=== PATIENT | female | born 1960 | race African-American/Black ===

== ENCOUNTER → 2020-08-26 11:26 | Outpatient (CLI) | payer MEDICARE, BC, SELFPAY ==
--- NOTE | ~2020-08-26 | XR_ITS ---
XR chest 2V DATE: 08/26/2020 12:49 INDICATION: Hypoxemia TECHNIQUE: PA and lateral views COMPARISON: 09/25/2018 PA and lateral chest FINDINGS: There is cardiomegaly. There is pulmonary vascular congestion and redistribution, mild prom inence of the fissures, consistent with subpleural edema Aortic arch calcification, mild aortic unfolding.. No pulmonary infiltrate or consolidation or pleural effusion or pneumothorax. There is a vascular stent overlying the left subclavian artery. Diffuse osteopenia. IMPRESSION: Cardiomegaly, pulmonary vascular congestion and redistribution and pulmonary subpleural e elaina, consistent with mild congestive heart failure Reviewed, dictated and finalized at location A. IMPRESSION: Cardiomegaly, pulmonary vascular congestion and redistribution and pulmonary subpleural edema, consistent with mild congestive heart failure
== END ==
PROVIDERS: PCP Family Medicine; Visit Provider Internal Medicine Nephrology
DX: N18.6 End stage renal disease (principal); R06.02 Shortness of breath; R09.02 Hypoxemia; I51.7 Cardiomegaly; R09.89 Other specified symptoms and signs involving the circulatory and respiratory systems
CPT/HCPCS: 71046

== ENCOUNTER → 2020-08-30 15:57 | Outpatient (CLI) | payer MEDICARE, BC, SELFPAY ==
--- NOTE | ~2020-08-30 | US_ITS ---
EXAMINATION: US thyroid EXAM DATE: 08/30/2020 16:23 INDICATION: E11.9 - Type 2 diabetes mellitus without complications. TECHNIQUE: Multiple grayscale and Doppler images of the thyroid were obtained (by a technologist who performed the scan) and subsequently reviewed. Individual nodules and recommendations may be reporte d in accordance with TI-RADS system as designated by the 2017 ACR White Paper TI-RADS committee. Comp jessica is made to prior examination from 04/12/2011. FINDINGS: The right thyroid lobe measures 6.9 x 3.8 x 2.9 cm, the left measuring 6.0 x 2.5 x 2.4 cm. There are multiple thyroid nodules again identified with varying imaging characteristics. There was a previously biopsied nodule in the lower pole of the right thyroid lobe, likely the nodule with some peripheral calcification on this exam. Multiple nodules appear to have increased in size c ompared to that study. The largest dominant nodule is in the right thyroid lobe superficially measuring 2.7 x 1.7 x 2.8 cm, isoechoic category TR 3, may be the nodule which on previous exam measured about 1 cm in maximal dime nsion. This is not the nodule which was biopsied. IMPRESSION: 1. Multinodular goiter with increase in size of thyroid and multiple nodules compared to 2012. 2. Dominant nodule in right thyroid lobe superficially could be considered for biopsy (this is diffe rent from previously biopsied right thyroid lobe nodule. Reviewed, dictated and finalized at location A. IMPRESSION: 1. Multinodular goiter with increase in size of thyroid and multiple nodules c ompared to 2012. 2. Dominant nodule in right thyroid lobe superficially could be considered for biopsy (this is different from previously biopsied right thyroid lobe nodule.
== END ==
PROVIDERS: PCP Family Medicine; Visit Provider Internal Medicine Endocrinology, Diabetes & Metabolism
DX: E11.9 Type 2 diabetes mellitus without complications (principal); E04.2 Nontoxic multinodular goiter
CPT/HCPCS: 76536

== ENCOUNTER 2020-10-01 13:11 | Outpatient (CLI) | payer MEDICARE, BC, SELFPAY ==
--- NOTE | ~2020-10-01 | US_ITS ---
EXAMINATION: US FNA w image guidance DATE: 10/01/2020 14:31 INDICATION: Nontoxic multinodular goiter with enlarging 2.7 cm TI RADS 3 right thyroid nodule. TECHNIQUE: A time-out was performed to verify the patient's name, date of , and procedure to be performed . The procedure and its benefits and risks were discussed with the patient. Risks specifically discus sed included bleeding and infection. The patient understood the risks and agreed to proceed. The neck was prepped and draped in the usual sterile manner. 6 mL 1% lidocaine was used for local anesthesia . 6 passes were made with a 25G needle into the lesion. Appropriate needle location was documented with continuous sonographic guidance. The specimens were passed to the distribution engineering technologist in the room. A sterile bandage was applied. There were no immediate complications. FINDINGS: Grayscale ultrasound images demonstrate biopsy needles advanced into a 2.9 x 2.5 x 1.8 cm predominant solid isoechoic wider than tall TI RADS 3 right thyroid nodule with smooth margins and without echog enic foci. IMPRESSION: 1. Successful ultrasound-guided fine needle aspiration of a 2.9 cm TI RADS3 right thyroid nodule. Reviewed, dictated and finalized at location A. IMPRESSION: 1. Successful ultrasound-guided fine needle aspiration of a 2.9 cm TI RADS3 ri ght thyroid nodule.
== END 2020-10-01 13:12 | disposition home or self-care (01) ==
LOC: ANHIMG 13:16
PROVIDERS: PCP Family Medicine; Visit Provider Internal Medicine Endocrinology, Diabetes & Metabolism
DX: E04.2 Nontoxic multinodular goiter (principal)
CPT/HCPCS: 10005; 88173; 88305

== ENCOUNTER 2020-10-25 02:11 | Day surgery (SDC) | payer MEDICARE, BC, SELFPAY ==
[2020-10-15 14:56] VITALS: BMI 28.2
[2020-10-25 11:36] VITALS: BP 186/67; PULSE 68; RESP 20; TEMP 36.4; O2SAT 96; BMI 31.8
[2020-10-25] MEDS: SODIUM CHLORIDE 0.9% IV 500 ML 10 ML IV CONT (11:48)
--- NOTE | 2020-10-25 11:48 | WPDANESEPPF ---
Anes - Initial Pre Proc Eval Procedure: Operation Date: 10/25/20 12:45 Proposed Procedures p Screening Colonoscopy - Gerard Shrestha MD Date/Time: 10/25/20 11:48 Surgeon: Gerard Shrestha MD Pre Op Diagnosis: hx of colon polyps Z86.010 Patient Data Age: 60 Gender: F Height: 1.47 m Weight: 69.2 kg Last Vital Signs Temp 36.4 C L 10/25/20 11:36 Pulse 68 10/25/20 11:36 Resp 20 10/25/20 11:36 BP 186/67 H 10/25/20 11:36 Pulse Ox 96 10/25/20 11:36 Allergies Allergy/AdvReac Type Severity Reaction Status Date / Time adhesive tape Allergy Unknown PAPER TAPE Verified 10/25/20 11:34 Home Medications Medication Instructions Recorded Confirmed Type travoprost 0.004 % eye drops 1 drop EACH EYE QPM #2.5 ml 12/18/18 10/15/20 Rx blood sugar diagnostic #200 each 04/29/19 10/15/20 Rx brimonidine 0.2 %-timolol 0.5 % 1 drop EACH EYE Q12H #15 ml 04/29/19 10/15/20 Rx eye drops nifedipine 90 mg tablet,extended 90 mg PO DAILY #90 tablet 04/19/20 10/15/20 Rx release 24 hr pantoprazole 40 mg tablet,delayed 40 mg PO QAM #90 tablet 04/19/20 10/15/20 Rx release pen needle, diabetic 32 gauge x #50 each 08/13/20 10/15/20 Rx 3/16 insulin degludec [Tresiba 14 unit SUB-Q DAILY 10/15/20 10/15/20 History FlexTouch U-100] carvedilol 25 mg tablet 25 mg PO BID #180 tablet 10/21/20 Rx furosemide 80 mg tablet 80 mg PO BID #180 tablet 10/21/20 Rx Patient hx anesthesia problems: none Family hx anesthesia problems: none PMFSH Past Medical History Medical History (Updated 08/19/20 @ 15:15 by Coral Holland) Accelerated hypertension AV fistula CKD (chronic kidney disease) ESRD (end stage renal disease) on dialysis Essential (primary) hypertension GERD (gastroesophageal reflux disease) History of colon polyps IDDM (insulin dependent diabetes mellitus) Multinodular goiter Nephropathy Retinopathy Type 2 diabetes mellitus Upper back pain Uterine sarcoma 2000 Vitamin D deficiency Surgical History Surgical History History of (~1981) History of hysterectomy 2000 Family History Family History (Updated 08/19/20 @ 15:16 by Coral Holland) Sibling Diabetes mellitus Father Diabetes mellitus Other Breast cancer Mother Diabetes mellitus Sibling Diabetes mellitus Father Diabetes mellitus Mother Diabetes mellitus Sibling Diabetes mellitus Other Alcoholism Asthma Family history of malignant neoplasm of breast in first degree relative Hypertension Thyroid disease Social History Social History Smoking status: Never smoker Second hand tobacco smoke exposure: No Alcohol intake: never Substance use: never Substance use type: does not use Living arrangements: alone Gender identity (if verbalized by the patient): Female Spiritual care concerns: No Anes - Eval Final PreProcedure Day of Procedure 10/25/20 11:48 Patient weight: obese Heart: regular rate and rhythm Lungs: clear to auscultation and normal air movement Airway: Mallampati scale class II Neurological: alert and oriented Last oral intake: >/= 8 hours ASA classification: IV Emergent: no Anesthetic plan: proceed Anesthesia type and monitoring: general GIVS Informed Consent: The patient's anesthetic plan and its attendant risks and benefits were discussed with the patient/family/POA. Questions were solicited and answers provided to the satisfaction of the patient/family/POA.
--- NOTE | 2020-10-25 12:34 | PM.HPGS ---
History of Present Illness History of Present Illness Consent: Risks, benefits, and alternatives have been discussed and questions answered. Patient agrees to proceed with procedure. Chief complaint: hx of colon polyps Z86.010 Narrative: Shoshana Long is a 60 year old female here for screening colonoscopy, last one over 5 years ago. Review of Systems Constitutional: Constitutional: Denies headache(s) and Denies weakness Eyes: Eyes: Denies blurry vision ENT: Reports Normal hearing present, Denies headache(s) and Denies neck pain Cardiovascular: Cardiovascular: Denies chest pain and Denies dyspnea Respiratory: Respiratory: Denies dyspnea Gastrointestinal: Gastrointestinal: Reports no additional gastrointestinal complaints Genitourinary: Genitourinary: Denies dysuria Musculoskeletal: Musculoskeletal: Denies neck pain Integumentary/Breasts: Skin/Breast: Denies dry skin Neurologic: Reports Normal hearing present, Denies headache(s) and Denies weakness Psychiatric: Psychiatric: Denies anxiety Endocrine: Endocrine: Denies change in body appearance Hematologic/Lymphatic: Hematologic/Lymphatic: Denies easy bleeding Allergic/Immunologic: Allergic/Immunologic: Denies urticaria PMFSH Past Medical History Medical History (Updated 10/25/20 @ 12:35 by Gerard Shrestha MD) Accelerated hypertension AV fistula CKD (chronic kidney disease) Colon cancer screening ESRD (end stage renal disease) on dialysis Essential (primary) hypertension GERD (gastroesophageal reflux disease) History of colon polyps IDDM (insulin dependent diabetes mellitus) Multinodular goiter Nephropathy Retinopathy Type 2 diabetes mellitus Upper back pain Uterine sarcoma 2000 Vitamin D deficiency Surgical History Surgical History History of (~1981) History of hysterectomy 2000 Family History Family History (Updated 08/19/20 @ 15:16 by Coral Holland) Sibling Diabetes mellitus Father Diabetes mellitus Other Breast cancer Mother Diabetes mellitus Sibling Diabetes mellitus Father Diabetes mellitus Mother Diabetes mellitus Sibling Diabetes mellitus Other Alcoholism Asthma Family history of malignant neoplasm of breast in first degree relative Hypertension Thyroid disease Social History Social History Smoking status: Never smoker Second hand tobacco smoke exposure: No Alcohol intake: never Substance use: never Substance use type: does not use Living arrangements: alone Gender identity (if verbalized by the patient): Female Spiritual care concerns: No Meds Home Medications and Allergies Home Medications Medication Instructions Recorded Confirmed Type travoprost 0.004 % eye drops 1 drop EACH EYE QPM #2.5 ml 12/18/18 10/15/20 Rx blood sugar diagnostic #200 each 04/29/19 10/15/20 Rx brimonidine 0.2 %-timolol 0.5 % 1 drop EACH EYE Q12H #15 ml 04/29/19 10/15/20 Rx eye drops nifedipine 90 mg tablet,extended 90 mg PO DAILY #90 tablet 04/19/20 10/15/20 Rx release 24 hr pantoprazole 40 mg tablet,delayed 40 mg PO QAM #90 tablet 04/19/20 10/15/20 Rx release pen needle, diabetic 32 gauge x #50 each 08/13/20 10/15/20 Rx 04/27 insulin degludec [Tresiba 14 unit SUB-Q DAILY 10/15/20 10/15/20 History FlexTouch U-100] carvedilol 25 mg tablet 25 mg PO BID #180 tablet 10/21/20 Rx furosemide 80 mg tablet 80 mg PO BID #180 tablet 10/21/20 Rx Allergies Allergy/AdvReac Type Severity Reaction Status Date / Time adhesive tape Allergy Unknown PAPER TAPE Verified 10/25/20 11:34 Vital Signs Vital Signs - 24 hr 10/25/20 11:36 Temperature 97.5 F L Pulse Rate 68 Respiratory Rate 20 Blood Pressure 186/67 H Pulse Oximetry 96 Exam Const: General: comfortable and no acute distress HENMT: General nose exam: Normal nares present Eyes:
[2020-10-25 13:21] VITALS: BP 143/61; PULSE 59; RESP 20; O2SAT 98
[2020-10-25 13:31] VITALS: BP 143/60; PULSE 65; RESP 21; O2SAT 97
[2020-10-25 13:33] LABS: Glucose Point of Care 89 mg/dl (65-105)
[2020-10-25 13:41] VITALS: BP 172/79; PULSE 63; RESP 17; O2SAT 99
== END 2020-10-25 13:58 | disposition home or self-care (01) ==
PROVIDERS: PCP Family Medicine; Visit Provider Internal Medicine Gastroenterology
PROC: 0DJD8ZZ Inspection of Lower Intestinal Tract, Via Natural or Artificial Opening Endoscopic (ICD-10-PCS; CPT 45378; principal; 2020-10-25 12:45)
DX: Z12.11 Encounter for screening for malignant neoplasm of colon (principal); K63.5 Polyp of colon; K57.30 Diverticulosis of large intestine without perforation or abscess without bleeding; K64.8 Other hemorrhoids; E11.22 Type 2 diabetes mellitus with diabetic chronic kidney disease; I12.0 Hypertensive chronic kidney disease with stage 5 chronic kidney disease or end stage renal disease; N18.6 End stage renal disease; E11.319 Type 2 diabetes mellitus with unspecified diabetic retinopathy without macular edema; Z85.42 Personal history of malignant neoplasm of other parts of uterus; Z79.4 Long term (current) use of insulin; E66.9 Obesity, unspecified; Z68.31 Body mass index [BMI] 31.0-31.9, adult
CPT/HCPCS: 45385; 45381; 82948; 88305; J2001; J2704; J7040

== ENCOUNTER 2021-04-11 23:17 | Inpatient (IN) | payer MEDICARE, SELFPAY ==
--- NOTE | ~2021-04-11 | XR_ITS ---
XR chest 1V portable 04/12/2021 00:14 Indication: Dyspnea. Procedure: AP portable chest Comparison: 08/26/2020 Findings: Interval development of diffuse bilateral airspace disease. Cardiomegaly. Small left pleura l effusion. No pneumothorax. No acute osseous abnormality. Impression: 1: Diffuse bilateral airspace disease which may represent edema or pneumonia. 2: Cardiomegaly. Reviewed, dictated and finalized at location A. EDICAL REPAIR TECHNICIAN Impression: 1: Diffuse bilateral airspace disease which may represent edema or pneumonia. 2: Cardiomegaly.
[2021-04-11 23:14] VITALS: BP 178/77; PULSE 84; RESP 22; O2SAT 94
[2021-04-11 23:24] VITALS: O2SAT 94
--- NOTE | 2021-04-11 23:27 | ECG_ITS ---
Measurements Intervals [place] Rate: 81 P: 67 DE: 148 QRS: 8 QRSD: 102 T: -78 QT: 406 QTc: 474 Interpretive Statements SINUS RHYTHM ST DEVIATION AND T-WAVE ABNORMALITY, CONSIDER ISCHEMIA COMPARED TO ECG 09/23/2018 21:13:44 NO SIGNIFICANT CHANGES Electronically Signed On 04-12-2021 12:22:34 DIRECTOR FOOD SAFETY by Negro Presley M.D.
[2021-04-11 23:37] LABS: Basophils Absolute Auto 0.1 K/mm3 (0.0-0.1); Basophils Percent Auto 0.5 % (0.2-1.2); Eosinophils Absolute Auto 0.3 K/mm3 (0-0.3); Eosinophils Percent Auto 2.7 % (0-4.4); Hematocrit 32.6 % (37.0-47.0); Hemoglobin 10.7 g/dL (12.0-15.0); Immature Granulocyte Absolute 0.09 K/mm3 (0.00-0.031); Immature Granulocyte Percent A 0.7 % (0-0.5); Lymphocytes Absolute Auto 0.95 K/mm3 (0.9-3.2); Lymphocytes Percent Auto 7.9 % (18.3-44.2); Mean Corpuscular HGB Conc 32.8 g/dl (32-36); Mean Corpuscular Hemoglobin 30.2 pg (26-34); Mean Corpuscular Volume 92.1 fl (80-100); Mean Platelet Volume 9.8 fl (7.4-10.4); Monocytes Absolute Auto 0.7 K/mm3 (0.1-0.6); Monocytes Percent Auto 6.1 % (2.6-8.5); Neutrophils Absolute Auto 9.9 K/mm3 (1.3-6.7); Neutrophils Percent Auto 82.1 % (45.5-73.1); Platelet Count Result 287 k/mm3 (150-375); Red Blood Count 3.54 M/mm3 (4.2-5.4); Red Cell Distribution Width 13.7 % (11.5-14.5); White Blood Count 12.1 K/mm3 (4.5-10.0)
--- NOTE | 2021-04-11 23:44 | ED.SOB ---
HPI - SOB/Dyspnea General Chief Complaint: Shortness of Breath/Dyspnea Stated Complaint: SOB Source: patient, EMS, RN notes reviewed and old records reviewed Mode of arrival: EMS Limitations: no limitations History of Present Illness HPI Narrative: This is a 61 year old female with history of hypertension and ESRD on dialysis who presents for evaluation of shortness of breath. She developed shortness of breathing yesterday. She was walking to her car at an event and she became short of breath. She had to stop and catch her breath. She states this is abnormal for her. Her shortness of breath has continued and it worsened tonight. EMS found patient to have an oxygen saturation of 80% on room air, so she was placed on 4 L NC. She denies associated chest pain, fever, wheezing, nausea, or vomiting. She may have runny nose but no cough. She had similar episode on her initial diagnosed of kidney disease. She denies increased swelling. Dialysis is performed Sunday, and Sunday. She has not missed her treatments and she is due tomorrow for dialysis. Her distribution manager is Dr. Cox. Related Data Home Medications Medication Instructions Recorded Confirmed insulin degludec [Tresiba 10 unit SUB-Q HS 10/15/20 04/12/21 FlexTouch U-100] Allergies Allergy/AdvReac Type Severity Reaction Status Date / Time adhesive tape Allergy Unknown PAPER TAPE Verified 04/11/21 23:25 Review of Systems Review of Systems: All systems reviewed & are unremarkable except as noted in HPI and below PMFSH Past Medical History Medical History (Updated 04/12/21 @ 07:25 by Niya Alston MD) Accelerated hypertension Colon cancer screening ESRD (end stage renal disease) on dialysis Sunday managed by Dr. Cox Essential (primary) hypertension GERD (gastroesophageal reflux disease) Glaucoma IDDM (insulin dependent diabetes mellitus) Multinodular goiter Nephropathy Retinopathy Type 2 diabetes mellitus Upper back pain Uterine sarcoma 2000 Vitamin D deficiency Surgical History Surgical History (Updated 04/12/21 @ 07:23 by Serena Rodríguez DO) AV fistula History of (~1981) History of colonoscopy with polypectomy History of hysterectomy 2000 Status post cataract extraction of both eyes with insertion of intraocular lens Family History Family History Sibling Diabetes mellitus Father Diabetes mellitus Other Breast cancer Mother Diabetes mellitus Sibling Diabetes mellitus Father Diabetes mellitus Mother Diabetes mellitus Sibling Diabetes mellitus Other Alcoholism Asthma Family history of malignant neoplasm of breast in first degree relative Hypertension Thyroid disease Social History Social History Smoking status: Never smoker Second hand tobacco smoke exposure: No Alcohol intake: never Substance use: never Substance use type: does not use Gender identity (if verbalized by the patient): Female Spiritual care concerns: No Exam Const: General: alert and ill appearing Orientation/consciousness: patient oriented x3 Other: mild respiratory Eyes: EOM: EOMs intact bilaterally Resp: Effort & Inspection: tachypneic Auscultation: rales bilateral Cardio: Rate: regular rate Rhythm: regular rhythm Heart sounds: no murmurs GI: GI Palp: Yes Soft to palpation, No Tenderness to palpation present (GI) and No Guarding due to palpation present (GI) Auscultation: normal bowel sounds Skin: General skin exam: normal color Rashes: no rashes Neuro: General: patient oriented x3, moves all extremities and CN's II-XI intact bilaterally Extrem: General: normal to inspection Psych: Mental Status: mental status grossly normal Affect: normal affect Course Reevaluation(s) Reevaluation #1: Patient presented with worsening shortness. Likely d
[2021-04-11 23:47] LABS: Alanine Aminotransferase 19 U/L (4-35); Albumin Level 4.5 g/dL (3.5-5.1); Alkaline Phosphatase 123 U/L (38-126); Anion Gap 11 mmol/L (8-16); Aspartate Amino Transferase 25 U/L (14-36); Bilirubin,Total 0.6 mg/dL (0.2-1.3); Blood Urea Nitrogen 69 mg/dL (7-17); Calcium 9.6 mg/dL (8.4-10.2); Carbon Dioxide 24 mmol/L (22-30); Chloride 103 mmol/L (98-107); Estimated Glomerular Filt Rate 5; Glucose 267 mg/dL (65-110); Potassium 5.2 mmol/L (3.4-5.0); Sodium 138 mmol/L (137-145)
[2021-04-11 23:50] LABS: Alveolar/Arterial O2 Gradient 145.8 mmHg; Base Excess ABG -4.6 mEq/l (+/-2.0); Carboxyhemoglobin 0.2 % THb (0-2.0); Device NASAL CANNULA; Fractional Inspired Oxygen 36 %; HCO3 ABG 18.5 mEq/l (22.0-26.0); Methemoglobin ABG 0.1 %THb (0-1.5); Modified Allen's Test Pass; Oxygen Content ABG 13.9 %vol (16.0-22.0); Oxygen Saturation ABG 96.3 % (95.0-100.0); Oxyhemoglobin 93.3 % THb (90.0-100.0); PCO2 ABG 27.6 mmHg (35.0-45.0); PO2 ABG 78.9 mmHg (80.0-100.0); PO2 FiO2 Ratio Arterial Blood 2.19 %; Reduced Hemoglobin 6.4 %THb (0-5.0); Site Drawn RIGHT RADIAL; Total Hemoglobin 10.5 g/dL (12.0-18.0); pH ABG 7.443 (7.350-7.450)
[2021-04-11 23:52] LABS: Prothrombin Time 12.9 Seconds (11.1-14.7)
[2021-04-11 23:53] LABS: Partial Thromboplastin Time 33.5 SECONDS (22.3-36.8)
[2021-04-11 23:58] LABS: NT Pro B Type Natriuretic Pept 23200 pg/mL (5-100); Troponin I 0.015 ng/mL (0.000-0.034)
[2021-04-12] VITALS (32 sets, daily range): BP systolic 122–181; BP diastolic 48–87; PULSE 75–96; RESP 17–28; TEMP 36.1–37.1; O2SAT 92–98; BMI 31.2
--- NOTE | 2021-04-12 | ECHO_ITS ---
Patient Info Name: Shoshana Long Age: 61 years : 1960 Gender: Female Ht: 58 in Wt: 149 lbs BSA: 1.69 m2 HR: 93 bpm BP: 152 / 51 mmHg Technical Quality: Good Exam Date: 04/12/2021 9:18 AM Exam Location: [facility] Patient Status: Outpatient Admit Date: 04/12/2021 Staff Ordering Physician: Serena Rodríguez DO Living Manager: Kana Castillo RDCS, RT Attending Provider: Serena Rodríguez DO Referring Physician: Anne CASTELLANO; Exam Type: CA echo doppler color flow Study Info Indications I50.9 - Heart failure, unspecified Complete two-dimensional, color flow and Doppler transthoracic echocardiogram is performed. Strain analysis performed. Summary 1. Complete two-dimensional, color flow and Doppler transthoracic echocardiogram is performed. 2. Left ventricular chamber dimension is normal. 3. Left ventricular systolic function is normal, estimated at 65-70%. 4. The left ventricular diastolic function is abnormal. 5. E/e' 25 is significantly elevated. 6. Global longitudinal strain is abnormal at -15.8%. 7. Left atrial chamber dimension is mildly enlarged. 8. The mitral valve has moderately calcified annulus. 9. There is mild mitral valve regurgitation. Left Ventricle E/e' 25 is significantly elevated. Global longitudinal strain is abnormal at -15.8%. Left ventricular chamber dimension is normal. Left ventricular systolic function is normal, estimated at 65-70%. The left ventricular diastolic function is abnormal. Right Ventricle Right ventricular systolic function is normal and with normal TAPSE 2.2 cm. Right ventricular chamber dimension is normal. Left Atria Left atrial chamber dimension is mildly enlarged. Right Atria Right atrial chamber dimension is normal. Aortic Valve The aortic valve is trileaflet. There is no aortic valve stenosis. There is no aortic valve regurgitation. Pulmonic Valve There is no pulmonic regurgitation. Mitral Valve The mitral valve has moderately calcified annulus. There is no mitral valve stenosis. There is mild mitral valve regurgitation. Tricuspid Valve There is no tricuspid valve regurgitation. Pericardium/Pleural There is no pericardial effusion. Inferior Vena Cava Normal inferior vena cava with >50% collapse upon inspiration consistent with normal right atrial pressure, 5 mmHg. Aorta The aortic root size at the sinus of Valsalva is normal. Left Ventricular Outflow Tract Name Value Normal LVOT 2D LVOT Diameter 1.9 cm LVOT Doppler LVOT Peak Gradient 7 mmHg LVOT Mean Gradient 4 mmHg LVOT VTI 26 cm LVOT VTI/AV VTI Ratio 0.7 LVOT Stroke Volume 77 ml LVOT CO 7.3 l/min LVOT CI 4.3 l/min/m2 Mitral Valve Name Value Normal MV Do
[2021-04-12] MEDS: NITROGLYCERIN OINTMENT 1 INCH DOSE TRANSDERM ×5 (00:26→23:50)
[2021-04-12] MEDS: FUROSEMIDE INJ 40 MG/4 ML VIAL IV PUSH ×3 (00:29→20:23)
[2021-04-12] MEDS: hydrALAZINE HCL 20 MG/ML VIAL IV PUSH (01:25)
[2021-04-12 02:32] LABS: SARS-CoV-2 RNA PCR Negative
[2021-04-12 02:50] LABS: Glucose Point of Care 175 mg/dl (65-105)
--- NOTE | 2021-04-12 05:06 | ADMGEN ---
This patient, Shoshana Long, was admitted to Medical Room 240-. Patient/family oriented to hospital policies and general routines including ID bracelet, bed and alarms, visiting hours, pain management, procedures, bathroom and other care routines, personal items, smoking policy, room service/diet, and visiting hours. Information on how to activate the Rapid Response Team has been discussed. Patient/Family are encouraged to report perceived risks to care and to ask questions if they do not understand what they are told or what they should do.
--- NOTE | 2021-04-12 06:21 | PM.IMHP ---
H&P: HPI History of Present Illness Date/Time: 04/12/21 06:21 Chief Complaint: shortness of breath Narrative: 61-year-old female with past medical history of hypertension, insulin-dependent diabetes mellitus, and end-stage renal disease on hemodialysis who presented to the ER with 24 hours of shortness of breath. The patient is on hemodialysis Sunday and is managed by Dr. Cox. she has not missed any of her hemodialysis appointments. She started developing shortness of breath on the . Her shortness of breath is worse with activity. Denied the shortness of breath worsened to where she was having shortness of breath with rest. EMS found the patient to be satting 80% on room air. The patient reports that on Sunday she had to go to an event and had to walk a bit. She reported that she was short of breath at that time and never quite got back down to her normal. She states that dialysis has had to adjust her dry weight downward the last several dialysis sessions. When she arrived at dialysis she is already below her dry weight. She has noticed over the last several weeks that she is having increased shortness of breath despite dialysis. She denies any chest pain or palpitations. She is having some orthopnea. She reports that she has been having use oxygen during dialysis recently. She stated that she had cardiac evaluation prior to be placed on the transplant list a couple of months ago. She is on the transplant list through [facility]. She has been compliant with her diet. She denies any extremity edema or abdominal swelling. Review of Systems Review of Systems: 12 systems were reviewed with pertinent positives and negatives per HPI. Except as documented in the HPI, all other systems were reviewed and are negative. [facility] Past Medical History Medical History (Updated 04/12/21 @ 07:25 by Niya Alston MD) Accelerated hypertension Colon cancer screening ESRD (end stage renal disease) on dialysis Sunday managed by Dr. Cox Essential (primary) hypertension GERD (gastroesophageal reflux disease) Glaucoma IDDM (insulin dependent diabetes mellitus) Multinodular goiter Nephropathy Retinopathy Type 2 diabetes mellitus Upper back pain Uterine sarcoma 2000 Vitamin D deficiency Surgical History Surgical History (Updated 04/12/21 @ 07:23 by Serena Rodríugez DO) AV fistula History of (~1981) History of colonoscopy with polypectomy History of hysterectomy 2000 Status post cataract extraction of both eyes with insertion of intraocular lens Family History Family History Sibling Diabetes mellitus Father Diabetes mellitus Other Breast cancer Mother Diabetes mellitus Sibling Diabetes mellitus Father Diabetes mellitus Mother Diabetes mellitus Sibling Diabetes mellitus Other Alcoholism Asthma Family history of malignant neoplasm of breast in first degree relative Hypertension Thyroid disease Social History Social History (Updated 04/12/21 @ 07:27 by Serena Rodríguez DO) Social History: Code status: Full code Smoking status: Never smoker Second hand tobacco smoke exposure: No Alcohol intake: never Substance use: never Substance use type: does not use Gender identity (if verbalized by the patient): Female Spiritual care concerns: No Meds Home Medications and Allergies Home Medications Medication Instructions Recorded Confirmed Type travoprost 0.004 % eye drops 1 drop EACH EYE QPM #2.5 ml 12/18/18 04/12/21 Rx blood sugar diagnostic #200 each 04/29/19 04/12/21 Rx brimonidine 0.2 %-timolol 0.5 % 1 drop EACH EYE Q12H #15 ml 04/29/19 04/12/21 Rx eye drops nifedipine 90 mg tablet,extended 90 mg PO DAILY #90 tablet 04/19/20 04/12/21 Rx release 24 hr pantoprazole 40 mg tablet,delayed 40 mg PO QAM #90 tablet 04/19/20 04/12/21 Rx release pen michelle, d
[2021-04-12 07:29] LABS: Glucose Point of Care 156 mg/dl (65-105)
[2021-04-12] MEDS: carvediloL 25 MG TABLET PO ×2 (08:06→20:23)
[2021-04-12] MEDS: PANTOPRAZOLE 40 MG TABLET PO (08:06)
[2021-04-12] MEDS: NIFEdipine 30 MG TAB.ER.24 90 MG PO (08:06)
[2021-04-12] MEDS: HEPARIN SODIUM 5,000 UNITS/ML VIAL 5000 UNITS SUB-Q ×2 (08:31→20:23)
--- NOTE | 2021-04-12 10:16 | PM.PNNEP ---
Subjective Date/time seen: 04/12/21 10:16 Interval history: Shoshana is a very pleasant 61-year-old lady who has multiple medical problems including end-stage renal disease on hemodialysis for almost 3 years, hypertension, diabetes, GERD, hypothyroidism, uterine sarcoma, anemia of chronic kidney disease, renal osteodystrophy, and vitamin-D deficiency. the patient has come into the hospital with shortness of breath. See says that she has been doing pretty well lately. She has not had any chest pain or shortness of breath at all. She says that on Sunday she had her dialysis and it went well. Sunday evening and Sunday she started getting short of breath and then last night she became even more short of breath so came to the emergency room. She was evaluated in the emergency room and exam showed fluid overload. Chest x-ray also showed fluid overload. She was placed on oxygen and her O2 sats improved and she felt better. She was admitted to the hospital in is going to get dialysis today. She is applying for kidney transplant. She has been trying to lose weight in order for her to get the transplant. Her inter dialytic weight gain is generally are fairly low. They range from 0.5-1.5 at the most. the patient mentions that they would never have to take more than 2L off. In the past if they tried to take 2L off she would cramp. Her post weights have been below her dry weight of 68. In fact she left at 66.8 on Sunday. On Sunday her blood pressure was high. Review of Systems Cardiovascular: Cardiovascular: Reports no additional cardiovascular complaints Respiratory: Respiratory: Reports no additional respiratory complaints Gastrointestinal: Gastrointestinal: Reports no additional gastrointestinal complaints Genitourinary: Genitourinary: Reports no additional female genitourinary complaints Exam Narrative: WDWN in NAD skin no rash head ncat lungs clear cor reg no rub abd BS+ nontender and soft ext no edema. Objective Data Vital Signs Vital Signs: Vital Signs - 24 hr 04/11/21 23:14 04/11/21 23:24 04/12/21 01:17 Temperature Pulse Rate 84 82 Respiratory Rate 22 H 24 H Blood Pressure 178/77 H 181/87 H Pulse Oximetry 94 94 98 04/12/21 01:43 04/12/21 02:23 04/12/21 02:51 Temperature Pulse Rate 84 Respiratory Rate 26 H Blood Pressure 177/73 H 131/56 L 148/62 H Pulse Oximetry 97 04/12/21 03:45 04/12/21 04:48 04/12/21 05:13 Temperature Pulse Rate 86 89 Respiratory Rate 28 H 25 H Blood Pressure 133/51 L 141/63 H Pulse Oximetry 97 98 97 04/12/21 05:19 04/12/21 05:26 04/12/21 08:00 Temperature 36.1 C L Pulse Rate 91 91 96 Respiratory Rate 20 Blood Pressure 152/51 H Pulse Oximetry 96 04/12/21 09:55 Temperature Pulse Rate Respiratory Rate Blood Pressure Pulse Oximetry 92 Intake/Output Intake/Output: Intake & Output 04/09/21 04/10/21 04/11/21 04/12/21 23:59 23:59 23:59 23:59 Intake Total 120 Output Total 100 Balance 20 Meds/Results Medications: Active Medications Generic Name Dose Route Start Last Admin Trade Name Freq PRN Reason Stop Dose Admin Carvedilol 25 mg 04/12/21 09:00 04/12/21 08:06 Carvedilol 25 Mg Tablet PO 25 mg Q12HR EILEEN Administration Dextrose 12.5 gm 04/12/21 06:31 Dextrose 50% 25 Gm/50 Ml Syringe IV PUSH PRN PRN Hypoglycemia Protocol Furosemide 40 mg 04/12/21 09:00 04/12/21 08:07 Furosemide Inj 40 Mg/4 Ml Vial IV PUSH 40 mg Q12HR EILEEN Administration Glucagon 1 mg 04/12/21 06:31 Glucagon For Inj 1 Mg Vial IM PRN PRN Hypoglycemia Protocol Glucose 15 gm 04/12/21 06:31 Glucose Oral Gel 15 Gm Of Glucse In 37.5 Gm Tube PO PRN PRN Hypoglycemia Protocol Heparin Sodium (Porcine) 5,000 units 04/12/21 09:00 04/12/21 08:31 Heparin Sodium 5,000 Units/Ml Vial SUB-Q 5,000 units Q12HR EILEEN Administration Hydralazine HC
--- NOTE | 2021-04-12 10:18 | PM.IMPN ---
Progress Note: A&P Assessment and Plan (1) Hypertension with fluid overload: Code(s): I10 - Essential (primary) hypertension; E87.79 - Other fluid overload Status: Acute Assessment and Plan: Resume antihypertensives (2) IDDM (insulin dependent diabetes mellitus): Status: Acute Assessment and Plan: Insulin Lispro sliding scale, Accu-checks qAc and HS (3) ESRD (end stage renal disease) on dialysis: Code(s): N18.6 - End stage renal disease; Z99.2 - Dependence on renal dialysis Status: Acute Assessment and Plan: Patient receives dialysis on Tuesdays, and Saturdays. She has not missed an appointment. Nephrology has been consulted, appreciate assistance and recommendations Patient is currently on a renal transplant list (4) Acute respiratory failure with hypoxia: Code(s): J96.01 - Acute respiratory failure with hypoxia Status: Acute Assessment and Plan: Obtain echocardiogram Monitor SpO2 keeping greater than 91% Additional Plan Patient has been admitted as observation status. Subjective Date/time seen: 04/12/21 10:18 Patient is alert oriented this morning. She reports she is still significantly short of breath. She received 40 mg of Lasix in the emergency department and nitropaste applied to her left chest. Patient was noted to have bilateral lower extremity edema. Patient will have dialysis today noon and Nephrology has been consult by the geothermal installer. Patient denies any additional complaints. She denied chest pain, nausea, vomiting, upset stomach or diarrhea. No acute events reported by RN during the night Review of Systems Review of Systems: All systems reviewed & are unremarkable except as noted in HPI and below Exam Narrative: PHYSICAL EXAM: WEIGHT 67.9 kg BMI 31.3 General: Obese, appears stated age HEENT: Mucous membranes are moist, good dentition, pupils are equal and reactive, nodularity of the right lobe of the thyroid Respiratory: Tachypnea, increased work of breathing, diminished bases to auscultation Cardiovascular: Regular rate, regular rhythm Gastrointestinal: Soft, nontender, positive bowel sounds Skin: No jaundice, no pallor Musculoskeletal: Palpable thrill over left upper arm AV fistula, no clubbing, cyanosis or edema Neurological: Alert and oriented, speech is clear, no facial asymmetry, no gross motor deficits noted on limited exam Psychiatric: Appropriate mood and affect, pleasant and cooperative : Deferred Hematologic/lymphatic: No anterior cervical or submandibular lymphadenopathy, no petechiae, no bruising Extremities: Strength 5/5 bilateral upper extremities and lower extremities, dependent 1+ pitting edema bilateral lower extremities Objective Data Vital Signs Vital Signs: Vital Signs - 24 hr 04/11/21 23:14 04/11/21 23:24 04/12/21 01:17 Temperature Pulse Rate 84 82 Respiratory Rate 22 H 24 H Blood Pressure 178/77 H 181/87 H Pulse Oximetry 94 94 98 04/12/21 01:43 04/12/21 02:23 04/12/21 02:51 Temperature Pulse Rate 84 Respiratory Rate 26 H Blood Pressure 177/73 H 131/56 L 148/62 H Pulse Oximetry 97 04/12/21 03:45 04/12/21 04:48 04/12/21 05:13 Temperature Pulse Rate 86 89 Respiratory Rate 28 H 25 H Blood Pressure 133/51 L 141/63 H Pulse Oximetry 97 98 97 04/12/21 05:19 04/12/21 05:26 04/12/21 08:00 Temperature 97.0 F L Pulse Rate 91 91 96 Respiratory Rate 20 Blood Pressure 152/51 H Pulse Oximetry 96 04/12/21 09:55 Temperature Pulse Rate Respiratory Rate Blood Pressure Pulse Oximetry 92 Intake/Output Intake/Output: Intake & Output 04/09/21 04/10/21 04/11/21 04/12/21 23:59 23:59 23:59 23:59 Intake Total 120 Output Total 100 Balance 20 Meds/Results Medications: Active Medications Generic Name Dose Route Start Last Admin Trade Name Freq PRN Reason Stop Dose Admin Carvedilol 25 mg 04/12/21 09:00
--- NOTE | 2021-04-12 10:29 | PM.CNNEP ---
Assessment and Plan Additional Plan 1. the patient has end-stage renal disease. She gets dialysis 3 times a week and is due today. She is volume overloaded. Will remove 3L or so today. She asked me not to try for 4 because she always cramps. I told her that if we limited to 2L however I do not think she will feel better tomorrow. Consider another dry ultrafiltration tomorrow just to get the rest of the fluid off. I talked with torey Méndez and they will reduce her dry weight to 65. Her potassium is 5.2 so we will use a 2 K bath. 2. The patient has volume overload. She says she has not had that much to drink over the weekend. She has been trying to lose weight. I talked with the dialysis nurses and they say they have been reducing her weight over the last few months as she loses weight. Perhaps she has lost more weight than people think. Her high blood pressure on Sunday would be evidence for that because she did not have much fluid on and her blood pressure tolerated fluid removal quite readily. Another possibility would be a new cardiac issue. Her troponins are negative. He has not had any chest pain. She had an echocardiogram so we will see how her heart function is. 3. The patient has hypertension. Her blood pressure is a bit high. We will continue her outpatient medications and see how fluid removal affects the blood pressure. 4. The patient has anemia of chronic kidney disease. Her hemoglobin is 10.7. Will give EPO. 5. The patient has diabetes. She is on Accu-Cheks and sliding-scale insulin per hospitalists. 6. Renal osteodystrophy. We will check a phosphorus level tomorrow. 7. GERD. She takes pantoprazole. History of Present Illness Reason for Consult Consult date: 04/12/21 Chief Complaint Chief complaint: ESRD on dialysis, fluid overload, acute respirator History of Present Illness Narrative: Shoshana is a very pleasant 61-year-old lady who has multiple medical problems including end-stage renal disease on hemodialysis for almost 3 years, hypertension, diabetes, GERD, uterine sarcoma, anemia of chronic kidney disease, renal osteodystrophy, and vitamin-D deficiency. the patient has come into the hospital with shortness of breath. See says that she has been doing pretty well lately. She has not had any chest pain or shortness of breath at all. She says that on Sunday she had her dialysis and it went well. Sunday evening and Sunday she started getting short of breath and then last night she became even more short of breath so came to the emergency room. She was evaluated in the emergency room and exam showed fluid overload. Chest x-ray also showed fluid overload. She was placed on oxygen and her O2 sats improved and she felt better. She was admitted to the hospital in is going to get dialysis today. She is applying for kidney transplant. She has been trying to lose weight in order for her to get the transplant. Her inter dialytic weight gain is generally are fairly low. They range from 0.5-1.5 at the most. the patient mentions that they would never have to take more than 2L off. In the past if they tried to take 2L off she would cramp. Her post weights have been below her dry weight of 68. In fact she left at 66.8 on Sunday. On Sunday her blood pressure was high. Review of Systems Constitutional: Constitutional: Reports no additional constitutional complaints Eyes: Eyes: Reports no additional eye complaints ENT: Reports system reviewed and no additional complaints, except as documented Cardiovascular: Cardiovascular: Reports no additional cardiovascular complaints Respiratory: Respiratory: Reports no additional respiratory complaints Gastrointestinal: Gastrointestinal: Reports no additional gastrointestinal complaints Genitourinary: Genitourinary: Reports no additional female genitourinary complaints Musculoskeletal: Musculoskeletal: Reports no add
[2021-04-12 11:21] LABS: Glucose Point of Care 186 mg/dl (65-105)
[2021-04-12] MEDS: SODIUM CHLORIDE 0.9% IV 1,000 ML 100 ML IV CONT (14:30)
--- NOTE | 2021-04-12 14:47 | PC.NURSE ---
On 04/12/21 [employer] student[facility] charted in [facility]. I have reviewed their documentation and agree with the findings.
[2021-04-12] MEDS: HEPARIN SODIUM 1,000 UNITS/ML VIAL 500 UNITS IV PUSH ×2 (15:09)
[2021-04-12] MEDS: HEPARIN SODIUM 1,000 UNITS/ML VIAL 1000 UNITS IV PUSH (15:09)
[2021-04-12] MEDS: EPOETIN ALFA-EPBX 10,000 UNITS/ML VIAL 10000 UNITS IV PUSH (16:37)
[2021-04-12 16:43] LABS: Hepatitis B Surface Antigen Negative (Negative)
[2021-04-12 17:13] LABS: Hepatitis B Surface Anti Res Positive
[2021-04-12] MEDS: LATANOPROST 0.005% OP SOLN 2.5 ML BTL 1 DROP EACH EYE (18:44)
[2021-04-12 19:00] LABS: Glucose Point of Care 128 mg/dl (65-105)
[2021-04-12 20:15] LABS: Glucose Point of Care 252 mg/dl (65-105)
[2021-04-12] MEDS: INSULIN GLARGINE (*BKC) 100 UNITS/ML 10 UNITS SUB-Q (20:28)
[2021-04-13] VITALS (16 sets, daily range): BP systolic 123–147; BP diastolic 40–64; PULSE 73–94; RESP 16; TEMP 36.2–36.9; O2SAT 84–97
[2021-04-13] MEDS: NITROGLYCERIN OINTMENT 1 INCH DOSE TRANSDERM (05:27)
[2021-04-13 05:54] LABS: Basophils Absolute Auto 0.1 K/mm3 (0.0-0.1); Basophils Percent Auto 0.6 % (0.2-1.2); Eosinophils Absolute Auto 0.3 K/mm3 (0-0.3); Eosinophils Percent Auto 2.9 % (0-4.4); Hematocrit 30.1 % (37.0-47.0); Hemoglobin 9.7 g/dL (12.0-15.0); Immature Granulocyte Absolute 0.07 K/mm3 (0.00-0.031); Immature Granulocyte Percent A 0.8 % (0-0.5); Lymphocytes Absolute Auto 1.67 K/mm3 (0.9-3.2); Lymphocytes Percent Auto 19.4 % (18.3-44.2); Mean Corpuscular HGB Conc 32.2 g/dl (32-36); Mean Corpuscular Hemoglobin 30.1 pg (26-34); Mean Corpuscular Volume 93.5 fl (80-100); Mean Platelet Volume 10.2 fl (7.4-10.4); Monocytes Percent Auto 11.1 % (2.6-8.5); Neutrophils Absolute Auto 5.6 K/mm3 (1.3-6.7); Neutrophils Percent Auto 65.2 % (45.5-73.1); Platelet Count Result 297 k/mm3 (150-375); Red Blood Count 3.22 M/mm3 (4.2-5.4); Red Cell Distribution Width 13.4 % (11.5-14.5); White Blood Count 8.6 K/mm3 (4.5-10.0)
[2021-04-13 06:07] LABS: Alanine Aminotransferase 15 U/L (4-35); Albumin Level 4.1 g/dL (3.5-5.1); Alkaline Phosphatase 118 U/L (38-126); Anion Gap 11 mmol/L (8-16); Aspartate Amino Transferase 19 U/L (14-36); Bilirubin,Total 0.6 mg/dL (0.2-1.3); Blood Urea Nitrogen 31 mg/dL (7-17); Calcium 9.3 mg/dL (8.4-10.2); Carbon Dioxide 30 mmol/L (22-30); Chloride 99 mmol/L (98-107); Estimated Glomerular Filt Rate 7; Glucose 98 mg/dL (65-110); Phosphorus 6.6 mg/dL (2.5-4.5); Potassium 4.3 mmol/L (3.4-5.0); Sodium 140 mmol/L (137-145)
[2021-04-13 07:56] LABS: Glucose Point of Care 107 mg/dl (65-105)
[2021-04-13] MEDS: NIFEdipine 30 MG TAB.ER.24 90 MG PO (08:15)
[2021-04-13] MEDS: HEPARIN SODIUM 5,000 UNITS/ML VIAL 5000 UNITS SUB-Q (08:15)
[2021-04-13] MEDS: PANTOPRAZOLE 40 MG TABLET PO (08:15)
[2021-04-13] MEDS: carvediloL 25 MG TABLET PO (08:15)
[2021-04-13] MEDS: FUROSEMIDE INJ 40 MG/4 ML VIAL IV PUSH (08:15)
[2021-04-13] MEDS: TIMOLOL MALEATE 0.5% OP SOLN 5 ML BOTTLE 1 DROP EACH EYE (10:03)
[2021-04-13] MEDS: BRIMONIDINE TARTRATE 0.2% OP SOLN 5 ML BTL 1 DROP EACH EYE (10:03)
--- NOTE | 2021-04-13 10:33 | PM.IMPN ---
Progress Note: A&P Assessment and Plan (1) Hypertension with fluid overload: Code(s): I10 - Essential (primary) hypertension; E87.79 - Other fluid overload Status: Acute Assessment and Plan: Resume antihypertensives (2) IDDM (insulin dependent diabetes mellitus): Status: Acute Assessment and Plan: Insulin Lispro sliding scale, Accu-checks qAc and HS (3) ESRD (end stage renal disease) on dialysis: Code(s): N18.6 - End stage renal disease; Z99.2 - Dependence on renal dialysis Status: Acute Assessment and Plan: Patient receives dialysis on Tuesdays, and Saturdays. She has not missed an appointment. Nephrology has been consulted, appreciate assistance and recommendations Patient received dialysis yesterday and had a significant amount of fluid removed as well as A K bath. Patient is currently on a renal transplant list (4) Acute respiratory failure with hypoxia: Code(s): J96.01 - Acute respiratory failure with hypoxia Status: Acute Assessment and Plan: echocardiogram reported LVEF is 65-70% with diastolic dysfunction Monitor SpO2 keeping greater than 91%, patient currently on 2 L of oxygen Respiratory rate WNL Additional Plan Patient has been admitted as observation status. Subjective Date/time seen: 04/13/21 10:33 Patient is alert and oriented this morning. Discussed plan of care. Patient awaiting Nephrology to see her this morning. Patient reports she was able to have 3 L removed in dialysis yesterday. And her breathing is significantly improved. She remains on 2 L of oxygen per nasal cannula but is no longer in acute respiratory distress. Patient was able to eat a breakfast this morning. Blood pressure within normal limits. Will DC nitropaste. Echocardiogram reviewed. No acute events overnight. Review of Systems Review of Systems: All systems reviewed & are unremarkable except as noted in HPI and below Exam Narrative: PHYSICAL EXAM: WEIGHT 67.9 kg BMI 31.3 General: Obese, appears stated age HEENT: Mucous membranes are moist, good dentition, pupils are equal and reactive, nodularity of the right lobe of the thyroid Respiratory: Tachypnea, increased work of breathing, diminished bases to auscultation Cardiovascular: Regular rate, regular rhythm Gastrointestinal: Soft, nontender, positive bowel sounds Skin: No jaundice, no pallor Musculoskeletal: Palpable thrill over left upper arm AV fistula, no clubbing, cyanosis or edema Neurological: Alert and oriented, speech is clear, no facial asymmetry, no gross motor deficits noted on limited exam Psychiatric: Appropriate mood and affect, pleasant and cooperative : Deferred Hematologic/lymphatic: No anterior cervical or submandibular lymphadenopathy, no petechiae, no bruising Extremities: Strength 5/5 bilateral upper extremities and lower extremities, dependent 1+ pitting edema bilateral lower extremities Objective Data Vital Signs Vital Signs: Vital Signs - 24 hr 04/12/21 12:00 04/12/21 12:14 04/12/21 13:41 Temperature 98.7 F Pulse Rate 90 90 92 Respiratory Rate 24 H Blood Pressure 153/66 H 148/60 H Pulse Oximetry 96 95 04/12/21 14:58 04/12/21 15:09 04/12/21 15:30 Temperature 98 F Pulse Rate 92 90 89 Respiratory Rate 18 Blood Pressure 144/72 H 149/72 H 146/72 H Pulse Oximetry 04/12/21 15:45 04/12/21 16:00 04/12/21 16:15 Temperature Pulse Rate 88 89 89 Respiratory Rate Blood Pressure 153/69 H 138/71 129/66 Pulse Oximetry 04/12/21 16:30 04/12/21 16:45 04/12/21 17:00 Temperature Pulse Rate 87 90 93 Respiratory Rate Blood Pressure 128/67 138/60 145/72 H Pulse Oximetry 04/12/21 17:15 04/12/21 17:30 04/12/21 17:45 Temperature Pulse Rate 92 92 94 Respiratory Rate Blood Pressure 122/63 142/70 H 131/74 Pulse Oximetry 04/12/21 18:00 04/12/21 18:11 04/12/21 19:07 Temperature 98.7 F 97.9 F Pulse Rate
[2021-04-13 11:49] LABS: Glucose Point of Care 144 mg/dl (65-105)
--- NOTE | 2021-04-13 14:35 | PM.DS ---
DS: Admitting Diagnosis Discharge Date 04/13/2021 Admitting Diagnosis ESRD on hemodialysis Acute hypoxic respiratory failure Hypertension Diabetes mellitus DS: Discharge Diagnosis Discharge Diagnosis (1) Hypertension with fluid overload: Code(s): I10 - Essential (primary) hypertension; E87.79 - Other fluid overload Status: Acute Assessment and Plan: Resume antihypertensives (2) IDDM (insulin dependent diabetes mellitus): Status: Acute Assessment and Plan: Insulin Lispro sliding scale, Accu-checks qAc and HS (3) ESRD (end stage renal disease) on dialysis: Code(s): N18.6 - End stage renal disease; Z99.2 - Dependence on renal dialysis Status: Acute Assessment and Plan: Patient receives dialysis on Tuesdays, and Saturdays. She has not missed an appointment. Nephrology has been consulted, appreciate assistance and recommendations Patient received dialysis yesterday and had a significant amount of fluid removed as well as A K bath. Patient is currently on a renal transplant list (4) Acute respiratory failure with hypoxia: Code(s): J96.01 - Acute respiratory failure with hypoxia Status: Acute Assessment and Plan: echocardiogram reported LVEF is 65-70% with diastolic dysfunction Monitor SpO2 keeping greater than 91%, patient currently on 2 L of oxygen Respiratory rate WNL DS: Summary Hospital Course Reason for hospitalization: Acute hypoxic respiratory failure Hospital Course: Patient is a 61-year-old female with a past medical history of hypertension, insulin-dependent diabetes mellitus and end-stage renal disease on hemodialysis. Patient presented to [facility] Emergency Department after experiencing shortness of breath for the last 24 hours. Patient has been receiving hemodialysis on Sunday, , and Sunday. Patient reports that she has not missed a dialysis treatment. She states that she is currently at her base weight. Patient follows Dr. Cox with nephrology. Patient reports she developed shortness of breath on the and has progressively gotten worse with activity and at rest. The patient was able to call EMS and she was found to have an SpO2 in the 80s on room air. Oxygen was applied and she was brought to the emergency department via ambulance. Upon arrival to the emergency department she was provided nitropaste to the chest, Lasix, and hydralazine IV. Patient had bilateral lower extremity edema as well as tachypnea. The oil house attendant was able to consult Nephrology for further evaluation and possible dialysis on 04/12/2021. Dialysis was performed and 3 L was removed as well as a K-pad was provided. Patient has remained on 2 L of oxygen during her hospital stay. Patient is currently below her dry weight. A home oxygen evaluation was performed. Patient requires oxygen at baseline and should be evaluated by her primary care provider within 1-2 weeks. Patient will be going to dialysis on 04/14/2021. Echocardiogram was performed while she was hospitalized which revealed an LVEF of 65-70 % with diastolic dysfunction. No acute concerns at discharge. Patient will follow up with Nephrology and PCP within 1-2 weeks. Status at Discharge Cognitive/behavioral status at discharge: Alert and oriented x4 Functional status at discharge: independent ambulation Overall status at discharge: patient is back to baseline Time Spent with Patient Time attestation: Total time spent providing and/or coordinating discharge services: Time spent: Greater than 30 minutes Exam Narrative: PHYSICAL EXAM: WEIGHT 67.9 kg BMI 31.3 General: Obese, appears stated age HEENT: Mucous membranes are moist, good dentition, pupils are equal and reactive, nodularity of the right lobe of the thyroid Respiratory: Regular RR, diminished bases to auscultation Cardiovascular: Regular rate, regular rhythm Gastrointestinal: Soft, nontender, positive bowel sounds Skin:
--- NOTE | 2021-04-13 15:26 | HOMEO2EVAL ---
Evaluation was performed at [facility] Home Oxygen Evaluation RC: Home Oxygen (O2) Evaluation Start: 04/13/21 13:38 Freq: ONCE Status: Active Protocol: RPE Activity Type Activity Date Activity User E-Sign Co-Sign Detail Recorded Client Recorded Date Recorded By Document 04/13/21 14:45 [email or web address] [email or web address] 04/13/21 15:25 DJO Document 04/13/21 14:50 [email or web address] [email or web address] 04/13/21 15:25 DJO Document 04/13/21 14:55 [email or web address] [email or web address] 04/13/21 15:25 DJO Document 04/13/21 15:00 [email or web address] [email or web address] 04/13/21 15:25 DJO Document 04/13/21 15:05 [email or web address] [email or web address] 04/13/21 15:25 DJO Document 04/13/21 15:15 [email or web address] [email or web address] 04/13/21 15:25 DJO 04/13/21 04/13/21 04/13/21 14:45 14:50 14:55 Home O2 Evaluation Test Phase Resting Resting Resting Oxygen Delivery Room Air Nasal Cannula Nasal Cannula Oxygen Flow Rate (L/min) 1 2 Pulse Oximetry (90-100 %) 84 L 88 L 90 Pulse Rate (60-100 beats/min) 80 79 79 Activity Tolerance Ambulation Distance (feet) Ambulation Distance (meters) Treatment Charges O2 Evaluation - Inpatient 04/13/21 04/13/21 04/13/21 15:00 15:05 15:15 Home O2 Evaluation Test Phase Exercise Exercise Resting Oxygen Delivery Nasal Cannula Nasal Cannula Nasal Cannula Oxygen Flow Rate (L/min) 2 3 Pulse Oximetry (90-100 %) 88 L 91 90 Pulse Rate (60-100 beats/min) 84 87 85 Activity Tolerance Good Good Ambulation Distance (feet) 500 Ambulation Distance (meters) 152.39 Treatment Charges
--- NOTE | 2021-04-13 15:27 | PCRCNOTE ---
HOME O2 EVAL COMPLETED. PATIENT REQUIRES 2LPM REST AND 3LPM WITH ACTIVITY. RN INFORMED. SET UP WITH IV RESPIRATORY CARE
[2021-04-13 16:35] LABS: Glucose Point of Care 160 mg/dl (65-105)
[2021-04-13] MEDS: LATANOPROST 0.005% OP SOLN 2.5 ML BTL 1 DROP EACH EYE (17:08)
[2021-04-14 18:45] LABS: Hepatitis B Core Ab Total Nonreactive (Nonreactive)
== END 2021-04-13 19:40 | disposition home or self-care (01) | DRG 640 ==
LOC: ANHED 23:59 → ANH2MED 04-12 04:10
PROVIDERS: Internal Medicine Nephrology; Admitting Provider Internal Medicine; Emergency Provider General Practice; PCP Family Medicine; Visit Provider Nurse Practitioner Family
DX: E87.79 Other fluid overload (principal); N18.6 End stage renal disease; J96.01 Acute respiratory failure with hypoxia; I12.0 Hypertensive chronic kidney disease with stage 5 chronic kidney disease or end stage renal disease; Z20.822 Contact with and (suspected) exposure to COVID-19; K21.9 Gastro-esophageal reflux disease without esophagitis; H40.9 Unspecified glaucoma; E11.22 Type 2 diabetes mellitus with diabetic chronic kidney disease; E11.319 Type 2 diabetes mellitus with unspecified diabetic retinopathy without macular edema; E11.21 Type 2 diabetes mellitus with diabetic nephropathy; E55.9 Vitamin D deficiency, unspecified; D63.1 Anemia in chronic kidney disease; N25.0 Renal osteodystrophy; E66.9 Obesity, unspecified; Z68.30 Body mass index [BMI] 30.0-30.9, adult; Z96.1 Presence of intraocular lens; Z98.42 Cataract extraction status, left eye; Z98.41 Cataract extraction status, right eye; Z90.710 Acquired absence of both cervix and uterus; Z99.2 Dependence on renal dialysis
CPT/HCPCS: 36415; 36600; 71045; 80053; 82375; 82805; 82948; 83050; 83880; 84100; 84484; 85025; 85610; 85730; 86704; 86706; 87040; 87340; 93005; 93306; 94618; 96372; 96374; 96375; 96376; 99285; A9270; C9803; G0257; G0378; J0360; J1644; J1815; J1940; J7030; Q5105; U0003; U0005

== ENCOUNTER 2021-06-27 00:20 | Day surgery (SDC) | payer MEDICARE, SELFPAY ==
[2021-06-16 12:44] VITALS: BMI 29.9
[2021-06-27 10:18] VITALS: BP 166/70; PULSE 64; RESP 20; TEMP 36.3; O2SAT 94
--- NOTE | 2021-06-27 10:32 | PM.HPGS ---
History of Present Illness History of Present Illness Consent: Risks, benefits, and alternatives have been discussed and questions answered. Patient agrees to proceed with procedure. Chief complaint: hx of colon polyps Narrative: Shoshana Long is a 61 year old female with large TA ascending polyp removed in piece-meal, here to have another colonoscopy Review of Systems Constitutional: Constitutional: Denies headache(s) and Denies weakness Eyes: Eyes: Denies blurry vision ENT: Reports Normal hearing present, Denies headache(s) and Denies neck pain Cardiovascular: Cardiovascular: Denies chest pain and Denies dyspnea Respiratory: Respiratory: Denies dyspnea Gastrointestinal: Gastrointestinal: Reports no additional gastrointestinal complaints Genitourinary: Genitourinary: Denies dysuria Musculoskeletal: Musculoskeletal: Denies neck pain Integumentary/Breasts: Skin/Breast: Denies dry skin Neurologic: Reports Normal hearing present, Denies headache(s) and Denies weakness Psychiatric: Psychiatric: Denies anxiety Endocrine: Endocrine: Denies change in body appearance Hematologic/Lymphatic: Hematologic/Lymphatic: Denies easy bleeding Allergic/Immunologic: Allergic/Immunologic: Denies urticaria PMFSH Past Medical History Medical History (Updated 06/27/21 @ 10:33 by Gerard Shrestha MD) Accelerated hypertension Adenomatous colon polyp Colon cancer screening ESRD (end stage renal disease) on dialysis Sunday managed by Dr. Cox Essential (primary) hypertension GERD (gastroesophageal reflux disease) Glaucoma IDDM (insulin dependent diabetes mellitus) Multinodular goiter Nephropathy Retinopathy Type 2 diabetes mellitus Upper back pain Uterine sarcoma 2000 Vitamin D deficiency Surgical History Surgical History AV fistula History of (~1981) History of colonoscopy with polypectomy History of hysterectomy 2001 Status post cataract extraction of both eyes with insertion of intraocular lens Family History Family History Sibling Diabetes mellitus Father Diabetes mellitus Other Breast cancer Mother Diabetes mellitus Sibling Diabetes mellitus Father Diabetes mellitus Mother Diabetes mellitus Sibling Diabetes mellitus Other Alcoholism Asthma Family history of malignant neoplasm of breast in first degree relative Hypertension Thyroid disease Social History Social History Social History: Code status: Full code Smoking status: Never smoker Second hand tobacco smoke exposure: No Alcohol intake: never Substance use: never Substance use type: does not use Living arrangements: alone Gender identity (if verbalized by the patient): Female Spiritual care concerns: No Meds Home Medications and Allergies Home Medications Medication Instructions Recorded Confirmed Type travoprost 0.004 % eye drops 1 drop EACH EYE QPM #2.5 ml 12/18/18 06/16/21 Rx blood sugar diagnostic #200 each 04/29/19 04/12/21 Rx brimonidine 0.2 %-timolol 0.5 % 1 drop EACH EYE Q12H #15 ml 04/29/19 06/16/21 Rx eye drops nifedipine 90 mg tablet,extended 90 mg PO DAILY #90 tablet 04/19/20 06/16/21 Rx release 24 hr carvedilol 25 mg tablet 25 mg PO BID #180 tablet 04/18/21 06/16/21 Rx furosemide 80 mg tablet 80 mg PO BID #180 tablet 04/18/21 06/16/21 Rx calcitriol 0.5 mcg PO DAILY 06/16/21 06/16/21 History cholecalciferol (vitamin D3) 25 mcg PO DAILY 06/16/21 06/16/21 History [Vitamin D3] insulin degludec [Tresiba 10 unit SUBCUT DAILY 06/16/21 06/16/21 History FlexTouch U-100] pantoprazole 40 mg tablet,delayed 40 mg PO QAM #90 tablet 06/21/21 06/27/21 Rx release Allergies Allergy/AdvReac Type Severity Reaction Status Date / Time adhesive tape Allergy Unknown P
--- NOTE | 2021-06-27 10:35 | WPDANESEPPF ---
Anes - Initial Pre Proc Eval Procedure: Operation Date: 06/27/21 11:30 Proposed Procedures p Screening Colonoscopy - Gerard Shrestha MD Date/Time: 06/27/21 10:35 Surgeon: Gerard Shrestha MD Pre Op Diagnosis: hx of colon polyps Patient Data Age: 61 Gender: F Height: 1.47 m Weight: 65.2 kg Last Vital Signs Temp 97.4 F L 06/27/21 10:18 Pulse 64 06/27/21 10:18 Resp 20 06/27/21 10:18 BP 166/70 H 06/27/21 10:18 Pulse Ox 94 06/27/21 10:18 Allergies Allergy/AdvReac Type Severity Reaction Status Date / Time adhesive tape Allergy Unknown PAPER TAPE Verified 06/27/21 10:17 ChloraPrep AdvReac Rash Uncoded 06/27/21 10:17 Home Medications Medication Instructions Recorded Confirmed Type travoprost 0.004 % eye drops 1 drop EACH EYE QPM #2.5 ml 12/18/18 06/16/21 Rx blood sugar diagnostic #200 each 04/29/19 04/12/21 Rx brimonidine 0.2 %-timolol 0.5 % 1 drop EACH EYE Q12H #15 ml 04/29/19 06/16/21 Rx eye drops nifedipine 90 mg tablet,extended 90 mg PO DAILY #90 tablet 04/19/20 06/16/21 Rx release 24 hr carvedilol 25 mg tablet 25 mg PO BID #180 tablet 04/18/21 06/16/21 Rx furosemide 80 mg tablet 80 mg PO BID #180 tablet 04/18/21 06/16/21 Rx calcitriol 0.5 mcg PO DAILY 06/16/21 06/16/21 History cholecalciferol (vitamin D3) 25 mcg PO DAILY 06/16/21 06/16/21 History [Vitamin D3] insulin degludec [Tresiba 10 unit SUBCUT DAILY 06/16/21 06/16/21 History FlexTouch U-100] pantoprazole 40 mg tablet,delayed 40 mg PO QAM #90 tablet 06/21/21 06/27/21 Rx release Patient hx anesthesia problems: none Family hx anesthesia problems: none Results Review: All pre-operative results and documents have been reviewed as part of the pre-operative evaluation. [facility] Past Medical History Medical History (Updated 06/27/21 @ 10:33 by Gerard Shrestha MD) Accelerated hypertension Adenomatous colon polyp Colon cancer screening ESRD (end stage renal disease) on dialysis Sunday managed by Dr. Cox Essential (primary) hypertension GERD (gastroesophageal reflux disease) Glaucoma IDDM (insulin dependent diabetes mellitus) Multinodular goiter Nephropathy Retinopathy Type 2 diabetes mellitus Upper back pain Uterine sarcoma 2000 Vitamin D deficiency Surgical History Surgical History AV fistula History of (~1981) History of colonoscopy with polypectomy History of hysterectomy 2000 Status post cataract extraction of both eyes with insertion of intraocular lens Family History Family History Sibling Diabetes mellitus Father Diabetes mellitus Other Breast cancer Mother Diabetes mellitus Sibling Diabetes mellitus Father Diabetes mellitus Mother Diabetes mellitus Sibling Diabetes mellitus Other Alcoholism Asthma Family history of malignant neoplasm of breast in first degree relative Hypertension Thyroid disease Social History Social History Social History: Code status: Full code Smoking status: Never smoker Second hand tobacco smoke exposure: No Alcohol intake: never Substance use: never Substance use type: does not use Living arrangements: alone Gender identity (if verbalized by the patient): Female Spiritual care concerns: No Anes - Eval Final PreProcedure Day of Procedure 06/27/21 10:35 Patient weight: obese Heart: regular rate and rhythm Lungs: clear to auscultation Airway: Mallampati scale class II Neurological: alert and oriented Last oral intake: >/= 8 hours ASA classification: IV Emergent: no Anesthetic plan: proceed Anesthesia type and monitoring: general GIVS and standard monitoring Results Review: All pre-operative results and documents have been reviewed as part of the pre-operative evaluation.
[2021-06-27 10:37] LABS: Glucose Point of Care 149 mg/dl (65-105)
[2021-06-27] MEDS: SODIUM CHLORIDE 0.9% IV 500 ML 10 ML IV CONT (10:37)
[2021-06-27 10:55] VITALS: BP 163/70; PULSE 60; RESP 20; O2SAT 96
[2021-06-27 11:05] VITALS: BP 158/68; PULSE 55; RESP 18; O2SAT 96
[2021-06-27 11:06] LABS: Glucose Point of Care 147 mg/dl (65-105)
[2021-06-27 11:15] VITALS: BP 139/64; PULSE 61; RESP 23; O2SAT 95
== END 2021-06-27 11:52 | disposition home or self-care (01) ==
PROVIDERS: PCP Family Medicine; Visit Provider Internal Medicine Gastroenterology
PROC: 0DJD8ZZ Inspection of Lower Intestinal Tract, Via Natural or Artificial Opening Endoscopic (ICD-10-PCS; CPT 45378; principal; 2021-06-27 11:30)
DX: Z09 Encounter for follow-up examination after completed treatment for conditions other than malignant neoplasm (principal); K57.30 Diverticulosis of large intestine without perforation or abscess without bleeding; K64.8 Other hemorrhoids; Z86.010 Personal history of colon polyps; I12.0 Hypertensive chronic kidney disease with stage 5 chronic kidney disease or end stage renal disease; E11.22 Type 2 diabetes mellitus with diabetic chronic kidney disease; N18.6 End stage renal disease; Z99.2 Dependence on renal dialysis; E11.21 Type 2 diabetes mellitus with diabetic nephropathy; E11.319 Type 2 diabetes mellitus with unspecified diabetic retinopathy without macular edema; H40.9 Unspecified glaucoma; E55.9 Vitamin D deficiency, unspecified; E04.2 Nontoxic multinodular goiter; E66.9 Obesity, unspecified; Z68.30 Body mass index [BMI] 30.0-30.9, adult; Z79.4 Long term (current) use of insulin
CPT/HCPCS: 45378; 82948; J2704; J7040

== ENCOUNTER 2021-09-27 04:13 | Inpatient (IN) | payer MEDICARE, SELFPAY ==
[2021-09-27] VITALS (27 sets, daily range): BP systolic 152–200; BP diastolic 63–109; PULSE 82–100; RESP 18–31; TEMP 36–36.8; O2SAT 94–97; BMI 32.2
--- NOTE | ~2021-09-27 | XR_ITS ---
EXAMINATION: XR chest 1V portable DATE: 09/27/2021 06:20 INDICATION: Shortness of breath. TECHNIQUE: frontal view of the chest was obtained. COMPARISON: Chest radiograph dated 04/12/2021 FINDINGS: Again seen is mild cardiomegaly with diffuse increased interstitial pattern consistent with pulmonary edema. Increased more patchy airspace opacities in the bilateral lower lung zones which could repres ent more focal alveolar edema, atelectasis or pneumonia. No pneumothorax or definitive pleural effusi on. Vascular stenting at the left axilla. IMPRESSION: 1. Cardiomegaly with moderate pulmonary edema. 2. Patchy airspace opacities in the bilateral lower lung zones most likely related to the pulmonary e elaina although differential includes superimposed atelectasis or pneumonia. Reviewed, dictated and finalized at location A. IMPRESSION: 1. Cardiomegaly with moderate pulmonary edema. 2. Patchy airspace opacities in the bilateral lower lung zones most likely rela [place] to the pulmonary edema although differential includes superimposed atelecta sis or pneumonia.
--- NOTE | 2021-09-27 04:18 | ECG_ITS ---
Measurements Intervals [place] Rate: 86 P: 51 TX: 143 QRS: -1 QRSD: 102 T: -55 QT: 387 QTc: 465 Interpretive Statements SINUS RHYTHM POSSIBLE LEFT ATRIAL ENLARGEMENT [-0.1mV P-WAVE IN V1/V2] ST DEVIATION AND MODERATE T-WAVE ABNORMALITY, CONSIDER INFERIOR ISCHEMIA [-0.1+ mV T- WAVE IN II/aVF] ABNORMAL ECG COMPARED TO ECG 04/11/2021 23:32:44 NO SIGNIFICANT CHANGES Electronically Signed On 09-27-2021 8:49:11 CDT by Hola Thrasher M.D.
[2021-09-27] MEDS: ALBUTEROL SULFATE NEB 2.5 MG/3 ML INH INHALATION (04:29)
[2021-09-27] MEDS: IPRATROPIUM BR 0.02% INH SOLN 0.5 MG/2.5 ML VIAL 1 MG INHALATION (04:29)
--- NOTE | 2021-09-27 04:31 | ED.SOB ---
HPI - SOB/Dyspnea General Chief Complaint: Shortness of Breath/Dyspnea Stated Complaint: SOB History of Present Illness HPI Narrative: 61-year-old female brought in by EMS secondary to shortness of breath. Patient has a history of end-stage renal disease on dialysis on Sunday, , Sunday schedule. She was due for dialysis today ( Sunday) at 5 AM. However she did not feel like she could make it and subsequently called 911. She has had a mild cough congestion over the last several days. No chills or fevers. She does make urine. She has been vaccinated for COVID including booster. Denies any chest pain or chest pressure. She wears oxygen at home just as needed. She states that when she checks her O2 saturation without the oxygen is generally in the low 90s. Sometimes if it drops below 90 she will put herself on oxygen and it goes up into the upper 90s with just 2 L. Related Data Home Medications Medication Instructions Recorded Confirmed calcitriol 0.5 mcg capsule 0.5 mcg PO DAILY 06/16/21 09/14/21 cholecalciferol (vitamin D3) 25 25 mcg PO DAILY 06/16/21 09/14/21 mcg (1,000 unit) tablet (Vitamin D3) Allergies Allergy/AdvReac Type Severity Reaction Status Date / Time adhesive tape Allergy Unknown PAPER TAPE Verified 09/27/21 04:34 ChloraPrep AdvReac Rash Uncoded 09/14/21 11:26 Review of Systems Review of Systems: CONSTITUTIONAL: Denies fever, chills, or sweats. EYES: Denies visual changes, redness, or discharge. ENT: Denies rhinorrhea, congestion, sore throat, or otalgia. CARDIOVASCULAR: Denies chest pain, palpitations, or edema. RESPIRATORY: Patient is extremely short of breath. Been having cough and congestion lately. GASTROINTESTINAL: Denies abdominal pain, nausea, vomiting, or diarrhea. GENITOURINARY: Denies dysuria or hematuria. SKIN: Denies rash or itching. MUSCULOSKELETAL: Denies back pain, joint pain, or myalgia. NEUROLOGIC: Denies headache, numbness, or weakness. PSYCHIATRIC: Denies anxiety or depression. [facility] Past Medical History Medical History Accelerated hypertension Adenomatous colon polyp Colon cancer screening ESRD (end stage renal disease) on dialysis Sunday managed by Dr. Cox Essential (primary) hypertension GERD (gastroesophageal reflux disease) Glaucoma IDDM (insulin dependent diabetes mellitus) Multinodular goiter Nephropathy Retinopathy Type 2 diabetes mellitus Upper back pain Uterine sarcoma 2000 Vitamin D deficiency Surgical History Surgical History AV fistula History of (~1981) History of colonoscopy with polypectomy History of hysterectomy 2000 Status post cataract extraction of both eyes with insertion of intraocular lens Family History Family History Sibling Diabetes mellitus Father Diabetes mellitus Other Breast cancer Mother Diabetes mellitus Sibling Diabetes mellitus Father Diabetes mellitus Mother Diabetes mellitus Sibling Diabetes mellitus Other Alcoholism Asthma Family history of malignant neoplasm of breast in first degree relative Hypertension Thyroid disease Social History Social History Social History: Code status: Full code Smoking status: Never smoker Second hand tobacco smoke exposure: No Alcohol intake: never Substance use: never Substance use type: does not use Gender identity (if verbalized by the patient): Female Spiritual care concerns: No Exam Narrative: APPEARANCE: Well appearing, no pain or distress, well-nourished. Noted to be dyspneic Head Normocephalic and atraumatic. EYES: PERRLA/EOMI, conjunctivae clear. NOSE: Normal with no drainage EARS:TMS clear with [place], with good light reflex. THROAT: Pharynx clear, no exudate.
[2021-09-27 04:38] LABS: Basophils Absolute Auto 0.1 K/mm3 (0.0-0.1); Basophils Percent Auto 0.5 % (0.2-1.2); Eosinophils Absolute Auto 0.4 K/mm3 (0-0.3); Eosinophils Percent Auto 3.4 % (0-4.4); Hematocrit 32.2 % (37.0-47.0); Hemoglobin 10.3 g/dL (12.0-15.0); Immature Granulocyte Absolute 0.11 K/mm3 (0.00-0.031); Immature Granulocyte Percent A 0.9 % (0-0.5); Lymphocytes Absolute Auto 1.04 K/mm3 (0.9-3.2); Lymphocytes Percent Auto 8.2 % (18.3-44.2); Mean Platelet Volume 9.3 fl (7.4-10.4); Monocytes Absolute Auto 0.8 K/mm3 (0.1-0.6); Monocytes Percent Auto 6.5 % (2.6-8.5); Neutrophils Absolute Auto 10.3 K/mm3 (1.3-6.7); Neutrophils Percent Auto 80.5 % (45.5-73.1); Platelet Count Result 314 k/mm3 (150-375); Red Blood Count 3.32 M/mm3 (4.2-5.4); White Blood Count 12.7 K/mm3 (4.5-10.0)
[2021-09-27] MEDS: FUROSEMIDE INJ 100 MG/10 ML VIAL 80 MG IV PUSH ×3 (04:44→17:09)
[2021-09-27 04:54] LABS: Alanine Aminotransferase 16 U/L (6-35); Albumin Level 4.8 g/dL (3.5-5.1); Alkaline Phosphatase 113 U/L (38-126); Anion Gap 15 mmol/L (8-16); Aspartate Amino Transferase 20 U/L (14-36); Bilirubin,Total 0.4 mg/dL (0.2-1.3); Blood Urea Nitrogen 56 mg/dL (7-17); Calcium 9.5 mg/dL (8.4-10.2); Carbon Dioxide 26 mmol/L (22-30); Chloride 99 mmol/L (98-107); Estimated Glomerular Filt Rate 5; Glucose 207 mg/dL (65-110); Sodium 140 mmol/L (137-145)
[2021-09-27 05:02] LABS: NT Pro B Type Natriuretic Pept 21600 pg/mL (5-100); Troponin I 0.019 ng/mL (0.000-0.034)
[2021-09-27 05:15] LABS: SARS-CoV-2 RNA PCR Negative
--- NOTE | 2021-09-27 06:49 | ADMGEN ---
This patient, Shoshana Long, was admitted to 3 [facility] Surg Room 311-01 @0640. Patient/family oriented to hospital policies and general routines including ID bracelet, bed and alarms, visiting hours, pain management, procedures, bathroom and other care routines, personal items, smoking policy, room service/diet, and visiting hours. Information on how to activate the Rapid Response Team has been discussed. Patient/Family are encouraged to report perceived risks to care and to ask questions if they do not understand what they are told or what they should do.
--- NOTE | 2021-09-27 07:47 | PM.IMHP ---
H&P: HPI History of Present Illness Date/Time: 09/27/21 07:47 Chief Complaint: Shortness of breath Narrative: 61-year-old female who presents to the ER with worsening shortness of breath. She reports that over the past few weeks she has not been feeling well. Getting more short of has some swelling in her legs. No chest pain. She has end-stage renal disease and on dialysis Sunday and has not been missing any dialysis sessions. She is supposed to go for dialysis today however she would not make it and subsequently called 911. She has been having mild cough and congestion of the past few weeks. Denies any fever or chills. She does make urine and takes Lasix at home. She has been vaccinated for COVID including booster. She wears oxygen at home which she has been placed on since her last discharge in April 2021. She only uses at night however uses during the daytime and has been using throughout the day lately she reports her oxygen level has been in 80s of lately at home. Review of Systems Review of Systems: - CONSTITUTIONAL: Denies weight loss, fever and chills. - HEENT: Denies changes in vision and hearing - RESPIRATORY: Reports SOB and cough. - CV: Denies palpitations and CP. - GI: Denies abdominal pain, nausea, vomiting and diarrhea. - : Denies dysuria and urinary frequency. - MSK: Denies myalgia and joint pain. - SKIN: Denies rash and pruritus. - NEUROLOGICAL: Denies headache and syncope. - PSYCHIATRIC: Denies recent changes in mood. Denies anxiety and depression. [facility] Past Medical History Medical History Accelerated hypertension Adenomatous colon polyp Colon cancer screening ESRD (end stage renal disease) on dialysis Sunday managed by Dr. Cox Essential (primary) hypertension GERD (gastroesophageal reflux disease) Glaucoma IDDM (insulin dependent diabetes mellitus) Multinodular goiter Nephropathy Retinopathy Type 2 diabetes mellitus Upper back pain Uterine sarcoma 2000 Vitamin D deficiency Surgical History Surgical History AV fistula History of (~1981) History of colonoscopy with polypectomy History of hysterectomy 2000 Status post cataract extraction of both eyes with insertion of intraocular lens Family History Family History Sibling Diabetes mellitus Father Diabetes mellitus Other Breast cancer Mother Diabetes mellitus Sibling Diabetes mellitus Father Diabetes mellitus Mother Diabetes mellitus Sibling Diabetes mellitus Other Alcoholism Asthma Family history of malignant neoplasm of breast in first degree relative Hypertension Thyroid disease Social History Social History Social History: Code status: Full code Smoking status: Never smoker Second hand tobacco smoke exposure: No Alcohol intake: never Substance use: never Substance use type: does not use Gender identity (if verbalized by the patient): Female Spiritual care concerns: No Meds Home Medications and Allergies Home Medications Medication Instructions Recorded Confirmed Type blood sugar diagnostic (OneTouch #200 ea 04/29/19 09/27/21 Rx Ultra Blue Test Strip) brimonidine 0.2 %-timolol 0.5 % 1 drop ophthalmic (eye) Q12H #15 mL 04/29/19 09/27/21 Rx eye drops (Combigan) cholecalciferol (vitamin D3) 25 25 mcg PO DAILY 06/16/21 09/27/21 History mcg (1,000 unit) tablet (Vitamin D3) carvedilol 25 mg tablet 25 mg PO BID #180 tabs 07/14/21 09/27/21 Rx furosemide 80 mg tablet 80 mg PO BID #180 tabs 07/19/21 09/27/21 Rx pantoprazole 40 mg tablet,delayed 40 mg PO QAM #90 tabs 09/16/21 09/27/21 Rx release albuterol sulfate 90 mcg/actuation 2 puff inhalation Q6H PRN SOB 09/27/21
[2021-09-27] MEDS: ALBUTEROL SULFATE (*SP) AEROSOL 1 PUFF 2 PUFF INHALATION ×2 (08:19→14:57)
[2021-09-27 08:27] LABS: Anion Gap 15 mmol/L (8-16); Blood Urea Nitrogen 55 mg/dL (7-17); Calcium 9.7 mg/dL (8.4-10.2); Carbon Dioxide 25 mmol/L (22-30); Chloride 97 mmol/L (98-107); Estimated Glomerular Filt Rate 5; Glucose 145 mg/dL (65-110); Potassium 5.4 mmol/L (3.4-5.0); Sodium 137 mmol/L (137-145)
[2021-09-27] MEDS: HEPARIN SODIUM 5,000 UNITS/ML VIAL 5000 UNITS SUB-Q ×2 (09:51→19:57)
[2021-09-27] MEDS: BRIMONIDINE TARTRATE 0.2% OP SOLN 5 ML BTL 1 DROP EACH EYE ×2 (09:51→19:57)
[2021-09-27] MEDS: TIMOLOL MALEATE 0.5% OP SOLN 5 ML BOTTLE 1 DROP EACH EYE ×2 (09:51→19:56)
[2021-09-27] MEDS: carvediloL 25 MG TABLET PO ×2 (09:52→17:08)
[2021-09-27] MEDS: NIFEdipine 30 MG TAB.ER.24 60 MG PO ×2 (09:52→17:08)
[2021-09-27] MEDS: CHOLECALCIFEROL 1,000 UNITS TABLET 1000 UNITS PO (09:53)
[2021-09-27] MEDS: PANTOPRAZOLE 40 MG TABLET PO (09:53)
--- NOTE | 2021-09-27 16:41 | PC.NURSE ---
Pt having spells of shortness of breath today. Pt ordered inhaler and administered with respiratory. Pt up ad naun in room. Pt getting dialysis treatment. Pt tolerating treatment well. Pt compliant with care. Pt has no complaints at this time. Will continue to monitor pt.
[2021-09-27] MEDS: EPOETIN ALFA-EPBX 10,000 UNITS/ML VIAL 10000 UNITS IV PUSH (17:07)
[2021-09-27] MEDS: LATANOPROST 0.005% OP SOLN 2.5 ML BTL 1 DROP EACH EYE (19:57)
[2021-09-27] MEDS: INSULIN GLARGINE (*BKC) 100 UNITS/ML 10 UNITS SUB-Q (19:57)
[2021-09-27 22:53] LABS: Glucose Point of Care 205 mg/dl (65-105)
[2021-09-28] VITALS (16 sets, daily range): BP systolic 135–164; BP diastolic 59–86; PULSE 63–91; RESP 16–20; TEMP 36.1–37; O2SAT 91–99
--- NOTE | 2021-09-28 | ECHO_ITS ---
Patient Info Name: Shoshana Long Age: 61 years : 1960 Gender: Female Ht: 59 in Wt: 154 lbs BSA: 1.73 m2 HR: 79 bpm BP: 164 / 64 mmHg Heart Rhythm: Sinus Rhythm Technical Quality: Fair Exam Date: 09/28/2021 4:47 PM Exam Location: [facility] Pulmonary Patient Status: Inpatient Admit Date: 09/27/2021 Staff Ordering Physician: Dandre Nunez MD It Director: Marimar Orellana RDCS Attending Provider: Fariha Salas DO Referring Physician: Enrique GOLDSTEIN; Exam Type: CA echo limited w contrast Study Info Indications J81.0 - Acute pulmonary edema Limited two-dimensional transthoracic echocardiogram is performed with contrast. Contrast/Agitated Saline Contrast/Ag. Saline: Definity Amount: 3.00 ml Administered By: Marimar Orellana RDCS Existing IV Access: Yes IV Access Condition: patent with no signs of infiltration Summary 1. Limited echocardiogram to assess for wall motion abnormalities. 2. Left ventricular chamber dimension is normal. 3. Definity contrast administered improved wall motion interpretation. 4. Left ventricular systolic function is normal, estimated at 60-65%. 5. There is mildly increased left ventricular wall thickness. 6. The left ventricular diastolic function is indeterminate as it was not assessed. Left Ventricle Limited echocardiogram to assess for wall motion abnormalities. Definity contrast administered improved wall motion interpretation. Left ventricular chamber dimension is normal. Left ventricular systolic function is normal, estimated at 60-65%. There is mildly increased left ventricular wall thickness. The left ventricular diastolic function is indeterminate as it was not assessed. Ventricles Name Value Normal LV Dimensions 2D/MM IVS Diastolic Thickness (2D) 1.2 cm 0.6-1.0 LVID Diastole (2D) 4.4 cm 3.8-5.2 LVIW Diastolic Thickness (2D) 1.0 cm 0.6-0.9 LVID Systole (2D) 3.0 cm 2.2-3.5 LV Mass (2D Cubed) 174.04 g 67.00-162.00 LV Mass Index (2D Cubed) 100 g/m2 43-95 Relative Wall Thickness (2D) 0.47 LV Fractional Shortening/Ejection Fraction 2D/MM LV Fractional Shortening (2D) 33 % 27-45 LV EF (2D Teicholz) 61 % 54-74 LV Diastolic Volume (4C MOD) 86 ml LV EF (4C MOD) 86 % LV Diastolic Volume (2C MOD) 32 ml LV EF (2C MOD) 60 % LV Diastolic Volume (BP MOD) 56 ml 46-106 LV Diastolic Volume Index (BP MOD) 32 ml/m2 29-61 LV Systolic Volume (BP MOD) 13 ml 14-42 LV Systolic Volume Index (BP MOD) 7 ml/m2 8-24 LV EF (BP MOD) 77 % 54-74 LV Diastolic Length (4C) 7.6 cm LV Systolic Length (4C) 5.2 cm LV Stroke Volume (4C MOD) 74 ml Report Signatures Electronically signed by
[2021-09-28 07:17] LABS: Basophils Percent Auto 0.4 % (0.2-1.2); Eosinophils Absolute Auto 0.3 K/mm3 (0-0.3); Eosinophils Percent Auto 2.9 % (0-4.4); Hematocrit 31.3 % (37.0-47.0); Hemoglobin 10.1 g/dL (12.0-15.0); Immature Granulocyte Absolute 0.07 K/mm3 (0.00-0.031); Immature Granulocyte Percent A 0.7 % (0-0.5); Lymphocytes Absolute Auto 1.28 K/mm3 (0.9-3.2); Lymphocytes Percent Auto 13.2 % (18.3-44.2); Mean Corpuscular HGB Conc 32.3 g/dl (32-36); Mean Platelet Volume 9.9 fl (7.4-10.4); Monocytes Absolute Auto 0.9 K/mm3 (0.1-0.6); Monocytes Percent Auto 9.4 % (2.6-8.5); Neutrophils Absolute Auto 7.1 K/mm3 (1.3-6.7); Neutrophils Percent Auto 73.4 % (45.5-73.1); Platelet Count Result 295 k/mm3 (150-375); Red Blood Count 3.26 M/mm3 (4.2-5.4); Red Cell Distribution Width 12.7 % (11.5-14.5); White Blood Count 9.7 K/mm3 (4.5-10.0)
--- NOTE | 2021-09-28 07:33 | PM.CNNEP ---
Assessment and Plan Assessment and plan (1) Hypoxia: Code(s): R09.02 - Hypoxemia Status: Acute Assessment and Plan: The patient had shortness of breath for a month and cough for a week. The several possibilities here. Neck veins are elevated and she has bilateral in for it to its on chest x-ray sure see certainly has a component of volume overload. The patient has not been eating very well so may need an adjustment in her dry weight. She might have lost real body weight and the dry weight needs to be adjusted to account for that. She had 2.5L removed yesterday. I talked to her about removing more fluid today. I will order a dry ultrafiltration to remove extra fluid. Sometimes this can remove more fluid without cramping then full dialysis. The patient might have developed some cardiac issues such as systolic or diastolic heart failure. Will check an echocardiogram. The patient might have pneumonia under the infiltrates as well. She is receiving antibiotics. So this point will continue antibiotics, take more fluid off today and tomorrow and get a follow-up chest x-ray in a couple of days. We will check an echocardiogram as well. (2) End-stage renal disease on hemodialysis: Code(s): N18.6 - End stage renal disease; Z99.2 - Dependence on renal dialysis Status: Acute Assessment and Plan: The patient had dialysis yesterday. She is due for regular dialysis tomorrow. Will do dry ultrafiltration today. (3) Hyperkalemia: Code(s): E87.5 - Hyperkalemia Status: Acute Assessment and Plan: She had high potassium yesterday was done on a 2 K bath. Potassium is normal today. (4) Type 2 diabetes mellitus: Code(s): E11.9 - Type 2 diabetes mellitus without complications Status: Acute Assessment and Plan: On Accu-Cheks and sliding scale insulin per hospitalist. (5) Essential (primary) hypertension: Code(s): I10 - Essential (primary) hypertension Status: Acute Assessment and Plan: This is good at the moment but has been going up and down between 150 and 190. Removing fluid should help this. Will continue her outpatient blood pressure medications. Will also add an ARB (6) Erythropoietin deficiency anemia: Code(s): D63.1 - Anemia in chronic kidney disease Status: Acute Assessment and Plan: Hemoglobin is 10.1. Will continue Epogen. (7) Renal osteodystrophy: Code(s): N25.0 - Renal osteodystrophy Status: Acute Assessment and Plan: Will check a phosphorus in the morning. History of Present Illness Reason for Consult Consult date: 09/28/21 Chief Complaint Chief complaint: pneumonia History of Present Illness Narrative: Shoshana is a very pleasant 61-year-old lady who has multiple medical problems including end-stage renal disease on dialysis 3 times a week, anemia of chronic kidney disease, renal osteodystrophy, hypertension, diabetes, GERD, glaucoma, goiter, diabetic retinopathy, vitamin-D deficiency. The patient says she was well until about a month ago. She has been having some shortness of breath. She gains a little more than 1L between treatments on week days and over the weekend show gain about 2-2.5. The patient says that they lowered her dry weight a couple times over the last month but this was shortness of breath did not get better. She went to a pulmonary doctor and is in the middle of evaluation for that. I also went to a heart doctor who said that she might be in heart failure. He ordered tests but they have not been done yet. In the meantime about a week ago the patient developed a cough. Over the weekend the cough and the shortness of breath got gradually worse. She was supposed to go to dialysis yesterday morning but she was too weak to go so she called 911. She was seen in the ER. The patient denies fever. She is coughing up a little bit of sputum and some ?chunks ?. She has not had an
[2021-09-28 07:43] LABS: Alanine Aminotransferase 14 U/L (6-35); Albumin Level 4.2 g/dL (3.5-5.1); Alkaline Phosphatase 104 U/L (38-126); Anion Gap 12 mmol/L (8-16); Aspartate Amino Transferase 18 U/L (14-36); Bilirubin,Total 0.5 mg/dL (0.2-1.3); Blood Urea Nitrogen 30 mg/dL (7-17); Calcium 9.8 mg/dL (8.4-10.2); Carbon Dioxide 34 mmol/L (22-30); Chloride 88 mmol/L (98-107); Estimated Glomerular Filt Rate 8; Glucose 156 mg/dL (65-110); Magnesium 2.3 mg/dL (1.6-2.3); Potassium 4.4 mmol/L (3.4-5.0); Sodium 134 mmol/L (137-145)
[2021-09-28] MEDS: BRIMONIDINE TARTRATE 0.2% OP SOLN 5 ML BTL 1 DROP EACH EYE ×2 (08:58→20:21)
[2021-09-28] MEDS: TIMOLOL MALEATE 0.5% OP SOLN 5 ML BOTTLE 1 DROP EACH EYE ×2 (08:58→20:21)
[2021-09-28] MEDS: carvediloL 25 MG TABLET PO ×2 (08:59→17:12)
[2021-09-28] MEDS: PANTOPRAZOLE 40 MG TABLET PO (08:59)
[2021-09-28] MEDS: CHOLECALCIFEROL 1,000 UNITS TABLET 1000 UNITS PO (08:59)
[2021-09-28] MEDS: NIFEdipine 30 MG TAB.ER.24 60 MG PO ×2 (08:59→17:13)
[2021-09-28] MEDS: HEPARIN SODIUM 5,000 UNITS/ML VIAL 5000 UNITS SUB-Q ×2 (09:01→20:21)
[2021-09-28] MEDS: FUROSEMIDE INJ 100 MG/10 ML VIAL 80 MG IV PUSH ×2 (09:01→17:12)
--- NOTE | 2021-09-28 15:32 | PC.NURSE ---
Pt went to dialysis today. Pt states that she is feeling much better today than yesterday. Dialysis removed 2 liters from pt today. Pt's blood sugar at end of dialysis was 156/78. Pt had 2.5 liters removed yesterday 09/27/2021. Pt tolerating activity better today than yesterday. Pt continues to wear 4L O2 at rest and with activity. Will continue to monitor pt.
--- NOTE | 2021-09-28 16:54 | IVDEFINITY ---
Prior to administration of IV Definity the patient was educated on the risks and benefits of the imaging enhancing agent including potential adverse side effects. The patient verbalized understanding. Allergies were verified. No exclusion criteria were identified and at least one of the following inclusion criteria were met: 1) physician request, 2) patient technically difficult to image (per the [place] [employer] guidelines of two or more segments not discernable within the apical view), or 3) questionable left ventricular function. ?
[2021-09-28] MEDS: PERFLUTREN LIPID MICROSPHERES 1.5 ML VIAL DILUTED TO 10 ML TOTAL VOLUME IV PUSH (16:56)
--- NOTE | 2021-09-28 17:15 | PM.IMPN ---
Progress Note: A&P Assessment and Plan (1) Pneumonia: Code(s): J18.9 - Pneumonia, unspecified organism Status: Acute Assessment and Plan: Rocephin and azithromycin, day 2 (2) End-stage renal disease on hemodialysis: Code(s): N18.6 - End stage renal disease; Z99.2 - Dependence on renal dialysis Status: Acute Assessment and Plan: Stable, appreciate nephrology consultation (3) Hyperkalemia: Code(s): E87.5 - Hyperkalemia Status: Acute Assessment and Plan: Management per Nephrology with dialysis (4) Fluid overload: Code(s): E87.70 - Fluid overload, unspecified Status: Acute (5) Hypertension with fluid overload: Code(s): I10 - Essential (primary) hypertension; E87.79 - Other fluid overload Status: Acute (6) Acute respiratory failure with hypoxia: Code(s): J96.01 - Acute respiratory failure with hypoxia Status: Acute Assessment and Plan: Stable on 4L nc (7) Type 2 diabetes mellitus: Code(s): E11.9 - Type 2 diabetes mellitus without complications Status: Acute Assessment and Plan: Accu-Cheks with sliding scale insulin, check A1c, last A1c was 7.8 in 2020 (8) Multinodular goiter: Code(s): E04.2 - Nontoxic multinodular goiter Status: Acute (9) ESRD (end stage renal disease) on dialysis: Code(s): N18.6 - End stage renal disease; Z99.2 - Dependence on renal dialysis Status: Acute (10) Essential (primary) hypertension: Code(s): I10 - Essential (primary) hypertension Status: Acute Plan DVT prophylaxis Heparin subQ Code status full code Subjective Date/time seen: 09/28/21 17:15 Interval history: Seen in dialysis. No overnight events noted. No chest pain or shortness of breath. No nausea, vomiting or diarrhea. No fevers or chills. Review of Systems Review of Systems: 12 point review of systems was assessed and was negative except as noted in the HPI Exam Narrative: General: No acute distress, alert and oriented per baseline HEENT: Atraumatic, normocephalic, mucous membranes moist CV: Regular rate and rhythm, S1, S2 Lungs: Clear to auscultation bilaterally, no rales or crackles noted, no wheezes, good air entry Abdomen: Soft, nontender, nondistended Extremities: Normal to inspection Skin: No rashes noted, no lesions or wounds seen Psych: Euthymic, normal affect Objective Data Vital Signs Vital Signs: Vital Signs - 24 hr 09/27/21 19:15 09/27/21 17:20 09/27/21 17:40 Temperature 97.9 F Pulse Rate 88 90 94 Respiratory Rate 18 Blood Pressure 193/92 H 182/80 H 195/87 H Pulse Oximetry Oxygen Delivery Oxygen Flow Rate 09/27/21 18:00 09/27/21 18:20 09/27/21 18:40 Temperature Pulse Rate 84 86 87 Respiratory Rate Blood Pressure 163/73 H 160/81 H 171/83 H Pulse Oximetry Oxygen Delivery Oxygen Flow Rate 09/27/21 19:00 09/27/21 22:25 09/27/21 20:00 Temperature Pulse Rate 90 Respiratory Rate Blood Pressure 168/79 H Pulse Oximetry 94 94 Oxygen Delivery Nasal Cannula Nasal Cannula Oxygen Flow Rate 4 4 09/27/21 22:00 09/28/21 06:00 09/28/21 08:59 Temperature 97.8 F 97 F L Pulse Rate 83 91 87 Respiratory Rate 19 20 Blood Pressure 152/63 H 164/64 H Pulse Oximetry 97 91 Oxygen Delivery Oxygen Flow Rate 09/28/21 11:20 09/28/21 11:10 09/28/21 11:10 Temperature 98.2 F Pulse Rate 75 79 Respiratory Rate Blood Pressure 139/72 140/70 Pulse Oximetry Oxygen Delivery Oxygen Flow Rate 4 09/28/21 12:20 09/28/21 11:40 09/28/21 12:00 Temperature Pulse Rate 67 71 69 Respiratory Rate Blood Pressure 147/78 H 143/73 H 156/74 H Pulse Oximetry Oxygen Delivery Oxygen Flow Rate 09/28/21 12:40 09/28/21 13:00 09/28/21 13:40 Temperature 97.9 F Pulse Rate 63 68 72 Respiratory Rate 16 Blood Pressure 135/70 143/86 H 156/78 H Pulse Oximetry
[2021-09-28] MEDS: INSULIN GLARGINE (*BKC) 100 UNITS/ML 10 UNITS SUB-Q (20:21)
[2021-09-28] MEDS: LATANOPROST 0.005% OP SOLN 2.5 ML BTL 1 DROP EACH EYE (20:21)
[2021-09-28 20:24] LABS: Hemoglobin A1C 6.5 % (<5.7)
[2021-09-28 21:17] LABS: Glucose Point of Care 239 mg/dl (65-105)
[2021-09-29] VITALS (24 sets, daily range): BP systolic 105–184; BP diastolic 51–95; PULSE 64–96; RESP 16–19; TEMP 36.1–37; O2SAT 87–100
[2021-09-29 07:09] LABS: Albumin Level 4.2 g/dL (3.5-5.1); Anion Gap 15 mmol/L (8-16); Blood Urea Nitrogen 49 mg/dL (7-17); Calcium 9.6 mg/dL (8.4-10.2); Carbon Dioxide 30 mmol/L (22-30); Chloride 87 mmol/L (98-107); Estimated Glomerular Filt Rate 5; Glucose 219 mg/dL (65-110); Phosphorus 8.6 mg/dL (2.5-4.5); Potassium 4.9 mmol/L (3.4-5.0); Sodium 132 mmol/L (137-145)
--- NOTE | 2021-09-29 07:32 | PM.IMPN ---
Progress Note: A&P Assessment and Plan (1) Pneumonia: Code(s): J18.9 - Pneumonia, unspecified organism Status: Acute Assessment and Plan: Rocephin and azithromycin, day 3, improving, still on 4L, attempt to wean today, on 2L at home Update: Nurse able to wean patient to 2 L, anticipate discharge home tomorrow, will switch to Levaquin p.o. for 2 more days (2) Acute respiratory failure with hypoxia: Code(s): J96.01 - Acute respiratory failure with hypoxia Status: Acute Assessment and Plan: see above, likely 2/2 pneumonia, not improving as expected, still on 4L, will check ABG today Update: Patient weaned to 2 L, ABG essentially normal (3) Hyperkalemia: Code(s): E87.5 - Hyperkalemia Status: Acute Assessment and Plan: Management per Nephrology with dialysis (4) Type 2 diabetes mellitus: Code(s): E11.9 - Type 2 diabetes mellitus without complications Status: Acute Assessment and Plan: Accu-Cheks with sliding scale insulin, check A1c, last A1c was 7.8 in 2020 (5) ESRD (end stage renal disease) on dialysis: Code(s): N18.6 - End stage renal disease; Z99.2 - Dependence on renal dialysis Status: Acute (6) Essential (primary) hypertension: Code(s): I10 - Essential (primary) hypertension Status: Acute (7) Multinodular goiter: Code(s): E04.2 - Nontoxic multinodular goiter Status: Acute (8) Diastolic heart failure: Code(s): I50.30 - Unspecified diastolic (congestive) heart failure Status: Acute Assessment and Plan: Echo EF 65-70% w/diastolic dysfunction Plan Patient follows with cardiology and pulmonology at [facility], outpatient PSG scheduled, currently wears 2L nocturnally and with exertion DVT prophylaxis with Heparin subQ Code status full code Subjective Date/time seen: 09/29/21 07:32 Interval history: No overnight events noted. No chest pain or shortness of breath. No nausea, vomiting or diarrhea. No fevers or chills. Review of Systems Review of Systems: 12 point review of systems was assessed and was negative except as noted in the HPI Exam Narrative: General: No acute distress, alert and oriented per baseline HEENT: Atraumatic, normocephalic, mucous membranes moist CV: Regular rate and rhythm, S1, S2 Lungs: Improved air entry today, no wheeze Abdomen: Soft, nontender, nondistended Extremities: Normal to inspection Skin: No rashes noted, no lesions or wounds seen Psych: Euthymic, normal affect Objective Data Vital Signs Vital Signs: Vital Signs - 24 hr 09/28/21 08:59 09/28/21 11:20 09/28/21 11:10 Temperature 98.2 F Pulse Rate 87 75 79 Respiratory Rate Blood Pressure 139/72 140/70 Pulse Oximetry Oxygen Delivery Oxygen Flow Rate 09/28/21 11:10 09/28/21 12:20 09/28/21 11:40 Temperature Pulse Rate 67 71 Respiratory Rate Blood Pressure 147/78 H 143/73 H Pulse Oximetry Oxygen Delivery Oxygen Flow Rate 4 09/28/21 12:00 09/28/21 12:40 09/28/21 13:00 Temperature Pulse Rate 69 63 68 Respiratory Rate Blood Pressure 156/74 H 135/70 143/86 H Pulse Oximetry Oxygen Delivery Oxygen Flow Rate 09/28/21 13:40 09/28/21 13:20 09/28/21 08:59 Temperature 97.9 F Pulse Rate 72 71 Respiratory Rate 16 Blood Pressure 156/78 H 144/80 H Pulse Oximetry 94 Oxygen Delivery Nasal Cannula Oxygen Flow Rate 4 09/28/21 15:17 09/28/21 17:12 09/28/21 20:00 Temperature 97.7 F Pulse Rate 76 82 Respiratory Rate 20 Blood Pressure 138/59 L Pulse Oximetry 99 99 Oxygen Delivery Nasal Cannula Oxygen Flow Rate 4 09/28/21 22:00 09/28/21 22:33 09/29/21 06:00 Temperature 97.6 F 96.9 F L Pulse Rate 85 80 Respiratory Rate 16 16 Blood Pressure 148/62 H 137/68 Pulse Oximetry 96 96 95 Oxygen Delivery Nasal Cannula Oxygen Flow Rate 4 Intake/Output Intake/Output: Intake & Output
[2021-09-29] MEDS: NIFEdipine 30 MG TAB.ER.24 60 MG PO ×2 (08:21→16:56)
[2021-09-29] MEDS: carvediloL 25 MG TABLET PO ×2 (08:21→16:55)
[2021-09-29] MEDS: HEPARIN SODIUM 5,000 UNITS/ML VIAL 5000 UNITS SUB-Q ×2 (08:22→20:38)
[2021-09-29] MEDS: PANTOPRAZOLE 40 MG TABLET PO (08:22)
[2021-09-29] MEDS: FUROSEMIDE INJ 100 MG/10 ML VIAL 80 MG IV PUSH ×2 (08:23→16:56)
[2021-09-29] MEDS: TIMOLOL MALEATE 0.5% OP SOLN 5 ML BOTTLE 1 DROP EACH EYE ×2 (08:23→21:06)
[2021-09-29] MEDS: BRIMONIDINE TARTRATE 0.2% OP SOLN 5 ML BTL 1 DROP EACH EYE ×2 (08:23→20:38)
[2021-09-29 09:03] LABS: Alveolar/Arterial O2 Gradient 120.3 mmHg; Base Excess ABG 1.8 mEq/l (+/-2.0); Fractional Inspired Oxygen 36 %; HCO3 ABG 26.1 mEq/l (22.0-26.0); Oxygen Content ABG 15.9 %vol (16.0-22.0); Oxygen Saturation ABG 97.2 % (95.0-100.0); Oxyhemoglobin 95.2 % THb (90.0-100.0); PCO2 ABG 39.6 mmHg (35.0-45.0); PO2 ABG 90.4 mmHg (80.0-100.0); PO2 FiO2 Ratio Arterial Blood 2.51 %; Total Hemoglobin 11.8 g/dL (12.0-18.0); pH ABG 7.436 (7.350-7.450)
[2021-09-29 09:05] LABS: Device NASAL CANNULA; Modified Allen's Test Pass; Site Drawn RIGHT RADIAL
[2021-09-29] MEDS: EPOETIN ALFA-EPBX 10,000 UNITS/ML VIAL 10000 UNITS IV PUSH (11:50)
--- NOTE | 2021-09-29 14:33 | HOMEO2EVAL ---
Evaluation was performed at [facility] Home Oxygen Evaluation RC: Home Oxygen (O2) Evaluation Start: 09/29/21 10:10 Freq: ONCE Status: Active Protocol: RPE Activity Type Activity Date Activity User E-sign Co-sign Detail Recorded Client Recorded Date Recorded By Document 09/29/21 14:00 [email or web address] [email or web address] 09/29/21 14:33 DJO Document 09/29/21 14:05 [email or web address] [email or web address] 09/29/21 14:33 DJO Document 09/29/21 14:10 [email or web address] [email or web address] 09/29/21 14:33 DJO Document 09/29/21 14:15 [email or web address] [email or web address] 09/29/21 14:33 DJO Document 09/29/21 14:25 [email or web address] [email or web address] 09/29/21 14:33 DJO 09/29/21 09/29/21 09/29/21 14:00 14:05 14:10 Home O2 Evaluation Test Phase Resting Resting Resting Oxygen Delivery Room Air Nasal Cannula Nasal Cannula Oxygen Flow Rate (L/min) 1 2 Pulse Oximetry (90-100 %) 87 L 88 L 91 Pulse Rate (60-100 beats/min) 82 81 82 Treatment Charges O2 Evaluation - Inpatient 09/29/21 09/29/21 14:15 14:25 Home O2 Evaluation Test Phase Exercise Resting Oxygen Delivery Nasal Cannula Nasal Cannula Oxygen Flow Rate (L/min) 2 2 Pulse Oximetry (90-100 %) 90 91 Pulse Rate (60-100 beats/min) 96 85 Treatment Charges
--- NOTE | 2021-09-29 14:34 | PCRCNOTE ---
HOME O2 AT 2L AT REST AND WITH ACTIVITY. PT HAS HOME O2 AND STATES A FAMILY MEMBER WILL BRING IN TANK FOR DISCHARGE.
--- NOTE | 2021-09-29 15:18 | PM.PNNEP ---
Progress Note: A&P Assessment and Plan (1) Hypoxia: Code(s): R09.02 - Hypoxemia Status: Acute Assessment and Plan: The patient had shortness of breath for a month and cough for a week. cxr shows fluid neck veins up removed fluid day before yesterday and yesterday. will remove more today she may have pneumonia. she is on atbs and supportive care. remove more fluid today atbs oxygen when needed (2) End-stage renal disease on hemodialysis: Code(s): N18.6 - End stage renal disease; Z99.2 - Dependence on renal dialysis Status: Acute Assessment and Plan: The patient is due for dialysis today. (3) Hyperkalemia: Code(s): E87.5 - Hyperkalemia Status: Acute Assessment and Plan: resolved. K normal today (4) Type 2 diabetes mellitus: Code(s): E11.9 - Type 2 diabetes mellitus without complications Status: Acute Assessment and Plan: On Accu-Cheks and sliding scale insulin per hospitalist. (5) Essential (primary) hypertension: Code(s): I10 - Essential (primary) hypertension Status: Acute Assessment and Plan: This is good at the moment but has been going up and down between 150 and 190. Removing fluid should help this. Will continue her outpatient blood pressure medications. Will also add an ARB (6) Erythropoietin deficiency anemia: Code(s): D63.1 - Anemia in chronic kidney disease Status: Acute Assessment and Plan: Hemoglobin is 10.1. Will continue Epogen with each dialysis.. (7) Renal osteodystrophy: Code(s): N25.0 - Renal osteodystrophy Status: Acute Assessment and Plan: phos is h igh. restart velphoro. she gets it free at home. Subjective Date/time seen: 09/29/21 08:00 Interval history: feels less sob. looks better. still on oxygen. Review of Systems Cardiovascular: Cardiovascular: Reports no additional cardiovascular complaints Respiratory: Respiratory: Reports no additional respiratory complaints Gastrointestinal: Gastrointestinal: Reports no additional gastrointestinal complaints Genitourinary: Genitourinary: Reports no additional female genitourinary complaints Exam Narrative: WDWN in NAD skin no rash head ncat lungs dec bs at bases cor reg no rub abd BS+ nontender and soft ext no edema. neck veins lower. Objective Data Vital Signs Vital Signs: Vital Signs - 24 hr 09/28/21 17:12 09/28/21 20:00 09/28/21 22:00 Temperature 36.4 C Pulse Rate 82 85 Respiratory Rate 16 Blood Pressure 148/62 H Pulse Oximetry 99 96 Oxygen Delivery Nasal Cannula Oxygen Flow Rate 4 09/28/21 22:33 09/29/21 06:00 09/29/21 08:21 Temperature 36.1 C L Pulse Rate 80 80 Respiratory Rate 16 Blood Pressure 137/68 Pulse Oximetry 96 95 Oxygen Delivery Nasal Cannula Oxygen Flow Rate 4 09/29/21 09:06 09/29/21 09:37 09/29/21 09:30 Temperature 36.6 C Pulse Rate 70 74 Respiratory Rate 18 Blood Pressure 128/66 132/66 Pulse Oximetry 96 Oxygen Delivery Nasal Cannula Oxygen Flow Rate 4 09/29/21 09:30 09/29/21 10:00 09/29/21 09:40 Temperature Pulse Rate 71 70 Respiratory Rate Blood Pressure 128/67 132/65 Pulse Oximetry Oxygen Delivery Oxygen Flow Rate 4 09/29/21 08:00 09/29/21 10:20 09/29/21 10:15 Temperature 36.6 C Pulse Rate 72 74 Respiratory Rate 16 Blood Pressure 130/68 184/95 H Pulse Oximetry 96 Oxygen Delivery Nasal Cannula Oxygen Flow Rate 4 09/29/21 10:40 09/29/21 11:00 09/29/21 11:20 Temperature Pulse Rate 68 68 71 Respiratory Rate Blood Pressure 131/74 120/65 134/72 Pulse Oximetry Oxygen Delivery Oxygen Flow Rate 09/29/21 11:40 09/29/21 12:20 09/29/21 12:00 Temperature 36.4 C Pulse Rate 75 75 74 Respiratory Rate 16 Blood Pressure 131/77 127/66 105/51 L Pulse Oximetry Oxygen Delivery Oxygen Flow Rate 09/29/21 12:
[2021-09-29] MEDS: CALCIUM ACETATE 667 MG TABLET 2001 MG PO (16:54)
[2021-09-29] MEDS: LATANOPROST 0.005% OP SOLN 2.5 ML BTL 1 DROP EACH EYE (20:38)
[2021-09-29] MEDS: INSULIN GLARGINE (*BKC) 100 UNITS/ML 10 UNITS SUB-Q (20:39)
[2021-09-29 23:45] LABS: Glucose Point of Care 214 mg/dl (65-105)
[2021-09-30 05:57] VITALS: BP 135/62; PULSE 83; RESP 20; TEMP 36.3; O2SAT 97
[2021-09-30 08:00] VITALS: O2SAT 97
[2021-09-30 08:02] LABS: Albumin Level 4.5 g/dL (3.5-5.1); Anion Gap 15 mmol/L (8-16); Blood Urea Nitrogen 36 mg/dL (7-17); Calcium 10.5 mg/dL (8.4-10.2); Carbon Dioxide 31 mmol/L (22-30); Chloride 87 mmol/L (98-107); Estimated Glomerular Filt Rate 7; Glucose 170 mg/dL (65-110); Phosphorus 7.4 mg/dL (2.5-4.5); Potassium 4.5 mmol/L (3.4-5.0); Sodium 133 mmol/L (137-145)
[2021-09-30] MEDS: BRIMONIDINE TARTRATE 0.2% OP SOLN 5 ML BTL 1 DROP EACH EYE (08:16)
[2021-09-30 08:17] VITALS: PULSE 80
[2021-09-30] MEDS: CALCIUM ACETATE 667 MG TABLET 2001 MG PO ×3 (08:17→16:34)
[2021-09-30] MEDS: carvediloL 25 MG TABLET PO ×2 (08:17→16:33)
[2021-09-30] MEDS: CHOLECALCIFEROL 1,000 UNITS TABLET 1000 UNITS PO (08:17)
[2021-09-30] MEDS: NIFEdipine 30 MG TAB.ER.24 60 MG PO ×2 (08:19→16:33)
[2021-09-30] MEDS: FUROSEMIDE INJ 100 MG/10 ML VIAL 80 MG IV PUSH ×2 (08:19→16:35)
[2021-09-30] MEDS: levoFLOXacin 750 MG TABLET PO (08:19)
[2021-09-30] MEDS: HEPARIN SODIUM 5,000 UNITS/ML VIAL 5000 UNITS SUB-Q (08:19)
[2021-09-30] MEDS: TIMOLOL MALEATE 0.5% OP SOLN 5 ML BOTTLE 1 DROP EACH EYE (08:19)
[2021-09-30] MEDS: PANTOPRAZOLE 40 MG TABLET PO (08:19)
[2021-09-30 09:40] VITALS: O2SAT 97
--- NOTE | 2021-09-30 10:14 | PM.DS ---
DS: Admitting Diagnosis Discharge Date September 30, 2021 Admitting Diagnosis Pneumonia DS: Discharge Diagnosis Discharge Diagnosis (1) Pneumonia: Code(s): J18.9 - Pneumonia, unspecified organism Status: Acute Assessment and Plan: Rocephin and azithromycin, day 3, improving, still on 4L, attempt to wean today, on 2L at home Update: Nurse able to wean patient to 2 L, anticipate discharge home tomorrow, will switch to Levaquin p.o. for 2 more days, 500 mg every other day due to hemodialysis (2) Acute respiratory failure with hypoxia: Code(s): J96.01 - Acute respiratory failure with hypoxia Status: Acute Assessment and Plan: see above, likely 2/2 pneumonia, not improving as expected, still on 4L, will check ABG today Update: Patient weaned to 2 L, ABG essentially normal (3) Hyperkalemia: Code(s): E87.5 - Hyperkalemia Status: Acute Assessment and Plan: Management per Nephrology with dialysis (4) Type 2 diabetes mellitus: Code(s): E11.9 - Type 2 diabetes mellitus without complications Status: Acute Assessment and Plan: Accu-Cheks with sliding scale insulin, check A1c, last A1c was 7.8 in 2020 (5) ESRD (end stage renal disease) on dialysis: Code(s): N18.6 - End stage renal disease; Z99.2 - Dependence on renal dialysis Status: Acute (6) Essential (primary) hypertension: Code(s): I10 - Essential (primary) hypertension Status: Acute (7) Multinodular goiter: Code(s): E04.2 - Nontoxic multinodular goiter Status: Acute (8) Diastolic heart failure: Code(s): I50.30 - Unspecified diastolic (congestive) heart failure Status: Acute Assessment and Plan: Echo EF 65-70% w/diastolic dysfunction Plan Patient follows with cardiology and pulmonology at [facility], outpatient PSG scheduled, currently wears 2L nocturnally and with exertion DVT prophylaxis with Heparin subQ Code status full code DS: Summary Hospital Course Hospital Course: 61-year-old female presenting to the ER with shortness of breath and found to have pneumonia. Past medical history significant for end-stage renal disease on hemodialysis. 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 Nephrology was consulted and managed her dialysis here. She was started on Rocephin azithromycin improved. She had acute hypoxic respiratory failure and required 4 L of oxygen that was able to be weaned down to 2 L prior to discharge. Diuresis was continued while here. She was discharged in good condition after deescalated to [facility]. Dose was 500 mg every other day. Time Spent with Patient Time attestation: Total time spent providing and/or coordinating discharge services: Exam Narrative: General: No acute distress, alert and oriented per baseline HEENT: Atraumatic, normocephalic, mucous membranes moist CV: Regular rate and rhythm, S1, S2 Lungs: Improved air entry today, no wheeze Abdomen: Soft, nontender, nondistended Extremities: Normal to inspection Skin: No rashes noted, no lesions or wounds seen Psych: Euthymic, normal affect DS: Data Data Completed and Pending Labs on day of discharge: Labs from last 24 hours 09/30/21 09/29/21 07:21 20:37 Sodium 133 L Potassium 4.5 Chloride 87 L Carbon Dioxide 31 H Anion Gap 15 BUN 36 H D Creatinine 7.30 H Estim Creat Clear Calc Not Reportable Estimated GFR 7 L Glucose 170 H POC Capillary Glucose 214 H Calcium 10.5 H Phosphorus 7.4 H Albumin 4.5 Preliminary micro results at discharge 09/27/21 05:21 Blood Culture - Preliminary Blood 09/27/21 05:21 Blood Culture - Preliminary Blood Discharge Plan Discharge Attending physician on discharge: Fariha Salas Consulting providers: Dandre Nunez Discharging Clinician: Fariha Salas Patient Disposition: Home, Self-Care Activity: as tolerate
--- NOTE | 2021-09-30 10:49 | PM.PNNEP ---
Progress Note: A&P Assessment and Plan (1) Hypoxia: Code(s): R09.02 - Hypoxemia Status: Acute Assessment and Plan: The patient had shortness of breath for a month and cough for a week. She had dialysis 3 days in a row removed some extra fluid and she feels better. She also has a component of pneumonia. She is getting antibiotics and feels better in this regard as well. (2) End-stage renal disease on hemodialysis: Code(s): N18.6 - End stage renal disease; Z99.2 - Dependence on renal dialysis Status: Acute Assessment and Plan: The patient is due for dialysis tomorrow (3) Hyperkalemia: Code(s): E87.5 - Hyperkalemia Status: Acute Assessment and Plan: resolved. K normal today (4) Type 2 diabetes mellitus: Code(s): E11.9 - Type 2 diabetes mellitus without complications Status: Acute Assessment and Plan: On Accu-Cheks and sliding scale insulin per hospitalist. (5) Essential (primary) hypertension: Code(s): I10 - Essential (primary) hypertension Status: Acute Assessment and Plan: Blood pressure doing well with her systolic between 105 and 143. Mostly below 130. I ended up not adding an Arb as the blood pressure improved with fluid removal. She is currently on carvedilol nifedipine with pretty good control. (6) Erythropoietin deficiency anemia: Code(s): D63.1 - Anemia in chronic kidney disease Status: Acute Assessment and Plan: Hemoglobin is 10.1. Will continue Epogen with each dialysis.. (7) Renal osteodystrophy: Code(s): N25.0 - Renal osteodystrophy Status: Acute Assessment and Plan: phos is h igh. restart velphoro. she gets it free at home. Subjective Date/time seen: 09/30/21 10:49 Interval history: Shoshana is feeling better. She is less short of breath. She still has a little bit of a cough Exam Narrative: WDWN in NAD skin no rash head ncat lungs clear cor reg no rub abd BS+ nontender and soft ext no edema. Neck veins look good. Objective Data Vital Signs Vital Signs: Vital Signs - 24 hr 09/29/21 11:00 09/29/21 11:20 09/29/21 11:40 Temperature Pulse Rate 68 71 75 Respiratory Rate Blood Pressure 120/65 134/72 131/77 Pulse Oximetry Oxygen Delivery Oxygen Flow Rate 09/29/21 12:20 09/29/21 12:00 09/29/21 12:05 Temperature 36.4 C Pulse Rate 75 74 64 Respiratory Rate 16 Blood Pressure 127/66 105/51 L 110/58 L Pulse Oximetry Oxygen Delivery Oxygen Flow Rate 09/29/21 14:00 09/29/21 14:00 09/29/21 14:05 Temperature 36.2 C L Pulse Rate 82 82 81 Respiratory Rate 16 Blood Pressure 122/60 Pulse Oximetry 100 87 L 88 L Oxygen Delivery Room Air Nasal Cannula Oxygen Flow Rate 1 09/29/21 14:10 09/29/21 14:15 09/29/21 14:25 Temperature Pulse Rate 82 96 85 Respiratory Rate Blood Pressure Pulse Oximetry 91 90 91 Oxygen Delivery Nasal Cannula Nasal Cannula Nasal Cannula Oxygen Flow Rate 2 2 2 09/29/21 16:55 09/29/21 22:00 09/30/21 05:57 Temperature 36.9 C 36.3 C L Pulse Rate 80 85 83 Respiratory Rate 19 20 Blood Pressure 143/60 H 135/62 Pulse Oximetry 96 97 Oxygen Delivery Oxygen Flow Rate 09/30/21 08:17 09/30/21 09:40 09/30/21 08:00 Temperature Pulse Rate 80 Respiratory Rate Blood Pressure Pulse Oximetry 97 97 Oxygen Delivery Nasal Cannula Nasal Cannula Oxygen Flow Rate 2 2.5 Intake/Output Intake/Output: Intake & Output 09/27/21 09/28/21 09/29/21 09/30/21 23:59 23:59 23:59 23:59 Intake Total 840 1340 1382 420 Output Total 2800 2253 2150 100 Balance -1960 -913 -768 320 Meds/Results Medications: Active Medications Generic Name Dose Route Start Last Admin Trade Name Freq PRN Reason Stop Dose Admin Albuterol 2 puff 09/27/21 07:56 09/27/21 14:57 Albuterol Sulfate (*Sp) Aerosol 1 Puff INHALATION 2 puff Q6H PRN Administrati
[2021-09-30 14:00] VITALS: BP 143/62; PULSE 82; RESP 18; TEMP 36.6; O2SAT 91
[2021-09-30 16:33] VITALS: PULSE 80
== END 2021-09-30 18:03 | disposition home or self-care (01) | DRG 193 ==
LOC: ANHED 05:22 → ANH3MEDSUR 06:12
PROVIDERS: Internal Medicine; Internal Medicine Nephrology; Admitting Provider Internal Medicine; Emergency Provider Emergency Medicine; PCP Family Medicine; Visit Provider Student in an Organized Health Care Education/Training Program
DX: J18.9 Pneumonia, unspecified organism (principal); N18.6 End stage renal disease; J96.01 Acute respiratory failure with hypoxia; I13.2 Hypertensive heart and chronic kidney disease with heart failure and with stage 5 chronic kidney disease, or end stage renal disease; I50.30 Unspecified diastolic (congestive) heart failure; Z20.822 Contact with and (suspected) exposure to COVID-19; E11.22 Type 2 diabetes mellitus with diabetic chronic kidney disease; Z99.2 Dependence on renal dialysis; D63.1 Anemia in chronic kidney disease; N25.0 Renal osteodystrophy; E04.2 Nontoxic multinodular goiter; E87.79 Other fluid overload; E87.5 Hyperkalemia; K21.9 Gastro-esophageal reflux disease without esophagitis; E11.319 Type 2 diabetes mellitus with unspecified diabetic retinopathy without macular edema; H40.9 Unspecified glaucoma; E55.9 Vitamin D deficiency, unspecified; Z79.4 Long term (current) use of insulin; Z79.899 Other long term (current) drug therapy; Z85.42 Personal history of malignant neoplasm of other parts of uterus; Z98.42 Cataract extraction status, left eye; Z86.010 Personal history of colon polyps; Z98.41 Cataract extraction status, right eye; Z96.1 Presence of intraocular lens; Z99.81 Dependence on supplemental oxygen
CPT/HCPCS: 36415; 36600; 71045; 80048; 80053; 80069; 82805; 82948; 83036; 83605; 83735; 83880; 84484; 85025; 87040; 93005; 93308; 94618; 94640; 96374; 99285; A9270; C8924; C9803; G0257; J0456; J0696; J1644; J1815; J1940; J7030; Q5105; Q9957; U0003; U0005

== ENCOUNTER 2021-11-09 12:30 | Outpatient (RCR) | payer MEDICARE, SELFPAY ==
--- NOTE | 2021-10-10 16:57 | PTOPEVAL1 ---
Evaluation Information Assessment Status Evaluation Diagnosis back pain Subjective Information Pt reports upper back pain for 10 years. She states it feels like an ache that comes and goes. She cannot determine anything that makes the pain better or worse. She reports sitting is more painful than standing. She reports she is not limited in how far she can walk d/t the back pain. Reported Pain Level Pain Score 1: Self Report Assessment PT Clinical Summary Shoshana is a 61 y/o female who presents to therapy for her initial evaluation with a diagnosis of back pain. Her back pain is unaffected my cervical or lumbar motion. She demonstrates moderate intervertebral hypomobility through palpation as well as reports tenderness during assessment. She has postural abnormalities and presents with a forwards head with significantly increased thoracic kyphosis. Skilled physical therapy services are indicated to address the deficits noted above, to improve thoracic mobility, to manage pain, and to return to baseline function. Plan of Care Interventions Electrical Stimulation,Hot Pack/Cold Pack,Manual Therapy,Neuro Re-education,Patient/Caregiver Educati,Therapeutic Activities,Therapeutic Exercise PT Services Indicated Yes Treatment Frequency and 1x/wk for 4 wks or until goals are met Duration These treatments will address the objective and functional deficits as defined above. The patient will be advanced safely and appropriately in order for the patient to progress towards his/her prior level of function. Additional exercises will be introduced and as well as a comprehensive home exercise program upon discharge, if needed, ?to ensure carryover of functional gains achieved in the clinic. This treatment plan has been reviewed and agreement upon by the patient.
--- NOTE | 2021-11-09 14:44 | PTOPDC ---
Assessment and note entered by Erwin Barajas, PT, DPT Evaluation Information Assessment Status Progress Diagnosis back pain Subjective Information Pt reports she had no back pain today, but has had pain earlier this week. She states it comes and goes and is overall improving. Pt reports 50% improvement in overall symptoms but this reports her pain at 10/10 in the last week. Pt reports good compliance with her HEP. Reported Pain Level Pain Score 0: Self Report Assessment PT Clinical Summary Shoshana presents to therapy today for her progress report following 4 visits of therapy to treat her thoracic pain. Today she has improved thoracic mobility through palpation, decreased muscle spasms, and no tenderness to palpation with spinal and rib mobilizations. She has improved lumbar and thoracic mobility this date compared to her initial visit. While she continues to report a high pain level throughout the week she states this has become manageable and more minimal. Pt states she would like to continue her HEP from home, she states she has the tools to implement what she has learned with therapy. Shoshana will be therefore be discharged from skilled therapy services at this time. Plan of Care PT Services Indicated No Treatment Frequency and to be d/c'ed Duration
== END 2021-11-11 14:11 | disposition home or self-care (01) ==
LOC: ANHGOSHPT 12:30
PROVIDERS: PCP Family Medicine; Visit Provider Family Medicine
DX: M54.9 Dorsalgia, unspecified (principal)
CPT/HCPCS: 97110; 97112; 97140; 97161; 97530

== ENCOUNTER 2021-11-25 11:08 | Outpatient (CLI) | payer MEDICARE, SELFPAY | END 2021-11-25 11:09 | disposition home or self-care (01) | PROVIDERS: PCP Family Medicine; Visit Provider Family Medicine | DX: E78.5 Hyperlipidemia, unspecified (principal); I10 Essential (primary) hypertension; E04.2 Nontoxic multinodular goiter; E55.9 Vitamin D deficiency, unspecified; E53.8 Deficiency of other specified B group vitamins | CPT/HCPCS: 99199; 36415 ==

== ENCOUNTER 2022-03-22 10:54 | Outpatient (CLI) | payer MEDICARE, SELFPAY ==
[2022-03-22 20:43] LABS: Alanine Aminotransferase 16 U/L (6-35); Albumin Level 4.2 g/dL (3.5-5.1); Alkaline Phosphatase 131 U/L (38-126); Anion Gap 13 mmol/L (8-16); Aspartate Amino Transferase 29 U/L (14-36); Bilirubin,Total 0.5 mg/dL (0.2-1.3); Blood Urea Nitrogen 54 mg/dL (7-17); Calcium 8.2 mg/dL (8.4-10.2); Carbon Dioxide 27 mmol/L (22-30); Chloride 97 mmol/L (98-107); Estimated Glomerular Filt Rate 5; Glucose 195 mg/dL (65-110); Potassium 5.3 mmol/L (3.4-5.0); Sodium 137 mmol/L (137-145)
[2022-03-22 22:10] LABS: Hemoglobin A1C 6.6 % (<5.7)
== END 2022-03-22 10:55 | disposition home or self-care (01) ==
LOC: ANHGOSHLAB 10:56
PROVIDERS: PCP Family Medicine; Visit Provider Family Medicine
DX: E11.9 Type 2 diabetes mellitus without complications (principal); I10 Essential (primary) hypertension
CPT/HCPCS: 36415; 80053; 83036

== ENCOUNTER 2022-05-24 13:20 | Outpatient (CLI) | payer MEDICARE, SELFPAY ==
--- NOTE | ~2022-05-24 | CT_ITS ---
EXAMINATION: CT brain & sinus wo con DATE: 05/24/2022 13:43 INDICATION: Facial numbness. TECHNIQUE: Computed tomography (CT) of the head and sinuses was performed without intravenous contras t. The dose-length product was 681.00 mGy-cm. Automated exposure control and iterative reconstruction technique were employed. COMPARISON: None FINDINGS: Mild generalized atrophy. There are scattered mild periventricular and subcortical white ma tter changes, most likely related to small vessel ischemic disease (microangiopathy). Small focal chr onic right occipital lobe infarction. No ventriculomegaly or midline shift. Basilar cisterns are pino nt. Paranasal sinuses and mastoids are pneumatized. No depressed skull fractures. No acute intracrani al hemorrhage, infarction, mass or mass effect. There is intracranial atherosclerosis. Ostiomeatal un its are patent. Mild rightward nasal septal deviation. IMPRESSION: 1. No acute intracranial abnormality. 2: Chronic focal right occipital lobe infarction. 3: Chronic age-related findings. Reviewed, dictated and finalized at location B.
== END 2022-05-24 13:21 | disposition home or self-care (01) ==
PROVIDERS: PCP Family Medicine; Visit Provider Nurse Practitioner
DX: R20.0 Anesthesia of skin (principal); Z86.73 Personal history of transient ischemic attack (TIA), and cerebral infarction without residual deficits
CPT/HCPCS: 70450; 70486

== ENCOUNTER 2023-06-25 09:49 | Outpatient (CLI) | payer MEDICARE, SELFPAY ==
[2023-06-25 14:30] LABS: Alanine Aminotransferase 11 U/L (6-35); Albumin Level 4.6 g/dL (3.5-5.1); Alkaline Phosphatase 102 U/L (38-126); Anion Gap 15 mmol/L (4-12); Aspartate Amino Transferase 26 U/L (14-36); Bilirubin,Total 0.6 mg/dL (0.2-1.3); Blood Urea Nitrogen 46 mg/dL (7-17); Carbon Dioxide 25 mmol/L (22-30); Chloride 100 mmol/L (98-107); Cholesterol 183 mg/dL (0-200); Estimated Glomerular Filt Rate 6; Glucose 80 mg/dL (65-110); HDL Direct 52 mg/dL; Potassium 4.9 mmol/L (3.4-5.0); Sodium 140 mmol/L (137-145); Triglycerides 90 mg/dL (<150)
[2023-06-25 14:41] LABS: LDL Cholesterol Direct 83 mg/dL
[2023-06-25 14:51] LABS: Hemoglobin A1C 5.3 % (<5.7)
[2023-06-28 12:09] LABS: Vitamin D 1,25 (OH)2 Total 33 pg/mL (18-72); Vitamin D2 1,25 (OH)2 <8 pg/mL; Vitamin D3 1,25 (OH)2 33 pg/mL
== END 2023-06-25 09:50 | disposition home or self-care (01) ==
LOC: ANHGOSHLAB 09:51
PROVIDERS: PCP Family Medicine; Visit Provider Nurse Practitioner Family
DX: E55.9 Vitamin D deficiency, unspecified (principal); I10 Essential (primary) hypertension; E11.9 Type 2 diabetes mellitus without complications
CPT/HCPCS: 36415; 80053; 80061; 82652; 83036

== ENCOUNTER 2023-06-25 10:04 | Outpatient (CLI) | payer MEDICARE, BC, SELFPAY ==
--- NOTE | ~2023-06-25 | XR_ITS ---
Clinical Indication: Dyspnea PA and lateral views of the chest: Comparison: 09/27/2021 Findings: There is probable central congestive change versus possibly pulmonary artery hypertension. Possible minimal bibasilar pulmonary edema.. Cardiomediastinal silhouette is within normal limits. B ones and soft tissues are unremarkable. Impression: Probable central congestive change and minimal bibasilar pulmonary edema. Correlate for any possibili ty of pulmonary artery hypertension. Reviewed, dictated and finalized at location M. Impression: Probable central congestive change and minimal bibasilar pulmonary edema. Corre late for any possibility of pulmonary artery hypertension.
== END 2023-06-25 10:05 ==
LOC: GOSHIMG 10:07
PROVIDERS: PCP Family Medicine; Visit Provider Nurse Practitioner Family
DX: R06.09 Other forms of dyspnea (principal)
CPT/HCPCS: 71046

== ENCOUNTER 2023-09-10 10:06 | Outpatient (CLI) | payer MEDICARE, SELFPAY ==
--- NOTE | ~2023-09-10 | NM_ITS ---
EXAMINATION: NM vicky stress w perfusion DATE: 09/10/2023 12:11 INDICATION: Other forms of dyspnea. TECHNIQUE: Rest images were obtained following intravenous administration of 9.5 mCi Tc99m tetrofosmi n (Myoview). The patient was infused intravenously with Lexiscan (regadenoson). Then, 30.6 mCi Tc99m tetrofosmin (Myoview) was administered intravenously, and stress images were obtained. Data was recon structed into short axis and horizontal and vertical long axis SPECT images. Gated SPECT images were also obtained. COMPARISON: None. FINDINGS: There is no definite reversible or fixed perfusion abnormality to suggest ischemia or infar ction. There is no segmental wall motion abnormality. Left ventricular ejection fraction measures 6 9%. IMPRESSION: 1. No definite ischemia or infarct. 2. Normal left ventricular ejection fraction measuring 69%. Reviewed, dictated and finalized at location A.
--- NOTE | 2023-09-10 10:52 | EST_ITS ---
Patient Info Name: Shoshana Long Age: 63 years : 1960 Gender: Female Ht: 58 in Wt: 118 lbs BSA: 1.49 m2 HR: 67 bpm BP: 131 / 76 mmHg Heart Rhythm: Sinus Rhythm Exam Date: 09/10/2023 11:08 AM Exam Location: Echo Lab Patient Status: Outpatient Admit Date: 09/10/2023 Staff Ordering Physician: Dejon Barnett DO Attending Provider: Dejon Barnett DO Exercise Technologist: Arelis Melgoza CT Exercise Physician: Dejon Barnett DO Exam Type: CA stress vicky w NM Study Info Indications R06.09 - Other forms of dyspnea A regadenoson stress test was performed. Summary 1. 1. Negative lexiscan stress test for ischemic ST changes by ECG criteria. 2. 2. Stable hemodynamics throughout the test. 3. 3. Nuclear scan to follow and will be reported separately. Please correlate with it. 4. 4. Patient informed of the above results. Protocol: Lexiscan Stress ECG Details Stage: REST Duration (min): 5 min : 49 sec HR (bpm): 66 SBP (mmHg): 138 DBP (mmHg): 71 Stage: REST Duration (min): 7 min : 28 sec HR (bpm): 66 SBP (mmHg): 138 DBP (mmHg): 71 Stage: STAGE 1 Duration (min): 1 min : 0 sec HR (bpm): 76 SBP (mmHg): 138 DBP (mmHg): 71 Stage: RECOVERY Duration (min): 1 min : 0 sec HR (bpm): 78 SBP (mmHg): 138 DBP (mmHg): 71 Stage: RECOVERY Duration (min): 2 min : 0 sec HR (bpm): 77 SBP (mmHg): 138 DBP (mmHg): 71 Stage: RECOVERY Duration (min): 2 min : 41 sec HR (bpm): 74 SBP (mmHg): 137 DBP (mmHg): 65 Rest HR: 66 bpm Peak HR: 79 bpm Rest Sys BP: 138 mmHg Peak Sys BP: 137 mmHg Max Pred HR: 155 bpm % Max Pred HR: 51 % Target HR: 132 bpm Max RPP: 10,823 bpm*mmHg Termination Reason: Completed protocol Cardiac Symptoms: Shortness of breath Total Time: 1 min : 0 sec Rest Baeza BP: 71 mmHg Peak Baeza BP: 65 mmHg Total Dose: 0.4 mg Resting ECG Sinus rhythm, ST-T wave abnormality in anterolat/inf leads- consider ischemia. Stress ECG No ST changes. Arrhythmias None. Report Signatures
== END 2023-09-10 10:07 | disposition home or self-care (01) ==
PROVIDERS: PCP Family Medicine; Visit Provider Internal Medicine Cardiovascular Disease
DX: R06.09 Other forms of dyspnea (principal)
CPT/HCPCS: 78452; 93017; A9502; J2785

== ENCOUNTER 2024-02-29 08:40 | Outpatient (CLI) | payer MEDICARE, SELFPAY ==
[2024-02-29 09:30] VITALS: PULSE 70; O2SAT 86
[2024-02-29 09:35] VITALS: PULSE 70; O2SAT 88
[2024-02-29 09:37] LABS: Alveolar/Arterial O2 Gradient 98.2 mmHg; Base Excess ABG -0.1 mEq/l (+/-2.0); Carboxyhemoglobin 1.2 % THb (0-2.0); Fractional Inspired Oxygen 28 %; HCO3 ABG 23.5 mEq/l (22.0-26.0); Methemoglobin ABG 0.3 %THb (0-1.5); Oxygen Content ABG 14.5 %vol (16.0-22.0); Oxygen Saturation ABG 92.4 % (95.0-100.0); Oxyhemoglobin 89.3 % THb (90.0-100.0); PCO2 ABG 34.7 mmHg (35.0-45.0); PO2 ABG 60.5 mmHg (80.0-100.0); PO2 FiO2 Ratio Arterial Blood 2.16 %; Reduced Hemoglobin 9.2 %THb (0-5.0); Total Hemoglobin 11.5 g/dL (12.0-18.0); pH ABG 7.449 (7.350-7.450)
[2024-02-29 09:39] LABS: Modified Allen's Test Pass; Site Drawn RIGHT BRACHIAL
[2024-02-29 09:40] VITALS: PULSE 73; O2SAT 91
[2024-02-29 09:40] LABS: Device NASAL CANNULA
[2024-02-29 09:45] VITALS: PULSE 87; O2SAT 90
[2024-02-29 10:00] VITALS: PULSE 76; O2SAT 91
--- NOTE | 2024-02-29 11:42 | HOMEO2EVAL ---
Evaluation was performed at [facility] Home Oxygen Evaluation RC: Home Oxygen (O2) Evaluation Start: 02/29/24 11:32 Freq: Status: Active Protocol: RPE Activity Type Activity Date Activity User E-sign Co-sign Detail Recorded Client Recorded Date Recorded By Document 02/29/24 09:30 [email or web address] [email or web address] 02/29/24 11:42 DJO Document 02/29/24 09:35 [email or web address] [email or web address] 02/29/24 11:42 DJO Document 02/29/24 09:40 [email or web address] [email or web address] 02/29/24 11:42 DJO Document 02/29/24 09:45 [email or web address] [email or web address] 02/29/24 11:42 DJO Document 02/29/24 10:00 [email or web address] [email or web address] 02/29/24 11:42 DJO 02/29/24 02/29/24 02/29/24 09:30 09:35 09:40 Home O2 Evaluation [Oxygen] -Test Phase Resting Resting Exercise -Oxygen Delivery Room Air Nasal Cannula Nasal Cannula -Oxygen Flow Rate (L/min) 1 2 [Pulse Oximetry] -Pulse Oximetry (90-100 %) 86 L 88 L 91 [Pulse Rate] -Pulse Rate (60-100 beats/min) 70 70 73 [Evaluation] -Activity Tolerance [Exercise] -Ambulation Distance (feet) -Ambulation Distance (meters) 02/29/24 02/29/24 09:45 10:00 Home O2 Evaluation [Oxygen] -Test Phase Exercise Resting -Oxygen Delivery Nasal Cannula Nasal Cannula -Oxygen Flow Rate (L/min) 2 2 [Pulse Oximetry] -Pulse Oximetry (90-100 %) 90 91 [Pulse Rate] -Pulse Rate (60-100 beats/min) 87 76 [Evaluation] -Activity Tolerance Good [Exercise] -Ambulation Distance (feet) 800 -Ambulation Distance (meters) 243.82
--- NOTE | 2024-02-29 14:31 | P.PCNPFT_ITS ---
PFT Procedure Performed PFT Procedure Performed Spirometry with Pre/Post Bronchodilator Plethysmography (Lung Vol) Diffusing Cap (DLCO) Flow Vol Loop PFT Interpretation DOS: 02/29/2024 REQUESTING: Dakota Hubbard MD REASON FOR TESTING: Chronic respiratory failure with oxygen PULMONARY FUNCTION TESTS Results are reliable and reproducible. Repeatability of spirometry FEV1 maneuver pre bronchodilator is Grade A, and the repeat ability of spirometry FEV1 maneuver post bronchodilator is Grade B. The patient was only able to perform 1 acceptable diffusion a tracing despite for attempts and good coating. The patient did not have enough inspiratory reserve to accomplish the task. Moncho: GLI 2012 reference equations were used. Spirometry: The pre-bronchodilator FEV1 is 0.56 L, 35%, extremely low. The pre- bronchodilator FVC is 0.73 L, 36%, extremely low. The FEV1/FVC ratio is 77%. After bronchodilator, the FEV1 is 0.59 L, 36%, +6%. After bronchodilator, the FVC is 0.65 L, 32% predicted, -11%. The FEV1/FVC ratio is 91%. Lung volumes: The total lung capacity is 3.33 L, 91%, normal. The residual volume is 1.67 L, 100%, normal. The RV/TLC is 50%. Airway resistance is increased. Diffusion: DLCO is 35.1, 190%, increased. The DLCO/VA is 4.31 L, 93%, normal. Flow volume loop: The flow volume loop shows an abnormal tracing favoring a restrictive impairment more than obstructive impairment. IMPRESSION: This study shows an extremely reduced FEV1 and FVC without airflow obstruction. The total lung capacity is normal, ruling out a restrictive impairment. Supranormal DLCO can be seen in polycythemia, asthma, obesity, pulmonary hemorrhage, [id number] cardiac shunting, left heart failure, increased cardiac output. Clinical correlation recommended. No prior studies for comparison. The patient was not able to perform more than one diffusion maneuver, and had limited ability to repeat spirometry. Bettina Brunner MD
--- NOTE | 2024-02-29 14:57 | WPDSIXMINUTE ---
Six Minute Walk Procedure Procedure Performed Pulmonary Stress Test (6 min walk) Six Minute Walk Six Minute Walk: DATE OF SERVICE: 02/29/2024 REQUESTING: Dakota Hubbard MD REASON FOR TESTING: Chronic respiratory failure SIX MINUTE WALK This test was conducted per ATS guidelines. The patient wore oxygen 2 liters/minute and used a wheeled walker during testing. The initial saturation was 91%, and initial heart rate was 72 beats per minute. The patient walked without stopping, completing 243.8 m/800 ft. The saturation at the end of testing was 90%, and the heart rate was 87 beats per minute. IMPRESSION: The patient performed this test using oxygen by nasal cannula at 2 liters/minute which was sufficient with exertion. Bettina Brunner MD
== END 2024-02-29 08:41 | disposition home or self-care (01) ==
PROVIDERS: Visit Provider Internal Medicine Pulmonary Disease
DX: J96.11 Chronic respiratory failure with hypoxia (principal); Z99.81 Dependence on supplemental oxygen
CPT/HCPCS: 36600; 82375; 82805; 83050; 85018; 93306; 94060; 94618; 94726; 94729; 96375

== ENCOUNTER 2024-02-29 08:55 | Outpatient (CLI) | payer MEDICARE, SELFPAY ==
--- NOTE | 2024-02-29 | ECHO_ITS ---
Patient Info Name: Shoshana Long Age: 64 years : 1960 Gender: Female Ht: 50 in Wt: 117 lbs BSA: 1.40 m2 HR: 68 bpm BP: 158 / 80 mmHg Technical Quality: Fair Exam Date: 02/29/2024 10:12 AM Exam Location: Echo Lab Patient Status: Outpatient Admit Date: 02/29/2024 Staff Ordering Physician: Dakota Hubbard MD Resource Coordinator: Abby Skaggs RDCS Attending Provider: Dakota Hubbard MD Referring Physician: Stevie LOPEZ; Exam Type: CA echo doppler w bubble study Study Info Indications - CHRONIC RESP FAILURE W/ HYPOXIA Complete two-dimensional, color flow and Doppler transthoracic echocardiogram is performed with agitated saline. Contrast/Agitated Saline Contrast/Ag. Saline: Agitated Saline Amount: 20.00 ml Existing IV Access: Yes Summary 1. Left ventricular chamber dimension is normal. 2. Left ventricular systolic function is normal, estimated at 65-70%. 3. There is moderate concentric increased left ventricular wall thickness. 4. The left ventricular diastolic function is abnormal. 5. E/e' 25 is elevated. 6. Right ventricular chamber dimension is mildly enlarged. 7. Right ventricular systolic function is mildly reduced and with abnormal TAPSE 1.5 cm. 8. Left atrial chamber dimension is moderately enlarged. 9. Right atrial chamber dimension is moderately enlarged. 10. There is mild aortic valve sclerosis. 11. The mitral valve has moderately calcified annulus. 12. There is mild tricuspid valve regurgitation. 13. Moderate pulmonary hypertension, estimated pulmonary arterial systolic pressure is 48 mmHg. Left Ventricle E/e' 25 is elevated. Left ventricular chamber dimension is normal. Left ventricular systolic function is normal, estimated at 65-70%. There is moderate concentric increased left ventricular wall thickness. The left ventricular diastolic function is abnormal. Right Ventricle Right ventricular systolic function is mildly reduced and with abnormal TAPSE 1.5 cm. Right ventricular chamber dimension is mildly enlarged. Left Atria Left atrial chamber dimension is moderately enlarged. Right Atria Right atrial chamber dimension is moderately enlarged. Atrial Septum Agitated saline injection with and without valsalva maneuver opacified right side cardiac chambers without shunt to left side cardiac chambers. Intact interatrial septum visualized by 2D and agitated saline imaging. Aortic Valve The aortic valve is trileaflet. There is mild aortic valve sclerosis. There is no aortic valve stenosis. There is no aortic valve regurgitation. Pulmonic Valve There is no pulmonic regurgitation. Mitral Valve The mitral valve has moderately calcified annulus. There is no mitral valve stenosis. There is no mitral valve regurgitation. Tricuspid Valve There is mild tricuspid valve regurgitation. Moderate pulmonary hypertension, estimated pulmonary arterial systolic pressure is 48 mmHg. Pericardium/Pleural There is no pericardial effusion. Inferior Vena Cava Normal inferior vena cava with >50% collapse upon inspiration consistent with normal right atrial pressure, 5 mmHg. Aorta The aortic root size at the sinus of Valsalva is normal. Left Ventricular Outflow Tract Name Value Normal LVOT 2D LVOT Diameter 1.6 cm LVOT Doppler LVOT Peak Gradient 4 mmHg LVOT Mean Gradient 2 mmHg LVOT VTI 25 cm LVOT VTI/AV VTI Ratio 0.6 LVOT Stroke Volume 52 ml LVOT CO 3.5 l/min LVOT CI 2.5 l/min/m2 Pulmonic Valve Name Value Normal RVOT Doppler RVOT Peak Gradient 2 mmHg PV Doppler PV Peak Gradient 4 mmHg Mitral Valve Name Value Normal MV Doppler MV Peak Gradient 7 mmHg MV Mean Gradient 2 mmHg MV Decel Coles 907 cm/s2 MV PHT 42 ms MV Area (PHT) 5.2 cm2 4.0-5.0 MV Area (Cont Eq VTI) 1.4 cm2 MV Diastolic Function MV E Peak Velocity 132 cm/s MV A Peak Velocity 81 cm/s MV E/A 1.6 MV Decel Time 146 ms MV Annular TDI MV E/e' (Septal) 29.6 <=8.0 MV E/e' (Lateral) 22.6 <=8.0 MV E/e' (Average) 26.1 Tricuspid Valve Name Value Normal TV Regurgitation Doppler TR Peak Velocity 329 cm/s TR Peak Gradient 40 mmHg Estimated PAP/RSVP RA Pressure 5 mmHg <=5 PA Systolic Pressure 48 mmHg <36 RV Systolic Pressure 48 mmHg <36 Aorta Name Value Normal Ascending Aorta Ao Root Diameter (MM) 2.9 cm Ao Root Diam Index (MM) 2.0 cm/m2 Aortic Valve Name Value Normal AV Doppler AV Peak Velocity 183 cm/s AV Peak Gradient 12 mmHg AV Mean Gradient 6 mmHg AV VTI 39 cm AV Area (Cont Eq VTI) 1.3 cm2 >=3.0 AV Area (Cont Eq Keny) 1.2 cm2 AV Regurgitation 2D LVOT Area 2.1 cm2 Ventricles Name Value Normal LV Dimensions 2D/MM IVS Diastolic Thickness (2D) 1.5 cm 0.6-1.0 LVID Diastole (2D) 4.3 cm 3.8-5.2 LVIW Diastolic Thickness (2D) 1.3 cm 0.6-0.9 LVID Systole (2D) 2.3 cm 2.2-3.5 LVOT Diameter 1.6 cm LV Mass (2D Cubed) 236.28 g 67.00-162.00 LV Mass Index (2D Cubed) 169 g/m2 43-95 Relative Wall Thickness (2D) 0.61 LV Fractional Shortening/Ejection Fraction 2D/MM LV Fractional Shortening (2D) 48 % 27-45 LV EF (2D Teicholz) 79 % 54-74 LV Diastolic Volume (4C MOD) 91 ml LV EF (4C MOD) 72 % LV Diastolic Volume (2C MOD) 70 ml LV EF (2C MOD) 74 % LV Diastolic Volume (BP MOD) 83 ml 46-106 LV Diastolic Volume Index (BP MOD) 59 ml/m2 29-61 LV Systolic Volume (BP MOD) 23 ml 14-42 LV Systolic Volume Index (BP MOD) 16 ml/m2 8-24 LV EF (BP MOD) 72 % 54-74 LV Diastolic Length (4C) 7.1 cm LV Systolic Length (4C) 6.2 cm LV Stroke Volume (4C MOD) 65 ml Atria Name Value Normal LA Dimensions LA Dimension (MM) 4.2 cm 2.7-3.8 LA Volume (4C A-L) 53 ml LA Volume (BP A-L) 57 ml RA Dimensions RA Area (4C) 21.1 cm2 <=18.0 Report Signatures
== END 2024-02-29 08:56 | disposition home or self-care (01) ==
PROVIDERS: Visit Provider Internal Medicine Pulmonary Disease
DX: R06.09 Other forms of dyspnea (principal); Z99.81 Dependence on supplemental oxygen; I08.3 Combined rheumatic disorders of mitral, aortic and tricuspid valves
CPT/HCPCS: 93306; 96375

== ENCOUNTER 2024-04-30 12:32 | Outpatient (CLI) | payer MEDICARE, SELFPAY ==
--- NOTE | ~2024-04-30 | XR_ITS ---
XR chest 2V Ordering provider: Dakota Hubbard MD History: 64 years Female with . R06.09 - Other forms of dyspnea . Comparison: June 25, 2023 FINDINGS: MEDIASTINUM: The cardiac silhouette is slightly enlarged. Prominent right hilum LUNGS: No effusions or pneumothorax. Opacification the lung bases suggestive of atelectasis versus pn eumonia. OTHER: No free air under the diaphragm. IMPRESSION: Bibasilar atelectasis versus pneumonia. Underlying fibrotic changes is not excluded. Prominent right hilum likely due to lymphadenopathy is seen unchanged from previous Reviewed, dictated and finalized at location A. IMPRESSION: Bibasilar atelectasis versus pneumonia. Underlying fibrotic changes is not excl uded. Prominent right hilum likely due to lymphadenopathy is seen unchanged from prev ious
--- OUTSIDE RECORDS SUMMARY | 2024-04-30 13:59 | XMS_ITS | Encounter Summary ---
Author Organization [facility] Address [address] [facility] [place] [address] Care Team Providers Care Personnel Scheduler Name Role Phone Brooklynn Kumar MD Primary Care Provider Encounter Details Date Type Department Care Team (Late st Contact Info) Description 01/07/2024 Lab Requisition [facility] [address] [place] [id number] Dandre Cheney MD [address] [place] [address] OF [employer]BD [employer] SURGERY [place], [place] [id number] Social History Tobacco Use Types Packs/Day Years Used Date Smoking Tobacco: Never Smokeless Tobacco: Never Alcohol Use Standard Drinks/Week Comments No 0 (1 standard drink = 0.6 oz pur e alcohol) Sex and Gender Information Value Date Recorded Sex Assigned at Not on file Gender Identity Not on file Sexual Orientation Not on file documented as of this encounter Functional Status Functional Status Response Date of Assess ment Is person deaf or have serious hearing difficult y? No 07/07/2020 Is person blind or have serious difficulty seein g? No 07/07/2020 Does person have serious dif ficulty walking/climbing stairs? No 07/07/2020 Does person have difficulty dressing/bathing? No 07/07/2020 Does person have difficulty doing errands alone? No 07/07/2020 Cognitive Status Response Date of Assessm ent Does person have difficulty concentrating/remembering/making decisions? No 07/07/2020 documented as of this encounter Plan of Treatment Not on file documented as of this encounter Goals Goal Patient Goal Type Associated Problems Recent Progress Patient-Stated? Author Medication Management General On track( 022 10:08 AM MOTOR COACH DRIVER) Nolvia Ramírez, RN Note: Expected end date: ongoing Interventions: Take all medications as prescribed Let your doctor know right away about any changes in your medications Make sure to request a refill of your medication at least one week prior to your last dose documented as of this encounter Procedures Procedure Name Priority Date/Time Associated Diagnosis Comments HOLD HLA SPECIMEN Routine 01/01/2024 2:1 4 PM MOTOR COACH DRIVER documented in this encounter Results * HOLD HLA SPECIMEN (01/01/2024 2:14 PM MOTOR COACH DRIVER) Hold HLA Specimen 01/07/2024 3:31 PM MOTOR COACH DRIVER [facility] ([facility]) Comment:The Hold HLA specime n has been received into the lab and will be held for 5 years at 4 degrees. Blood BLOOD SPECIMEN / Unknown 01/01/2024 2:14 PM MOTOR COACH DRIVER 01/07/2024 2:15 PM MOTOR COACH DRIVER Dandre Cheney MD LAB - BLOOD BANK ORD ERABLES [facility] ([facility]) [address] [place] [address], [facility] documented in this encounter Visit Diagnoses Not on filedocumented in this encounter Care Teams Personnel Scheduler Relationship Specialty Start Date End Date Brooklynn Kumar MD [address] [place] [address] PCP - General Family Medicine 06/28/20 documented as of this encounter
--- OUTSIDE RECORDS SUMMARY | 2024-04-30 13:59 | XMS_ITS | Encounter Summary ---
Author Organization [facility] Address [address] [facility] [place] [address] Care Team Providers Care Aluminum Container Tester Name Role Phone Brooklynn Kumar MD Primary Care Provider Encounter Details Date Type Department Care Team (Late st Contact Info) Description 11/15/2023 Lab Requisition [facility] [address] [place] [phone] Dandre Cheney MD [address] [place] [address] OF ABD TRANSPLANT SURGERY [place], [place] [phone] Social History Tobacco Use Types Packs/Day Years [...] Management General On track( 022 10:08 AM LEGAL INVESTIGATOR) Nolvia Ramírez, RN Note: Expected end date: ongoing Interventions: Take all medications as prescribed Let your doctor know right away about any changes in your medications Make sure to request a refill of your medication at least one week prior to your last dose documented as of this encounter Procedures Procedure Name Priority Date/Time Associated Diagnosis Comments HOLD HLA SPECIMEN Routine 11/06/2023 12: 32 PM CDT documented in this encounter Results * HOLD HLA SPECIMEN (11/06/2023 12:32 PM CDT) Hold HLA Specimen 11/15/2023 2:01 PM CDT [facility] ([facility]) Comment:The Hold HLA specime n has been received into the lab and will be held for 5 years at 4 degrees. Blood BLOOD SPECIMEN / Unknown 11/06/2023 12:32 PM CDT 11/15/2023 12:32 PM CDT Dandre Cheney MD LAB - BLOOD BANK ORD ERABLES [facility] ([facility]) [address] [place] [address], [facility] documented in this encounter Visit Diagnoses Not on filedocumented in this encounter Care Teams Aluminum Container Tester Relationship Specialty Start Date End Date Brooklynn Kumar MD [address] [place] [phone] PCP - General Family Medicine 06/28/20 documented as of this encounter
--- OUTSIDE RECORDS SUMMARY | 2024-04-30 13:59 | XMS_ITS | Encounter Summary ---
Author Organization [facility] Address [address] [facility] [place] [address] Care Team Providers Care Transfer Engineer Name Role Phone Brooklynn Kumar MD Primary Care Provider Encounter Details Date Type Department Care Team (Late st Contact Info) Description 08/08/2023 Lab Requisition [facility] [address] [place] [phone] Dandre Cheney MD [address] [place] [address] OF ABD TRANSPLANT SURGERY [place], [place] [phone] Social History Tobacco Use Types Packs/Day Years [...] Management General On track( 022 10:08 AM SMALL ENGINE SPECIALIST) Nolvia Ramírez, RN Note: Expected end date: ongoing Interventions: Take all medications as prescribed Let your doctor know right away about any changes in your medications Make sure to request a refill of your medication at least one week prior to your last dose documented as of this encounter Procedures Procedure Name Priority Date/Time Associated Diagnosis Comments HOLD HLA SPECIMEN Routine 07/31/2023 10: 51 AM CDT documented in this encounter Results * HOLD HLA SPECIMEN (07/31/2023 10:51 AM CDT) Hold HLA Specimen 08/08/2023 12:01 PM CDT [facility] ([facility]) Comment:The Hold HLA specime n has been received into the lab and will be held for 5 years at 4 degrees. Blood BLOOD SPECIMEN / Unknown 07/31/2023 10:51 AM CDT 08/08/2023 10:51 AM CDT Dandre Cheney MD LAB - BLOOD BANK ORD ERABLES [facility] ([facility]) [address] [place] [address], [place] documented in this encounter Visit Diagnoses Not on filedocumented in this encounter Care Teams Transfer Engineer Relationship Specialty Start Date End Date Brooklynn Kumar MD [address] [place] [phone] PCP - General Family Medicine 06/28/20 documented as of this encounter
--- OUTSIDE RECORDS SUMMARY | 2024-04-30 13:59 | XMS_ITS | Encounter Summary ---
Author Organization [facility] Address [address] [place] [address] Care Team Providers Care Home Therapy Clinician Name Role Phone Brooklynn Kumar MD Primary Care Provider Encounter Details Date Type Department Care Team (Late st Contact Info) Description 03/09/2023 Lab Requisition [facility] [address] [place] [phone] Dandre Cheney MD [address] [place] [address] OF ABD TRANSPLANT SURGERY [place], [place] [phone] Social History Tobacco Use Types Packs/Day Years [...] Management General On track( 022 10:08 AM ACCOUNT UNDERWRITER) Nolvia Ramírez, RN Note: Expected end date: ongoing Interventions: Take all medications as prescribed Let your doctor know right away about any changes in your medications Make sure to request a refill of your medication at least one week prior to your last dose documented as of this encounter Procedures Procedure Name Priority Date/Time Associated Diagnosis Comments HOLD HLA SPECIMEN Routine 03/01/2023 12: 00 PM ACCOUNT UNDERWRITER documented in this encounter Results * HOLD HLA SPECIMEN (03/01/2023 12:00 PM ACCOUNT UNDERWRITER) Hold HLA Specimen 03/09/2023 4:01 PM ACCOUNT UNDERWRITER [facility] ([facility]) Comment:The Hold HLA specime n has been received into the lab and will be held for 5 years at 4 degrees. Blood BLOOD SPECIMEN / Unknown 03/01/2023 12:00 PM ACCOUNT UNDERWRITER 03/09/2023 2:39 PM ACCOUNT UNDERWRITER Dandre Cheney MD LAB - BLOOD BANK ORD ERABLES [facility] ([facility]) [address] [place] [address], [facility] documented in this encounter Visit Diagnoses Not on filedocumented in this encounter Care Teams Home Therapy Clinician Relationship Specialty Start Date End Date Brooklynn Kumar MD [address] [place] [address] PCP - General Family Medicine 06/28/20 documented as of this encounter
--- OUTSIDE RECORDS SUMMARY | 2024-04-30 13:59 | XMS_ITS | Encounter Summary ---
Author Organization [facility] Health Address [address] [facility] [place] [address] Care Team Providers Care Lead Designer Name Role Phone Brooklynn Kumar MD Primary Care Provider Encounter Details Date Type Department Care Team (Late st Contact Info) Description 06/18/2023 Lab Requisition [facility] MAIN LAB [address] [place] [id number] Dandre Cheney MD [address] [place] [address] OF ABD TRANSPLANT SURGERY [place], [place] [id number] Social History Tobacco Use Types Packs/Day Years [...] Management General On track( 022 10:08 AM ENERGY PROJECTS LEAD) Nolvia Ramírez, RN Note: Expected end date: ongoing Interventions: Take all medications as prescribed Let your doctor know right away about any changes in your medications Make sure to request a refill of your medication at least one week prior to your last dose documented as of this encounter Procedures Procedure Name Priority Date/Time Associated Diagnosis Comments HOLD HLA SPECIMEN Routine 06/07/2023 3:4 1 PM CDT documented in this encounter Results * HOLD HLA SPECIMEN (06/07/2023 3:41 PM CDT) Hold HLA Specimen 06/18/2023 5:[address] [facility] ([facility] [place] Comment:The Hold HLA specime n has been received into the lab and will be held for 5 years at 4 degrees. Blood BLOOD SPECIMEN / Unknown 06/07/2023 3:41 PM CDT 06/18/2023 3:41 PM CDT Dandre Cheney MD LAB - BLOOD BANK ORD ERABLES [facility] ([facility] [place]) [address] [place] [address], [facility] documented in this encounter Visit Diagnoses Not on filedocumented in this encounter Care Teams Lead Designer Relationship Specialty Start Date End Date Brooklynn Kumar MD [address] [place] [address] PCP - General Family Medicine 06/28/20 documented as of this encounter
--- OUTSIDE RECORDS SUMMARY | 2024-04-30 13:59 | XMS_ITS | Continuity of Care Document ---
Author Organization [facility] Address [address] [place] [address] Phone Care Team Providers Care School Guidance Counselor Name Role Phone Fifi BRICEÑO, Diana Unavailable Unavailable Allergies, Adverse Reactions, Alerts Substance Reaction Status Criticality CHLORFENETHAZINE HCL Hives / Skin Rash Active No Information adhesive tape Hives / Skin Rash Active No Inform ation Medications Medication Instructions Dosage Effective Dates (start - stop) Status Comments nifedipine ER 90 mg tablet,extended release 24 hr - Active furosemide 80 mg tablet TAKE 1 TABLET BY MOUTH TWICE DAILY - Active pantoprazole 40 mg tablet,delayed release TAKE 1 TABLET BY MOUTH EVERY MORNING - Active carvedilol 25 mg tablet - Ac tive BD Ning 2nd Gen Pen Needle 32 gauge x 5/32 USE TO CHECK BLOOD SUGARS EVERY DAY AND NEEDED - Active bumetanide 1 mg tablet TAKE 1 TABLET BY MOUTH TWICE DAILY - Active acetaminophen 300 mg-codeine 30 mg tablet - Active amoxicillin 250 mg-potassium clavulanate 125 mg tablet - Active Tresiba FlexTouch U-100 insulin 100 unit/mL (3 mL) subcutaneous pen - Active OneTouch Ultra Test strips USE TO CHECK BLOOD SUGAR EVERY DAY AND NEEDED - Active brimonidine 0.2 % eye drops INSTILL 1 DROP IN BOTH EYES TWICE DAILY - Active latanoprost 0.005 % eye drops INSTILL 1 DROP IN BOTH EYES AT BEDTIME - Active timolol maleate 0.5 % eye drops - Active Procedures Procedure Date CONTRAST, 300/ML, PER ML MOD SED BY OR SUP BY PHYSICIAN INTRO CATH DIALYSIS CIRCUIT Radiation Exposure Documented To Be Coded Intro cath dialysis circuit Mod sed same phys/qhp 5/>yrs Intro cath dialysis circuit Mod sed same phys/qhp 5/>yrs Advance Directives Directive Yes / No Effective Date File Name No Information Encounters Encounter Description Practice Location Reason(s) For Visit Diagnoses Date Provider Providers Copied on Encounter [facility], [address] [place] [address], [id number], tel:[phone] [facility] No Information 4 Calix Diana. [address] [place] [address], [id number] , [place]. tel: [phone] [facility], [address] [place] [address], [id number], tel:[phone] [facility] HTNCompression of VeinEnd stage renal disease 4 Calix Diana. [address] [place] [address], [id number] , [place]. tel:[phone] Referring Provider: Mateo Cox, [address] [place] [address] [address] [facility], [place], [address]. tel:[phone] [facility], [address] [place] [address], [id number], tel:[phone] [facility] HTNEnd stage renal diseaseCompression of Vein 4 Calix Diana. [address] [place] [address], [id number] , [place]. tel:[phone] Referring Provider: Mateo Cox, [address] [place] [address] [address] [facility], [place], [address]. tel:[phone] [facility], [address] [place] [address], [id number], tel:[phone] [facility] No Information 4 Calix Diana. [address] [place] [address], [id number] , [place]. tel:[phone] As per patient privacy policy some of the clinical information may not be visible. Family History Family Member Type Diagnosis Age At Onset No Information Payers Payer name Insurance type Covered constitution party ID Authoriza tiindio(s) Medicare [place] [id number] Social History Type Description Quantity Date Captured Comments Sex Female Smoking Status No Information Sexual Orientation Straight or heterosexual Gender Identity Female Chief Complaint And Reason For Visit No Information Reason For Referral Reason For Referral No Information Plan Of Treatment Date Type Action Status Future Order: Radiology Order Up per Body Flouroscopy ([id number]), Ordered on: Ordered History Of Present Illness Encounter Date Complaint History Of Prese nt Illness No Information Functional Status Date Functional Assessmen t No Information Instructions Date Instruction Additional Infor mation No Information Assessments Type Assessment Date No Information Patient Care Teams Name Effective Dates (start - stop) Status Members No Information
--- OUTSIDE RECORDS SUMMARY | 2024-04-30 13:59 | XMS_ITS | Encounter Summary ---
Author Organization [facility] Health Address [address] [facility] [place] [address] Care Team Providers Care Line Rider Name Role Phone Brooklynn Kumar MD Primary Care Provider Encounter Details Date Type Department Care Team (Late st Contact Info) Description 04/04/2023 Lab Requisition [facility] MAIN LAB [address] [place] [id number] Dandre Cheney MD [address] [place] [address] OF ABD TRANSPLANT SURGERY [place], [place] [id number] Social History Tobacco Use Types Packs/Day Years [...] Management General On track( 022 10:08 AM MEDICINE TEACHER) Nolvia Ramírez, RN Note: Expected end date: ongoing Interventions: Take all medications as prescribed Let your doctor know right away about any changes in your medications Make sure to request a refill of your medication at least one week prior to your last dose documented as of this encounter Procedures Procedure Name Priority Date/Time Associated Diagnosis Comments HOLD HLA SPECIMEN Routine 03/29/2023 12: 00 PM MEDICINE TEACHER documented in this encounter Results * HOLD HLA SPECIMEN (03/29/2023 12:00 PM MEDICINE TEACHER) Hold HLA Specimen 04/04/2023 1:01 PM MEDICINE TEACHER [facility] ([place]) Comment:The Hold HLA specime n has been received into the lab and will be held for 5 years at 4 degrees. Blood BLOOD SPECIMEN / Unknown 03/29/2023 12:00 PM MEDICINE TEACHER 04/04/2023 12:00 PM MEDICINE TEACHER Dandre Cheney MD LAB - BLOOD BANK ORD ERABLES [facility] ([facility]) [address] [place] [address], [facility] documented in this encounter Visit Diagnoses Not on filedocumented in this encounter Care Teams Line Rider Relationship Specialty Start Date End Date Brooklynn Kumar MD [address] [place] [address] PCP - General Family Medicine 06/28/20 documented as of this encounter
--- OUTSIDE RECORDS SUMMARY | 2024-04-30 13:59 | XMS_ITS | Encounter Summary ---
Author Organization [facility] Health Address [address] [place] [address] Care Team Providers Care Sleeve Wheel Maker Name Role Phone Brooklynn Kumar MD Primary Care Provider Encounter Details Date Type Department Care Team (Late st Contact Info) Description 11/06/2022 Telephone [facility] - Centralized Scheduling [address] [place] [address] Peng Loera MD [address] OF PULMONARY/[place] [address] Social History Tobacco Use Types Packs/Day Years [...] No 07/07/2020 documented as of this encounter Miscellaneous Notes * Telephone Encounter - Babatunde Greenfield - 11/06/2022 9:54 AM CDT Current Provider name:Peng Loera Reason for call: Apt is noted as needing to be rescheduled but Yessi's next available is not until Feb, but this is a one month follow up apt, Pt would like it to be on a Mon,Wed,or Fri. Please reach out to patient to get rescheduled. Patient Call Back number: [phone] documented in this encounter Plan of Treatment Not on file documented as of this encounter Goals Goal Patient Goal Type Associated Problems Recent Progress Patient-Stated? Author Medication Management General On track( 022 10:08 AM PLUM PACKER) No Nolvia Leonard, ABIODUN Note: Expected end date: ongoing Interventions: Take all medications as prescribed Let your doctor know right away about any changes in your medications Make sure to request a refill of your medication at least one week prior to your last dose documented as of this encounter Visit Diagnoses Not on filedocumented in this encounter Care Teams Sleeve Wheel Maker Relationship Specialty Start Date End Date Brooklynn Kumar MD [address] [place] [address] PCP - General Family Medicine 06/28/20 documented as of this encounter
--- OUTSIDE RECORDS SUMMARY | 2024-04-30 13:59 | XMS_ITS | Continuity of Care Document ---
Author Organization [facility] Address [address] [place] [address] [address] [place] [address] Phone Care Team Providers Care Regional Sales Manager Name Role Phone Danish Ray Unavailable Unavailable Procedures Procedure Date Office/outpatient Visit, Est Eye Exam, New Patient Ophthalmoscopy Ophthalmoscopy Advance Directives Directive Yes / No Effective Date File Name No Information Encounters Encounter Description Practice Location Reason(s) For Visit Diagnoses Date Provider Providers Copied on Encounter Office/outpat ient Visit, Est [facility], [address], [place], [place], [id number], [place] tel:[phone] [facility] No Information 0 Flor Dainsh. [address] [address], [place], [place], [facility], [place]. tel:[phone] Referring Provider: Jonatan Hayden, [address] [place], [place], [facility]. tel:[phone] [facility], [address], [place], [place], [id number], [place] tel:[phone] [facility] No Information 0 Blue Cheung. [address] [place], [place], [facility], [place]. tel:[phone] Referring Provider: Vasquez Farrell, [address] [facility] [address], [place], [place], [facility]. tel:[phone] Family History Family Member Type Diagnosis Age At Onset No Information Payers Payer name Insurance type Covered democrat ID Authoriza tiindio(s) No Information Social History Type Description Quantity Date Captured Comments Sex Female Smoking Status No Information Chief Complaint And Reason For Visit No Information Reason For Referral Reason For Referral No Information History Of Present Illness Encounter Date Complaint History Of Prese nt Illness No Information Functional Status Date Functional Assessmen t No Information Instructions Date Instruction Additional Infor mation No Information Assessments Type Assessment Date No Information Patient Care Teams Name Effective Dates (start - stop) Status Members No Information
--- OUTSIDE RECORDS SUMMARY | 2024-04-30 13:59 | XMS_ITS | Clinical Summary ---
Author Organization [facility] Address [address] [place] [address] Care Team Providers Care Director Of Corporate Sponsorships Name Role Phone Brooklynn Kumar MD Primary Care Provider Source Comments [facility],non-owned Affiliates and Associated Physician Practices is amultiple site organization consisting of ambulatory clinics and hospital sitesin [place], [place], [place] and [place]. This disclosure is being madepursuant to the Care Everywhere program and may not contain all information available regarding this patient. Last updated 17.[facility] Allergies Active Allergy Reactions Criticality Noted Date Comments Adhesive Sensitivity Rash Medium 08/30/2018 Paper tape- Treated with Hydroxyzine Chlorhexidine Rash Medium 11/08/2018 Medications * Be aware that medications may not be up to date on this document. Alwaysverify current medications with the patient. Medication Sig Dispensed Refills Start Date End Date Status COMBIGAN 0.2-0.5 % ophthalmic solution Instill 1 drop into both eyes 2 times daily 04/02/2018 Active carvedilol (COREG) 25 MG tablet Take 1 (one) tablet by mouth 2 times daily 07/01/2018 Active furosemide (LASIX) 80 MG tablet Take 1 (one) tablet by mouth 2 times daily 07/01/2018 Active TRESIBA FLEXTOUCH 100 UNIT/ML pen Inject 18 (eighteen) Units subcutaneously at bedtime Sliding Scale Insulin 07/08/2018 Active NIFEdipine CR osmotic 24hr (PROCARDIA-XL) 90 MG tablet Take 1 (one) tablet by mouth once daily 07/05/2018 Active acetaminophen (TYLENOL) 325 MG tablet Take 2 (two) tablets by mouth as needed for Fever or Pain Maximum allowable Acetaminophen amount = 4 Grams (4000 mg) / 24 hours. Active Cholecalciferol (VITAMIN D3) 1.25 MG (17653 UT) capsule TK 1 C PO Q WEEK 08/29/2019 Active AURYXIA 1 GM 210 MG(Fe) Take 1 tablet by mouth 3 times daily with meals 06/03/2020 Active latanoprost (XALATAN) 0.005 % ophthalmic solution Instill 1 (one) drop into both eyes at bedtime 05/13/2020 Active pantoprazole EC (PROTONIX) 40 MG tablet Take 1 (one) tablet by mouth every morning 05/31/2020 Active Sucroferric Oxyhydroxide (VELPHORO PO) Take 500 mg by mouth 3 times daily with meals Active BD PEN NEEDLE GUDELIA 2ND GEN 32G X 4 MM MISC as directed 05/22/2021 Active NIFEdipine CR 24hr (Adalat CC) 60 MG tablet Take 1 (one) tablet by mouth 2 times daily 12/12/2021 Active Syringe/Needle, Disp, 25G X 1 1 ML MISCIndications:Vi tamin B12 deficiency Use 1 Each every 7 days 4 Each 3 12/29/2021 Active albuterol HFA (Proventil; Ventolin; Proair) 108 (90 Base) MCG/ACT inhalerIndications :Abnormal CT of the chest,Chronic diastolic heart failure (HCC),End-stage renal disease (HCC) Inhale 2 (two) puffs by mouth every 4 hours as needed for Shortness of Breath or Wheezing 18 g 3 01/27/2022 Active Cyanocobalamin 500 MCGIndications:Vit rowell B12 deficiency Dissolve 500 mcg under the tongue once daily 90 tablet 3 02/20/2022 Active gabapentin (Neurontin) 300 MG capsuleIndications :Restless legs syndrome (RLS) Take 1 tablet at bedtime. Titrate up by 1 tablet every week to a max of tablets at bedtime if RLS persists. 90 capsule 11 02/20/2022 Active carBAMazepine ER 12hr (Carbatrol) 200 MG capsule Take 1 (one) capsule by mouth every 12 hours Active Active Problems Problem Noted Date Diagnosed Date ESRD (end stage renal disease) 12/28/2022 Non-compliance with renal dialysis 12/28/2022 Right-sided heart failure 09/19/2022 Coronary artery disease involving chilkoot heart 0 09/19/2022 Pulmonary hypertension 09/19/2022 Chronic respiratory failure with hypoxia 023 Chronic diastolic heart failure 09/19/2022 Dyspnea on exertion 08/01/2021 Nocturnal hypoxia 08/01/2021 Chronic heart failure with preserved ejection fr action 08/01/2021 Pre-transplant evaluation for kidney transplant 06/25/2020 Overview (03/14/2024): Images from the original note were not included. Shoshana Long 1960 Referring Community Service Director: Iris Cox Listing Date: 03/30/2021 Delisted 03/13/2024 Dialysis Info: Type: HD, T,Th,Sat Time: 781 days (05/06/2018) Blood Type: B POS Body mass index is 33.36 kg/m . ALERTS: Listed for Hep C kidneys 02/02/22 [employer] Portal Developer: Dr. 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 Kumar Diabetic retinopathy ([facility]) 2012 [facility] Disorder of thyroid Dyspnea on exertion 08/01/2021 End-stage renal disease ([facility]HCC) 07/29/2018 ESRD on hemodialysis ([facility]) GIB (gastrointestinal bleeding) 05/04/2018 Glaucoma History of blood transfusion 2000 during surgery HTN (hypertension) 08/18/2012 Hyperparathyroidism (CMS/HCC) 2019 Hypertension 2002 neph follows Kidney disease Malignancy (CMS/HCC) 2000 uterine cancer [facility] Nocturnal hypoxia 08/01/2021 Obesity Pneumonia Pneumonia 11/2021 PONV (postoperative nausea and vomiting) Pre-transplant evaluation for kidney transplant 06/25/2020 Shoshana Long 1960 Referring Community Service Director: Iris Cox Listing Date: 03/30/2021 Dialysis Info: Type: HD, T,Th,Sat Time: 781 days (05/06/2018) Blood Type: B POS Body mass index is 33.36 kg/m . ALERTS: Listed for Hep C kidneys 02/02/22 [employer] Portal Developer: Dr. Bustos in [place], [place] Past Medical History: Diagnosis Date Blindness 2012 Left eye Cance Proteinuria 08/18/2012 Converted unresolved ICD9, potential mismatch. Snoring Type 2 diabetes mellitus with other diabetic kidney complication (CMS/HCC) 08/18/2012 Past Surgical History: Procedure Laterality Date A-V SHUNT CREATION Left 09/13/2018 Left; LEFT UPPER ARM ARTERIORVENOUS FISTULA PLACEMENT BRONCHOSCOPY Section COLONOSCOPY WITH POLYPECTOMY ENDOSCOPY, UPPER Hysterectomy Total [facility] INSERTION DIALYSIS CATHETER Right 05/11/2018 IR ANGIO AV SHUNT NON DIRECT 2019 [facility] Transplant Surgery Clinic Appt: w/ Dr. Corado Date: 07/18/21 Assessment/Plan: Ms. Shoshana Long is a 60 year old female with ESRD 2/2 HTN/T2DM on hemodialysis since 04/2018. Her diabetes is c/b retinopathy (partially blind in the R eye). Denies sxs of neuropathy. She was listed for kidney txp 03/2021 and is consented for high KDPI but not hepC+. She had a recent hospitalization for SOB and has had increased O2 requirements ever since discharge. Today, we discussed the possibility of receiving an HCV+ organ. We discussed the antiviral treatment and need for compliance to achieve SVR, and the cure rate of 95% with direct-acting antiviral medications. Patient verbalized understanding and will think about consenting. We also discussed and encouraged continued weight loss. Given history of endometrial sarcoma and recent oxygen requirement will need PFTs CT chest F/U pulmonary Will Need weight loss NM stress test Edd Corado MD post secondary professional Transplant Surgery Clinic Appt w/: Dr. Fierro Date: 06/28/2020 Nephrology Clinic Appt w/: Dr. Alberto Date: 06/28/2020 A/P: Assessments and Recommendations: Ms. Shoshana Long is a 60-year-old woman with ESKD due to diabetes Type 2, referred for kidney transplant evaluation. She was accompanied to the evaluation appointment today by her daughter Hector and grandson. Labs will be drawn after the evaluation appointment. ESKD etiology: Diabetes Type 2 Recurrent disease risk: Discussed the importance of diabetes control to prevent recurrence of diabetic nephropathy in the allograft. Understands requirement to establish with Endocrinology: Pursuing with [facility] Hemoglobin A1c pending: understands requirement to maintain <9% (last 7.8% by verbal report) Transplant options discussion: Has not yet received formal Education, scheduled for July 01. We discussed the types of transplant options: Patient is not aware of immediate potential living donors, but we discussed the benefits of LDKT at length: provided with outreach cards, encouraged daughter to serve as Living Donor [place] - daughter receptive to sharing the need. She will likely consent for KDPI 85+ kidneys after completing education; she is not decided about kidneys from hepatitis C+ donors and will discuss more with family after Education. Cardiovascular risk screening Functional status: KPS 70 Echocardiography (06/11/2020): EF / wall motion: EF 62%, normal wall motion; mild concentric LVH, grade II diastolic dysfunction PASP: 31 mm Hg, without pulmonary HTN Valves: no significant stenosis or regurgitation Coronary angiography: needs due to duration of diabetes Cardiology Evaluation De. Kiran Farias 06/28/2020: A bnormal ECG (SR T wave inversion inferolateral leads) but noted previously and Likely related to LVH from hypertension. Per transplant team she will need LHC due to duration of DM CT abdomen/pelvis (06/11/2020): Subtle hyperdensity in the left inferior renal pole may represent a proteinaceous/hemorrhagic cyst -> reviewed with Dr. Fierro, consistent with cyst, no further workup at this time Mild/moderate scattered vascular calcifications of the aorta and its major branching vessels is noted. Of note, the bilateral common iliac arteries demonstrate mild to moderate atherosclerosis. Minimal atherosclerotic calcification of bilateral external iliac arteries are present, left more than right -> reviewed with Dr. Fierro, vasculature appropriate for kidney transplantation BMI / metabolic BMI 34.3. Albumin 4.1 Has met with [facility] [employer] - eats processed foods and knows she need to improve diet choices Discussed requirement for BMI <35: while meets eligibility criteria, emphasized importance of not gaining weight; further, given midline distribution, encouraged 10-15 lb. weight loss to support wound healing Renal bone disease: Discussed programmatic criteria for PTH < 700 Labs today: PTH 1,189; Phos 6.3-> Community Service Director aware, Sensipar was started at Dialysis unit this week, and working Diet for Phos control Remote uterine sarcoma 2000, s/p total hysterectomy Discharged from Oncology at 5yrs post resection. Recurrence risk low given 20 yrs disease-free. Coordinator will attempt to obtain Pathology and/or last Oncology note (Dr. Onelia Fournier) Recommend Establish with [facility] provider for routine care (last 2014) COVID-19 prevention We discussed the importance of avoiding infection, and our protocol for screening for COVID-19 prior to transplant surgery. We also discussed the emergence of COVID- 19 vaccine under EUA and that as vaccine becomes available, we agree with the recommendations of the [place] [employer] (AST) for vaccination of transplant candidates on the waiting list. With regard to planned LDKT, if vaccine is available, we recommend vaccination of planned donor and recipient, ideally completed 1 month before surgery and no later than 2 weeks before surgery Received J&J vaccine at dialysis 04/28/2020 Support / Psychosocial SW evaluation. Needs to be completed Care partners: Daughter, niece and sister The importance of posttransplant medication compliance was discussed at length, including the vital role of immunosuppression and medications to prevent infection, and average pill burden Overall, patient appears to meet medical criteria for kidney transplantation, pending completion of the evaluation, including: Transplant Education (July 01) Social Work Evaluation LHC (saw Cardiology today to schedule) Colonoscopy Panorex Establish with [employer] Portal Developer Needs control of Hyperparathyroidism: PTH currently 1200, Sensipar started this week at dialysis Obtain Pathology and/or last Oncology note (Dr. Onelia Fournier) related to remote Uterine Sarcoma Obtain Dermatology report of mole removed 2014 Other recommendations: Maintain BMI <35 kg/m2 (ideally target 10-15 lb weight loss) Establish with [facility] for routine care (last 2014) Continue Annual mammograms: next due 08/11/2020 Carli Alberto MD, PhD high density talc coater operator Other Consults: Hepatology: 12/23/2021 12/23/2021 Fibroscan 79 minutes was spent with the patient >50% of which was spent in counseling and coordination of care. Impression/ Plan: 1. ESRD- due to DM2 and HTN currently on hemodialysis 3 times a week. 2. Contraindications to receiving a HCV positive kidney- none. Pt records were reviewed only back to 2020 as that is what is available. She has no hx of elevated transaminases, acute hepatitis, chronic or acute liver dz. She has no hx of medical non-adherence. The imaging done in May of 2020 reported a normal appearing liver. The fibroscan done here today suggested evidence of hepatic steatosis but low risk of advanced fivrosis. 3. During the clinic visit today with Shoshana Long, the following information and risks regarding the use of a Kidney organ from HCV+ donors was discussed: A positive test for hepatitis C in a donor means the donor has been exposed to hepatitis C virus. There is close to 100% risk of transmission of HCV from using organs from HCV positive donors with the likely development of the hepatitis C infection requiring treatment.This HCV infection can potentially cause chronic liver disease without treatment. Not everyone who is infected with the virus develops serious liver disease. There may be the rare possibility of severe HCV infection that may cause fibrosing cholestatic hepatitis (liver disease), which can be life threatening. There is a risk of sexual and blood transmission to a partner/household before successful treatment. There will be a need for antiviral therapy post- transplant to treat the HCV infection. There is a risk that hepatitis C virus will not respond to treatment and HCV can be a lifelong infection. Drug screens may be required by insurance prior to approval of treatment. There is a risk that insurance may deny payment of anti- viral treatment and/or that a copayment may be required. During treatment, careful follow up is required to monitor response of the hepatitis C therapy. The benefit of receiving a HCV positive donor organ as decreased waiting time on the transplant list was also discussed. Shoshana Long was present with Katalina Castaneda PA-C and verbalized full understanding of all of the above information. The patient is agreeable to accepting organs from HCV positive donors and the need for treatment afterwards. The consent was signed in the office today. 4. Hepatic steatosis- Pt is advised to lose wt with diet and exercise. Goal for exercise is at least 120 min per week inclusive of strength/ resistance exercise. Goal for wt loss is approximately 15 lbs which would be approximately 10% of current body wt. 5. Health maintenance- pt is advised to do the hepatitis A vaccination series. Return to clinic: An appointment was scheduled for her to see us in followup in PRN. Katalina Castaneda PA-C Physician Industrial Therapist in Internal Medicine Tyler Benson MD Professor of Internal Medicine Pulmonary: I/P 04/13/21 Discharge Summary: (pt did not f/u on 02 use with provider; txp team made aware of O2 use at 07/18/21 clinic visit. Pulm w/u has been scheduled) Pulmonology: 08/01/2021 Assessment: Dyspnea on exertion. Dyspnea in this patient could be due to heart failure with persevered ejection , volume overload or Preoperative evaluation for kidney transplantation. Nocturnal hypoxia-probably due to sleep-related hypoventilation, obstructive sleep apnea , volume overload or sequela of pneumonia Chronic heart failure with preserved ejection fraction. Obstructive sleep apnea Plan: Tests: Complete pulmonary function tests. Arterial blood gases. Oxygen desaturation test. 6-minute walk test. Overnight polysomnography Refer to cardiology. The patient is to use 2 L of oxygen during sleep. Return to pulmonary office in September 2021. Pepito Naidu M.D., [facility]. Jon Peña and Georgina Gardner Endowed Chair in Internal Medicine PFT: 09/12/21 PFT Oxygen Desaturation Study: 10/03/21 IMPRESSION 1. At the above level of activity the patient's oxygen saturation remained 91 % and above on room air. Pt had desaturation with exertion. Correlate clinically Francheska Vernon MD 6 Minute Walk Test: 10/03/2021 Interpretation: The patient walked for 6 minutes on room air and covered total distance of 312 meters. On the Yrn scale at baseline, reported dyspnea was 0 and fatigue was 0. At the end of the study, the Yrn reported dyspnea was 3 and fatigue was 5. There were no additional symptoms reported and oxygen saturation remained above 90% throughout the test. IMPRESSION: 1. Total 6 minute walk distance is 312 meters, which is below the lower limit of normal of 319 meters for this patient. 2. There is no available study for comparison. Francheska Vernon MD Pulmonology: 10/28/2021 Impression: Patient is a 61 year old female with a PMH of ESRD on iHD, HTN, & DM2 who presents to Pulmonary clinic for pre-renal txp eval and possible ILD. Her GGOs are most likely related to volume status as she did get more HD sessions during her most recent hospitalizations. However, since she is being evaluated for transplant, working her up for other causes are prudent. Abnormal CT of chest ESRD on iHD HTN HFpEF Immunization counseling Recommendations: HRCT chest Autoimmune w/u BP is elevated today, advised patient on symptoms to be monitoring for as well as will notify PCP. COVID-19 vaccination booster recommended Yearly influenza vaccination\ Unclear which pneumococcal vaccination received (may be PCV-13). Will need to f/u on this as it would determine whether she should get PPSV-23 or PCV-20 RTC in 3 months Christiano Garcia MD Master Control Supervisor of Pulmonary & Critical Care Medicine Sleep Study: 12/11/21 IMPRESSION: 1. Severe obstructive sleep apnea based on the respiratory disturbance index, worse during REM sleep 2. Sleep-related hypoxemia; cannot rule out sleep-related hypoventilation as cause of hypoxemia since capnography was not performed. RECOMMENDATIONS: 1. Suggest in-laboratory therapeutic polysomnography with continuous positive airway pressure (CPAP) or bilevel positive airway pressure (BPAP) +/- oxygen side flow titration. 2. Evaluate for causes of sleep-related hypoxemia disorder (e.g., hypoventilation, ventilation-perfusion mismatch, deadspace, shunt, diffusion abnormality, etc.). Adalid Hein MD, [facility], [facility], [facility] Hand Iii Cutter, [facility] HRCT chest: 01/27/22 Impression: 1.Interval resolution of patchy groundglass opacities in both lungs. No suspicious pulmonary nodule. 2.Mild upper lobe predominant centrilobular emphysema. 3.Persistent mosaic attenuation likely related to small airway disease. 4.Cholelithiasis. 5.Nephrolithiasis. 6.Multiple calcified thyroid nodule similar to prior exam. If indicated, consider nonemergent thyroid for further evaluation as previously suggested. Pulmonary Clinic: 01/27/2022 Impression: Patient is a 61 year old female with a PMH of ESRD on iHD, HTN, & DM2 who presents to Pulmonary clinic for pre-renal txp eval and possible ILD. Her GGOs are most likely related to volume status as she did get more HD sessions during her most recent hospitalizations. No autoimmune causes have been found to show any other cause other than pulmonary edema. Abnormal CT of chest ESRD on iHD HTN HFpEF Immunization counseling Recommendations: Continue current HD regimen. No pulmonary contraindication to renal txp Recommend using 2L NC O2 with exertion as prescribed COVID-19 vaccination series completed with booster, recommend new bivalent booster Yearly influenza vaccination, completed for 7284-1560 season Unclear which pneumococcal vaccination received (may be PCV-13). Will need to f/u on this as it would determine whether she should get PPSV-23 or PCV-20 RTC in 6 months Christiano Garcia MD Master Control Supervisor of Pulmonary & Critical Care Medicine Sleep Study/C-Pap appt: 02/20/22 ASSESSMENT: 1 Severe obstructive sleep apnea based on the respiratory disturbance index 2 Sleep-related hypoxemia; cannot rule out sleep-related hypoventilation as cause of hypoxemia since capnography was not performed. Restless legs syndrome (RLS) Restrictive ventilatory abnormality, severe consider: A. Interstitial lung disease (organizing pneumonia?) B. Obesity C. CHF? D. Other causes? Positive bronchodilator response with air trapping and increased airway resistance, consider: A. Asthma? B. Mild upper lobe centrilobular emphysema on high res CT Hypertensive heart disease with grade 2 diastolic dysfunction History of systemic hypertension Cholelithiasis ESRD on hemodialysis Nephrolithiasis Vitamin B12 deficiency Obesity, class 1 History of hypothyroidism History of tertiary hyperparathyroidism Diabetes mellitus type 2 with A. Diabetic retinopathy B. Diabetic nephropathy History of uterine cancer PLAN: Diagnostic: Start BPAP + O2 at 2 L/min side flow Repeat serum vitamin B12, methylmalonic acid level in 3 months Therapeutic: Weight loss through healthy eating and exercise. Exercise (e.g., walking) up to 30-60 minutes 3-5 days a week. Eat more fruits, vegetables, beans, nuts, seeds, whole grains, etc. Avoid or minimize meat, dairy, eggs, fast food, processed foods, or refined carbohydrates. Avoid or minimize salt intake. I explained the results of the sleep study to the patient. Start gabapentin 300 mg tablet titration as follows: Take 1 tablet at bedtime for week 1. If RLS symptoms persist, Take 2 tablets at bedtime for week 2. If RLS symptoms persist, Take 3 tablets at bedtime for week 3 and onwards Do not exceed 3 tablets at bedtime. Watch out for drowsiness. Continue cardiovascular medications Continue ESRD Patient requested to be switched from vitamin B12 (cyanocobalamin) 1000 mcg intramuscular injections to 500 mcg SL daily. She does not like injections. Follow-up with Dr. Garcia and Dr. Naidu at the Pulmonary Clinic Follow-up: 4-6 weeks Adalid Hein MD, [facility], [facility], [facility] Pulmonology Dr Zavala: 08/11/2022 Impression: Patient is a 62 year old female with a PMH of ESRD on iHD, HTN, & DM2 who presents to Pulmonary clinic for pre-renal txp eval and possible ILD. Her GGOs are most likely related to volume status as she did get more HD sessions during her most recent hospitalizations. No signs of autoimmune disease. At this point, I have no concerns of any ILD in her with her hypoxia most likely related to pulmonary edema related to her volume status. [address] of chest 2 ESRD on iHD 3 HTN 4 HFpEF 5 Immunization counseling Recommendations: 1 COVID-19 vaccination series completed 2 Yearly influenza vaccination 3 PCV-20 given in clinic today RTC in 1 year Christiano Garcia MD Master Control Supervisor of Pulmonary & Critical Care Medicine [facility] Thyroid US: completed through PCP FNA: completed at [facility] 11/18/2020 Endocrinology input on FNA results: Received vm back from [place] with Dr. Redd with endocrinology, she was calling back with follow up plan, and per Azruben, Dr. Redd said the fna thyroid results are benign and they are monitoring with USs. If we have any other concerns, please call back at [phone]. Cardiology: 06/28/[address] Farias Assessment and Plan: Problem List Items Addressed This Visit Other Pre-transplant evaluation for kidney transplant - Primary Abnormal ECG but noted previously and Likely related to LVH from hypertension. Per transplant team she will need LHC due to duration of DM Discussed risks of procedure. Will schedule after she discusses with transplant team Uterine cancer: op note Uterine cancer Pathology report: 2000 Oncology clinic note: 02/28/2008 Pap: (recommend well women), hx of uterine cancer - total hysterectomy OBGYN: Pt seen by Dr. Douglas Purcell Pertinent Previous Committee Presentations: PSC 03/13/2024 Committee Review Decision: Remove Prior Transplants: N/A EPTS: 94 at 03/13/2024 2:08 PM Calculated from: Age: 64 years Has Diabetes: Yes Prior solid organ transplant: No Dialysis: 5 years 10 months Committee Discussion Details: Pt presented to discuss delisting from transplant Reviewed with team pt inactive d/t pulmonology status since June 2022 (pulmonary HTN and oxygen use). Pt has cancelled all pulmonology appts since being made inactive: 10/2022, , 07/20/23, 02/29/24. Per team, remove from kidney transplant wait list. Pt may be re-referred for transplant once she shows appointment compliance and has been cleared by Pulmonology (no pulmonary hypertension, no oxygen use). [facility] 06/29/2022 Committee Review Decision: Make Inactive Committee Discussion Details: Patient was presented at [facility] to discuss listing status. Reviewed with team pt completed eval testing 06/21/22. PTH 1,203.4 and RVSP 60 on Echo. Pt also reports still using Oxygen. Unable to tolerate CPAP and follow up appointment pending. Per team, make inactive on [facility] kidney txp wait list. Dr. Alberto spoke with pt's [employer]ator [employer] products Dr. Cox. He confirmed pt is using O2 at dialysis. Pulmonary HTN may be multifactorial reflecting both per pulmonary condition and volume. Lowering dry weight will be a challenge d/t pt cramping but they work in it including offering additional session. [facility] 02/02/2022 Committee Review Decision: Remain Active ommittee Discussion Details: Patient was presented at [facility] for Hep C kidney listing and to review recent Pulmonary workup. Reviewed with team HCV+ w/u including fibroscan results, LFTs and CT results. Reviewed Hepatology clinic note stating no contraindication to receiving HCV positive kidney. Also reviewed with team pt's pulmonary w/u. Pt noted at last clinic appt that she was continuing to use oxygen at night after d/c from hospital in April on O2. Pulmonary w/u results for PFTs, ABGs, oxygen desaturation test, 6 minute walk test, sleep study, HRCT, autoimmune w/u reviewed. Severe obstructive sleep apnea identified. Pulm clinic note 01/27/22 states no pulmonary contraindication for txp. Pt has sleep study appt for CPAP 02/19-02/20. Per team, OK to list for HCV+ kidneys. OK for pt remain active on the wait list while awaiting cpap. [facility]: 12/09/2020 Induction Method: Immunosuppression Induction Method/Plan: Antithymocyte globulin (rabbit) (Thymoglobulin) 5 mg/kg Committee Discussion Details: Pt's case presented at [facility] today for potential listing. HH and evaluation testing reviewed but not limited to: - PTH elevated on evaluation testing, most recent PTH level 1441. Pt was just increased to 10 mcg on hecterol on 11/27. Team aware I spoke with RD at [facility] today, pt to get labs next week, she is going to talk with [employer] about her treatment plan today. - pt with history of uterine cancer in 2000, pt received a TRA with [facility], last papsmear in 2008 - negative, reviewed last oncology clinic note 2008- pt was 7 years out from surgery, no evidence of disease on exam, yara was dc'd. Team aware pt with recent well women visit - it was WNL - CT imaging reviewed by Dr. Fierro in clinic, team ok with that, did not review - pt with thyroid goiter, thyroid US completed by PCP, reviewed with sales management intern input on follow up with team - which is to follow with USs - [employer] forms received, Jesi is working on confirmation Per team, ok to list pending PTH <700. Lets see what labs look like next draw, if still elevated and hasn't come down any, Dr. Alberto to talk with Dr. Cox about plan of care Labs: 06/21/2022 PTH: 1,203.4 A1c: 6.3 Glucose: 133 GFR: 7 Serologies: +HepBAb, all others negative (recommend Hep A vaccine) CMV Igg: Negative EBV Igg: Positive hx Varicella: Immune MMR: +-+ (recommend booster) Toxo: <3.0 Strongyloides: Albumin: 3.7 Tox Screen: Quant Gold: PRA: Hgb: 9.9 Reviewed Hepatitis vaccination: Hepatitis A negative and requires vaccination, Pt decided not to obtain vaccination Hepatitis B positive due to vaccine, Recent Labs Component Name 06/21/22 1210 HAVAB Negative HBVSAB 462.5* HEPBCAB Non-reactive HEPBSAG Non-reactive Ref. Range 06/28/2020 15:32 Alkaline Phosphatase Latest Ref Range: 40 - 150 U/L 290 (H) Ref. Range 08/06/2020 15:30 Alkaline Phosphatase Isoenzymes Latest Ref Range: 40 - 120 U/L 271 (H) Alkaline Phosphatase Isoenzymes Bone Latest Ref Range: 0 - 55 U/L 171 (H) Alkaline Phosphatase Isoenzymes Liver Latest Ref Range: 0 - 94 U/L 100 (H) Alkaline Phosphatase Isoenzymes Other Latest Units: U/L 0 Kidney Biopsy: None EK06/11/2020 Component Value Ref Range & Units Status Ventricular Rate 66 BPM Final Atrial Rate 66 BPM Final P-R Interval 152 ms Final QRS Duration ms 76 ms Final Q-T Interval ms 460 ms Final QTC Calculation (Bezet) 482 ms Final Calculated P [place] 70 degrees Final Calculated R [place] 47 degrees Final Calculated T [place] -95 degrees Final Interpretation EKG Final NORMAL SINUS RHYTHM POOR R WAVE PROGRESSION POSSIBLE RIGHT ATRIAL ENLARGEMENT POSSIBLE LEFT ATRIAL ENLARGEMENT PROLONGED QT ST & MARKED T WAVE ABNORMALITY, CONSIDER INFERIOR ISCHEMIA ABNORMAL ECG WHEN COMPARED WITH ECG OF 30-AUG-2018 13:59, NO SIGNIFICANT CHANGE WAS FOUND Echo: 06/21/2022 Summary Left ventricular systolic function is normal with an ejection fraction by Biplane Method of Discs of 63 %. The left ventricular diastolic function is abnormal (Grade II), consistent with elevated left ventricle filling pressures. The right ventricular cavity size is enlarged. Reduced right ventricular systolic function. The left atrium is severely enlarged. There is moderate to severe tricuspid regurgitation. Moderate to severe pulmonary hypertension, estimated pulmonary arterial systolic pressure is 60 mmHg. NM Stress: 06/21/2022 Impression: 1.Normal myocardial perfusion with no evidence of infarction or stress-induced ischemia. 2.Normal left ventricular function with a calculated left ventricular ejection fraction 58%. LHC: 07/07/20 (completed d/t length of time DM2) HEMODYNAMIC FINDINGS: LV 140/20 mmHg, AO 140/70 mmHg ANGIOGRAPHY: i. Left main: Angiographically normal vessel that divides into LAD and LCx. ii. LAD: It is a medium caliber vessel with diffuse calcification that gives rise to D1 and septal branch. The distal LAD terminates by wrapping around the apex. The proximal segment has mild 30% stenosis. Terminal vessels have minimal luminal irregularities. iii. LCx: Medium caliber non-dominant vessel which gives rise to OM1 that divides into a superior and inferior branch. The main LCx continues as smaller vessel in AV groove. iv. RCA: Medium caliber dominant vessel which gives rise to RPL and RPDA with no significant stenosis. Mild plaquing and minimal luminal irregularities. DOMINANCE: Right DIAGNOSTIC INTERPRETATIONS: Minimal non-obstructive CAD RECOMMENDATIONS AFTER DIAGNOSTIC CATHETERIZATION: Aggressive modification of atherosclerotic risk factors. No further cardiac workup needed prior to renal transplant evaluation CXR: 06/21/2022 FINDINGS/IMPRESSION: There is mild atelectasis or scarring in the left midlung. The lungs are otherwise clear. No pleural effusion or pneumothorax. Heart size and mediastinal contours are normal. There is a left axillary vascular stent noted. CT Chest: 09/12/2021 Findings Evaluation of visceral and vascular structures is degraded due to lack of intravenous contrast administration. Lines/Tubes: None. Lower neck and axillae: Multiple large calcified thyroid nodules are seen. There is partially visualized stent of a subclavian vessel. Mediastinum and Sandy: A few subcentimeter prominent lymph nodes are seen in the mediastinum. Heart and Pericardium: The cardiac chambers are normal in size. No pericardial fluid or thickening is present. Atherosclerotic calcifications are seen in the coronary arteries and visualized aorta. There is mitral annular calcifications. Lung Parenchyma, Airways, and Pleural Spaces: There are right middle and upper lobe predominant patchy groundglass opacities with scattered nodularity throughout the lungs. There is mosaic attenuation of the bilateral lungs, consistent with small airway disease. There are bilateral small pleural effusions with associated very mild atelectasis. Subsegmental atelectatic changes are seen in the left lung base on the diaphragmatic surface. There is no pneumothorax. Bones and Soft Tissue: There are deep Schmorl's nodes at the superior and inferior endplates of the T10 vertebral body. Mild degenerative changes are seen throughout the visualized spine. Upper Abdomen: Thickening of the bilateral adrenal glands. Multiple gallstones are partially seen. Impression: 1.Right middle and upper lobe predominant patchy groundglass opacities throughout the lungs and scattered nodularity. Differential diagnosis are organizing pneumonia versus viral pneumonia with underlying small airway disease. 2.Multiple large calcified thyroid nodules. Nonemergent thyroid ultrasound is recommended. CT a/p: 06/21/2022 Findings: Evaluation of visceral and vascular structures is degraded due to lack of intravenous contrast administration. Lower Chest: There are coronary artery calcifications with calcification of the mitral annulus. There is mild scarring along the right middle lobe, stable from prior examination. Mosaic attenuation in the bilateral lung arzola, similar to prior exam. Liver: Within the limitations of a noncontrast examination, the liver is unremarkable. Gallbladder and Bile Ducts: Cholelithiasis without evidence of cholecystitis. There is no gallbladder wall thickening or pericholecystic fluid. Spleen: Normal. Pancreas: Normal. Adrenals: Normal. Kidneys: Several punctate densities within the lateral kidneys favored to present vascular calcifications or less likely nonobstructing stones. No hydronephrosis or focal renal lesions. Gastrointestinal: The stomach and visualized loops of small bowel are unremarkable. Colonic diverticulosis without evidence of diverticulitis is seen. Normal appendix. Mesentery/Peritoneum/Retroperitoneum: Normal. Bladder: Normal. Reproductive Organs: The uterus is absent. Vasculature: There is moderate atherosclerosis of the thoracic and abdominal aorta. There is mild atherosclerosis of the bilateral common iliac arteries. Early bifurcation of the common iliac arteries. Moderate atherosclerosis of the bilateral internal iliac arteries. Minimal atherosclerosis of the external iliac arteries. Bones: Bone windows demonstrate no suspicious lytic or blastic lesions. The visible osseous structures are intact. Soft tissues: Normal. Impression: 1.No acute process identified in the abdomen or pelvis. 2.There is moderate atherosclerosis of the thoracic and abdominal aorta. There is mild atherosclerosis of the bilateral common iliac arteries. Moderate atherosclerosis of the bilateral internal iliac arteries. Minimal atherosclerosis of the external iliac arteries. 3.Cholelithiasis without cholecystitis. Renal US: 06/15/2021 FINDINGS: Right kidney: 7.8 x 3.1 x 3.6 cm, volume 45 mL Left kidney: 7.4 x 3.9 x 3.8 cm, volume 57 mL Renal parenchymal echogenicity is increased. There is no evidence of a solid renal mass, renal calculi, or hydronephrosis. Blood flow is seen within the renal arteries and veins. The bladder is decompressed. IMPRESSION: Small and echogenic bilateral kidneys, consistent with the known end stage renal disease. No evidence of nephrolithiasis, hydronephrosis, or solid renal mass. PPD: see labs -quant gold Colonoscopy: 06/27/2021 ([facility]) Mammogram: 11/18/2021 Panorex/Dental: 06/21/2022 FINDINGS: Multiple dental restorations are identified, and numerous teeth are absent. No acute mandibular fracture is identified. Both temporomandibular joints are intact. No periapical abscess is present. IMPRESSION: No evidence of periapical abscess. SW: 06/15/21 Clinical Social Work Impression: It is the impression of this social work associate that Shoshana Long has several positive factors for Kidney transplant candidacy from a psychosocial perspective. Patient appears to have appropriate knowledge of illness. Patient has sufficient insurance coverage and stable financial situation for post transplant needs. No concerns regarding substance abuse, legal issues, or mental health needs. Patient has adequate support system and appropriate discharge plan. Plan: quarry worker to provide supportive services as needed. Patient remains a reasonable candidate for transplant from a psychosocial perspective. Psychiatric Consult Recommended: No Transplant Horser Up: Natalie Antonio LMSW Abdominal Transplant Horser Up [phone] [employer] forms: RD: 06/21/2022 Nutrition Note/Annual: Ht: 58 Wt: 140 lbs Pt was actively working on wt loss - eating less. On 2L O2. Waist = 35.75 Waist down 4.25 in 2 years Pt remains a good candidate for a Kidney Transplant from a Nutrition standpoint. Full nutrition note to follow. Items Still Pending: annual Mammogram Assessment & Plan (06/28/2020 11:05 AM CDT): Abnormal ECG but noted previously and Likely related to LVH from hypertension. Per transplant team she will need LHC due to duration of DM Discussed risks of procedure. Will schedule after she discusses with transplant team End-stage renal disease 07/29/2018 GIB (gastrointestinal bleeding) 05/04/2018 Type 2 diabetes mellitus wit h other diabetic kidney complication 08/18/2012 HTN (hypertension) 08/18/2012 Proteinuria 08/18/2012 Overview (12/23/2021): Converted unresolved ICD9, potential mismatch. Encounters Date Type Department Care Team Description 04/05/2024 12:15 AM [employer]IAL WORK[facility]IVE [employer] - 04/05/2024 11:59 PM SOCIAL WORKER PALLIATIVE [employer] Hospital Encounter [facility] [address] [place] [address] Discharge Disposition: Home or Self Care 03/17/2024 Telephone [facility] TRANSPLANT [address] [place] [phone] Ju Israel RN Kidney Transplant Evaluation 03/07/2024 Telephone [facility] TRANSPLANT [address] [place] [address] Ju Israel RN Kidney Transplant Evaluation 03/07/2024 Lab Requisition [facility] [place] [address] Dandre Cheney MD from Last 3 Months Immunizations Name Administration Dates Next Due COVID YUN PRIMARY 18+YR 04/29/2020 COVID PFIZER BIVALENT 12Y+ 30mcg/0.3ML 2022 FLU VACCINE QUAD IIV4 PF ID 11/27/2020, 0 HEP B VACCINE, ADULT 3 DOSE 01/02/2019,0 08/29/2018,08/01/2018,2018 INFLUENZA VACCINE, QUADR. (F LUZONE; FLULAVAL; FLUARIX; AFLURIA QUADRIVALENT; 6MO+), 0.5 ML (IIV4) 05/04/2018 PNEUMOCOCCAL PCV VACCINE 07/18/2018 PNEUMOCOCCAL PCV20 CONJ VAC IM 08/16/2022 TD (ADULT), 5 LF TETANUS TOX OID, ADSORBED, PF 04/01/2002 iNFLUENZA VACCINE, RECOM-ARRIETA, QUADR. (FLUBLOCK QUADRIVALENT; 18Y+) (RIV4) 10/31/2021 Family History Medical History Relation Name Comments Cirrhosis Father Diabetes - Type 2 Father Cancer - Breast Maternal Aunt Diabetes - Type 2 Mother Relation Name Status Comments Father Maternal Aunt Mother Alive Sister Alive Social History Tobacco Use Types Packs/Day Years Used Date Smoking Tobacco: Never Smokeless Tobacco: Never Tobacco Cessation:Counseling Given: Not Answered Alcohol Use Standard Drinks/Week Comments No 0 (1 standard drink = 0.6 oz pur e alcohol) Sex and Gender Information Value Date Recorded Sex Assigned at Not on file Gender Identity Not on file Sexual Orientation Not on file Last Filed Vital Signs Vital Sign Reading Time Taken Comments Blood Pressure 186/76 12/28/2022 12:45 PM [employer] [facility] Pulse 76 12/28/2022 12:45 PM [employer] WORK[employer] Temperature 36.6 C (97.9 F) 12/28/2022 9:20 AM [employer] Respiratory Rate 18 12/28/2022 12:45 PM [employer] WORK[employer] Oxygen Saturation 94% 12/28/2022 9:20 AM SOC[employer] WORK[employer]IVE [employer]ARE Inhaled Oxygen Concentration - - Weight 56.7 kg (125 lb) 12/27/2022 6:01 PM [employer] Height 147.3 cm (4' 10 ) 12/27/2022 6:01 PM SOC[employer] WORK[facility]ALLIATIVE C[employer] Body Mass Index 26.13 12/27/2022 6:01 PM SOCIAL WORK[facility] PALLIATIVE CARE Plan of Treatment Health Maintenance Due Date Last Done Comments BONE DENSITY TESTING 1960 COLOGUARD (AGES 45-75) - COLON CA SCREENING 1958 COLON MONITORING 1958 COLONOSCOPY - COLON CA SCREENING 1958 CT COLONOGRAPHY - COLON CA SCREENING 1960 Colorectal Cancer Screening 1958 FIT - COLON CA SCREENING 1958 FLEX SIG - COLON CA SCREENING 1960 MAMMOGRAM 1960 MEDICARE AWV 12 MONTHS 1958 DIABETES-STATIN 1998 ZOSTER VACCINE (1 of 2) 02/10/2008 DTAP/TDAP/TD VACCINES (2 - Td or Tdap) 04/01/2012 04/01/2002 Respiratory Syncytial Virus (RSV) Vaccine Pt: or over 60 yrs (1 - Risk 60-74 years 1-dose series) 2018 DIABETES RETINOPATHY SCREENING 12/23/2021 DIABETES-FOOT EXAM WITH MONOFILAMENT 12/23/2021 DIABETES-HGB A1C 12/22/2022 06/21/2022, 05/2021, 06/28/2020 COVID-19 VACCINE ( - 2023- season) 2023 2022, 03/10/2021, 04/29/2020 INFLUENZA VACCINE (#1) 2023 , 11/27/2020, 11/27/2019, Additional history exists DEPRESSION SCREENING 02/13/2024 HEPATITIS B VACCINE Completed 01/02/2019, 08/29/2018, 08/01/2018, Additional history exists HEPATITIS C SCREENING Completed 06/21/2022 , 06/15/2021, 06/28/2020, Additional history exists PNEUMOCOCCAL VACCINE 50+ Completed 08/16/2022, 07/2018 HIB VACCINE Aged Out No longer eligi ble based on patient's age to complete this topic HPV VACCINE Aged Out No longer eligi ble based on patient's age to complete this topic MENINGOCOCCAL (Group B) VACCINE SHARED DECISION-MAKING Aged Out No longer eligible based on patient's age to complete this topic MENINGOCOCCAL GROUPS A/C/Y/W VACCINE Aged Out No longer eligible based on patient's age to complete this topic Goals Goal Patient Goal Type Associated Problems Recent Progress Patient-Stated? Author Medication Management General On track( 022 10:08 AM SOCIAL WORK[facility]IATIVE [facility]) Nolvia Ramírez, RN Note: Expected end date: ongoing Interventions: Take all medications as prescribed Let your doctor know right away about any changes in your medications Make sure to request a refill of your medication at least one week prior to your last dose Medical Devices Implanted Type Area Aerodynamic Consultant Device Identifier Shelf Expiration Date Model / Serial / Lot Stent Eprsth 5cm 8mm Hep Ntnl Eptfe hn - [id number] Implanted:Qty: 1 on 02/28/2019 by Paul Rojas MD at [facility] Left: Vein [employer] 09/29/2021 [id number] / [id number] / Procedures Procedure Name Priority Date/Time Associated Diagnosis Comments HLA ANTIBODY SCREEN LUM CLASS 1 SAB Routine 04/05/2024 1:18 PM [employer] [facility] Pre-transplant evaluation for kidney transplant HLA ANTIBODY SCREEN LUM CLASS 2 SAB Routine 04/05/2024 1:18 PM SOCIAL WORK[facility] P[employer]IATIVE C[employer] Pre-transplant evaluation for kidney transplant HOLD HLA SPECIMEN Routine 02/28/2024 1:3 9 PM SOC[facility] WORK[facility]IATIVE CARE HEPATITIS C ANTIBODY Routine 06/21/2022 12:10 PM CDT Pre-kidney transplant, listed HEMOGLOBIN A1C Routine 06/21/2022 12:10 PM CDT Pre-kidney transplant, listed from Last 3 Months or Most Recently Relevant to Health Maintenance Results * HLA ANTIBODY SCREEN LUM CLASS 2 SAB (04/05/2024 1:18 PM SOCIAL WORK[facility] PALLIATIVE CARE) % PRA 9 04/14/2024 1:04 PM SOCIAL WORKER PALLIATIVE CARE [facility]) Class 2 LUM SAB Specificity [id number] PRESENT DPB PRESENT (84DEAV) 04/14/2024 1:04 PM SOCIAL WORKER PALLIATIVE CARE [facility] ([facility]) Class 2 SAB Test Date [id number] 04/14/2024 1:04 PM SOCIAL WORKER PALLIATIVE CARE [facility] Comment: Methodology - Luminex Bead-Based Immunoassay. This test was developed and its performance characteristics determined by the [facility]. It has not been cleared or approved by the U.S. Food and Drug Administration. The FDA has determined that such clearance or approval is not necessary. This test is used for clinical purposes. It should not be regarded as investigational or for research. This laboratory is certified under the Clinical Laboratory Improvement Amendments of 1988 (CLIA-88) as qualified to perform high complexity clinical laboratory testing. CLIA ID# [id number] Performed at: [facility], [address] [place] [address] Vb Developer: Bradley Vincent, Ph.D., D([facility]), Blood BLOOD SPECIMEN / Unknown No Charge Blood Draw / Unknown 04/05/2024 1:18 PM SOCIAL WORKER [facility]IATIVE CARE 04/07/2024 1:18 PM SOCIAL WORKER PALLIATIVE CARE Dandre Cheney MD LAB - BLOOD BANK ORD ERABLES [facility] ([facility]) [address] [place] [address], [facility] * HLA ANTIBODY SCREEN LUM CLASS 1 SAB (04/05/2024 1:18 PM SOCIAL WORKER PALLIATIVE CARE) % PRA 14 04/14/2024 1:04 PM SOCIAL WORKER PALLIATIVE CARE [facility] ([facility]) Class 1 LUM SAB Specificity B18, 35, 37, 49 ,51, 52, 53B63, 71, 75, 77, 78 04/14/2024 1:04 PM SOCIAL WORKER PALLIATIVE CARE [facility] ([facility]) Class 1 LUM SAB Moderate Risk B62 04/14/2024 1:04 PM SOCIAL WORKER PALLIATIVE CARE [facility] ([facility]) Class 1 SAB Test Date [id number] 04/14/2024 1:04 PM SOCIAL WORKER PALLIATIVE CARE [facility] ([facility]) Comment: Methodology - Luminex Bead-Based Immunoassay. This test was developed and its performance characteristics determined by the [facility]. It has not been cleared or approved by the U.S. Food and Drug Administration. The FDA has determined that such clearance or approval is not necessary. This test is used for clinical purposes. It should not be regarded as investigational or for research. This laboratory is certified under the Clinical Laboratory Improvement Amendments of 1988 (CLIA-88) as qualified to perform high complexity clinical laboratory testing. CLIA ID# [id number] Performed at: [facility], [address] [place] [id number] Vb Developer: Bradley Vincent, Ph.D., D([facility]), Blood BLOOD SPECIMEN / Unknown No Charge Blood Draw / Unknown 04/05/2024 1:18 PM SOCIAL WORKER PALLIATIVE CARE 04/07/2024 1:18 PM SOCIAL WORKER PALLIATIVE CARE Dandre Cheney MD LAB - BLOOD BANK ORD JOHNATHAN Performing Organization Address City/[facility] Co de Phone Number [facility] ([facility]) [address] [place] [address] * HOLD HLA SPECIMEN (02/28/2024 1:39 PM SOCIAL WORKER PALLIATIVE CARE) Hold HLA Specimen 03/07/2024 3:00 PM SOCIAL WORKER PALLIATIVE CARE [facility] ([facility]) Comment:The Hold HLA specime n has been received into the lab and will be held for 5 years at 4 degrees. Blood BLOOD SPECIMEN / Unknown 02/28/2024 1:39 PM SOCIAL WORKER PALLIATIVE CARE 03/07/2024 1:39 PM SOCIAL WORKER PALLIATIVE CARE Dandre Cheney MD LAB - BLOOD BANK ORD JOHNATHAN Performing Organization Address [facility] Co de Phone Number [facility] ([facility]) [address] [place] [address] * (ABNORMAL) HEMOGLOBIN A1C (06/21/2022 12:10 PM CDT) Hemoglobin A1c 6.3(H) <=5.6 % 06/21/2022 2:17 PM CDT [facility] Estimated Average Glucose 134 mg/dL 06/21/2022 2:17 PM CDT [facility] Comment: HbA1c Interpretation: Normal : < 5.7% Pre-diabetes: 5.7-6.4% Diabetes: Equal to or greater than 6.5% Test results diagnostic of diabetes should be repeated for confirmation. Treatment target values recommended by ADA and other clinical organizations should be used to evaluate metabolic control in patients. Reference: [place] [employer], Standards of Care in Diabetes -2020 In patients 70 years and older consider HbA1c target range of 7.0-7.5% (Reference: Michael Farrell et al. TISHADA. 2012) The Sebia assay for the measurement of HbA1c is a National Glycohemoglobin Standardization Program (NGSP) certified method. Blood BLOOD SPECIMEN / Unknown Lab Venipuncture / Unknown 06/21/2022 12:10 PM CDT 06/21/2022 12:28 PM CDT Prosper Almonte MD LAB - CHEMISTR Y ORDERABLES [facility] [address] [place] [address], [facility] [phone] * HEPATITIS C ANTIBODY (06/21/2022 12:10 PM CDT) Hepatitis C Antibody Non-react naheed Non-reac tive 06/21/2022 1:41 PM CDT [facility] Comment:Hepatitis C Antibody screen indicates no serologic evidence of past or current infection with Hepatitis C Virus. Patients with unexplained liver disease who are immunocompromised or suspected of having acute Hepatitis C infection may benefit from Nucleic Acid Test (REJI) for Hepatitis C Viral RNA to confirm Hepatitis C status. Blood BLOOD SPECIMEN / Unknown Lab Venipuncture / Unknown 06/21/2022 12:10 PM CDT 06/21/2022 12:27 PM CDT Prosper Almonte MD LAB - CHEMISTR Y ORDERABLES Performing Organization Address [facility]/ZIP Co de Phone Number [facility] [address] [place] [address], [place] [phone] from Last 3 Months or Most Recently Relevant to Health Maintenance Advance Directives Documents on File Type Date Recorded Patient Interpreter Expl anation Adv Directive/Living Will/POA 09/18/2018 2:00 PM * Full Code (Latest Code Status on File) Date Activated Date Inactivated Comments 12/28/2022 10:12 AM 12/28/2022 3:09 PM * Full Code Date Activated Date Inactivated Comments 07/07/2020 9:15 AM 07/07/2020 2:22 PM * Full Code Date Activated Date Inactivated Comments 09/12/2018 3:28 PM 09/13/2018 4:57 PM Care Teams Director Of Corporate Sponsorships Relationship Specialty Start Date End Date Brooklynn Kumar MD [address] [place] [address] PCP - General Family Medicine 06/28/20
--- OUTSIDE RECORDS SUMMARY | 2024-04-30 13:59 | XMS_ITS | Clinical Summary ---
Author Organization [facility] Address [address] [place] [address] Care Team Providers Care Elementary Reading Tutor Name Role Phone Georgie Goyal MD Primary Care Provider [phone]- [phone] Iris Cox MD Unavailable [phone] Allergies Active Allergy Reactions Criticality Noted Date Comments Chlorhexidine Rash Medium 11/08/2018 Gabapentin Dizziness Low 06/30/2022 Medications melatonin tablet Take by mouth Active cyanocobalamin (Vitamin B-12) 500 mcg tabletIndicatio ns:Prevention of Vitamin B12 Deficiency Take 1 tablet (500 mcg total) by mouth daily Active amoxicillin (AMOXIL) 875 mg tablet Take 1 tablet (875 mg total) by mouth 2 (two) times a day Active ondansetron (ZOFRAN) 4 mg tablet Take 1 tablet (4 mg total) by mouth every 8 (eight) hours as needed for nausea or vomiting Active fluticasone propionate (FLOVENT DISKUS) 50 mcg/actuation diskus inhaler Inhale 1 puff 2 (two) times a day Rinse mouth with water after use. Do not swallow. Active carBAMazepine XR (TEGretol XR) 200 mg 12 hr tablet Take 1 tablet (200 mg total) by mouth 2 (two) times a day Active latanoprost (XALATAN) 0.005 % ophthalmic solution 1 drop nightly Active NIFEdipine (NIFEdipine CC) 60 mg 24 hr tablet Take 1 tablet (60 mg total) by mouth daily Active albuterol (PROVENTIL,VENT YOHANNES) 0.4 mg/mL syrup Take by mouth 3 (three) times a day Active travoprost (TRAVATAN Z) 0.004 % drops 1 drop nightly Active coenzyme Q10 200 mg capsule Take 1 capsule (200 mg total) by mouth daily Active pantoprazole DR (PROTONIX) 40 mg EC tablet Take 1 tablet (40 mg total) by mouth daily Active carvediloL (COREG) 25 mg tablet Take 1 tablet (25 mg total) by mouth 2 (two) times a day with meals Active furosemide (LASIX) 80 mg tablet Take 1 tablet (80 mg total) by mouth 2 (two) times a day Active Active Problems No known active problems Encounters Date Type Department Care Team Description 04/25/2024 11:55 AM CDT Ancillary Procedure [facility] Imaging at [address] [address] Left hip pain 04/25/2024 11:30 AM CDT Office Visit [facility]ient Care at [address] [phone] Una Guaman NP Left hip pain (Primary Dx); Fall, initial encounter 04/25/2024 Results Follow-Up [facility] at [address] [address] Una Guaman NP from Last 3 Months Medical History Medical History Date Comments Type 2 diabetes mellitus (HCC) D iabetes type 2; Comments: [facility] 04/16/2014 - Other Medical hypercholestero lemia; Comments: [facility] 04/16/2014 - Hx Other Medical Hx uterine canc er; Comments: [facility] 04/16/2014 - Hx Other Medical obesity; Commen ts: [facility] 04/16/2014 - Hx Other Medical osteoporosis; C omments: [facility] 04/16/2014 - Hx Other Medical glaucoma; Comme nts: [facility] 04/16/2014 - Hx Other Medical cataracts; Comm ents: [facility] 04/16/2014 - Hx Other Medical ; Comm ents: [facility] 04/16/2014 - Hx Other Medical hysterectomy; C omments: [facility] 04/16/2014 - Social History Tobacco Use Types Packs/Day Years Used Date Smoking Tobacco: Never Tobacco Cessation:Counseling Given: No Alcohol Use Standard Drinks/Week Comments No 0 (1 standard drink = 0.6 oz pur e alcohol) Comments Unknown Sex and Gender Information Value Date Recorded Sex Assigned at Not on file Legal Sex Female 3:15 AM BRIM FLEXER Gender Identity Not on file Sexual Orientation Not on file Obstetrics History Last Filed Vital Signs Vital Sign Reading Time Taken Comments Blood Pressure 132/70 04/25/2024 11:52 AM CDT Pulse 77 04/25/2024 11:52 AM CDT Temperature 37 C (98.6 F) 04/25/2024 11:52 AM CDT Respiratory Rate 20 04/25/2024 11:5 2 AM CDT Oxygen Saturation 95% 04/25/2024 11: 52 AM CDT 2L@all times Inhaled Oxygen Concentration - - Weight 53.4 kg (117 lb 11.2 oz) 04/25/2024 11:52 AM CDT Height 147.3 cm (4' 10 ) 06/30/2022 2:0 9 PM CDT Body Mass Index 24.6 06/30/2022 2:09 PM CDT Plan of Treatment Health Maintenance Due Date Last Done Comments Breast Cancer Screening-Mammogram 1960 Colon Cancer Screening-Colonoscopy 1960 Depression Screening 1958 Fall Risk Assessment 1960 Hepatitis C Screening 1960 Osteoporosis Screening-Bone Density Scan 1960 DTaP/Tdap/Td Vaccine (1 - Tdap) 04/02/2002 3 Zoster Vaccine (1 of 2) 02/10/2008 Pneumococcal vaccine 65+ (2 of 2 - PPSV23) 07/19/2019 07/18/2018 Well Visit 65+ 2023 Covid-19 Vaccine (4 - 2023-2 5 season) 2023 2022, 03/10/2021, 04/29/2020 Influenza Vaccine (#1) 2023 2, 11/27/2020, 11/27/2019, Additional history exists Hepatitis B Screening Completed 01/02/2019 , 08/29/2018, 08/01/2018, Additional history exists Procedures Procedure Name Priority Date/Time Associated Diagnosis Comments XR HIP LEFT 2 OR 3 VIEWS Schedule MARINE, Read MARINE (Appt Today, Awaiting Results) 04/25/2024 12:10 PM CDT Left hip pain from Last 3 Months Results * XR Hip Left 2+ Vw (04/25/2024 12:10 PM CDT) Anatomical Region Laterality Modality Lower Extremities, Hip, Pelvis Left D igital Radiography 04/25/2024 12:3 1 PM CDT Narrative 04/25/2024 12:32 PM CDT EXAM DESCRIPTION: XR HIP LEFT 2 OR 3 VIEWS REASON FOR STUDY: pain Pt complains of hip pain since beginning of March. Fell back then. No prior fx or surgery TECHNIQUE: 2 radiographic view(s) of the left hip . COMPARISON: No prior studies are available for comparison at time of this dictation. FINDINGS: No recent fracture of the left hip is identified. Mild degenerative changes of the left hip joint. Multiple surgical clips project over the left hemipelvis. There are prominent femoral artery calcifications. IMPRESSION: No recent fracture of the left hip is identified. Mild degenerative changes of the left hip joint. THIS IS AN ELECTRONICALLY VERIFIED FINAL REPORT 04/25/2024 12:32 PM - Electronically signed by Jun Shelby M.D. MM T: Report ID: [id number] Reading Location: [id number] Procedure Note Jun Shelby MD - 04/25/2024 EXAM DESCRIPTION: XR HIP LEFT 2 OR 3 VIEWS REASON FOR STUDY: pain Pt complains of hip pain since beginning of March. Fell back then. Noprior fx or surgery TECHNIQUE: 2 radiographic view(s) of the left hip . COMPARISON: No prior studies are available for comparison at time of this dictation. FINDINGS: No recent fracture of the left hip is identified. Mild degenerative changes of the left hip joint. Multiple surgical clipsproject over the left hemipelvis. There are prominent femoral arterycalcifications. IMPRESSION: No recent fracture of the left hip is identified. Mild degenerative changes of the left hip joint. THIS IS AN ELECTRONICALLY VERIFIED FINAL REPORT 04/25/2024 12:32 PM - Electronically signed by Jun Shelby M.D. MM T: Report ID: [id number] Reading Location: [place] [address] Una Guaman SCRUB WOMAN IMG XR PROCEDURES Final Result from Last 3 Months Insurance MEDICARE MEDICARE [facility] MEDICARE SUPPLEMENT Advance Directives For more information, please contact: [phone] Documents on File Type Date Recorded Patient Setter Off Expl anation ADVANCE DIRECTIVE 12/18/2012 12:00 AM BLAINE Mckeon OF SUPERVISOR ROD PLACING FINANCIAL/MEDICAL Care Teams Elementary Reading Tutor Relationship Specialty Start Date End Date Georgie Goyal MD PCP - General Family Practice 06/27/18 Irsi Cox MD [address] [facility] [address] [place] [address] Referring Physician Nephrology 06/27/18
--- OUTSIDE RECORDS SUMMARY | 2024-04-30 13:59 | XMS_ITS | Referral Summary ---
Author Organization [facility] Address [address] [place] [address] Care Team Providers Care Washing Machine Mechanic Name Role Phone Georgie Goyal MD Primary Care Provider [phone]- [phone] Iris Cox MD Unavailable [phone] Encounters Date Type Department Care Team Description 04/25/2024 Results Follow-Up [facility] Convenient Care at [address] [address] Una Guaman NP 04/25/2024 11:55 AM CDT Ancillary Procedure [facility] Imaging at [address] [address] Left hip pain 04/25/2024 11:30 AM CDT Office Visit [facility] Con[facility]ient Care at [address] [address] Una Guaman NP Left hip pain (Primary Dx); Fall, initial encounter from Last 3 Months Allergies Active Allergy Reactions Criticality Noted Date [...] Active Active Problems No known active problems Social History Tobacco Use Types Packs/Day Years Used Date Smoking Tobacco: Never Tobacco Cessation:Counseling Given: No Alcohol Use Standard Drinks/Week Comments No 0 (1 standard drink = 0.6 oz pur e alcohol) Comments Unknown Sex and Gender Information Value Date Recorded Sex Assigned at Not on file Legal Sex Female 3:15 AM CALL CENTER SUPPORT CONSULTANT Gender Identity Not on file Sexual Orientation [...] 06/30/2022 2:09 PM CDT Plan of Treatment Not on file Procedures Procedure Name Priority Date/Time Associated Diagnosis [...] Pt complains of hip pain since beginning march. Fell back then. No prior fx or [...] Jun Shelby M.D. MM T: Report ID: [id number] Reading Location: [id number] Procedure Note Jun Shelby MD - 04/25/2024 EXAM DESCRIPTION: XR HIP LEFT 2 OR 3 VIEWS REASON FOR STUDY: pain Pt complains of hip pain since beginning march. Fell back then. Noprior fx or surgery [...] Jun Shelby M.D. MM T: Report ID: [id number] Reading Location: [id number] Una Guaman OYSTER FARMER IMG XR PROCEDURES Final Result from Last 3 Months Insurance [address] [place] [address] [address] [place] [address] MEDICARE [place] [facility] MEDICARE SUPPLEMENT Advance Directives For more information, please contact: [phone] Documents on File Type Date Recorded Patient Test Analyst Expl anation ADVANCE DIRECTIVE 12/18/2012 12:00 AM BLAINE Mckeon OF AIR QUALITY TECHNICIAN FINANCIAL/MEDICAL Care Teams Washing Machine Mechanic Relationship Specialty Start Date End Date Georgie Goyal MD PCP - General Family Practice 06/27/18 Iris Cox MD [address] [facility] [address] [place] [address] Referring Physician Nephrology 06/27/18
--- OUTSIDE RECORDS SUMMARY | 2024-04-30 13:59 | XMS_ITS | Encounter Summary ---
Author Organization [facility] Address [address] [facility] [place] [address] Care Team Providers Care Mission Commander Name Role Phone Brooklynn Kumar MD Primary Care Provider Encounter Details Date Type Department Care Team (Late st Contact Info) Description 04/30/2023 Lab Requisition [facility] MA[facility] LAB [address] [place] [phone] Dandre Cheney MD [address] [place] [address] OF ABD TRANSPLANT SURGERY [place], [place] [id number] Social History Tobacco Use Types Packs/Day Years [...] Management General On track( 022 10:08 AM ACCESS CONTROL SPECIALIST) Nolvia Ramírez, RN Note: Expected end date: ongoing Interventions: Take all medications as prescribed Let your doctor know right away about any changes in your medications Make sure to request a refill of your medication at least one week prior to your last dose documented as of this encounter Procedures Procedure Name Priority Date/Time Associated Diagnosis Comments HOLD HLA SPECIMEN Routine 04/24/2023 10: 17 AM CDT documented in this encounter Results * HOLD HLA SPECIMEN (04/24/2023 10:17 AM CDT) Hold HLA Specimen 04/30/2023 11:31 AM CDT [facility] ([facility]) Comment:The Hold HLA specime n has been received into the lab and will be held for 5 years at 4 degrees. Blood BLOOD SPECIMEN / Unknown 04/24/2023 10:17 AM CDT 04/30/2023 10:17 AM CDT Dandre Cheney MD LAB - BLOOD BANK ORD ERABLES [facility] ([place]) [address] [place] [address], [facility] documented in this encounter Visit Diagnoses Not on filedocumented in this encounter Care Teams Mission Commander Relationship Specialty Start Date End Date Brooklynn Kumar MD [address] [place] [address] PCP - General Family Medicine 06/28/20 documented as of this encounter
--- OUTSIDE RECORDS SUMMARY | 2024-04-30 13:59 | XMS_ITS | Encounter Summary ---
Author Organization [facility] Address [address] [facility] [place] [address] Care Team Providers Care Aircraft Armament Mechanic Name Role Phone Brooklynn Kumar MD Primary Care Provider Encounter Details Date Type Department Care Team (Late st Contact Info) Description 12/24/2023 Lab Requisition [facility] MA[facility] LAB [address] [place] [phone] Dandre Cheney MD [address] [place] [address] OF ABD TRANSPLANT SURGERY [place], [place] [id number] Social History Tobacco Use Types Packs/Day Years [...] Management General On track( 022 10:08 AM STREAM CONTROL OFFICER) Nolvia Ramírez, RN Note: Expected end date: ongoing Interventions: Take all medications as prescribed Let your doctor know right away about any changes in your medications Make sure to request a refill of your medication at least one week prior to your last dose documented as of this encounter Procedures Procedure Name Priority Date/Time Associated Diagnosis Comments HOLD HLA SPECIMEN Routine 12/18/2023 1:1 9 PM STREAM CONTROL OFFICER documented in this encounter Results * HOLD HLA SPECIMEN (12/18/2023 1:19 PM STREAM CONTROL OFFICER) Hold HLA Specimen 12/24/2023 2:31 PM STREAM CONTROL OFFICER [facility] ([facility]) Comment:The Hold HLA specime n has been received into the lab and will be held for 5 years at 4 degrees. Blood BLOOD SPECIMEN / Unknown 12/18/2023 1:19 PM STREAM CONTROL OFFICER 12/24/2023 1:19 PM STREAM CONTROL OFFICER Dandre Cheney MD LAB - BLOOD BANK ORD ERABLES [facility] ([facility]) [address] [place] [address], [facility] documented in this encounter Visit Diagnoses Not on filedocumented in this encounter Care Teams Aircraft Armament Mechanic Relationship Specialty Start Date End Date Brooklynn Kumar MD [address] [place] [address] PCP - General Family Medicine 06/28/20 documented as of this encounter
--- OUTSIDE RECORDS SUMMARY | 2024-04-30 13:59 | XMS_ITS | Encounter Summary ---
Author Organization [facility] Address [address] [place] [address] Care Team Providers Care Team Facilitator Name Role Phone Brooklynn Kumar MD Primary Care Provider Encounter Details Date Type Department Care Team (Late st Contact Info) Description 03/07/2024 Lab Requisition [facility] MAIN LAB [address] [place] [phone] Dandre Cheney MD [address] [place] [address] OF ABD TRANSPLANT SURGERY [place], [place] [id number] Social History Tobacco Use Types Packs/Day Years [...] Management General On track( 022 10:08 AM FINANCE TEACHER) Nolvia Ramírez, RN Note: Expected end date: ongoing Interventions: Take all medications as prescribed Let your doctor know right away about any changes in your medications Make sure to request a refill of your medication at least one week prior to your last dose documented as of this encounter Procedures Procedure Name Priority Date/Time Associated Diagnosis Comments HOLD HLA SPECIMEN Routine 02/28/2024 1:3 9 PM FINANCE TEACHER documented in this encounter Results * HOLD HLA SPECIMEN (02/28/2024 1:39 PM FINANCE TEACHER) Hold HLA Specimen 03/07/2024 3:00 PM FINANCE TEACHER [facility] ([facility]) Comment:The Hold HLA specime n has been received into the lab and will be held for 5 years at 4 degrees. Blood BLOOD SPECIMEN / Unknown 02/28/2024 1:39 PM FINANCE TEACHER 03/07/2024 1:39 PM FINANCE TEACHER Dandre Cheney MD LAB - BLOOD BANK ORD ERABLES [facility] ([facility]) [address] [place] [address], [facility] documented in this encounter Visit Diagnoses Not on filedocumented in this encounter Care Teams Team Facilitator Relationship Specialty Start Date End Date Brooklynn Kumar MD [address] [place] [address] PCP - General Family Medicine 06/28/20 documented as of this encounter
--- OUTSIDE RECORDS SUMMARY | 2024-04-30 13:59 | XMS_ITS | Encounter Summary ---
Author Organization [facility] Address [address] [facility] [place] [address] Care Team Providers Care Process Controller Name Role Phone Brooklynn Kumar MD Primary Care Provider Encounter Details Date Type Department Care Team (Late st Contact Info) Description 07/19/2021 Telephone [facility] Pulmonary, Critical Care and Sleep Medicine [address] [facility] [place] [address] Pepito Naidu MD [address] [facility] 2L DIV OF PULMONARY/[place] [address] Social History Tobacco Use Types [...] encounter Miscellaneous Notes * Telephone Encounter - Halie Young - 07/19/2021 10:33 AM CDT Current Provider name: Dr. Naidu Reason for call: Ms. Shoshana Long needs scheuduling for kidney transplan EAVLt. First availableis 11/30/2021. Is there anything sooner? She can come [facility] because she has dialysis on [address]. The transplant dept is looking for something after September 12, 2021. Please advise. Transplant contact Ms. Naqvi [phone]. Thanks. Patient Call Back number: [phone] documented in this encounter Plan of Treatment Not on file documented as of this encounter Visit Diagnoses Not on filedocumented in this encounter Care Teams Process Controller Relationship Specialty Start Date End Date Brooklynn Kumar MD [address] [place] [address] PCP - General Family Medicine 06/28/20 documented as of this encounter
--- OUTSIDE RECORDS SUMMARY | 2024-04-30 13:59 | XMS_ITS | Encounter Summary ---
Author Organization [facility] Address [address] [facility] [place] [address] Care Team Providers Care Early Head Start Director Name Role Phone Brooklynn Kumar MD Primary Care Provider Encounter Details Date Type Department Care Team (Late st Contact Info) Description 07/02/2023 Lab Requisition [facility] MAIN LAB [address] [place] [phone] Dandre Cheney MD [address] [place] [address] OF ABD TRANSPLANT SURGERY [place], [place] [phone] Social History Tobacco Use Types Packs/Day Years [...] Management General On track( 022 10:08 AM ROTARY SURFACE GRINDER) Nolvia Ramírez, RN Note: Expected end date: ongoing Interventions: Take all medications as prescribed Let your doctor know right away about any changes in your medications Make sure to request a refill of your medication at least one week prior to your last dose documented as of this encounter Procedures Procedure Name Priority Date/Time Associated Diagnosis Comments HOLD HLA SPECIMEN Routine 06/21/2023 1:0 7 PM CDT documented in this encounter Results * HOLD HLA SPECIMEN (06/21/2023 1:07 PM CDT) Hold HLA Specimen 07/02/2023 2:31 PM CDT [facility] ([facility]) Comment:The Hold HLA specime n has been received into the lab and will be held for 5 years at 4 degrees. Blood BLOOD SPECIMEN / Unknown 06/21/2023 1:07 PM CDT 07/02/2023 1:07 PM CDT Dandre Cheney MD LAB - BLOOD BANK ORD ERABLES [facility] ([facility]) [address] [place] [address], [facility] documented in this encounter Visit Diagnoses Not on filedocumented in this encounter Care Teams Early Head Start Director Relationship Specialty Start Date End Date Brooklynn Kumar MD [address] [place] [address] PCP - General Family Medicine 06/28/20 documented as of this encounter
--- OUTSIDE RECORDS SUMMARY | 2024-04-30 13:59 | XMS_ITS | Encounter Summary ---
Author Organization [facility] Address [address] [facility] [place] [address] Care Team Providers Care Dental Laboratory Manager Name Role Phone Brooklynn Kumar MD Primary Care Provider Encounter Details Date Type Department Care Team (Late st Contact Info) Description 09/04/2023 Lab Requisition [facility] MAIN LAB [address] [place] [phone] Dandre Cheney MD [address] [place] [address] OF ABD TRANSPLANT SURGERY [place], [place] [phone] Social History Tobacco Use Types Packs/Day Years [...] Management General On track( 022 10:08 AM TANK REFINISHER) Nolvia Ramírez, RN Note: Expected end date: ongoing Interventions: Take all medications as prescribed Let your doctor know right away about any changes in your medications Make sure to request a refill of your medication at least one week prior to your last dose documented as of this encounter Procedures Procedure Name Priority Date/Time Associated Diagnosis Comments HOLD HLA SPECIMEN Routine 08/28/2023 12: 52 PM CDT documented in this encounter Results * HOLD HLA SPECIMEN (08/28/2023 12:52 PM CDT) Hold HLA Specimen 09/04/2023 2:01 PM CDT [facility] ([facility]) Comment:The Hold HLA specime n has been received into the lab and will be held for 5 years at 4 degrees. Blood BLOOD SPECIMEN / Unknown 08/28/2023 12:52 PM CDT 09/04/2023 12:52 PM CDT Dandre Cheney MD LAB - BLOOD BANK ORD ERABLES [facility] ([facility]) [address] [place] [address], [facility] documented in this encounter Visit Diagnoses Not on filedocumented in this encounter Care Teams Dental Laboratory Manager Relationship Specialty Start Date End Date Brooklynn Kumar MD [address] [place] [address] PCP - General Family Medicine 06/28/20 documented as of this encounter
--- OUTSIDE RECORDS SUMMARY | 2024-04-30 13:59 | XMS_ITS | Encounter Summary ---
Author Organization [facility] Health Address [address] [place] [address] Care Team Providers Care Lining Cutter Name Role Phone Brooklynn Kumar MD Primary Care Provider Encounter Details Date Type Department Care Team (Late st Contact Info) Description 12/25/2022 Lab Requisition [facility] [address] [place] [id number] Dandre Cheney MD [address] [place] [address] OF ABD TRANSPLANT SURGERY [place], [place] [id number] Social History Tobacco Use Types Packs/Day Years [...] Management General On track( 022 10:08 AM VOICE TEACHER) Nolvia Ramírez RN Note: Expected end date: ongoing Interventions: Take all medications as prescribed Let your doctor know right away about any changes in your medications Make sure to request a refill of your medication at least one week prior to your last dose documented as of this encounter Procedures Procedure Name Priority Date/Time Associated Diagnosis Comments HOLD HLA SPECIMEN Routine 12/19/2022 2:4 3 PM VOICE TEACHER documented in this encounter Results * HOLD HLA SPECIMEN (12/19/2022 2:43 PM VOICE TEACHER) Hold HLA Specimen 12/25/2022 4:02 PM VOICE TEACHER [facility] ([facility]) Comment:The Hold HLA specime n has been received into the lab and will be held for 5 years at 4 degrees. Blood BLOOD SPECIMEN / Unknown 12/19/2022 2:43 PM VOICE TEACHER 12/25/2022 2:43 PM VOICE TEACHER Dandre Cheney MD LAB - BLOOD BANK ORD ERABLES [facility] ([facility]) [address] [place] [address], [facility] documented in this encounter Visit Diagnoses Not on filedocumented in this encounter Care Teams Lining Cutter Relationship Specialty Start Date End Date Brooklynn Kumar MD [address] [place] [address] PCP - General Family Medicine 06/28/20 documented as of this encounter
--- OUTSIDE RECORDS SUMMARY | 2024-04-30 13:59 | XMS_ITS | Encounter Summary ---
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) Nolvia Ramírez, RN Note: Expected end date: ongoing Interventions: Take all medications as prescribed Let your doctor know right away about any changes in your medications Make sure to request a refill of your medication at least one week prior to your last dose documented as of this encounter Procedures Procedure Name Priority Date/Time Associated Diagnosis Comments HOLD HLA SPECIMEN Routine 09/18/2023 4:0 0 PM CDT documented in this encounter Results * HOLD HLA SPECIMEN (09/18/2023 4:00 PM CDT) Hold HLA Specimen 09/24/2023 5:02 PM CDT [facility] ([facility]) Comment:The Hold HLA specime n has been received into the lab and will be held for 5 years at 4 degrees. Blood BLOOD SPECIMEN / Unknown 09/18/2023 4:00 PM CDT 09/24/2023 4:00 PM CDT Dandre Cheney MD LAB - BLOOD BANK ORD ERABLES [facility] ([facility]) [address] [place] [address], [facility] documented in this encounter Visit Diagnoses Not on filedocumented in this encounter Care Teams Bank Boss Relationship Specialty Start Date End Date Brooklynn Kumar MD [address] [place] [address] PCP - General Family Medicine 06/28/20 documented as of this encounter
--- OUTSIDE RECORDS SUMMARY | 2024-04-30 13:59 | XMS_ITS | Encounter Summary ---
Author Organization [facility] Address [address] [place] [address] Care Team Providers Care Grey Inspector Name Role Phone Brooklynn Kumar MD Primary Care Provider Reason for Visit * Reason Comments Kidney Transplant Evaluation Encounter Details Date Type Department Care Team (Late st Contact Info) Description 07/19/2021 Telephone [facility] TRANSPLANT [address] [place] [id number] Donya Ruelas [facility] Kidney Transplant Evaluation Social History Tobacco Use Types Packs/Day Years [...] on filedocumented in this encounter Care Teams Grey Inspector Relationship Specialty Start Date End Date Brooklynn Kumar MD [address] [place] [address] PCP - General Family Medicine 06/28/20 documented as of this encounter
--- OUTSIDE RECORDS SUMMARY | 2024-04-30 13:59 | XMS_ITS | Encounter Summary ---
Author Organization [facility] Healthcare Address [address] [place] [address] Care Team Providers Care Nodulizer Name Role Phone Georgie Goyal MD Primary Care Provider +- [phone] Iris Cox MD Unavailable [phone] Encounter Details Date Type Department Care Team (Late st Contact Info) Description 04/25/2024 Results Follow-Up [facility] at [address] [address] Una Guaman NP [address] [place] [address] [address] [place] [address] Social History Tobacco Use Types Packs/Day Years Used Date Smoking Tobacco: Never Alcohol Use Standard Drinks/Week Comments No 0 (1 standard drink = 0.6 oz pur e alcohol) Comments Unknown Sex and Gender Information Value Date Recorded Sex Assigned at Not on file 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
--- OUTSIDE RECORDS SUMMARY | 2024-04-30 14:01 | XMS_ITS | Encounter Summary ---
Author Organization [facility] Address [address] [place] [place] [address] Care Team Providers Care Data Management Specialist Name Role Phone Georgie Paz MD Primary Care Provider [phone] Brooklynn Kumar MD Primary Care Provider Encounter Details Date Type Department Care Team (Late st Contact Info) Description 02/27/2019 Telephone [facility] [address] [place] [address] Ju Carson RN Social History Tobacco Use Types Packs/Day Years Used Date Smoking Tobacco: Never Smokeless Tobacco: Never Alcohol Use Standard Drinks/Week Comments No 0 (1 standard drink = 0.6 oz pur e alcohol) Sex and Gender Information Value Date Recorded Sex Assigned at Not on file Gender Identity Not on file Sexual Orientation Not on file documented as of this encounter Progress Notes * Ju Carson RN - 02/27/2019 10:11 AM CST Left message for pt re: arrival time, pre proc instr, and 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
--- OUTSIDE RECORDS SUMMARY | 2024-04-30 14:01 | XMS_ITS ---
Author Organization [facility] ([facility]) Address [address] [place] [id number] Care Team Providers Care Outbound Sales Agent Name Role Phone Unavailable Unavailable Unavailable Allergies, Adverse Reactions, Alerts Allergy Name Allergy Type Status Severity Reaction(s) Onset Date Inactive Date Treating Clinician Comments Chlorhexidine Allergy Active Moderate Allergy 2021-02 05:00: 00 Adhesive Tape Allergy Active Moderate Allergy 2021-02 05:00: 00 Medications Ordered Medication Name Filled Medication Name Start Date Stop Date Current Medication? Ordering Clinician Indication Dosage Frequency Signature (SIG) Comments Components calcitriol 04-21 19:11: 52 Yes [id number] Number of Repeats Allowed: Frequency: Three times a week Mircera 03-08 16:43: 03 Yes [id number] Number of Repeats Allowed: Frequency: ESTEFANY dosing, every four weeks Parsabiv 08 14:44: 23 Yes [id number] Number of Repeats Allowed: Frequency: Three times a week carBAMazepi ne 05-16 05:00: 00 Yes Number of Repeats Allowed: Frequency: Two times a day acetaminoph en 2021-02 06:00: 00 Yes [id number] Number of Repeats Allowed: Frequency: Every 4 hours as needed ondansetron hydrochlori de 2021-02 06:00: 00 Yes [id number] Number of Repeats Allowed: Frequency: Every 4 hours as needed Oxygen 2021-02 06:00: 00 Yes [id number] Number of Repeats Allowed: Frequency: As needed EpiPen 2-Daniel 2021-02 06:00: 00 Yes [id number] Number of Repeats Allowed: Frequency: Every 4 hours as needed diphenhydra mine hydrochlori de 2021-02 06:00: 00 Yes [id number] Number of Repeats Allowed: Frequency: Every 4 hours as needed Normal Saline Solution 0.9% NaCl 2021-02 06:00: 00 Yes [id number] Number of Repeats Allowed: Frequency: As needed diphenhydra mine hydrochlori de 2021-02 06:00: 00 Yes [id number] Number of Repeats Allowed: Frequency: Every 4 hours as needed heparin sodium, porcine 2021-02 06:00: 00 Yes [id number] Number of Repeats Allowed: Frequency: Every Dialysis TreatmentD osesOrdere d: Hourly Dose 600 Units/Hr 1:1000 Units/mLRo chemehuevi: Intravenou s clonidine 2021-02 06:00: 00 Yes [id number] Number of Repeats Allowed: Frequency: Every 4 hours as needed heparin sodium, porcine 2021-02 06:00: 00 Yes [id number] Number of Repeats Allowed: Frequency: Every Dialysis TreatmentD osesOrdere d: Loading Dose 1600 Units 1:1000 Units/mLRo chemehuevi: Intravenou s Tresiba 8-20 05:00: 00 Yes Number of Repeats Allowed: Frequency: Once a day, at bedtime Cholecalcif faith 0 8-20 05:00: 00 Yes Number of Repeats Allowed: Frequency: One time a day Latanoprost 0 8-20 05:00: 00 Yes Number of Repeats Allowed: Frequency: Once a day, at bedtime Co Q 10 0 7-23 05:00: 00 Yes Number of Repeats Allowed: Frequency: One time a day Pantoprazol e Sodium 0 3-03 06:00: 00 Yes Number of Repeats Allowed: Frequency: Every morning Carvedilol 0 5-11 05:00: 00 Yes Number of Repeats Allowed: Frequency: Two times a day Tums 0 1-16 06:00: 00 Yes Number of Repeats Allowed: Frequency: Every evening Proventil HFA 0 8-14 05:00: 00 Yes Number of Repeats Allowed: Frequency: As needed Brimonidine Tartrate 8-14 05:00: 00 Yes Number of Repeats Allowed: Frequency: Two times a day Travoprost (MEME Free) 8-14 05:00: 00 Yes Number of Repeats Allowed: Frequency: Once a day, at bedtime Furosemide 6-04 05:00: 00 Yes Number of Repeats Allowed: Frequency: Two times a day Problems This patient has no known problems. Procedures Procedure Date / Time Performed Performing Clinician Aster haywood Details AV Fistula 2018-09-13 05:00:00 Access Site Upper Arm (Left) Access Use Start Date 2019-02-06 06:00:0 0 DIALYSIS TREATMENT INFORMATION Conventional Hemodialysis Date Type Treatment Start Date Treatment End Date Pre-Treatment Vitals Post-Treatment Vitals Weight Gain BFR DFR Actual UF Dialysis Access April 29, 2024 In-Ce nter Hemod ialys is Treat ment 2024-04-29 T10:19:07. 000Z 2024-04-29 T13:29:07. 000Z BP Sitting (Pre-Dialysis) 180/82 mmHg BP Sitting (Post-D ialysis ) 162/ 75 mmHg BP Standing (Pre-Dialysis) 174/75 mmHg BP Standing (P ost-Dialysis) 175/83 mmHg Sitting Heart Rate Pre-Dialysis 66 BPM Sitting Heart Rate Post-Dialysis 70 BPM Standing Heart Rate Pre-Dialysis 67 BPM Standing Heart Rate Post-Dialysis 70 BPM Temperature Pre-Dialysis 98.3 degF Temperature Post -Dialysis 98.2 degF April 26, 2024 In-Center Hemodialysis Treatment 8316-19-25P57:37:00.000Z 9442-16-52S45:22:04.000Z BP Sitting (Pre-Dialysis) 132/65 mmHg BP Sitting (Post-Dialysis) 149/69 mmHg Concurrent Access: falseAV Fistula Upper Arm (Left) Arterial BP Standing (Pre-Dialysis) 116/57 mmHg BP Standing (P ost-Dialysis) 143/67 mmHg Sitting Heart Rate Pre-Dialysis 67 BPM Sitting Heart Rate Post-Dialysis 68 BPM Standing Heart Rate Pre-Dialysis 69 BPM Standing Heart Rate Post-Dialysis 71 BPM Temperature Pre-Dialysis 98 degF Temperature Post -Dialysis 98.1 degF April 24, 2024 In-Center Hemodialysis Treatment 0531-99-48Y19:26:00.000Z 0075-72-73Z31:20:26.000Z BP Sitting (Pre-Dialysis) 143/62 mmHg BP Sitting (Post-Dialysis) 137/65 mmHg Concurrent Access: falseAV Fistula Upper Arm (Left) Arterial BP Standing (Pre-Dialysis) 151/57 mmHg BP Standing (P ost-Dialysis) 141/70 mmHg Sitting Heart Rate Pre-Dialysis 72 BPM Sitting Heart Rate Post-Dialysis 74 BPM Standing Heart Rate Pre-Dialysis 77 BPM Standing Heart Rate Post-Dialysis 76 BPM Temperature Pre-Dialysis 98 degF Temperature Post -Dialysis 98 degF April 22, 2024 In-Center Hemodialysis Treatment 6939-99-09C71:38:52.000Z 5299-59-45S42:23:27.000Z BP Sitting (Pre-Dialysis) 183/82 mmHg BP Sitting (Post-Dialysis) 166/77 mmHg Concurrent Access: falseAV Fistula Upper Arm (Left) Arterial BP Standing (Pre-Dialysis) 194/88 mmHg BP Standing (P ost-Dialysis) 170/75 mmHg Sitting Heart Rate Pre-Dialysis 69 BPM Sitting Heart Rate Post-Dialysis 71 BPM Standing Heart Rate Pre-Dialysis 69 BPM Standing Heart Rate Post-Dialysis 69 BPM Temperature Pre-Dialysis 97.9 degF Temperature Post -Dialysis 97.9 degF April 19, 2024 In-Center Hemodialysis Treatment 7033-42-41V15:24:00.000Z 3094-17-56O75:21:00.000Z BP Sitting (Pre-Dialysis) 131/64 mmHg BP Sitting (Post-Dialysis) 131/60 mmHg Concurrent Access: falseAV Fistula Upper Arm (Left) Arterial BP Standing (Pre-Dialysis) 128/62 mmHg BP Standing (P ost-Dialysis) 113/61 mmHg Sitting Heart Rate Pre-Dialysis 69 BPM Sitting Heart Rate Post-Dialysis 71 BPM Standing Heart Rate Pre-Dialysis 71 BPM Standing Heart Rate Post-Dialysis 75 BPM Temperature Pre-Dialysis 97.9 degF Temperature Post -Dialysis 97.2 degF April 17, 2024 In-Center Hemodialysis Treatment 4819-76-89H47:34:29.000Z 2484-99-20N50:23:39.000Z BP Sitting (Pre-Dialysis) 176/78 mmHg BP Sitting (Post-Dialysis) 159/76 mmHg Concurrent Access: falseAV Fistula Upper Arm (Left) Arterial BP Standing (Pre-Dialysis) 184/88 mmHg BP Standing (P ost-Dialysis) 162/74 mmHg Sitting Heart Rate Pre-Dialysis 65 BPM Sitting Heart Rate Post-Dialysis 70 BPM Standing Heart Rate Pre-Dialysis 75 BPM Standing Heart Rate Post-Dialysis 73 BPM Temperature Pre-Dialysis 97.2 degF Temperature Post -Dialysis 97.7 degF April 15, 2024 In-Center Hemodialysis Treatment [id number]:36:46.000Z 8502-04-28Y33:18:51.000Z BP Sitting (Pre-Dialysis) 144/70 mmHg BP Sitting (Post-Dialysis) 136/65 mmHg Concurrent Access: falseAV Fistula Upper Arm (Left) Arterial BP Standing (Pre-Dialysis) 147/74 mmHg BP Standing (P ost-Dialysis) 148/67 mmHg Sitting Heart Rate Pre-Dialysis 68 BPM Sitting Heart Rate Post-Dialysis 72 BPM Standing Heart Rate Pre-Dialysis 72 BPM Standing Heart Rate Post-Dialysis 74 BPM Temperature Pre-Dialysis 98.3 degF Temperature Post -Dialysis 98 degF April 12, 2024 In-Center Hemodialysis Treatment 7768-40-80W75:26:00.000Z 8104-36-01S93:13:48.000Z BP Sitting (Pre-Dialysis) 172/74 mmHg BP Sitting (Post-Dialysis) 165/79 mmHg Concurrent Access: falseAV Fistula Upper Arm (Left) Arterial BP Standing (Pre-Dialysis) 168/84 mmHg BP Standing (P ost-Dialysis) 167/81 mmHg Sitting Heart Rate Pre-Dialysis 71 BPM Sitting Heart Rate Post-Dialysis 66 BPM Standing Heart Rate Pre-Dialysis 75 BPM Standing Heart Rate Post-Dialysis 69 BPM Temperature Pre-Dialysis 98.3 degF Temperature Post -Dialysis 97.2 degF April 10, 2024 In-Center Hemodialysis Treatment [id number]:22:00.000Z 3839-66-35S10:19:07.000Z BP Sitting (Pre-Dialysis) 187/81 mmHg BP Sitting (Post-Dialysis) 176/80 mmHg Concurrent Access: falseAV Fistula Upper Arm (Left) Arterial BP Standing (Pre-Dialysis) 180/78 mmHg BP Standing (P ost-Dialysis) 166/78 mmHg Sitting Heart Rate Pre-Dialysis 65 BPM Sitting Heart Rate Post-Dialysis 67 BPM Standing Heart Rate Pre-Dialysis 70 BPM Standing Heart Rate Post-Dialysis 71 BPM Temperature Pre-Dialysis 97.3 degF Temperature Post -Dialysis 96.6 degF April 08, 2024 In-Center Hemodialysis Treatment 0347-10-26G49:33:00.000Z 9130-78-29I82:24:11.000Z BP Sitting (Pre-Dialysis) 179/84 mmHg BP Sitting (Post-Dialysis) 187/89 mmHg Concurrent Access: falseAV Fistula Upper Arm (Left) Arterial BP Standing (Pre-Dialysis) 168/76 mmHg BP Standing (P ost-Dialysis) 166/82 mmHg Sitting Heart Rate Pre-Dialysis 67 BPM Sitting Heart Rate Post-Dialysis 63 BPM Standing Heart Rate Pre-Dialysis 72 BPM Standing Heart Rate Post-Dialysis 70 BPM Temperature Pre-Dialysis 97.5 degF Temperature Post -Dialysis 98.2 degF April 05, 2024 In-Center Hemodialysis Treatment [id number]:36:00.000Z 2180-76-06N30:22:00.000Z BP Sitting (Pre-Dialysis) 145/70 mmHg BP Sitting (Post-Dialysis) 139/61 mmHg Concurrent Access: falseAV Fistula Upper Arm (Left) Arterial Sitting Heart Rate Pre-Dialysis 69 BPM BP Standi ng (Post-Dialysis) 150/68 mmHg Temperature Pre-Dialysis 98 degF Sitting Heart Ra te Post-Dialysis 68 BPM Standing Heart Rate Post-Nicci lysis 72 BPM Temperature Post-Dialysis 98 .2 degF April 03, 2024 In-Center Hemodialysis Treatment [id number]:33:00.000Z 9350-03-32U40:20:00.000Z BP Sitting (Pre-Dialysis) 156/75 mmHg BP Sitting (Post-Dialysis) 150/69 mmHg Concurrent Access: falseAV Fistula Upper Arm (Left) Arterial BP Standing (Pre-Dialysis) 153/77 mmHg BP Standing (P ost-Dialysis) 147/72 mmHg Sitting Heart Rate Pre-Dialysis 66 BPM Sitting Heart Rate Post-Dialysis 66 BPM Standing Heart Rate Pre-Dialysis 67 BPM Standing Heart Rate Post-Dialysis 68 BPM Temperature Pre-Dialysis 97.6 degF Temperature Post -Dialysis 97.9 degF April 01, 2024 In-Center Hemodialysis Treatment 5302-99-20E95:43:00.000Z 0925-19-41X02:21:00.000Z BP Sitting (Pre-Dialysis) 164/73 mmHg BP Sitting (Post-Dialysis) 153/74 mmHg Concurrent Access: falseAV Fistula Upper Arm (Left) Arterial BP Standing (Pre-Dialysis) 160/77 mmHg BP Standing (P ost-Dialysis) 154/72 mmHg Sitting Heart Rate Pre-Dialysis 65 BPM Sitting Heart Rate Post-Dialysis 66 BPM Standing Heart Rate Pre-Dialysis 71 BPM Standing Heart Rate Post-Dialysis 70 BPM Temperature Pre-Dialysis 97.6 degF March 29, 2024 In-Center Hemodialysis Treatment 1438-00-17G11:34:45.000Z 2811-91-00Z31:22:15.000Z BP Sitting (Pre-Dialysis) 141/64 mmHg BP Sitting (Post-Dialysis) 142/72 mmHg Concurrent Access: falseAV Fistula Upper Arm (Left) Arterial BP Standing (Pre-Dialysis) 147/69 mmHg BP Standing (P ost-Dialysis) 140/66 mmHg Sitting Heart Rate Pre-Dialysis 67 BPM Sitting Heart Rate Post-Dialysis 67 BPM Standing Heart Rate Pre-Dialysis 70 BPM Standing Heart Rate Post-Dialysis 69 BPM Temperature Pre-Dialysis 97.2 degF Temperature Post -Dialysis 97.7 degF March 27, 2024 In-Center Hemodialysis Treatment [id number]:28:20.000Z 2236-18-50E11:20:00.000Z BP Sitting (Pre-Dialysis) 169/76 mmHg BP Sitting (Post-Dialysis) 161/80 mmHg Concurrent Access: falseAV Fistula Upper Arm (Left) Arterial BP Standing (Pre-Dialysis) 153/67 mmHg BP Standing (P ost-Dialysis) 173/83 mmHg Sitting Heart Rate Pre-Dialysis 69 BPM Sitting Heart Rate Post-Dialysis 67 BPM Standing Heart Rate Pre-Dialysis 68 BPM Standing Heart Rate Post-Dialysis 68 BPM Temperature Pre-Dialysis 97.6 degF Temperature Post -Dialysis 98 degF March 25, 2024 In-Center Hemodialysis Treatment 3060-24-46Y54:35:00.000Z 5943-51-77K06:25:56.000Z BP Sitting (Pre-Dialysis) 161/103 mmHg BP Sitting (Post-Dialysis) 151/71 mmHg Concurrent Access: falseAV Fistula Upper Arm (Left) Arterial BP Standing (Pre-Dialysis) 166/74 mmHg BP Standing (P ost-Dialysis) 156/75 mmHg Sitting Heart Rate Pre-Dialysis 76 BPM Sitting Heart Rate Post-Dialysis 68 BPM Standing Heart Rate Pre-Dialysis 68 BPM Standing Heart Rate Post-Dialysis 73 BPM Temperature Pre-Dialysis 97.6 degF Temperature Post -Dialysis 97.9 degF March 22, 2024 In-Center Hemodialysis Treatment 2014-95-99C03:27:00.000Z 7295-69-68V35:26:38.000Z BP Sitting (Pre-Dialysis) 146/67 mmHg BP Sitting (Post-Dialysis) 165/71 mmHg Concurrent Access: falseAV Fistula Upper Arm (Left) Arterial BP Standing (Pre-Dialysis) 153/66 mmHg BP Standing (P ost-Dialysis) 163/84 mmHg Sitting Heart Rate Pre-Dialysis 64 BPM Sitting Heart Rate Post-Dialysis 66 BPM Standing Heart Rate Pre-Dialysis 71 BPM Standing Heart Rate Post-Dialysis 81 BPM Temperature Pre-Dialysis 97.6 degF Temperature Post -Dialysis 98 degF March 20, 2024 In-Center Hemodialysis Treatment [id number]:31:56.000Z 7667-30-61P48:08:36.000Z BP Sitting (Pre-Dialysis) 81/76 mmHg BP Sitting (Post-Dialysis) 139/61 mmHg Concurrent Access: falseAV Fistula Upper Arm (Left) Arterial BP Standing (Pre-Dialysis) 180/87 mmHg Sitti ng Heart Rate Post-Dialysis 68 BPM Sitting Heart Rate Pre-Dialysis 67 BPM Temperatu re Post-Dialysis 98.1 degF Standing Heart Rate Pre-Dialysis 69 BPM Temperature Pre-Dialysis 95.9 degF March 18, 2024 In-Center Hemodialysis Treatment 3650-30-09T54:31:13.000Z 0730-91-42C69:24:58.000Z BP Sitting (Pre-Dialysis) 179/82 mmHg BP Sitting (Post-Dialysis) 177/79 mmHg Concurrent Access: falseAV Fistula Upper Arm (Left) Arterial BP Standing (Pre-Dialysis) 168/77 mmHg Sitting Heart Rate Post-Dialysis 67 BPM Sitting Heart Rate Pre-Dialysis 61 BPM Temperatu re Post-Dialysis 98 degF Standing Heart Rate Pre-Dialysis 70 BPM Temperature Pre-Dialysis 97.6 degF March 15, 2024 In-Center Hemodialysis Treatment [id number]:28:00.000Z 2097-89-74C38:19:24.000Z BP Sitting (Pre-Dialysis) 151/70 mmHg BP Sitting (Post-Dialysis) 154/79 mmHg Concurrent Access: falseAV Fistula Upper Arm (Left) Arterial Sitting Heart Rate Pre-Dialysis 70 BPM BP Standing (Post-Dialysis) 148/86 mmHg Temperature Pre-Dialysis 98.2 degF Sitting Heart Ra te Post-Dialysis 62 BPM Standing Heart Rate Post-Nicci lysis 76 BPM Temperature Post-Dialysis 98 .2 degF March 13, 2024 In-Center Hemodialysis Treatment [id number]:32:53.000Z 7878-39-74O54:17:53.000Z BP Sitting (Pre-Dialysis) 148/68 mmHg BP Sitting (Post-Dialysis) 134/97 mmHg Concurrent Access: falseAV Fistula Upper Arm (Left) Arterial BP Standing (Pre-Dialysis) 149/66 mmHg BP Standing (P ost-Dialysis) 142/71 mmHg Sitting Heart Rate Pre-Dialysis 61 BPM Sitting Heart Rate Post-Dialysis 53 BPM Standing Heart Rate Pre-Dialysis 66 BPM Standing Heart Rate Post-Dialysis 72 BPM Temperature Pre-Dialysis 97.3 degF Temperature Post -Dialysis 97.8 degF March 11, 2024 In-Center Hemodialysis Treatment 8838-70-28L05:19:51.000Z 6453-23-18R40:21:06.000Z BP Sitting (Pre-Dialysis) 151/72 mmHg BP Sitting (Post-Dialysis) 151/68 mmHg Concurrent Access: falseAV Fistula Upper Arm (Left) Arterial BP Standing (Pre-Dialysis) 159/75 mmHg BP Standing (P ost-Dialysis) 153/91 mmHg Sitting Heart Rate Pre-Dialysis 70 BPM Sitting Heart Rate Post-Dialysis 71 BPM Standing Heart Rate Pre-Dialysis 73 BPM Standing Heart Rate Post-Dialysis 71 BPM Temperature Pre-Dialysis 97.2 degF Temperature Post -Dialysis 97.8 degF March 08, 2024 In-Center Hemodialysis Treatment 7718-16-17Y42:23:54.000Z 1630-50-44X66:23:29.000Z BP Sitting (Pre-Dialysis) 162/78 mmHg BP Sitting (Post-Dialysis) 159/72 mmHg Concurrent Access: falseAV Fistula Upper Arm (Left) Arterial BP Standing (Pre-Dialysis) 155/78 mmHg BP Standing (P ost-Dialysis) 154/73 mmHg Sitting Heart Rate Pre-Dialysis 69 BPM Sitting Heart Rate Post-Dialysis 67 BPM Standing Heart Rate Pre-Dialysis 70 BPM Standing Heart Rate Post-Dialysis 69 BPM Temperature Pre-Dialysis 97.8 degF Temperature Post -Dialysis 97.9 degF March 06, 2024 In-Center Hemodialysis Treatment 6037-95-26M29:28:00.000Z 3964-84-45V20:21:45.000Z BP Sitting (Pre-Dialysis) 157/79 mmHg BP Sitting (Post-Dialysis) 143/70 mmHg Concurrent Access: falseAV Fistula Upper Arm (Left) Arterial BP Standing (Pre-Dialysis) 164/78 mmHg BP Standing (P ost-Dialysis) 149/72 mmHg Sitting Heart Rate Pre-Dialysis 72 BPM Sitting Heart Rate Post-Dialysis 74 BPM Standing Heart Rate Pre-Dialysis 78 BPM Standing Heart Rate Post-Dialysis 71 BPM Temperature Pre-Dialysis 98.1 degF Temperature Post -Dialysis 98.1 degF March 04, 2024 In-Center Hemodialysis Treatment 6867-26-44J48:24:23.000Z [id number]:25:13.000Z BP Sitting (Pre-Dialysis) 192/88 mmHg BP Sitting (Post-Dialysis) 174/77 mmHg Concurrent Access: falseAV Fistula Upper Arm (Left) Arterial BP Standing (Pre-Dialysis) 194/87 mmHg BP Standing (P ost-Dialysis) 174/86 mmHg Sitting Heart Rate Pre-Dialysis 68 BPM Sitting Heart Rate Post-Dialysis 68 BPM Standing Heart Rate Pre-Dialysis 72 BPM Standing Heart Rate Post-Dialysis 70 BPM Temperature Pre-Dialysis 97.6 degF Temperature Post -Dialysis 98.2 degF March 01, 2024 In-Center Hemodialysis Treatment [id number]:24:57.000Z 9004-05-81B34:25:22.000Z BP Sitting (Pre-Dialysis) 186/89 mmHg BP Sitting (Post-Dialysis) 193/83 mmHg Concurrent Access: falseAV Fistula Upper Arm (Left) Arterial BP Standing (Pre-Dialysis) 185/84 mmHg BP Standing (P ost-Dialysis) 181/86 mmHg Sitting Heart Rate Pre-Dialysis 69 BPM Sitting Heart Rate Post-Dialysis 67 BPM Standing Heart Rate Pre-Dialysis 72 BPM Standing Heart Rate Post-Dialysis 70 BPM Temperature Pre-Dialysis 97.8 degF Temperature Post -Dialysis 98 degF February 28, 2024 In-Center Hemodialysis Treatment [id number]:23:43.000Z 6775-91-21O59:24:08.000Z BP Sitting (Pre-Dialysis) 180/84 mmHg BP Sitting (Post-Dialysis) 150/73 mmHg Concurrent Access: falseAV Fistula Upper Arm (Left) Arterial BP Standing (Pre-Dialysis) 181/82 mmHg BP Standing (P ost-Dialysis) 150/75 mmHg Sitting Heart Rate Pre-Dialysis 67 BPM Sitting Heart Rate Post-Dialysis 67 BPM Standing Heart Rate Pre-Dialysis 72 BPM Standing Heart Rate Post-Dialysis 71 BPM Temperature Pre-Dialysis 98.3 degF Temperature Post -Dialysis 98 degF February 26, 2024 In-Center Hemodialysis Treatment 9444-10-74E04:27:40.000Z 3749-79-96I29:22:40.000Z BP Sitting (Pre-Dialysis) 183/88 mmHg BP Sitting (Post-Dialysis) 157/73 mmHg Concurrent Access: falseAV Fistula Upper Arm (Left) Arterial BP Standing (Pre-Dialysis) 177/82 mmHg BP Standing (P ost-Dialysis) 161/80 mmHg Sitting Heart Rate Pre-Dialysis 67 BPM Sitting Heart Rate Post-Dialysis 67 BPM Standing Heart Rate Pre-Dialysis 70 BPM Standing Heart Rate Post-Dialysis 68 BPM Temperature Pre-Dialysis 97.9 degF Temperature Post -Dialysis 98.3 degF February 23, 2024 In-Center Hemodialysis Treatment 6834-49-31I89:24:00.000Z 9598-90-95A91:26:15.000Z BP Sitting (Pre-Dialysis) 181/86 mmHg BP Sitting (Post-Dialysis) 158/72 mmHg Concurrent Access: falseAV Fistula Upper Arm (Left) Arterial BP Standing (Pre-Dialysis) 184/75 mmHg Sitti ng Heart Rate Post-Dialysis 63 BPM Sitting Heart Rate Pre-Dialysis 66 BPM Temperatu re Post-Dialysis 97.7 degF Standing Heart Rate Pre-Dialysis 68 BPM Temperature Pre-Dialysis 97.3 degF February 21, 2024 In-Center Hemodialysis Treatment 8231-17-37R48:20:00.000Z 1623-69-81D11:24:10.000Z BP Sitting (Pre-Dialysis) 159/72 mmHg BP Sitting (Post-Dialysis) 154/71 mmHg Concurrent Access: falseAV Fistula Upper Arm (Left) Arterial BP Standing (Pre-Dialysis) 152/74 mmHg BP Standing (P ost-Dialysis) 146/68 mmHg Sitting Heart Rate Pre-Dialysis 70 BPM Sitting Heart Rate Post-Dialysis 67 BPM Standing Heart Rate Pre-Dialysis 72 BPM Standing Heart Rate Post-Dialysis 69 BPM Temperature Pre-Dialysis 97.7 degF Temperature Post -Dialysis 97.1 degF February 19, 2024 In-Center Hemodialysis Treatment [id number]:31:33.000Z 5977-63-33C78:21:58.000Z BP Sitting (Pre-Dialysis) 174/82 mmHg BP Sitting (Post-Dialysis) 145/68 mmHg Concurrent Access: falseAV Fistula Upper Arm (Left) Arterial BP Standing (Pre-Dialysis) 173/79 mmHg BP Standing (P ost-Dialysis) 151/76 mmHg Sitting Heart Rate Pre-Dialysis 69 BPM Sitting Heart Rate Post-Dialysis 68 BPM Standing Heart Rate Pre-Dialysis 72 BPM Standing Heart Rate Post-Dialysis 71 BPM Temperature Pre-Dialysis 97.8 degF Temperature Post -Dialysis 96.4 degF February 16, 2024 In-Center Hemodialysis Treatment 4244-01-09R63:26:00.000Z 5881-15-50F50:23:48.000Z BP Sitting (Pre-Dialysis) 162/80 mmHg BP Sitting (Post-Dialysis) 142/62 mmHg Concurrent Access: falseAV Fistula Upper Arm (Left) Arterial BP Standing (Pre-Dialysis) 173/84 mmHg BP Standing (P ost-Dialysis) 149/68 mmHg Sitting Heart Rate Pre-Dialysis 70 BPM Sitting Heart Rate Post-Dialysis 69 BPM Standing Heart Rate Pre-Dialysis 71 BPM Standing Heart Rate Post-Dialysis 70 BPM Temperature Pre-Dialysis 97.3 degF Temperature Post -Dialysis 97.5 degF February 14, 2024 In-Center Hemodialysis Treatment 3031-54-55A31:26:34.000Z 8875-16-25L50:24:54.000Z BP Sitting (Pre-Dialysis) 178/80 mmHg BP Sitting (Post-Dialysis) 168/85 mmHg Concurrent Access: falseAV Fistula Upper Arm (Left) Arterial Sitting Heart Rate Pre-Dialysis 68 BPM BP Standi ng (Post-Dialysis) 155/66 mmHg Temperature Pre-Dialysis 98 degF Sitting Heart Ra te Post-Dialysis 68 BPM Standing Heart Rate Post-Nicci lysis 69 BPM Temperature Post-Dialysis 98 degF February 11, 2024 In-Center Hemodialysis Treatment 7936-77-61Q37:22:15.000Z 1385-13-36C59:21:50.000Z BP Sitting (Pre-Dialysis) 153/70 mmHg BP Sitting (Post-Dialysis) 147/74 mmHg Concurrent Access: falseAV Fistula Upper Arm (Left) Arterial BP Standing (Pre-Dialysis) 154/92 mmHg BP Standing (P ost-Dialysis) 138/64 mmHg Sitting Heart Rate Pre-Dialysis 62 BPM Sitting Heart Rate Post-Dialysis 65 BPM Standing Heart Rate Pre-Dialysis 62 BPM Standing Heart Rate Post-Dialysis 67 BPM Temperature Pre-Dialysis 98 degF Temperature Post -Dialysis 98.2 degF 2024 In-Center Hemodialysis Treatment 1941-96-26P68:27:45.000Z 9682-86-48A19:19:25.000Z BP Sitting (Pre-Dialysis) 168/75 mmHg BP Sitting (Post-Dialysis) 170/77 mmHg Concurrent Access: falseAV Fistula Upper Arm (Left) Arterial BP Standing (Pre-Dialysis) 163/77 mmHg BP Standing (P ost-Dialysis) 185/79 mmHg Sitting Heart Rate Pre-Dialysis 65 BPM Sitting Heart Rate Post-Dialysis 64 BPM Standing Heart Rate Pre-Dialysis 69 BPM Standing Heart Rate Post-Dialysis 66 BPM Temperature Pre-Dialysis 98.2 degF Temperature Post -Dialysis 98.1 degF February 07, 2024 In-Center Hemodialysis Treatment 0920-49-08W35:23:00.000Z 9753-37-40F09:22:28.000Z BP Sitting (Pre-Dialysis) 145/67 mmHg BP Sitting (Post-Dialysis) 152/65 mmHg Concurrent Access: falseAV Fistula Upper Arm (Left) Arterial BP Standing (Pre-Dialysis) 146/62 mmHg BP Standing (P ost-Dialysis) 160/70 mmHg Sitting Heart Rate Pre-Dialysis 74 BPM Sitting Heart Rate Post-Dialysis 68 BPM Standing Heart Rate Pre-Dialysis 77 BPM Standing Heart Rate Post-Dialysis 72 BPM Temperature Pre-Dialysis 98.5 degF Temperature Post -Dialysis 97.9 degF February 04, 2024 In-Center Hemodialysis Treatment [id number]:18:00.000Z 7562-34-56U33:20:05.000Z BP Sitting (Pre-Dialysis) 176/74 mmHg BP Sitting (Post-Dialysis) 160/70 mmHg Concurrent Access: falseAV Fistula Upper Arm (Left) Arterial BP Standing (Pre-Dialysis) 171/75 mmHg BP Standing (P ost-Dialysis) 160/65 mmHg Sitting Heart Rate Pre-Dialysis 65 BPM Sitting Heart Rate Post-Dialysis 68 BPM Standing Heart Rate Pre-Dialysis 69 BPM Standing Heart Rate Post-Dialysis 68 BPM Temperature Pre-Dialysis 98.4 degF February 02, 2024 In-Center Hemodialysis Treatment 7214-52-83Q85:32:29.000Z 4741-16-25Q01:24:34.000Z BP Sitting (Pre-Dialysis) 161/75 mmHg BP Sitting (Post-Dialysis) 142/69 mmHg Concurrent Access: falseAV Fistula Upper Arm (Left) Arterial BP Standing (Pre-Dialysis) 162/73 mmHg BP Standing (P ost-Dialysis) 144/73 mmHg Sitting Heart Rate Pre-Dialysis 67 BPM Sitting Heart Rate Post-Dialysis 64 BPM Standing Heart Rate Pre-Dialysis 69 BPM Standing Heart Rate Post-Dialysis 67 BPM Temperature Pre-Dialysis 97.9 degF Temperature Post -Dialysis 97.9 degF January 31, 2024 In-Center Hemodialysis Treatment [id number]:10:00.000Z [id number]:13:42.000Z BP Sitting (Pre-Dialysis) 148/64 mmHg BP Sitting (Post-Dialysis) 160/79 mmHg Concurrent Access: falseAV Fistula Upper Arm (Left) Arterial BP Standing (Pre-Dialysis) 131/69 mmHg BP Standing (P ost-Dialysis) 156/74 mmHg Sitting Heart Rate Pre-Dialysis 68 BPM Sitting Heart Rate Post-Dialysis 66 BPM Standing Heart Rate Pre-Dialysis 70 BPM Standing Heart Rate Post-Dialysis 69 BPM Temperature Pre-Dialysis 97.8 degF Temperature Post -Dialysis 97.7 degF January 29, 2024 In-Center Hemodialysis Treatment [id number]:33:16.000Z [id number]:24:06.000Z BP Sitting (Pre-Dialysis) 145/65 mmHg BP Sitting (Post-Dialysis) 152/76 mmHg Concurrent Access: falseAV Fistula Upper Arm (Left) Arterial BP Standing (Pre-Dialysis) 144/73 mmHg BP Standing (P ost-Dialysis) 145/73 mmHg Sitting Heart Rate Pre-Dialysis 65 BPM Sitting Heart Rate Post-Dialysis 66 BPM Standing Heart Rate Pre-Dialysis 66 BPM Standing Heart Rate Post-Dialysis 68 BPM Temperature Pre-Dialysis 97.4 degF Temperature Post -Dialysis 98 degF January 26, 2024 In-Center Hemodialysis Treatment [id number]:25:00.000Z [id number]:57:50.000Z BP Sitting (Pre-Dialysis) 147/73 mmHg BP Sitting (Post-Dialysis) 153/70 mmHg Concurrent Access: falseAV Fistula Upper Arm (Left) Arterial BP Standing (Pre-Dialysis) 156/71 mmHg BP Standing (P ost-Dialysis) 144/68 mmHg Sitting Heart Rate Pre-Dialysis 65 BPM Sitting Heart Rate Post-Dialysis 63 BPM Standing Heart Rate Pre-Dialysis 68 BPM Standing Heart Rate Post-Dialysis 68 BPM Temperature Pre-Dialysis 97.9 degF Temperature Post -Dialysis 98.1 degF January 24, 2024 In-Center Hemodialysis Treatment [id number]:17:00.000Z 4523-17-27J36:49:41.000Z BP Sitting (Pre-Dialysis) 160/72 mmHg BP Sitting (Post-Dialysis) 163/69 mmHg Concurrent Access: falseAV Fistula Upper Arm (Left) Arterial BP Standing (Pre-Dialysis) 159/74 mmHg Sitting Heart Rate Post-Dialysis 66 BPM Sitting Heart Rate Pre-Dialysis 64 BPM Standing Heart Rate Pre-Dialysis 66 BPM Temperature Pre-Dialysis 98.1 degF January 22, 2024 In-Center Hemodialysis Treatment [id number]:16:00.000Z [id number]:18:24.000Z BP Sitting (Pre-Dialysis) 166/77 mmHg BP Sitting (Post-Dialysis) 149/70 mmHg Concurrent Access: falseAV Fistula Upper Arm (Left) Arterial BP Standing (Pre-Dialysis) 172/83 mmHg BP Standing (P ost-Dialysis) 164/78 mmHg Sitting Heart Rate Pre-Dialysis 67 BPM Sitting Heart Rate Post-Dialysis 71 BPM Standing Heart Rate Pre-Dialysis 70 BPM Standing Heart Rate Post-Dialysis 73 BPM Temperature Pre-Dialysis 98.3 degF Temperature Post -Dialysis 98.3 degF January 19, 2024 In-Center Hemodialysis Treatment [id number]:23:53.000Z [id number]:22:13.000Z BP Sitting (Pre-Dialysis) 163/81 mmHg BP Sitting (Post-Dialysis) 152/74 mmHg Concurrent Access: falseAV Fistula Upper Arm (Left) Arterial BP Standing (Pre-Dialysis) 158/79 mmHg BP Standing (P ost-Dialysis) 145/69 mmHg Sitting Heart Rate Pre-Dialysis 69 BPM Sitting Heart Rate Post-Dialysis 67 BPM Standing Heart Rate Pre-Dialysis 71 BPM Standing Heart Rate Post-Dialysis 71 BPM Temperature Pre-Dialysis 97.8 degF Temperature Post -Dialysis 98 degF January 17, 2024 In-Center Hemodialysis Treatment [id number]:22:00.000Z [id number]:35:40.000Z BP Sitting (Pre-Dialysis) 167/78 mmHg BP Sitting (Post-Dialysis) 156/60 mmHg Concurrent Access: falseAV Fistula Upper Arm (Left) Arterial BP Standing (Pre-Dialysis) 175/90 mmHg BP Standing (P ost-Dialysis) 154/73 mmHg Sitting Heart Rate Pre-Dialysis 69 BPM Sitting Heart Rate Post-Dialysis 67 BPM Standing Heart Rate Pre-Dialysis 71 BPM Standing Heart Rate Post-Dialysis 70 BPM Temperature Pre-Dialysis 98 degF Temperature Post -Dialysis 98.5 degF January 15, 2024 In-Center Hemodialysis Treatment [id number]:18:00.000Z [id number]:21:18.000Z BP Sitting (Pre-Dialysis) 135/64 mmHg BP Sitting (Post-Dialysis) 146/70 mmHg Concurrent Access: falseAV Fistula Upper Arm (Left) Arterial BP Standing (Pre-Dialysis) 129/60 mmHg Sitti ng Heart Rate Post-Dialysis 69 BPM Sitting Heart Rate Pre-Dialysis 65 BPM Temperatu re Post-Dialysis 98.4 degF Standing Heart Rate Pre-Dialysis 72 BPM Temperature Pre-Dialysis 98.4 degF January 12, 2024 In-Center Hemodialysis Treatment [id number]:20:00.000Z [id number]:21:34.000Z BP Sitting (Pre-Dialysis) 177/83 mmHg BP Sitting (Post-Dialysis) 167/73 mmHg Concurrent Access: falseAV Fistula Upper Arm (Left) Arterial Sitting Heart Rate Pre-Dialysis 66 BPM BP Standi ng (Post-Dialysis) 169/80 mmHg Temperature Pre-Dialysis 98 degF Sitting Heart Ra te Post-Dialysis 72 BPM Standing Heart Rate Post-Nicci lysis 70 BPM Temperature Post-Dialysis 98 .2 degF January 09, 2024 In-Center Hemodialysis Treatment [id number]:16:00.000Z 9818-54-42O42:19:12.000Z BP Sitting (Pre-Dialysis) 161/68 mmHg BP Sitting (Post-Dialysis) 146/66 mmHg Concurrent Access: falseAV Fistula Upper Arm (Left) Arterial BP Standing (Pre-Dialysis) 155/72 mmHg BP Standing (P ost-Dialysis) 150/68 mmHg Sitting Heart Rate Pre-Dialysis 68 BPM Sitting Heart Rate Post-Dialysis 67 BPM Standing Heart Rate Pre-Dialysis 68 BPM Standing Heart Rate Post-Dialysis 70 BPM Temperature Pre-Dialysis 97.7 degF Temperature Post -Dialysis 98 degF January 07, 2024 In-Center Hemodialysis Treatment [id number]:15:00.000Z [id number]:41:02.000Z BP Sitting (Pre-Dialysis) 172/76 mmHg BP Sitting (Post-Dialysis) 162/66 mmHg Concurrent Access: falseAV Fistula Upper Arm (Left) Arterial BP Standing (Pre-Dialysis) 169/80 mmHg Sitting Heart Rate Post-Dialysis 68 BPM Sitting Heart Rate Pre-Dialysis 67 BPM Temperatu re Post-Dialysis 98 degF Standing Heart Rate Pre-Dialysis 71 BPM Temperature Pre-Dialysis 98.7 degF January 05, 2024 In-Center Hemodialysis Treatment [id number]:22:12.000Z [id number]:22:37.000Z BP Sitting (Pre-Dialysis) 155/74 mmHg BP Sitting (Post-Dialysis) 135/69 mmHg Concurrent Access: falseAV Fistula Upper Arm (Left) Arterial BP Standing (Pre-Dialysis) 161/79 mmHg BP Standing (P ost-Dialysis) 128/69 mmHg Sitting Heart Rate Pre-Dialysis 66 BPM Sitting Heart Rate Post-Dialysis 68 BPM Standing Heart Rate Pre-Dialysis 71 BPM Standing Heart Rate Post-Dialysis 70 BPM Temperature Pre-Dialysis 98.4 degF Temperature Post -Dialysis 98.1 degF January 03, 2024 In-Center Hemodialysis Treatment [id number]:23:38.000Z [id number]:25:18.000Z BP Sitting (Pre-Dialysis) 146/77 mmHg BP Sitting (Post-Dialysis) 139/71 mmHg Concurrent Access: falseAV Fistula Upper Arm (Left) Arterial BP Standing (Pre-Dialysis) 141/63 mmHg BP Standing (P ost-Dialysis) 137/66 mmHg Sitting Heart Rate Pre-Dialysis 64 BPM Sitting Heart Rate Post-Dialysis 64 BPM Standing Heart Rate Pre-Dialysis 69 BPM Standing Heart Rate Post-Dialysis 67 BPM Temperature Pre-Dialysis 97.3 degF Temperature Post -Dialysis 98.1 degF January 01, 2024 In-Center Hemodialysis Treatment [id number]:27:45.000Z 4834-25-99Z77:22:20.000Z BP Sitting (Pre-Dialysis) 142/64 mmHg BP Sitting (Post-Dialysis) 140/72 mmHg Concurrent Access: falseAV Fistula Upper Arm (Left) Arterial BP Standing (Pre-Dialysis) 156/120 mmHg BP Standing (P ost-Dialysis) 151/71 mmHg Sitting Heart Rate Pre-Dialysis 68 BPM Sitting Heart Rate Post-Dialysis 67 BPM Standing Heart Rate Pre-Dialysis 74 BPM Standing Heart Rate Post-Dialysis 71 BPM Temperature Pre-Dialysis 97.7 degF Temperature Post -Dialysis 97.9 degF December 29, 2023 In-Center Hemodialysis Treatment [id number]:10:00.000Z [id number]:17:35.000Z BP Sitting (Pre-Dialysis) 159/69 mmHg BP Sitting (Post-Dialysis) 156/68 mmHg Concurrent Access: falseAV Fistula Upper Arm (Left) Arterial BP Standing (Pre-Dialysis) 156/78 mmHg BP Standing (P ost-Dialysis) 160/71 mmHg Sitting Heart Rate Pre-Dialysis 64 BPM Sitting Heart Rate Post-Dialysis 65 BPM Standing Heart Rate Pre-Dialysis 68 BPM Standing Heart Rate Post-Dialysis 68 BPM Temperature Pre-Dialysis 98.4 degF Temperature Post -Dialysis 97.3 degF December 27, 2023 In-Center Hemodialysis Treatment [id number]:22:59.000Z [id number]:36:19.000Z BP Sitting (Pre-Dialysis) 137/67 mmHg BP Sitting (Post-Dialysis) 134/66 mmHg Concurrent Access: falseAV Fistula Upper Arm (Left) Arterial BP Standing (Pre-Dialysis) 139/68 mmHg BP Standing (P ost-Dialysis) 145/70 mmHg Sitting Heart Rate Pre-Dialysis 63 BPM Sitting Heart Rate Post-Dialysis 69 BPM Standing Heart Rate Pre-Dialysis 69 BPM Standing Heart Rate Post-Dialysis 69 BPM Temperature Pre-Dialysis 97.7 degF Temperature Post -Dialysis 97.6 degF December 25, 2023 In-Center Hemodialysis Treatment [id number]:14:00.000Z 1972-78-45L06:17:28.000Z BP Sitting (Pre-Dialysis) 139/71 mmHg BP Sitting (Post-Dialysis) 135/63 mmHg Concurrent Access: falseAV Fistula Upper Arm (Left) Arterial BP Standing (Pre-Dialysis) 155/70 mmHg BP Standing (P ost-Dialysis) 140/67 mmHg Sitting Heart Rate Pre-Dialysis 62 BPM Sitting Heart Rate Post-Dialysis 66 BPM Standing Heart Rate Pre-Dialysis 65 BPM Standing Heart Rate Post-Dialysis 68 BPM Temperature Pre-Dialysis 97.9 degF Temperature Post -Dialysis 97.3 degF December 22, 2023 In-Center Hemodialysis Treatment [id number]:18:10.000Z [id number]:20:08.000Z BP Sitting (Pre-Dialysis) 144/66 mmHg BP Sitting (Post-Dialysis) 150/69 mmHg Concurrent Access: falseAV Fistula Upper Arm (Left) Arterial BP Standing (Pre-Dialysis) 139/63 mmHg BP Standing (P ost-Dialysis) 172/87 mmHg Sitting Heart Rate Pre-Dialysis 63 BPM Sitting Heart Rate Post-Dialysis 68 BPM Standing Heart Rate Pre-Dialysis 63 BPM Standing Heart Rate Post-Dialysis 66 BPM Temperature Pre-Dialysis 97.7 degF Temperature Post -Dialysis 98 degF December 20, 2023 In-Center Hemodialysis Treatment [id number]:28:50.000Z [id number]:22:10.000Z BP Sitting (Pre-Dialysis) 176/74 mmHg BP Sitting (Post-Dialysis) 183/84 mmHg Concurrent Access: falseAV Fistula Upper Arm (Left) Arterial BP Standing (Pre-Dialysis) 178/73 mmHg BP Standing (P ost-Dialysis) 187/90 mmHg Sitting Heart Rate Pre-Dialysis 64 BPM Sitting Heart Rate Post-Dialysis 64 BPM Standing Heart Rate Pre-Dialysis 64 BPM Standing Heart Rate Post-Dialysis 65 BPM Temperature Pre-Dialysis 97.8 degF Temperature Post -Dialysis 97.8 degF December 18, 2023 In-Center Hemodialysis Treatment [id number]:17:29.000Z [id number]:28:19.000Z BP Sitting (Pre-Dialysis) 152/66 mmHg BP Sitting (Post-Dialysis) 153/69 mmHg Concurrent Access: falseAV Fistula Upper Arm (Left) Arterial BP Standing (Pre-Dialysis) 157/74 mmHg BP Standing (P ost-Dialysis) 161/89 mmHg Sitting Heart Rate Pre-Dialysis 66 BPM Sitting Heart Rate Post-Dialysis 68 BPM Standing Heart Rate Pre-Dialysis 66 BPM Standing Heart Rate Post-Dialysis 69 BPM Temperature Pre-Dialysis 97.7 degF Temperature Post -Dialysis 97.9 degF December 15, 2023 In-Center Hemodialysis Treatment [id number]:25:21.000Z [id number]:24:06.000Z BP Sitting (Pre-Dialysis) 129/65 mmHg BP Sitting (Post-Dialysis) 153/76 mmHg Concurrent Access: falseAV Fistula Upper Arm (Left) Arterial BP Standing (Pre-Dialysis) 131/60 mmHg Sitti ng Heart Rate Post-Dialysis 67 BPM Sitting Heart Rate Pre-Dialysis 67 BPM Temperatu re Post-Dialysis 98.1 degF Standing Heart Rate Pre-Dialysis 68 BPM Temperature Pre-Dialysis 98.4 degF December 13, 2023 In-Center Hemodialysis Treatment [id number]:23:20.000Z 8546-45-85T62:23:20.000Z BP Sitting (Pre-Dialysis) 150/67 mmHg BP Sitting (Post-Dialysis) 136/64 mmHg Concurrent Access: falseAV Fistula Upper Arm (Left) Arterial BP Standing (Pre-Dialysis) 140/70 mmHg BP Standing (P ost-Dialysis) 147/75 mmHg Sitting Heart Rate Pre-Dialysis 70 BPM Sitting Heart Rate Post-Dialysis 67 BPM Standing Heart Rate Pre-Dialysis 74 BPM Standing Heart Rate Post-Dialysis 69 BPM Temperature Pre-Dialysis 98 degF Temperature Post -Dialysis 97.2 degF December 11, 2023 In-Center Hemodialysis Treatment [id number]:14:00.000Z 0847-27-14G89:17:07.000Z BP Sitting (Pre-Dialysis) 158/76 mmHg BP Sitting (Post-Dialysis) 167/67 mmHg Concurrent Access: falseAV Fistula Upper Arm (Left) Arterial BP Standing (Pre-Dialysis) 163/73 mmHg BP Standing (P ost-Dialysis) 173/81 mmHg Sitting Heart Rate Pre-Dialysis 67 BPM Sitting Heart Rate Post-Dialysis 67 BPM Standing Heart Rate Pre-Dialysis 68 BPM Standing Heart Rate Post-Dialysis 68 BPM Temperature Pre-Dialysis 97.4 degF Temperature Post -Dialysis 97.7 degF December 08, 2023 In-Center Hemodialysis Treatment [id number]:29:49.000Z [id number]:23:09.000Z BP Sitting (Pre-Dialysis) 219/90 mmHg BP Sitting (Post-Dialysis) 170/71 mmHg Concurrent Access: falseAV Fistula Upper Arm (Left) Arterial BP Standing (Pre-Dialysis) 212/91 mmHg BP Standing (P ost-Dialysis) 176/78 mmHg Sitting Heart Rate Pre-Dialysis 61 BPM Sitting Heart Rate Post-Dialysis 64 BPM Standing Heart Rate Pre-Dialysis 65 BPM Standing Heart Rate Post-Dialysis 66 BPM Temperature Pre-Dialysis 97.3 degF Temperature Post -Dialysis 97.6 degF December 06, 2023 In-Center Hemodialysis Treatment [id number]:08:21.000Z 9868-59-42R94:09:11.000Z BP Sitting (Pre-Dialysis) 155/72 mmHg BP Sitting (Post-Dialysis) 131/73 mmHg Concurrent Access: falseAV Fistula Upper Arm (Left) Arterial BP Standing (Pre-Dialysis) 152/64 mmHg BP Standing (P ost-Dialysis) 133/71 mmHg Sitting Heart Rate Pre-Dialysis 66 BPM Sitting Heart Rate Post-Dialysis 69 BPM Standing Heart Rate Pre-Dialysis 67 BPM Standing Heart Rate Post-Dialysis 72 BPM Temperature Pre-Dialysis 98 degF Temperature Post -Dialysis 97.8 degF December 04, 2023 In-Center Hemodialysis Treatment 2609-07-11E79:20:00.000Z 0236-44-02B15:23:55.000Z BP Sitting (Pre-Dialysis) 167/73 mmHg BP Sitting (Post-Dialysis) 152/79 mmHg Concurrent Access: falseAV Fistula Upper Arm (Left) Arterial BP Standing (Pre-Dialysis) 155/72 mmHg BP Standing (P ost-Dialysis) 151/76 mmHg Sitting Heart Rate Pre-Dialysis 68 BPM Sitting Heart Rate Post-Dialysis 69 BPM Standing Heart Rate Pre-Dialysis 72 BPM Standing Heart Rate Post-Dialysis 73 BPM Temperature Pre-Dialysis 98 degF Temperature Post -Dialysis 97.2 degF December 01, 2023 In-Center Hemodialysis Treatment 0430-08-27Z93:23:00.000Z [id number]:25:21.000Z BP Sitting (Pre-Dialysis) 186/75 mmHg BP Sitting (Post-Dialysis) 172/77 mmHg Concurrent Access: falseAV Fistula Upper Arm (Left) Arterial BP Standing (Pre-Dialysis) 169/71 mmHg BP Standing (P ost-Dialysis) 173/90 mmHg Sitting Heart Rate Pre-Dialysis 64 BPM Sitting Heart Rate Post-Dialysis 67 BPM Standing Heart Rate Pre-Dialysis 66 BPM Standing Heart Rate Post-Dialysis 78 BPM Temperature Pre-Dialysis 97.3 degF November 29, 2023 In-Center Hemodialysis Treatment [id number]:12:14.000Z 2849-60-10Y70:11:49.000Z BP Sitting (Pre-Dialysis) 157/70 mmHg BP Sitting (Post-Dialysis) 140/67 mmHg Concurrent Access: falseAV Fistula Upper Arm (Left) Arterial BP Standing (Pre-Dialysis) 156/66 mmHg BP Standing (P ost-Dialysis) 135/66 mmHg Sitting Heart Rate Pre-Dialysis 65 BPM Sitting Heart Rate Post-Dialysis 67 BPM Standing Heart Rate Pre-Dialysis 67 BPM Standing Heart Rate Post-Dialysis 69 BPM Temperature Pre-Dialysis 98.1 degF Temperature Post -Dialysis 98.2 degF November 27, 2023 In-Center Hemodialysis Treatment [id number]:23:15.000Z 7632-62-34R61:29:55.000Z BP Sitting (Pre-Dialysis) 143/61 mmHg BP Sitting (Post-Dialysis) 146/64 mmHg Concurrent Access: falseAV Fistula Upper Arm (Left) Arterial BP Standing (Pre-Dialysis) 132/58 mmHg BP Standing (P ost-Dialysis) 131/61 mmHg Sitting Heart Rate Pre-Dialysis 69 BPM Sitting Heart Rate Post-Dialysis 64 BPM Standing Heart Rate Pre-Dialysis 70 BPM Standing Heart Rate Post-Dialysis 66 BPM Temperature Pre-Dialysis 97.5 degF Temperature Post -Dialysis 97.6 degF November 24, 2023 In-Center Hemodialysis Treatment [id number]:22:51.000Z [id number]:19:06.000Z BP Sitting (Pre-Dialysis) 224/94 mmHg BP Sitting (Post-Dialysis) 154/69 mmHg Concurrent Access: falseAV Fistula Upper Arm (Left) Arterial BP Standing (Pre-Dialysis) 220/95 mmHg BP Standing (P ost-Dialysis) 166/79 mmHg Sitting Heart Rate Pre-Dialysis 65 BPM Sitting Heart Rate Post-Dialysis 66 BPM Standing Heart Rate Pre-Dialysis 67 BPM Standing Heart Rate Post-Dialysis 69 BPM Temperature Pre-Dialysis 97.4 degF Temperature Post -Dialysis 98.2 degF November 22, 2023 In-Center Hemodialysis Treatment [id number]:06:00.000Z 1420-84-48U76:10:04.000Z BP Sitting (Pre-Dialysis) 159/82 mmHg BP Sitting (Post-Dialysis) 167/71 mmHg Concurrent Access: falseAV Fistula Upper Arm (Left) Arterial BP Standing (Pre-Dialysis) 163/68 mmHg BP Standing (P ost-Dialysis) 157/70 mmHg Sitting Heart Rate Pre-Dialysis 67 BPM Sitting Heart Rate Post-Dialysis 65 BPM Standing Heart Rate Pre-Dialysis 68 BPM Standing Heart Rate Post-Dialysis 67 BPM Temperature Pre-Dialysis 97.9 degF November 20, 2023 In-Center Hemodialysis Treatment [id number]:07:00.000Z 4961-60-92E29:10:24.000Z BP Sitting (Pre-Dialysis) 130/61 mmHg BP Sitting (Post-Dialysis) 131/69 mmHg Concurrent Access: falseAV Fistula Upper Arm (Left) Arterial BP Standing (Pre-Dialysis) 139/60 mmHg Sitti ng Heart Rate Post-Dialysis 70 BPM Sitting Heart Rate Pre-Dialysis 64 BPM Temperatu re Post-Dialysis 97.8 degF Standing Heart Rate Pre-Dialysis 68 BPM Temperature Pre-Dialysis 97.3 degF November 17, 2023 In-Center Hemodialysis Treatment 1051-10-18Y75:21:07.000Z 3248-67-49U53:21:32.000Z BP Sitting (Pre-Dialysis) 130/54 mmHg BP Sitting (Post-Dialysis) 139/60 mmHg Concurrent Access: falseAV Fistula Upper Arm (Left) Arterial BP Standing (Pre-Dialysis) 124/57 mmHg BP Standing (P ost-Dialysis) 119/64 mmHg Sitting Heart Rate Pre-Dialysis 62 BPM Sitting Heart Rate Post-Dialysis 67 BPM Standing Heart Rate Pre-Dialysis 67 BPM Standing Heart Rate Post-Dialysis 70 BPM Temperature Pre-Dialysis 98 degF Temperature Post -Dialysis 98.3 degF November 15, 2023 In-Center Hemodialysis Treatment 5669-11-22B60:12:38.000Z 6592-60-58O10:16:23.000Z BP Sitting (Pre-Dialysis) 158/70 mmHg BP Sitting (Post-Dialysis) 136/71 mmHg Concurrent Access: falseAV Fistula Upper Arm (Left) Arterial BP Standing (Pre-Dialysis) 156/68 mmHg BP Standing (P ost-Dialysis) 153/71 mmHg Sitting Heart Rate Pre-Dialysis 63 BPM Sitting Heart Rate Post-Dialysis 67 BPM Standing Heart Rate Pre-Dialysis 70 BPM Standing Heart Rate Post-Dialysis 69 BPM Temperature Pre-Dialysis 97.9 degF Temperature Post -Dialysis 97.2 degF November 13, 2023 In-Center Hemodialysis Treatment [id number]:13:45.000Z 6294-32-47Y61:13:20.000Z BP Sitting (Pre-Dialysis) 141/65 mmHg BP Sitting (Post-Dialysis) 141/69 mmHg Concurrent Access: falseAV Fistula Upper Arm (Left) Arterial BP Standing (Pre-Dialysis) 129/56 mmHg BP Standing (P ost-Dialysis) 147/71 mmHg Sitting Heart Rate Pre-Dialysis 69 BPM Sitting Heart Rate Post-Dialysis 71 BPM Standing Heart Rate Pre-Dialysis 73 BPM Standing Heart Rate Post-Dialysis 74 BPM Temperature Pre-Dialysis 97.8 degF Temperature Post -Dialysis 97 degF November 10, 2023 In-Center Hemodialysis Treatment [id number]:14:00.000Z 4620-58-38U83:19:54.000Z BP Sitting (Pre-Dialysis) 152/114 mmHg BP Sitting (Post-Dialysis) 160/65 mmHg Concurrent Access: falseAV Fistula Upper Arm (Left) Arterial BP Standing (Pre-Dialysis) 169/70 mmHg BP Standing (P ost-Dialysis) 170/83 mmHg Sitting Heart Rate Pre-Dialysis 73 BPM Sitting Heart Rate Post-Dialysis 67 BPM Standing Heart Rate Pre-Dialysis 74 BPM Standing Heart Rate Post-Dialysis 67 BPM Temperature Pre-Dialysis 97.6 degF Temperature Post -Dialysis 97.1 degF November 08, 2023 In-Center Hemodialysis Treatment 7360-48-51Q31:14:00.000Z 8598-89-48D47:35:07.000Z BP Sitting (Pre-Dialysis) 136/73 mmHg BP Sitting (Post-Dialysis) 151/69 mmHg Concurrent Access: falseAV Fistula Upper Arm (Left) Arterial BP Standing (Pre-Dialysis) 149/68 mmHg BP Standing (P ost-Dialysis) 146/64 mmHg Sitting Heart Rate Pre-Dialysis 73 BPM Sitting Heart Rate Post-Dialysis 71 BPM Standing Heart Rate Pre-Dialysis 71 BPM Standing Heart Rate Post-Dialysis 71 BPM Temperature Pre-Dialysis 98.5 degF Temperature Post -Dialysis 98 degF November 06, 2023 In-Center Hemodialysis Treatment [id number]:14:00.000Z 1564-79-84C23:15:20.000Z BP Sitting (Pre-Dialysis) 170/77 mmHg BP Sitting (Post-Dialysis) 136/62 mmHg Concurrent Access: falseAV Fistula Upper Arm (Left) Arterial BP Standing (Pre-Dialysis) 163/78 mmHg BP Standing (P ost-Dialysis) 146/70 mmHg Sitting Heart Rate Pre-Dialysis 71 BPM Sitting Heart Rate Post-Dialysis 67 BPM Standing Heart Rate Pre-Dialysis 72 BPM Standing Heart Rate Post-Dialysis 72 BPM Temperature Pre-Dialysis 98 degF Temperature Post -Dialysis 98 degF November 03, 2023 In-Center Hemodialysis Treatment 7548-14-11N98:09:00.000Z 4822-23-66G58:27:50.000Z BP Sitting (Pre-Dialysis) 143/88 mmHg BP Sitting (Post-Dialysis) 144/68 mmHg Concurrent Access: falseAV Fistula Upper Arm (Left) Arterial BP Standing (Pre-Dialysis) 153/64 mmHg BP Standing (P ost-Dialysis) 153/70 mmHg Sitting Heart Rate Pre-Dialysis 66 BPM Sitting Heart Rate Post-Dialysis 71 BPM Standing Heart Rate Pre-Dialysis 69 BPM Standing Heart Rate Post-Dialysis 73 BPM Temperature Pre-Dialysis 97.5 degF Temperature Post -Dialysis 97.6 degF November 01, 2023 In-Center Hemodialysis Treatment 8154-28-32N99:00:00.000Z 8168-65-50A34:05:17.000Z BP Sitting (Pre-Dialysis) 152/75 mmHg BP Sitting (Post-Dialysis) 169/72 mmHg Concurrent Access: falseAV Fistula Upper Arm (Left) Arterial BP Standing (Pre-Dialysis) 154/69 mmHg BP Standing (P ost-Dialysis) 179/81 mmHg Sitting Heart Rate Pre-Dialysis 70 BPM Sitting Heart Rate Post-Dialysis 69 BPM Standing Heart Rate Pre-Dialysis 74 BPM Standing Heart Rate Post-Dialysis 70 BPM Temperature Pre-Dialysis 98.3 degF Temperature Post -Dialysis 97.8 degF October 30, 2023 In-Center Hemodialysis Treatment 4736-47-49Q62:12:00.000Z 0928-34-36Z03:18:05.000Z BP Sitting (Pre-Dialysis) 144/63 mmHg BP Sitting (Post-Dialysis) 150/71 mmHg Concurrent Access: falseAV Fistula Upper Arm (Left) Arterial BP Standing (Pre-Dialysis) 146/79 mmHg BP Standing (P ost-Dialysis) 165/77 mmHg Sitting Heart Rate Pre-Dialysis 72 BPM Sitting Heart Rate Post-Dialysis 74 BPM Standing Heart Rate Pre-Dialysis 77 BPM Standing Heart Rate Post-Dialysis 81 BPM Temperature Pre-Dialysis 98.4 degF Temperature Post -Dialysis 97.8 degF October 27, 2023 In-Center Hemodialysis Treatment 8499-21-35G00:08:00.000Z 7846-62-91Y35:10:35.000Z BP Sitting (Pre-Dialysis) 177/74 mmHg BP Sitting (Post-Dialysis) 183/80 mmHg Concurrent Access: falseAV Fistula Upper Arm (Left) Arterial BP Standing (Pre-Dialysis) 176/64 mmHg BP Standing (P ost-Dialysis) 187/83 mmHg Sitting Heart Rate Pre-Dialysis 68 BPM Sitting Heart Rate Post-Dialysis 66 BPM Standing Heart Rate Pre-Dialysis 72 BPM Standing Heart Rate Post-Dialysis 72 BPM Temperature Pre-Dialysis 97.6 degF Temperature Post -Dialysis 97.6 degF October 25, 2023 In-Center Hemodialysis Treatment [id number]:14:03.000Z 6030-71-31Q38:13:38.000Z BP Sitting (Pre-Dialysis) 144/62 mmHg BP Sitting (Post-Dialysis) 144/71 mmHg Concurrent Access: falseAV Fistula Upper Arm (Left) Arterial BP Standing (Pre-Dialysis) 142/63 mmHg Sitti ng Heart Rate Post-Dialysis 67 BPM Sitting Heart Rate Pre-Dialysis 63 BPM Temperatu re Post-Dialysis 97.2 degF Standing Heart Rate Pre-Dialysis 71 BPM Temperature Pre-Dialysis 98.2 degF October 23, 2023 In-Center Hemodialysis Treatment 9397-05-12E23:18:43.000Z 6983-76-83A37:17:53.000Z BP Sitting (Pre-Dialysis) 152/70 mmHg BP Sitting (Post-Dialysis) 144/66 mmHg Concurrent Access: falseAV Fistula Upper Arm (Left) Arterial BP Standing (Pre-Dialysis) 167/78 mmHg BP Standing (P ost-Dialysis) 147/73 mmHg Sitting Heart Rate Pre-Dialysis 64 BPM Sitting Heart Rate Post-Dialysis 72 BPM Standing Heart Rate Pre-Dialysis 68 BPM Standing Heart Rate Post-Dialysis 75 BPM Temperature Pre-Dialysis 97.6 degF Temperature Post -Dialysis 97.6 degF October 20, 2023 In-Center Hemodialysis Treatment 1160-70-20S79:22:57.000Z 9704-15-12A40:21:42.000Z BP Sitting (Pre-Dialysis) 152/69 mmHg BP Sitting (Post-Dialysis) 139/56 mmHg Concurrent Access: falseAV Fistula Upper Arm (Left) Arterial BP Standing (Pre-Dialysis) 142/69 mmHg BP Standing (P ost-Dialysis) 149/74 mmHg Sitting Heart Rate Pre-Dialysis 66 BPM Sitting Heart Rate Post-Dialysis 68 BPM Standing Heart Rate Pre-Dialysis 70 BPM Standing Heart Rate Post-Dialysis 71 BPM Temperature Pre-Dialysis 98.1 degF Temperature Post -Dialysis 97.9 degF October 18, 2023 In-Center Hemodialysis Treatment [id number]:05:00.000Z [id number]:08:50.000Z BP Sitting (Pre-Dialysis) 193/83 mmHg BP Sitting (Post-Dialysis) 159/77 mmHg Concurrent Access: falseAV Fistula Upper Arm (Left) Arterial BP Standing (Pre-Dialysis) 188/80 mmHg BP Standing (P ost-Dialysis) 167/91 mmHg Sitting Heart Rate Pre-Dialysis 73 BPM Sitting Heart Rate Post-Dialysis 73 BPM Standing Heart Rate Pre-Dialysis 74 BPM Standing Heart Rate Post-Dialysis 76 BPM Temperature Pre-Dialysis 98.2 degF Temperature Post -Dialysis 97.7 degF October 16, 2023 In-Center Hemodialysis Treatment [id number]:14:00.000Z [id number]:30:09.000Z BP Sitting (Pre-Dialysis) 144/71 mmHg BP Sitting (Post-Dialysis) 129/66 mmHg Concurrent Access: falseAV Fistula Upper Arm (Left) Arterial BP Standing (Pre-Dialysis) 146/71 mmHg BP Standing (P ost-Dialysis) 121/66 mmHg Sitting Heart Rate Pre-Dialysis 73 BPM Sitting Heart Rate Post-Dialysis 76 BPM Standing Heart Rate Pre-Dialysis 75 BPM Standing Heart Rate Post-Dialysis 76 BPM Temperature Pre-Dialysis 97.7 degF Temperature Post -Dialysis 97.4 degF October 13, 2023 In-Center Hemodialysis Treatment [id number]:18:09.000Z [id number]:17:44.000Z BP Sitting (Pre-Dialysis) 158/71 mmHg BP Sitting (Post-Dialysis) 137/63 mmHg Concurrent Access: falseAV Fistula Upper Arm (Left) Arterial Sitting Heart Rate Pre-Dialysis 75 BPM BP Standing (Post-Dialysis) 150/69 mmHg Temperature Pre-Dialysis 98.2 degF Sitting Heart Ra te Post-Dialysis 73 BPM Standing Heart Rate Post-Nicci lysis 76 BPM Temperature Post-Dialysis 97 .6 degF October 11, 2023 In-Center Hemodialysis Treatment [id number]:21:00.000Z [id number]:22:59.000Z BP Sitting (Pre-Dialysis) 155/71 mmHg BP Sitting (Post-Dialysis) 144/64 mmHg Concurrent Access: falseAV Fistula Upper Arm (Left) Arterial BP Standing (Pre-Dialysis) 144/67 mmHg BP Standing (P ost-Dialysis) 173/78 mmHg Sitting Heart Rate Pre-Dialysis 69 BPM Sitting Heart Rate Post-Dialysis 71 BPM Standing Heart Rate Pre-Dialysis 73 BPM Standing Heart Rate Post-Dialysis 81 BPM Temperature Pre-Dialysis 97.6 degF Temperature Post -Dialysis 97.8 degF October 09, 2023 In-Center Hemodialysis Treatment [id number]:25:00.000Z [id number]:24:41.000Z BP Sitting (Pre-Dialysis) 171/66 mmHg BP Sitting (Post-Dialysis) 171/75 mmHg Concurrent Access: falseAV Fistula Upper Arm (Left) Arterial BP Standing (Pre-Dialysis) 184/82 mmHg Sitti ng Heart Rate Post-Dialysis 66 BPM Sitting Heart Rate Pre-Dialysis 67 BPM Temperatu re Post-Dialysis 97.7 degF Standing Heart Rate Pre-Dialysis 73 BPM Temperature Pre-Dialysis 97.7 degF October 06, 2023 In-Center Hemodialysis Treatment [id number]:30:00.000Z [id number]:00:12.000Z BP Sitting (Pre-Dialysis) 168/81 mmHg BP Sitting (Post-Dialysis) 151/73 mmHg Concurrent Access: falseAV Fistula Upper Arm (Left) Arterial BP Standing (Pre-Dialysis) 165/75 mmHg BP Standing (P ost-Dialysis) 128/68 mmHg Sitting Heart Rate Pre-Dialysis 71 BPM Sitting Heart Rate Post-Dialysis 73 BPM Standing Heart Rate Pre-Dialysis 76 BPM Standing Heart Rate Post-Dialysis 77 BPM Temperature Pre-Dialysis 97.7 degF Temperature Post -Dialysis 98 degF October 04, 2023 In-Center Hemodialysis Treatment [id number]:06:00.000Z [id number]:12:38.000Z BP Sitting (Pre-Dialysis) 190/61 mmHg BP Sitting (Post-Dialysis) 156/68 mmHg Concurrent Access: falseAV Fistula Upper Arm (Left) Arterial BP Standing (Pre-Dialysis) 197/82 mmHg BP Standing (P ost-Dialysis) 171/76 mmHg Sitting Heart Rate Pre-Dialysis 68 BPM Sitting Heart Rate Post-Dialysis 72 BPM Standing Heart Rate Pre-Dialysis 71 BPM Standing Heart Rate Post-Dialysis 73 BPM Temperature Pre-Dialysis 97.9 degF Temperature Post -Dialysis 97.2 degF October 02, 2023 In-Center Hemodialysis Treatment [id number]:15:00.000Z [id number]:13:16.000Z BP Sitting (Pre-Dialysis) 160/72 mmHg BP Sitting (Post-Dialysis) 166/69 mmHg Concurrent Access: falseAV Fistula Upper Arm (Left) Arterial BP Standing (Pre-Dialysis) 172/77 mmHg BP Standing (P ost-Dialysis) 165/76 mmHg Sitting Heart Rate Pre-Dialysis 72 BPM Sitting Heart Rate Post-Dialysis 67 BPM Standing Heart Rate Pre-Dialysis 76 BPM Standing Heart Rate Post-Dialysis 69 BPM Temperature Pre-Dialysis 98.1 degF Temperature Post -Dialysis 98 degF September 29, 2023 In-Center Hemodialysis Treatment [id number]:14:18.000Z [id number]:35:49.000Z BP Sitting (Pre-Dialysis) 165/98 mmHg BP Sitting (Post-Dialysis) 156/72 mmHg Concurrent Access: falseAV Fistula Upper Arm (Left) Arterial BP Standing (Pre-Dialysis) 163/76 mmHg BP Standing (P ost-Dialysis) 159/74 mmHg Sitting Heart Rate Pre-Dialysis 72 BPM Sitting Heart Rate Post-Dialysis 66 BPM Standing Heart Rate Pre-Dialysis 75 BPM Standing Heart Rate Post-Dialysis 69 BPM Temperature Pre-Dialysis 97.2 degF Temperature Post -Dialysis 97.4 degF September 27, 2023 In-Center Hemodialysis Treatment [id number]:19:00.000Z [id number]:21:16.000Z BP Sitting (Pre-Dialysis) 172/71 mmHg BP Sitting (Post-Dialysis) 152/63 mmHg Concurrent Access: falseAV Fistula Upper Arm (Left) Arterial BP Standing (Pre-Dialysis) 161/69 mmHg BP Standing (P ost-Dialysis) 166/70 mmHg Sitting Heart Rate Pre-Dialysis 67 BPM Sitting Heart Rate Post-Dialysis 71 BPM Standing Heart Rate Pre-Dialysis 72 BPM Standing Heart Rate Post-Dialysis 74 BPM Temperature Pre-Dialysis 97.2 degF Temperature Post -Dialysis 97.6 degF September 25, 2023 In-Center Hemodialysis Treatment [id number]:14:00.000Z [id number]:16:07.000Z BP Sitting (Pre-Dialysis) 173/65 mmHg BP Sitting (Post-Dialysis) 155/68 mmHg Concurrent Access: falseAV Fistula Upper Arm (Left) Arterial BP Standing (Pre-Dialysis) 169/67 mmHg BP Standing (P ost-Dialysis) 138/66 mmHg Sitting Heart Rate Pre-Dialysis 74 BPM Sitting Heart Rate Post-Dialysis 69 BPM Standing Heart Rate Pre-Dialysis 75 BPM Standing Heart Rate Post-Dialysis 73 BPM Temperature Pre-Dialysis 97.2 degF Temperature Post -Dialysis 98.3 degF September 22, 2023 In-Center Hemodialysis Treatment [id number]:28:41.000Z [id number]:20:46.000Z BP Sitting (Pre-Dialysis) 164/72 mmHg BP Sitting (Post-Dialysis) 147/67 mmHg Concurrent Access: falseAV Fistula Upper Arm (Left) Arterial BP Standing (Pre-Dialysis) 172/56 mmHg BP Standing (P ost-Dialysis) 146/71 mmHg Sitting Heart Rate Pre-Dialysis 69 BPM Sitting Heart Rate Post-Dialysis 73 BPM Standing Heart Rate Pre-Dialysis 74 BPM Standing Heart Rate Post-Dialysis 76 BPM Temperature Pre-Dialysis 97.2 degF Temperature Post -Dialysis 95.3 degF September 20, 2023 In-Center Hemodialysis Treatment [id number]:03:44.000Z 4926-24-40S55:05:00.000Z BP Sitting (Pre-Dialysis) 172/67 mmHg BP Sitting (Post-Dialysis) 138/63 mmHg Concurrent Access: falseAV Fistula Upper Arm (Left) Arterial BP Standing (Pre-Dialysis) 156/73 mmHg Sitting Heart Rate Post-Dialysis 69 BPM Sitting Heart Rate Pre-Dialysis 74 BPM Temperatu re Post-Dialysis 97 degF Standing Heart Rate Pre-Dialysis 77 BPM Temperature Pre-Dialysis 97.9 degF September 18, 2023 In-Center Hemodialysis Treatment [id number]:18:24.000Z [id number]:20:54.000Z BP Sitting (Pre-Dialysis) 155/70 mmHg BP Sitting (Post-Dialysis) 162/75 mmHg Concurrent Access: falseAV Fistula Upper Arm (Left) Arterial BP Standing (Pre-Dialysis) 155/74 mmHg BP Standing (P ost-Dialysis) 182/69 mmHg Sitting Heart Rate Pre-Dialysis 73 BPM Sitting Heart Rate Post-Dialysis 112 BPM Standing Heart Rate Pre-Dialysis 74 BPM Standing Heart Rate Post-Dialysis 82 BPM Temperature Pre-Dialysis 97.8 degF Temperature Post -Dialysis 98.6 degF September 15, 2023 In-Center Hemodialysis Treatment [id number]:28:18.000Z [id number]:22:53.000Z BP Sitting (Pre-Dialysis) 124/68 mmHg BP Sitting (Post-Dialysis) 155/70 mmHg Concurrent Access: falseAV Fistula Upper Arm (Left) Arterial BP Standing (Pre-Dialysis) 148/70 mmHg BP Standing (P ost-Dialysis) 152/66 mmHg Sitting Heart Rate Pre-Dialysis 92 BPM Sitting Heart Rate Post-Dialysis 74 BPM Standing Heart Rate Pre-Dialysis 81 BPM Standing Heart Rate Post-Dialysis 78 BPM Temperature Pre-Dialysis 96.9 degF Temperature Post -Dialysis 97.6 degF September 13, 2023 In-Center Hemodialysis Treatment [id number]:14:00.000Z [id number]:16:35.000Z BP Sitting (Pre-Dialysis) 154/62 mmHg BP Sitting (Post-Dialysis) 152/65 mmHg Concurrent Access: falseAV Fistula Upper Arm (Left) Arterial BP Standing (Pre-Dialysis) 162/76 mmHg Sitti ng Heart Rate Post-Dialysis 70 BPM Sitting Heart Rate Pre-Dialysis 71 BPM Temperatu re Post-Dialysis 98.4 degF Standing Heart Rate Pre-Dialysis 74 BPM Temperature Pre-Dialysis 98.2 degF September 11, 2023 In-Center Hemodialysis Treatment [id number]:22:00.000Z [id number]:22:25.000Z BP Sitting (Pre-Dialysis) 188/79 mmHg BP Sitting (Post-Dialysis) 164/70 mmHg Concurrent Access: falseAV Fistula Upper Arm (Left) Arterial BP Standing (Pre-Dialysis) 189/80 mmHg BP Standing (P ost-Dialysis) 168/79 mmHg Sitting Heart Rate Pre-Dialysis 69 BPM Sitting Heart Rate Post-Dialysis 72 BPM Standing Heart Rate Pre-Dialysis 71 BPM Standing Heart Rate Post-Dialysis 74 BPM Temperature Pre-Dialysis 98.4 degF Temperature Post -Dialysis 97.3 degF September 08, 2023 In-Center Hemodialysis Treatment [id number]:14:00.000Z [id number]:17:04.000Z BP Sitting (Pre-Dialysis) 151/70 mmHg BP Sitting (Post-Dialysis) 153/70 mmHg Concurrent Access: falseAV Fistula Upper Arm (Left) Arterial BP Standing (Pre-Dialysis) 149/67 mmHg BP Standing (P ost-Dialysis) 159/69 mmHg Sitting Heart Rate Pre-Dialysis 72 BPM Sitting Heart Rate Post-Dialysis 68 BPM Standing Heart Rate Pre-Dialysis 72 BPM Standing Heart Rate Post-Dialysis 72 BPM Temperature Pre-Dialysis 98.2 degF Temperature Post -Dialysis 97.5 degF September 06, 2023 In-Center Hemodialysis Treatment [id number]:08:00.000Z [id number]:11:38.000Z BP Sitting (Pre-Dialysis) 156/76 mmHg BP Sitting (Post-Dialysis) 147/68 mmHg Concurrent Access: falseAV Fistula Upper Arm (Left) Arterial BP Standing (Pre-Dialysis) 143/59 mmHg BP Standing (P ost-Dialysis) 149/75 mmHg Sitting Heart Rate Pre-Dialysis 67 BPM Sitting Heart Rate Post-Dialysis 66 BPM Standing Heart Rate Pre-Dialysis 69 BPM Standing Heart Rate Post-Dialysis 73 BPM Temperature Pre-Dialysis 98.2 degF Temperature Post -Dialysis 97.2 degF September 04, 2023 In-Center Hemodialysis Treatment [id number]:15:00.000Z [id number]:18:10.000Z BP Sitting (Pre-Dialysis) 161/67 mmHg BP Sitting (Post-Dialysis) 180/82 mmHg Concurrent Access: falseAV Fistula Upper Arm (Left) Arterial BP Standing (Pre-Dialysis) 165/79 mmHg BP Standing (P ost-Dialysis) 175/82 mmHg Sitting Heart Rate Pre-Dialysis 69 BPM Sitting Heart Rate Post-Dialysis 66 BPM Standing Heart Rate Pre-Dialysis 74 BPM Standing Heart Rate Post-Dialysis 68 BPM Temperature Pre-Dialysis 97.6 degF Temperature Post -Dialysis 97.9 degF September 01, 2023 In-Center Hemodialysis Treatment [id number]:17:00.000Z [id number]:28:44.000Z BP Sitting (Pre-Dialysis) 155/76 mmHg BP Sitting (Post-Dialysis) 135/64 mmHg Concurrent Access: falseAV Fistula Upper Arm (Left) Arterial BP Standing (Pre-Dialysis) 145/65 mmHg BP Standing (P ost-Dialysis) 137/66 mmHg Sitting Heart Rate Pre-Dialysis 70 BPM Sitting Heart Rate Post-Dialysis 66 BPM Standing Heart Rate Pre-Dialysis 70 BPM Standing Heart Rate Post-Dialysis 70 BPM Temperature Pre-Dialysis 97.5 degF Temperature Post -Dialysis 98.1 degF August 30, 2023 In-Center Hemodialysis Treatment [id number]:16:16.000Z [id number]:15:01.000Z BP Sitting (Pre-Dialysis) 155/66 mmHg BP Sitting (Post-Dialysis) 150/67 mmHg Concurrent Access: falseAV Fistula Upper Arm (Left) Arterial BP Standing (Pre-Dialysis) 161/64 mmHg BP Standing (P ost-Dialysis) 140/66 mmHg Sitting Heart Rate Pre-Dialysis 71 BPM Sitting Heart Rate Post-Dialysis 66 BPM Standing Heart Rate Pre-Dialysis 72 BPM Standing Heart Rate Post-Dialysis 72 BPM Temperature Pre-Dialysis 97.6 degF Temperature Post -Dialysis 96.9 degF August 28, 2023 In-Center Hemodialysis Treatment [id number]:14:58.000Z 1192-53-57E52:15:23.000Z BP Sitting (Pre-Dialysis) 157/67 mmHg BP Sitting (Post-Dialysis) 145/56 mmHg Concurrent Access: falseAV Fistula Upper Arm (Left) Arterial BP Standing (Pre-Dialysis) 143/66 mmHg BP Standing (P ost-Dialysis) 150/87 mmHg Sitting Heart Rate Pre-Dialysis 64 BPM Sitting Heart Rate Post-Dialysis 69 BPM Standing Heart Rate Pre-Dialysis 69 BPM Standing Heart Rate Post-Dialysis 73 BPM Temperature Pre-Dialysis 97.7 degF Temperature Post -Dialysis 97.2 degF August 25, 2023 In-Center Hemodialysis Treatment [id number]:20:00.000Z [id number]:29:51.000Z BP Sitting (Pre-Dialysis) 139/64 mmHg BP Sitting (Post-Dialysis) 147/64 mmHg Concurrent Access: falseAV Fistula Upper Arm (Left) Arterial BP Standing (Pre-Dialysis) 153/62 mmHg BP Standing (P ost-Dialysis) 147/73 mmHg Sitting Heart Rate Pre-Dialysis 68 BPM Sitting Heart Rate Post-Dialysis 70 BPM Standing Heart Rate Pre-Dialysis 69 BPM Standing Heart Rate Post-Dialysis 75 BPM Temperature Pre-Dialysis 98.4 degF Temperature Post -Dialysis 97.2 degF August 23, 2023 In-Center Hemodialysis Treatment [id number]:29:15.000Z [id number]:26:20.000Z BP Sitting (Pre-Dialysis) 160/67 mmHg BP Sitting (Post-Dialysis) 159/68 mmHg Concurrent Access: falseAV Fistula Upper Arm (Left) Arterial BP Standing (Pre-Dialysis) 161/78 mmHg BP Standing (P ost-Dialysis) 151/82 mmHg Sitting Heart Rate Pre-Dialysis 65 BPM Sitting Heart Rate Post-Dialysis 68 BPM Standing Heart Rate Pre-Dialysis 73 BPM Standing Heart Rate Post-Dialysis 71 BPM Temperature Pre-Dialysis 98.1 degF Temperature Post -Dialysis 98.2 degF August 21, 2023 In-Center Hemodialysis Treatment [id number]:25:00.000Z [id number]:24:01.000Z BP Sitting (Pre-Dialysis) 137/61 mmHg BP Sitting (Post-Dialysis) 146/71 mmHg Concurrent Access: falseAV Fistula Upper Arm (Left) Arterial BP Standing (Pre-Dialysis) 145/59 mmHg BP Standing (P ost-Dialysis) 145/70 mmHg Sitting Heart Rate Pre-Dialysis 80 BPM Sitting Heart Rate Post-Dialysis 72 BPM Standing Heart Rate Pre-Dialysis 82 BPM Standing Heart Rate Post-Dialysis 74 BPM Temperature Pre-Dialysis 98.2 degF Temperature Post -Dialysis 98.2 degF August 18, 2023 In-Center Hemodialysis Treatment 0543-26-58U02:26:25.000Z 6771-29-62K14:20:10.000Z BP Sitting (Pre-Dialysis) 171/99 mmHg BP Sitting (Post-Dialysis) 154/74 mmHg Concurrent Access: falseAV Fistula Upper Arm (Left) Arterial BP Standing (Pre-Dialysis) 166/70 mmHg BP Standing (P ost-Dialysis) 166/68 mmHg Sitting Heart Rate Pre-Dialysis 73 BPM Sitting Heart Rate Post-Dialysis 68 BPM Standing Heart Rate Pre-Dialysis 70 BPM Standing Heart Rate Post-Dialysis 71 BPM Temperature Pre-Dialysis 97.3 degF Temperature Post -Dialysis 97.5 degF August 16, 2023 In-Center Hemodialysis Treatment [id number]:14:00.000Z [id number]:22:50.000Z BP Sitting (Pre-Dialysis) 147/63 mmHg BP Sitting (Post-Dialysis) 149/63 mmHg Concurrent Access: falseAV Fistula Upper Arm (Left) Arterial BP Standing (Pre-Dialysis) 131/51 mmHg Sitti ng Heart Rate Post-Dialysis 69 BPM Sitting Heart Rate Pre-Dialysis 69 BPM Temperatu re Post-Dialysis 96.9 degF Standing Heart Rate Pre-Dialysis 75 BPM Temperature Pre-Dialysis 97.9 degF August 14, 2023 In-Center Hemodialysis Treatment [id number]:14:00.000Z 9908-01-22K97:20:00.000Z BP Sitting (Pre-Dialysis) 149/61 mmHg BP Sitting (Post-Dialysis) 153/71 mmHg Concurrent Access: falseAV Fistula Upper Arm (Left) Arterial BP Standing (Pre-Dialysis) 147/62 mmHg BP Standing (P ost-Dialysis) 150/73 mmHg Sitting Heart Rate Pre-Dialysis 60 BPM Sitting Heart Rate Post-Dialysis 70 BPM Standing Heart Rate Pre-Dialysis 69 BPM Standing Heart Rate Post-Dialysis 71 BPM Temperature Pre-Dialysis 97.6 degF Temperature Post -Dialysis 98 degF August 11, 2023 In-Center Hemodialysis Treatment [id number]:18:00.000Z 9536-83-24J19:22:51.000Z BP Sitting (Pre-Dialysis) 134/63 mmHg BP Sitting (Post-Dialysis) 140/62 mmHg Concurrent Access: falseAV Fistula Upper Arm (Left) Arterial BP Standing (Pre-Dialysis) 131/62 mmHg BP Standing (P ost-Dialysis) 145/70 mmHg Sitting Heart Rate Pre-Dialysis 67 BPM Sitting Heart Rate Post-Dialysis 70 BPM Standing Heart Rate Pre-Dialysis 73 BPM Standing Heart Rate Post-Dialysis 75 BPM Temperature Pre-Dialysis 97.9 degF Temperature Post -Dialysis 97.2 degF August 09, 2023 In-Center Hemodialysis Treatment [id number]:11:58.000Z 0810-05-71C47:14:03.000Z BP Sitting (Pre-Dialysis) 148/67 mmHg BP Sitting (Post-Dialysis) 159/63 mmHg Concurrent Access: falseAV Fistula Upper Arm (Left) Arterial BP Standing (Pre-Dialysis) 158/83 mmHg BP Standing (P ost-Dialysis) 160/69 mmHg Sitting Heart Rate Pre-Dialysis 69 BPM Sitting Heart Rate Post-Dialysis 70 BPM Standing Heart Rate Pre-Dialysis 69 BPM Standing Heart Rate Post-Dialysis 74 BPM Temperature Pre-Dialysis 98 degF Temperature Post -Dialysis 97.2 degF August 07, 2023 In-Center Hemodialysis Treatment [id number]:17:00.000Z [id number]:16:00.000Z BP Sitting (Pre-Dialysis) 177/79 mmHg BP Sitting (Post-Dialysis) 154/71 mmHg Concurrent Access: falseAV Fistula Upper Arm (Left) Arterial BP Standing (Pre-Dialysis) 166/77 mmHg BP Standing (P ost-Dialysis) 167/79 mmHg Sitting Heart Rate Pre-Dialysis 68 BPM Sitting Heart Rate Post-Dialysis 74 BPM Standing Heart Rate Pre-Dialysis 71 BPM Standing Heart Rate Post-Dialysis 76 BPM Temperature Pre-Dialysis 98 degF Temperature Post -Dialysis 97.3 degF August 04, 2023 In-Center Hemodialysis Treatment 7705-26-59N24:14:48.000Z 4430-19-08O89:49:23.000Z BP Sitting (Pre-Dialysis) 161/69 mmHg BP Sitting (Post-Dialysis) 144/56 mmHg Concurrent Access: falseAV Fistula Upper Arm (Left) Arterial BP Standing (Pre-Dialysis) 163/67 mmHg BP Standing (P ost-Dialysis) 140/69 mmHg Sitting Heart Rate Pre-Dialysis 70 BPM Sitting Heart Rate Post-Dialysis 72 BPM Standing Heart Rate Pre-Dialysis 66 BPM Standing Heart Rate Post-Dialysis 75 BPM Temperature Pre-Dialysis 98.4 degF Temperature Post -Dialysis 98.2 degF August 02, 2023 In-Center Hemodialysis Treatment [id number]:23:47.000Z [id number]:18:47.000Z BP Sitting (Pre-Dialysis) 170/69 mmHg BP Sitting (Post-Dialysis) 142/64 mmHg Concurrent Access: falseAV Fistula Upper Arm (Left) Arterial BP Standing (Pre-Dialysis) 161/76 mmHg Sitti ng Heart Rate Post-Dialysis 73 BPM Sitting Heart Rate Pre-Dialysis 67 BPM Temperatu re Post-Dialysis 97.9 degF Standing Heart Rate Pre-Dialysis 74 BPM Temperature Pre-Dialysis 98.3 degF July 31, 2023 In-Center Hemodialysis Treatment [id number]:15:00.000Z 2252-18-81C18:26:17.000Z BP Sitting (Pre-Dialysis) 143/77 mmHg BP Sitting (Post-Dialysis) 139/70 mmHg Concurrent Access: falseAV Fistula Upper Arm (Left) Arterial BP Standing (Pre-Dialysis) 143/62 mmHg Sitti ng Heart Rate Post-Dialysis 69 BPM Sitting Heart Rate Pre-Dialysis 67 BPM Temperatu re Post-Dialysis 97.9 degF Standing Heart Rate Pre-Dialysis 65 BPM Temperature Pre-Dialysis 98.2 degF July 28, 2023 In-Center Hemodialysis Treatment [id number]:20:00.000Z 7119-91-64S19:22:20.000Z BP Sitting (Pre-Dialysis) 163/69 mmHg BP Sitting (Post-Dialysis) 176/79 mmHg Concurrent Access: falseAV Fistula Upper Arm (Left) Arterial Sitting Heart Rate Pre-Dialysis 63 BPM BP Standing (Post-Dialysis) 181/80 mmHg Temperature Pre-Dialysis 97.7 degF Sitting Heart Ra te Post-Dialysis 66 BPM Standing Heart Rate Post-Nicci lysis 69 BPM Temperature Post-Dialysis 97 .2 degF July 26, 2023 In-Center Hemodialysis Treatment 1353-19-05N35:15:50.000Z 1209-88-04I33:15:50.000Z BP Sitting (Pre-Dialysis) 181/82 mmHg BP Sitting (Post-Dialysis) 165/80 mmHg Concurrent Access: falseAV Fistula Upper Arm (Left) Arterial BP Standing (Pre-Dialysis) 170/73 mmHg BP Standing (P ost-Dialysis) 164/81 mmHg Sitting Heart Rate Pre-Dialysis 74 BPM Sitting Heart Rate Post-Dialysis 72 BPM Standing Heart Rate Pre-Dialysis 76 BPM Standing Heart Rate Post-Dialysis 71 BPM Temperature Pre-Dialysis 97.7 degF Temperature Post -Dialysis 97.9 degF July 24, 2023 In-Center Hemodialysis Treatment [id number]:15:44.000Z [id number]:34:54.000Z BP Sitting (Pre-Dialysis) 161/80 mmHg BP Sitting (Post-Dialysis) 157/68 mmHg Concurrent Access: falseAV Fistula Upper Arm (Left) Arterial BP Standing (Pre-Dialysis) 188/83 mmHg BP Standing (P ost-Dialysis) 158/73 mmHg Sitting Heart Rate Pre-Dialysis 70 BPM Sitting Heart Rate Post-Dialysis 66 BPM Standing Heart Rate Pre-Dialysis 69 BPM Standing Heart Rate Post-Dialysis 68 BPM Temperature Pre-Dialysis 97.9 degF Temperature Post -Dialysis 97.6 degF July 21, 2023 In-Center Hemodialysis Treatment [id number]:27:26.000Z [id number]:19:06.000Z BP Sitting (Pre-Dialysis) 143/63 mmHg BP Sitting (Post-Dialysis) 158/70 mmHg Concurrent Access: falseAV Fistula Upper Arm (Left) Arterial BP Standing (Pre-Dialysis) 135/62 mmHg BP Standing (P ost-Dialysis) 155/80 mmHg Sitting Heart Rate Pre-Dialysis 69 BPM Sitting Heart Rate Post-Dialysis 70 BPM Standing Heart Rate Pre-Dialysis 72 BPM Standing Heart Rate Post-Dialysis 74 BPM Temperature Pre-Dialysis 98.3 degF Temperature Post -Dialysis 98.7 degF July 19, 2023 In-Center Hemodialysis Treatment [id number]:20:32.000Z [id number]:20:32.000Z BP Sitting (Pre-Dialysis) 150/74 mmHg BP Sitting (Post-Dialysis) 162/67 mmHg Concurrent Access: falseAV Fistula Upper Arm (Left) Arterial BP Standing (Pre-Dialysis) 144/73 mmHg BP Standing (P ost-Dialysis) 156/76 mmHg Sitting Heart Rate Pre-Dialysis 70 BPM Sitting Heart Rate Post-Dialysis 73 BPM Standing Heart Rate Pre-Dialysis 73 BPM Standing Heart Rate Post-Dialysis 76 BPM Temperature Pre-Dialysis 98.7 degF Temperature Post -Dialysis 97.7 degF July 17, 2023 In-Center Hemodialysis Treatment [id number]:19:20.000Z [id number]:19:45.000Z BP Sitting (Pre-Dialysis) 156/72 mmHg BP Sitting (Post-Dialysis) 158/68 mmHg Concurrent Access: falseAV Fistula Upper Arm (Left) Arterial BP Standing (Pre-Dialysis) 150/73 mmHg Sitti ng Heart Rate Post-Dialysis 73 BPM Sitting Heart Rate Pre-Dialysis 66 BPM Temperatu re Post-Dialysis 98.5 degF Standing Heart Rate Pre-Dialysis 67 BPM Temperature Pre-Dialysis 97.7 degF July 14, 2023 In-Center Hemodialysis Treatment [id number]:10:00.000Z [id number]:13:22.000Z BP Sitting (Pre-Dialysis) 178/94 mmHg BP Sitting (Post-Dialysis) 165/73 mmHg Concurrent Access: falseAV Fistula Upper Arm (Left) Arterial BP Standing (Pre-Dialysis) 178/76 mmHg BP Standing (P ost-Dialysis) 160/78 mmHg Sitting Heart Rate Pre-Dialysis 71 BPM Sitting Heart Rate Post-Dialysis 73 BPM Standing Heart Rate Pre-Dialysis 74 BPM Standing Heart Rate Post-Dialysis 76 BPM Temperature Pre-Dialysis 97.3 degF Temperature Post -Dialysis 97.8 degF July 12, 2023 In-Center Hemodialysis Treatment [id number]:21:22.000Z [id number]:21:22.000Z BP Sitting (Pre-Dialysis) 142/67 mmHg BP Sitting (Post-Dialysis) 147/64 mmHg Concurrent Access: falseAV Fistula Upper Arm (Left) Arterial BP Standing (Pre-Dialysis) 148/62 mmHg BP Standing (P ost-Dialysis) 135/67 mmHg Sitting Heart Rate Pre-Dialysis 71 BPM Sitting Heart Rate Post-Dialysis 74 BPM Standing Heart Rate Pre-Dialysis 73 BPM Standing Heart Rate Post-Dialysis 77 BPM Temperature Pre-Dialysis 97.8 degF Temperature Post -Dialysis 97.3 degF July 10, 2023 InCenter Hemodialysis Treatment [id number]:09:00.000Z [id number]:13:29.000Z BP Sitting (Pre-Dialysis) 148/75 mmHg BP Sitting (Post-Dialysis) 187/82 mmHg Concurrent Access: falseAV Fistula Upper Arm (Left) Arterial BP Standing (Pre-Dialysis) 157/71 mmHg BP Standing (P ost-Dialysis) 198/86 mmHg Sitting Heart Rate Pre-Dialysis 69 BPM Sitting Heart Rate Post-Dialysis 70 BPM Standing Heart Rate Pre-Dialysis 75 BPM Standing Heart Rate Post-Dialysis 71 BPM Temperature Pre-Dialysis 97.5 degF Temperature Post -Dialysis 97.8 degF July 07, 2023 InCenter Hemodialysis Treatment [id number]:12:00.000Z 5949-69-57D26:18:09.000Z BP Sitting (Pre-Dialysis) 147/64 mmHg BP Sitting (Post-Dialysis) 173/68 mmHg Concurrent Access: falseAV Fistula Upper Arm (Left) Arterial BP Standing (Pre-Dialysis) 147/63 mmHg BP Standing (P ost-Dialysis) 185/81 mmHg Sitting Heart Rate Pre-Dialysis 68 BPM Sitting Heart Rate Post-Dialysis 70 BPM Standing Heart Rate Pre-Dialysis 75 BPM Standing Heart Rate Post-Dialysis 74 BPM Temperature Pre-Dialysis 97.6 degF Temperature Post -Dialysis 97.9 degF July 05, 2023 In-Center Hemodialysis Treatment [id number]:15:00.000Z [id number]:21:49.000Z BP Sitting (Pre-Dialysis) 154/71 mmHg BP Sitting (Post-Dialysis) 161/77 mmHg Concurrent Access: falseAV Fistula Upper Arm (Left) Arterial BP Standing (Pre-Dialysis) 150/68 mmHg BP Standing (P ost-Dialysis) 167/85 mmHg Sitting Heart Rate Pre-Dialysis 72 BPM Sitting Heart Rate Post-Dialysis 72 BPM Standing Heart Rate Pre-Dialysis 75 BPM Standing Heart Rate Post-Dialysis 75 BPM Temperature Pre-Dialysis 97.3 degF Temperature Post -Dialysis 97.5 degF July 03, 2023 In-Center Hemodialysis Treatment [id number]:19:00.000Z [id number]:21:04.000Z BP Sitting (Pre-Dialysis) 151/73 mmHg BP Sitting (Post-Dialysis) 187/84 mmHg Concurrent Access: falseAV Fistula Upper Arm (Left) Arterial BP Standing (Pre-Dialysis) 151/67 mmHg BP Standing (P ost-Dialysis) 195/103 mmHg Sitting Heart Rate Pre-Dialysis 72 BPM Sitting Heart Rate Post-Dialysis 75 BPM Standing Heart Rate Pre-Dialysis 79 BPM Standing Heart Rate Post-Dialysis 78 BPM Temperature Pre-Dialysis 98.2 degF Temperature Post -Dialysis 98.1 degF June 30, 2023 In-Center Hemodialysis Treatment [id number]:22:39.000Z [id number]:54:19.000Z BP Sitting (Pre-Dialysis) 169/98 mmHg BP Sitting (Post-Dialysis) 144/75 mmHg Concurrent Access: falseAV Fistula Upper Arm (Left) Arterial BP Standing (Pre-Dialysis) 144/87 mmHg BP Standing (P ost-Dialysis) 144/69 mmHg Sitting Heart Rate Pre-Dialysis 73 BPM Sitting Heart Rate Post-Dialysis 75 BPM Standing Heart Rate Pre-Dialysis 79 BPM Standing Heart Rate Post-Dialysis 76 BPM Temperature Pre-Dialysis 98.2 degF Temperature Post -Dialysis 98.2 degF June 28, 2023 In-Center Hemodialysis Treatment [id number]:23:03.000Z [id number]:17:13.000Z BP Sitting (Pre-Dialysis) 142/70 mmHg BP Sitting (Post-Dialysis) 166/74 mmHg Concurrent Access: falseAV Fistula Upper Arm (Left) Arterial BP Standing (Pre-Dialysis) 140/73 mmHg Sitti ng Heart Rate Post-Dialysis 70 BPM Sitting Heart Rate Pre-Dialysis 70 BPM Temperatu re Post-Dialysis 97.8 degF Standing Heart Rate Pre-Dialysis 72 BPM Temperature Pre-Dialysis 98.4 degF June 26, 2023 In-Center Hemodialysis Treatment [id number]:12:00.000Z [id number]:29:38.000Z BP Sitting (Pre-Dialysis) 159/68 mmHg BP Sitting (Post-Dialysis) 173/78 mmHg Concurrent Access: falseAV Fistula Upper Arm (Left) Arterial BP Standing (Pre-Dialysis) 151/70 mmHg BP Standing (P ost-Dialysis) 177/80 mmHg Sitting Heart Rate Pre-Dialysis 70 BPM Sitting Heart Rate Post-Dialysis 73 BPM Standing Heart Rate Pre-Dialysis 75 BPM Standing Heart Rate Post-Dialysis 80 BPM Temperature Pre-Dialysis 98 degF Temperature Post -Dialysis 98.2 degF June 23, 2023 In-Center Hemodialysis Treatment [id number]:36:05.000Z [id number]:17:45.000Z BP Sitting (Pre-Dialysis) 178/84 mmHg BP Sitting (Post-Dialysis) 188/83 mmHg Concurrent Access: falseAV Fistula Upper Arm (Left) Arterial BP Standing (Pre-Dialysis) 181/80 mmHg BP Standing (P ost-Dialysis) 135/75 mmHg Sitting Heart Rate Pre-Dialysis 71 BPM Sitting Heart Rate Post-Dialysis 74 BPM Standing Heart Rate Pre-Dialysis 72 BPM Standing Heart Rate Post-Dialysis 79 BPM Temperature Pre-Dialysis 97.5 degF Temperature Post -Dialysis 97.3 degF June 21, 2023 In-Center Hemodialysis Treatment [id number]:19:00.000Z [id number]:23:51.000Z BP Sitting (Pre-Dialysis) 173/72 mmHg BP Sitting (Post-Dialysis) 186/77 mmHg Concurrent Access: falseAV Fistula Upper Arm (Left) Arterial BP Standing (Pre-Dialysis) 173/87 mmHg BP Standing (P ost-Dialysis) 175/85 mmHg Sitting Heart Rate Pre-Dialysis 66 BPM Sitting Heart Rate Post-Dialysis 70 BPM Standing Heart Rate Pre-Dialysis 70 BPM Standing Heart Rate Post-Dialysis 75 BPM Temperature Pre-Dialysis 98.2 degF Temperature Post -Dialysis 98.1 degF June 19, 2023 In-Center Hemodialysis Treatment [id number]:23:16.000Z [id number]:38:16.000Z BP Sitting (Pre-Dialysis) 177/92 mmHg BP Sitting (Post-Dialysis) 189/85 mmHg Concurrent Access: falseAV Fistula Upper Arm (Left) Arterial BP Standing (Pre-Dialysis) 173/83 mmHg BP Standing (P ost-Dialysis) 176/86 mmHg Sitting Heart Rate Pre-Dialysis 69 BPM Sitting Heart Rate Post-Dialysis 70 BPM Standing Heart Rate Pre-Dialysis 70 BPM Standing Heart Rate Post-Dialysis 75 BPM Temperature Pre-Dialysis 97.8 degF Temperature Post -Dialysis 98.2 degF June 16, 2023 In-Center Hemodialysis Treatment [id number]:16:00.000Z [id number]:28:39.000Z BP Sitting (Pre-Dialysis) 168/78 mmHg BP Sitting (Post-Dialysis) 163/76 mmHg Concurrent Access: falseAV Fistula Upper Arm (Left) Arterial BP Standing (Pre-Dialysis) 163/79 mmHg BP Standing (P ost-Dialysis) 153/82 mmHg Sitting Heart Rate Pre-Dialysis 74 BPM Sitting Heart Rate Post-Dialysis 70 BPM Standing Heart Rate Pre-Dialysis 72 BPM Standing Heart Rate Post-Dialysis 76 BPM Temperature Pre-Dialysis 98.3 degF Temperature Post -Dialysis 98.2 degF June 14, 2023 In-Center Hemodialysis Treatment [id number]:25:13.000Z [id number]:25:13.000Z BP Sitting (Pre-Dialysis) 200/82 mmHg BP Sitting (Post-Dialysis) 164/71 mmHg Concurrent Access: falseAV Fistula Upper Arm (Left) Arterial BP Standing (Pre-Dialysis) 207/87 mmHg Sitti ng Heart Rate Post-Dialysis 70 BPM Sitting Heart Rate Pre-Dialysis 69 BPM Temperatu re Post-Dialysis 97.9 degF Standing Heart Rate Pre-Dialysis 78 BPM Temperature Pre-Dialysis 97.9 degF June 12, 2023 In-Center Hemodialysis Treatment [id number]:23:30.000Z [id number]:25:10.000Z BP Sitting (Pre-Dialysis) 145/71 mmHg BP Sitting (Post-Dialysis) 154/71 mmHg Concurrent Access: falseAV Fistula Upper Arm (Left) Arterial BP Standing (Pre-Dialysis) 137/61 mmHg BP Standing (P ost-Dialysis) 154/78 mmHg Sitting Heart Rate Pre-Dialysis 72 BPM Sitting Heart Rate Post-Dialysis 74 BPM Standing Heart Rate Pre-Dialysis 73 BPM Standing Heart Rate Post-Dialysis 76 BPM Temperature Pre-Dialysis 98.4 degF Temperature Post -Dialysis 98.1 degF June 09, 2023 In-Center Hemodialysis Treatment [id number]:25:34.000Z [id number]:21:49.000Z BP Sitting (Pre-Dialysis) 145/77 mmHg BP Sitting (Post-Dialysis) 141/65 mmHg Concurrent Access: falseAV Fistula Upper Arm (Left) Arterial BP Standing (Pre-Dialysis) 156/68 mmHg BP Standing (P ost-Dialysis) 151/68 mmHg Sitting Heart Rate Pre-Dialysis 73 BPM Sitting Heart Rate Post-Dialysis 74 BPM Standing Heart Rate Pre-Dialysis 77 BPM Standing Heart Rate Post-Dialysis 76 BPM Temperature Pre-Dialysis 98.3 degF Temperature Post -Dialysis 98.4 degF June 07, 2023 In-Center Hemodialysis Treatment [id number]:16:00.000Z [id number]:17:31.000Z BP Sitting (Pre-Dialysis) 173/75 mmHg BP Sitting (Post-Dialysis) 160/77 mmHg Concurrent Access: falseAV Fistula Upper Arm (Left) Arterial BP Standing (Pre-Dialysis) 151/72 mmHg BP Standing (P ost-Dialysis) 147/73 mmHg Sitting Heart Rate Pre-Dialysis 72 BPM Sitting Heart Rate Post-Dialysis 74 BPM Standing Heart Rate Pre-Dialysis 76 BPM Standing Heart Rate Post-Dialysis 75 BPM Temperature Pre-Dialysis 97.9 degF Temperature Post -Dialysis 98.1 degF June 05, 2023 In-Center Hemodialysis Treatment [id number]:16:02.000Z 3809-47-12H51:16:02.000Z BP Sitting (Pre-Dialysis) 154/70 mmHg BP Sitting (Post-Dialysis) 164/74 mmHg Concurrent Access: falseAV Fistula Upper Arm (Left) Arterial BP Standing (Pre-Dialysis) 166/78 mmHg BP Standing (P ost-Dialysis) 171/77 mmHg Sitting Heart Rate Pre-Dialysis 71 BPM Sitting Heart Rate Post-Dialysis 70 BPM Standing Heart Rate Pre-Dialysis 83 BPM Standing Heart Rate Post-Dialysis 75 BPM Temperature Pre-Dialysis 97.7 degF Temperature Post -Dialysis 97.3 degF June 02, 2023 In-Center Hemodialysis Treatment [id number]:24:00.000Z [id number]:20:18.000Z BP Sitting (Pre-Dialysis) 166/68 mmHg BP Sitting (Post-Dialysis) 139/69 mmHg Concurrent Access: falseAV Fistula Upper Arm (Left) Arterial BP Standing (Pre-Dialysis) 164/74 mmHg BP Standing (P ost-Dialysis) 139/108 mmHg Sitting Heart Rate Pre-Dialysis 72 BPM Sitting Heart Rate Post-Dialysis 76 BPM Standing Heart Rate Pre-Dialysis 73 BPM Standing Heart Rate Post-Dialysis 77 BPM Temperature Pre-Dialysis 98 degF Temperature Post -Dialysis 98.2 degF May 31, 2023 In-Center Hemodialysis Treatment [id number]:22:39.000Z 7019-35-77R11:22:14.000Z BP Sitting (Pre-Dialysis) 172/76 mmHg BP Sitting (Post-Dialysis) 157/70 mmHg Concurrent Access: falseAV Fistula Upper Arm (Left) Arterial BP Standing (Pre-Dialysis) 162/75 mmHg BP Standing (P ost-Dialysis) 164/80 mmHg Sitting Heart Rate Pre-Dialysis 69 BPM Sitting Heart Rate Post-Dialysis 72 BPM Standing Heart Rate Pre-Dialysis 73 BPM Standing Heart Rate Post-Dialysis 77 BPM Temperature Pre-Dialysis 98 degF Temperature Post -Dialysis 97.7 degF May 29, 2023 In-Center Hemodialysis Treatment [id number]:19:08.000Z [id number]:24:58.000Z BP Sitting (Pre-Dialysis) 160/63 mmHg BP Sitting (Post-Dialysis) 183/86 mmHg Concurrent Access: falseAV Fistula Upper Arm (Left) Arterial BP Standing (Pre-Dialysis) 143/75 mmHg BP Standing (P ost-Dialysis) 182/96 mmHg Sitting Heart Rate Pre-Dialysis 72 BPM Sitting Heart Rate Post-Dialysis 77 BPM Standing Heart Rate Pre-Dialysis 80 BPM Standing Heart Rate Post-Dialysis 81 BPM Temperature Pre-Dialysis 97.6 degF Temperature Post -Dialysis 98.4 degF May 26, 2023 In-Center Hemodialysis Treatment [id number]:04:52.000Z [id number]:07:47.000Z BP Sitting (Pre-Dialysis) 136/80 mmHg BP Sitting (Post-Dialysis) 166/77 mmHg Concurrent Access: falseAV Fistula Upper Arm (Left) Arterial BP Standing (Pre-Dialysis) 147/68 mmHg Sitti ng Heart Rate Post-Dialysis 66 BPM Sitting Heart Rate Pre-Dialysis 82 BPM Temperatu re Post-Dialysis 97.9 degF Standing Heart Rate Pre-Dialysis 74 BPM Temperature Pre-Dialysis 97.6 degF May 24, 2023 In-Center Hemodialysis Treatment [id number]:22:00.000Z 2027-53-33Y13:21:25.000Z BP Sitting (Pre-Dialysis) 178/78 mmHg BP Sitting (Post-Dialysis) 156/67 mmHg Concurrent Access: falseAV Fistula Upper Arm (Left) Arterial BP Standing (Pre-Dialysis) 140/61 mmHg BP Standing (P ost-Dialysis) 156/70 mmHg Sitting Heart Rate Pre-Dialysis 68 BPM Sitting Heart Rate Post-Dialysis 70 BPM Standing Heart Rate Pre-Dialysis 68 BPM Standing Heart Rate Post-Dialysis 73 BPM Temperature Pre-Dialysis 98 degF Temperature Post -Dialysis 97.7 degF May 22, 2023 In-Center Hemodialysis Treatment [id number]:10:00.000Z [id number]:11:45.000Z BP Sitting (Pre-Dialysis) 131/64 mmHg BP Sitting (Post-Dialysis) 118/62 mmHg Concurrent Access: falseAV Fistula Upper Arm (Left) Arterial BP Standing (Pre-Dialysis) 127/57 mmHg Sitti ng Heart Rate Post-Dialysis 74 BPM Sitting Heart Rate Pre-Dialysis 72 BPM Temperatu re Post-Dialysis 97.9 degF Standing Heart Rate Pre-Dialysis 74 BPM Temperature Pre-Dialysis 97.2 degF May 19, 2023 In-Center Hemodialysis Treatment [id number]:16:00.000Z 7618-42-63S99:21:33.000Z BP Sitting (Pre-Dialysis) 174/78 mmHg BP Sitting (Post-Dialysis) 174/77 mmHg Concurrent Access: falseAV Fistula Upper Arm (Left) Arterial BP Standing (Pre-Dialysis) 162/71 mmHg BP Standing (P ost-Dialysis) 163/81 mmHg Sitting Heart Rate Pre-Dialysis 69 BPM Sitting Heart Rate Post-Dialysis 72 BPM Standing Heart Rate Pre-Dialysis 70 BPM Standing Heart Rate Post-Dialysis 75 BPM Temperature Pre-Dialysis 98.1 degF May 17, 2023 In-Center Hemodialysis Treatment [id number]:17:38.000Z 7615-87-69A13:20:08.000Z BP Sitting (Pre-Dialysis) 168/81 mmHg BP Sitting (Post-Dialysis) 154/75 mmHg Concurrent Access: falseAV Fistula Upper Arm (Left) Arterial BP Standing (Pre-Dialysis) 154/70 mmHg BP Standing (P ost-Dialysis) 148/69 mmHg Sitting Heart Rate Pre-Dialysis 67 BPM Sitting Heart Rate Post-Dialysis 69 BPM Standing Heart Rate Pre-Dialysis 75 BPM Standing Heart Rate Post-Dialysis 72 BPM Temperature Pre-Dialysis 97.2 degF Temperature Post -Dialysis 97.6 degF May 15, 2023 In-Center Hemodialysis Treatment [id number]:21:09.000Z 7636-12-88O57:31:34.000Z BP Sitting (Pre-Dialysis) 153/72 mmHg BP Sitting (Post-Dialysis) 145/68 mmHg Concurrent Access: falseAV Fistula Upper Arm (Left) Arterial BP Standing (Pre-Dialysis) 156/75 mmHg Sitti ng Heart Rate Post-Dialysis 69 BPM Sitting Heart Rate Pre-Dialysis 70 BPM Temperatu re Post-Dialysis 97.5 degF Standing Heart Rate Pre-Dialysis 81 BPM Temperature Pre-Dialysis 97.2 degF May 12, 2023 In-Center Hemodialysis Treatment [id number]:20:28.000Z 8649-46-73Y89:21:43.000Z BP Sitting (Pre-Dialysis) 158/63 mmHg BP Sitting (Post-Dialysis) 160/66 mmHg Concurrent Access: falseAV Fistula Upper Arm (Left) Arterial BP Standing (Pre-Dialysis) 151/73 mmHg Sitti ng Heart Rate Post-Dialysis 68 BPM Sitting Heart Rate Pre-Dialysis 64 BPM Temperatu re Post-Dialysis 97.2 degF Standing Heart Rate Pre-Dialysis 72 BPM Temperature Pre-Dialysis 97.2 degF May 10, 2023 In-Center Hemodialysis Treatment [id number]:17:00.000Z 9213-76-59P81:22:34.000Z BP Sitting (Pre-Dialysis) 160/76 mmHg BP Sitting (Post-Dialysis) 152/69 mmHg Concurrent Access: falseAV Fistula Upper Arm (Left) Arterial BP Standing (Pre-Dialysis) 144/67 mmHg BP Standing (P ost-Dialysis) 127/68 mmHg Sitting Heart Rate Pre-Dialysis 67 BPM Sitting Heart Rate Post-Dialysis 72 BPM Standing Heart Rate Pre-Dialysis 77 BPM Standing Heart Rate Post-Dialysis 78 BPM Temperature Pre-Dialysis 97.7 degF May 08, 2023 In-Center Hemodialysis Treatment [id number]:20:55.000Z 9749-79-15S20:20:30.000Z BP Sitting (Pre-Dialysis) 178/74 mmHg BP Sitting (Post-Dialysis) 156/66 mmHg Concurrent Access: falseAV Fistula Upper Arm (Left) Arterial BP Standing (Pre-Dialysis) 168/73 mmHg BP Standing (P ost-Dialysis) 164/77 mmHg Sitting Heart Rate Pre-Dialysis 68 BPM Sitting Heart Rate Post-Dialysis 68 BPM Standing Heart Rate Pre-Dialysis 74 BPM Standing Heart Rate Post-Dialysis 71 BPM Temperature Pre-Dialysis 97.9 degF Temperature Post -Dialysis 98.3 degF May 05, 2023 InCenter Hemodialysis Treatment 6469-44-40C94:06:00.000Z 6298-40-81I37:11:43.000Z BP Sitting (Pre-Dialysis) 162/76 mmHg BP Sitting (Post-Dialysis) 141/64 mmHg Concurrent Access: falseAV Fistula Upper Arm (Left) Arterial BP Standing (Pre-Dialysis) 163/78 mmHg BP Standing (P ost-Dialysis) 143/67 mmHg Sitting Heart Rate Pre-Dialysis 69 BPM Sitting Heart Rate Post-Dialysis 71 BPM Standing Heart Rate Pre-Dialysis 74 BPM Standing Heart Rate Post-Dialysis 73 BPM Temperature Pre-Dialysis 97.1 degF Temperature Post -Dialysis 97.2 degF May 03, 2023 InCenter Hemodialysis Treatment [id number]:21:23.000Z [id number]:23:53.000Z BP Sitting (Pre-Dialysis) 123/64 mmHg BP Sitting (Post-Dialysis) 151/67 mmHg Concurrent Access: falseAV Fistula Upper Arm (Left) Arterial BP Standing (Pre-Dialysis) 129/60 mmHg BP Standing (P ost-Dialysis) 133/74 mmHg Sitting Heart Rate Pre-Dialysis 71 BPM Sitting Heart Rate Post-Dialysis 68 BPM Standing Heart Rate Pre-Dialysis 69 BPM Standing Heart Rate Post-Dialysis 69 BPM Temperature Pre-Dialysis 98.3 degF Temperature Post -Dialysis 97.2 degF May 01, 2023 In-Center Hemodialysis Treatment [id number]:16:00.000Z 4844-49-86R48:21:12.000Z BP Sitting (Pre-Dialysis) 125/59 mmHg BP Sitting (Post-Dialysis) 137/64 mmHg Concurrent Access: falseAV Fistula Upper Arm (Left) Arterial BP Standing (Pre-Dialysis) 125/62 mmHg BP Standing (P ost-Dialysis) 142/61 mmHg Sitting Heart Rate Pre-Dialysis 70 BPM Sitting Heart Rate Post-Dialysis 68 BPM Standing Heart Rate Pre-Dialysis 65 BPM Standing Heart Rate Post-Dialysis 72 BPM Temperature Pre-Dialysis 97.9 degF Temperature Post -Dialysis 97.7 degF April 28, 2023 In-Center Hemodialysis Treatment [id number]:14:45.000Z 6702-56-54Q58:14:20.000Z BP Sitting (Pre-Dialysis) 175/79 mmHg BP Sitting (Post-Dialysis) 142/66 mmHg Concurrent Access: falseAV Fistula Upper Arm (Left) Arterial BP Standing (Pre-Dialysis) 170/83 mmHg Sitti ng Heart Rate Post-Dialysis 71 BPM Sitting Heart Rate Pre-Dialysis 70 BPM Temperatu re Post-Dialysis 98.2 degF Standing Heart Rate Pre-Dialysis 76 BPM Temperature Pre-Dialysis 97.7 degF April 26, 2023 In-Center Hemodialysis Treatment [id number]:19:00.000Z 8218-48-00E95:19:06.000Z BP Sitting (Pre-Dialysis) 169/83 mmHg BP Sitting (Post-Dialysis) 179/77 mmHg Concurrent Access: falseAV Fistula Upper Arm (Left) Arterial BP Standing (Pre-Dialysis) 167/86 mmHg BP Standing (P ost-Dialysis) 161/78 mmHg Sitting Heart Rate Pre-Dialysis 72 BPM Sitting Heart Rate Post-Dialysis 69 BPM Standing Heart Rate Pre-Dialysis 70 BPM Standing Heart Rate Post-Dialysis 73 BPM Temperature Pre-Dialysis 97.8 degF Temperature Post -Dialysis 97.4 degF April 24, 2023 In-Center Hemodialysis Treatment [id number]:50:00.000Z 8806-17-61Q80:25:03.000Z BP Sitting (Pre-Dialysis) 168/72 mmHg BP Sitting (Post-Dialysis) 141/69 mmHg Concurrent Access: falseAV Fistula Upper Arm (Left) Arterial BP Standing (Pre-Dialysis) 167/82 mmHg BP Standing (P ost-Dialysis) 141/73 mmHg Sitting Heart Rate Pre-Dialysis 71 BPM Sitting Heart Rate Post-Dialysis 77 BPM Standing Heart Rate Pre-Dialysis 76 BPM Standing Heart Rate Post-Dialysis 80 BPM Temperature Pre-Dialysis 97.3 degF Temperature Post -Dialysis 97.8 degF April 21, 2023 In-Center Hemodialysis Treatment [id number]:17:00.000Z 4785-71-48K31:23:42.000Z BP Sitting (Pre-Dialysis) 141/70 mmHg BP Sitting (Post-Dialysis) 163/76 mmHg Concurrent Access: falseAV Fistula Upper Arm (Left) Arterial BP Standing (Pre-Dialysis) 131/51 mmHg BP Standing (P ost-Dialysis) 155/76 mmHg Sitting Heart Rate Pre-Dialysis 71 BPM Sitting Heart Rate Post-Dialysis 67 BPM Standing Heart Rate Pre-Dialysis 76 BPM Standing Heart Rate Post-Dialysis 75 BPM Temperature Pre-Dialysis 98.1 degF Temperature Post -Dialysis 97.2 degF April 19, 2023 In-Center Hemodialysis Treatment 4087-04-86W69:01:00.000Z 4586-84-53R53:06:45.000Z BP Sitting (Pre-Dialysis) 148/63 mmHg BP Sitting (Post-Dialysis) 158/69 mmHg Concurrent Access: falseAV Fistula Upper Arm (Left) Arterial BP Standing (Pre-Dialysis) 110/81 mmHg BP Standing (P ost-Dialysis) 176/65 mmHg Sitting Heart Rate Pre-Dialysis 69 BPM Sitting Heart Rate Post-Dialysis 70 BPM Standing Heart Rate Pre-Dialysis 60 BPM Standing Heart Rate Post-Dialysis 75 BPM Temperature Pre-Dialysis 98 degF Temperature Post -Dialysis 97.9 degF April 17, 2023 In-Center Hemodialysis Treatment [id number]:20:00.000Z 7648-77-28S05:23:37.000Z BP Sitting (Pre-Dialysis) 147/63 mmHg BP Sitting (Post-Dialysis) 141/61 mmHg Concurrent Access: falseAV Fistula Upper Arm (Left) Arterial BP Standing (Pre-Dialysis) 145/67 mmHg Sitting Heart Rate Post-Dialysis 75 BPM Sitting Heart Rate Pre-Dialysis 75 BPM Temperatu re Post-Dialysis 98 degF Standing Heart Rate Pre-Dialysis 81 BPM Temperature Pre-Dialysis 97.8 degF April 14, 2023 In-Center Hemodialysis Treatment [id number]:20:49.000Z 0714-60-25W94:20:24.000Z BP Sitting (Pre-Dialysis) 152/64 mmHg BP Sitting (Post-Dialysis) 158/67 mmHg Concurrent Access: falseAV Fistula Upper Arm (Left) Arterial BP Standing (Pre-Dialysis) 158/74 mmHg BP Standing (P ost-Dialysis) 146/72 mmHg Sitting Heart Rate Pre-Dialysis 63 BPM Sitting Heart Rate Post-Dialysis 66 BPM Standing Heart Rate Pre-Dialysis 65 BPM Standing Heart Rate Post-Dialysis 71 BPM Temperature Pre-Dialysis 97.7 degF Temperature Post -Dialysis 97.6 degF April 12, 2023 In-Center Hemodialysis Treatment 4347-41-01Z83:20:00.000Z 0606-38-64J71:20:49.000Z BP Sitting (Pre-Dialysis) 173/66 mmHg BP Sitting (Post-Dialysis) 161/85 mmHg Concurrent Access: falseAV Fistula Upper Arm (Left) Arterial BP Standing (Pre-Dialysis) 175/70 mmHg BP Standing (P ost-Dialysis) 161/85 mmHg Sitting Heart Rate Pre-Dialysis 64 BPM Sitting Heart Rate Post-Dialysis 73 BPM Standing Heart Rate Pre-Dialysis 73 BPM Standing Heart Rate Post-Dialysis 73 BPM Temperature Pre-Dialysis 97.3 degF Temperature Post -Dialysis 97.9 degF April 10, 2023 In-Center Hemodialysis Treatment [id number]:19:00.000Z 2969-88-27V98:22:29.000Z BP Sitting (Pre-Dialysis) 126/54 mmHg BP Sitting (Post-Dialysis) 149/76 mmHg Concurrent Access: falseAV Fistula Upper Arm (Left) Arterial BP Standing (Pre-Dialysis) 124/62 mmHg Sitti ng Heart Rate Post-Dialysis 67 BPM Sitting Heart Rate Pre-Dialysis 69 BPM Temperatu re Post-Dialysis 97.4 degF Standing Heart Rate Pre-Dialysis 71 BPM Temperature Pre-Dialysis 98.3 degF April 07, 2023 In-Center Hemodialysis Treatment 2731-80-27H43:13:00.000Z 5131-93-96W47:01:05.000Z BP Sitting (Pre-Dialysis) 145/68 mmHg BP Sitting (Post-Dialysis) 155/66 mmHg Concurrent Access: falseAV Fistula Upper Arm (Left) Arterial BP Standing (Pre-Dialysis) 155/68 mmHg BP Standing (P ost-Dialysis) 152/68 mmHg Sitting Heart Rate Pre-Dialysis 68 BPM Sitting Heart Rate Post-Dialysis 67 BPM Standing Heart Rate Pre-Dialysis 79 BPM Standing Heart Rate Post-Dialysis 70 BPM Temperature Pre-Dialysis 98 degF Temperature Post -Dialysis 98 degF April 05, 2023 In-Center Hemodialysis Treatment [id number]:22:34.000Z 5377-44-67L37:25:04.000Z BP Sitting (Pre-Dialysis) 169/94 mmHg BP Sitting (Post-Dialysis) 188/87 mmHg Concurrent Access: falseAV Fistula Upper Arm (Left) Arterial BP Standing (Pre-Dialysis) 183/75 mmHg BP Standing (P ost-Dialysis) 194/78 mmHg Sitting Heart Rate Pre-Dialysis 72 BPM Sitting Heart Rate Post-Dialysis 69 BPM Standing Heart Rate Pre-Dialysis 80 BPM Standing Heart Rate Post-Dialysis 73 BPM Temperature Pre-Dialysis 97.6 degF Temperature Post -Dialysis 97.3 degF April 03, 2023 In-Center Hemodialysis Treatment [id number]:26:00.000Z [id number]:23:19.000Z BP Sitting (Pre-Dialysis) 174/79 mmHg BP Sitting (Post-Dialysis) 182/83 mmHg Concurrent Access: falseAV Fistula Upper Arm (Left) Arterial BP Standing (Pre-Dialysis) 173/69 mmHg Sitti ng Heart Rate Post-Dialysis 71 BPM Sitting Heart Rate Pre-Dialysis 77 BPM Temperatu re Post-Dialysis 97.9 degF Standing Heart Rate Pre-Dialysis 80 BPM Temperature Pre-Dialysis 97 degF March 31, 2023 In-Center Hemodialysis Treatment [id number]:17:00.000Z 3597-43-62H67:22:34.000Z BP Sitting (Pre-Dialysis) 125/66 mmHg BP Sitting (Post-Dialysis) 154/70 mmHg Concurrent Access: falseAV Fistula Upper Arm (Left) Arterial BP Standing (Pre-Dialysis) 125/62 mmHg BP Standing (P ost-Dialysis) 158/76 mmHg Sitting Heart Rate Pre-Dialysis 74 BPM Sitting Heart Rate Post-Dialysis 71 BPM Standing Heart Rate Pre-Dialysis 79 BPM Standing Heart Rate Post-Dialysis 73 BPM Temperature Pre-Dialysis 97.4 degF Temperature Post -Dialysis 97.6 degF March 29, 2023 In-Center Hemodialysis Treatment 4018-15-51W23:27:00.000Z 1585-09-21N43:21:16.000Z BP Sitting (Pre-Dialysis) 126/68 mmHg BP Sitting (Post-Dialysis) 143/63 mmHg Concurrent Access: falseAV Fistula Upper Arm (Left) Arterial BP Standing (Pre-Dialysis) 128/62 mmHg BP Standing (P ost-Dialysis) 143/72 mmHg Sitting Heart Rate Pre-Dialysis 72 BPM Sitting Heart Rate Post-Dialysis 68 BPM Standing Heart Rate Pre-Dialysis 74 BPM Standing Heart Rate Post-Dialysis 73 BPM Temperature Pre-Dialysis 96 degF Temperature Post -Dialysis 97.3 degF March 27, 2023 In-Center Hemodialysis Treatment [id number]:17:00.000Z [id number]:30:31.000Z BP Sitting (Pre-Dialysis) 188/81 mmHg BP Sitting (Post-Dialysis) 171/79 mmHg Concurrent Access: falseAV Fistula Upper Arm (Left) Arterial BP Standing (Pre-Dialysis) 167/80 mmHg Sitti ng Heart Rate Post-Dialysis 70 BPM Sitting Heart Rate Pre-Dialysis 71 BPM Temperatu re Post-Dialysis 98.1 degF Standing Heart Rate Pre-Dialysis 76 BPM Temperature Pre-Dialysis 97.9 degF March 24, 2023 In-Center Hemodialysis Treatment 4010-81-09B33:13:00.000Z 9579-76-03J02:18:47.000Z BP Sitting (Pre-Dialysis) 156/69 mmHg BP Sitting (Post-Dialysis) 170/75 mmHg Concurrent Access: falseAV Fistula Upper Arm (Left) Arterial BP Standing (Pre-Dialysis) 133/58 mmHg BP Standing (P ost-Dialysis) 151/73 mmHg Sitting Heart Rate Pre-Dialysis 71 BPM Sitting Heart Rate Post-Dialysis 76 BPM Standing Heart Rate Pre-Dialysis 73 BPM Standing Heart Rate Post-Dialysis 81 BPM Temperature Pre-Dialysis 97.5 degF Temperature Post -Dialysis 98.2 degF March 22, 2023 In-Center Hemodialysis Treatment 4919-26-19R02:16:53.000Z 1100-99-98Z79:15:13.000Z BP Sitting (Pre-Dialysis) 174/75 mmHg BP Sitting (Post-Dialysis) 182/81 mmHg Concurrent Access: falseAV Fistula Upper Arm (Left) Arterial BP Standing (Pre-Dialysis) 173/75 mmHg BP Standing (P ost-Dialysis) 162/77 mmHg Sitting Heart Rate Pre-Dialysis 70 BPM Sitting Heart Rate Post-Dialysis 70 BPM Standing Heart Rate Pre-Dialysis 72 BPM Standing Heart Rate Post-Dialysis 71 BPM Temperature Pre-Dialysis 97.9 degF Temperature Post -Dialysis 97.6 degF March 20, 2023 In-Center Hemodialysis Treatment [id number]:16:34.000Z [id number]:16:00.000Z BP Sitting (Pre-Dialysis) 149/70 mmHg BP Sitting (Post-Dialysis) 165/71 mmHg Concurrent Access: falseAV Fistula Upper Arm (Left) Arterial BP Standing (Pre-Dialysis) 146/65 mmHg BP Standing (P ost-Dialysis) 166/80 mmHg Sitting Heart Rate Pre-Dialysis 64 BPM Sitting Heart Rate Post-Dialysis 69 BPM Standing Heart Rate Pre-Dialysis 73 BPM Standing Heart Rate Post-Dialysis 71 BPM Temperature Pre-Dialysis 98.5 degF Temperature Post -Dialysis 97.3 degF March 17, 2023 In-Center Hemodialysis Treatment [id number]:02:00.000Z [id number]:01:54.000Z BP Sitting (Pre-Dialysis) 176/75 mmHg BP Sitting (Post-Dialysis) 166/75 mmHg Concurrent Access: falseAV Fistula Upper Arm (Left) Arterial BP Standing (Pre-Dialysis) 149/67 mmHg BP Standing (P ost-Dialysis) 178/95 mmHg Sitting Heart Rate Pre-Dialysis 69 BPM Sitting Heart Rate Post-Dialysis 70 BPM Standing Heart Rate Pre-Dialysis 70 BPM Standing Heart Rate Post-Dialysis 74 BPM Temperature Pre-Dialysis 97.2 degF Temperature Post -Dialysis 97.4 degF March 15, 2023 In-Center Hemodialysis Treatment [id number]:25:46.000Z [id number]:20:46.000Z BP Sitting (Pre-Dialysis) 156/68 mmHg BP Sitting (Post-Dialysis) 144/70 mmHg Concurrent Access: falseAV Fistula Upper Arm (Left) Arterial BP Standing (Pre-Dialysis) 140/65 mmHg Sitting Heart Rate Post-Dialysis 75 BPM Sitting Heart Rate Pre-Dialysis 69 BPM Temperatu re Post-Dialysis 98 degF Standing Heart Rate Pre-Dialysis 81 BPM Temperature Pre-Dialysis 97.6 degF March 13, 2023 In-Center Hemodialysis Treatment [id number]:15:20.000Z [id number]:15:20.000Z BP Sitting (Pre-Dialysis) 143/70 mmHg BP Sitting (Post-Dialysis) 132/67 mmHg Concurrent Access: falseAV Fistula Upper Arm (Left) Arterial BP Standing (Pre-Dialysis) 139/63 mmHg Sitting Heart Rate Post-Dialysis 76 BPM Sitting Heart Rate Pre-Dialysis 66 BPM Temperatu re Post-Dialysis 98 degF Standing Heart Rate Pre-Dialysis 78 BPM Temperature Pre-Dialysis 98.3 degF March 10, 2023 In-Center Hemodialysis Treatment [id number]:30:00.000Z [id number]:22:00.000Z BP Sitting (Pre-Dialysis) 183/77 mmHg BP Sitting (Post-Dialysis) 163/78 mmHg Concurrent Access: falseAV Fistula Upper Arm (Left) Arterial BP Standing (Pre-Dialysis) 182/78 mmHg BP Standing (P ost-Dialysis) 159/78 mmHg Sitting Heart Rate Pre-Dialysis 66 BPM Sitting Heart Rate Post-Dialysis 67 BPM Standing Heart Rate Pre-Dialysis 73 BPM Standing Heart Rate Post-Dialysis 70 BPM Temperature Pre-Dialysis 97.6 degF Temperature Post -Dialysis 97.9 degF March 08, 2023 In-Center Hemodialysis Treatment 9650-06-64P59:28:00.000Z [id number]:21:43.000Z BP Sitting (Pre-Dialysis) 152/79 mmHg BP Sitting (Post-Dialysis) 145/71 mmHg Concurrent Access: falseAV Fistula Upper Arm (Left) Arterial BP Standing (Pre-Dialysis) 152/72 mmHg BP Standing (P ost-Dialysis) 149/65 mmHg Sitting Heart Rate Pre-Dialysis 77 BPM Sitting Heart Rate Post-Dialysis 72 BPM Standing Heart Rate Pre-Dialysis 79 BPM Standing Heart Rate Post-Dialysis 80 BPM Temperature Pre-Dialysis 97 degF Temperature Post -Dialysis 97.7 degF March 06, 2023 In-Center Hemodialysis Treatment [id number]:20:17.000Z [id number]:19:52.000Z BP Sitting (Pre-Dialysis) 154/72 mmHg BP Sitting (Post-Dialysis) 144/65 mmHg Concurrent Access: falseAV Fistula Upper Arm (Left) Arterial BP Standing (Pre-Dialysis) 152/78 mmHg BP Standing (P ost-Dialysis) 144/70 mmHg Sitting Heart Rate Pre-Dialysis 72 BPM Sitting Heart Rate Post-Dialysis 73 BPM Standing Heart Rate Pre-Dialysis 77 BPM Standing Heart Rate Post-Dialysis 75 BPM Temperature Pre-Dialysis 97.2 degF Temperature Post -Dialysis 98.3 degF March 03, 2023 In-Center Hemodialysis Treatment [id number]:09:42.000Z [id number]:10:57.000Z BP Sitting (Pre-Dialysis) 173/73 mmHg BP Sitting (Post-Dialysis) 149/69 mmHg Concurrent Access: falseAV Fistula Upper Arm (Left) Arterial BP Standing (Pre-Dialysis) 149/70 mmHg BP Standing (P ost-Dialysis) 153/78 mmHg Sitting Heart Rate Pre-Dialysis 64 BPM Sitting Heart Rate Post-Dialysis 70 BPM Standing Heart Rate Pre-Dialysis 77 BPM Standing Heart Rate Post-Dialysis 71 BPM Temperature Pre-Dialysis 97.2 degF Temperature Post -Dialysis 97.1 degF March 01, 2023 In-Center Hemodialysis Treatment [id number]:18:52.000Z [id number]:27:00.000Z BP Sitting (Pre-Dialysis) 151/74 mmHg BP Sitting (Post-Dialysis) 149/72 mmHg Concurrent Access: falseAV Fistula Upper Arm (Left) Arterial BP Standing (Pre-Dialysis) 146/73 mmHg BP Standing (P ost-Dialysis) 144/71 mmHg Sitting Heart Rate Pre-Dialysis 73 BPM Sitting Heart Rate Post-Dialysis 74 BPM Standing Heart Rate Pre-Dialysis 77 BPM Standing Heart Rate Post-Dialysis 77 BPM Temperature Pre-Dialysis 97.8 degF Temperature Post -Dialysis 97.3 degF February 27, 2023 In-Center Hemodialysis Treatment [id number]:15:00.000Z [id number]:19:29.000Z BP Sitting (Pre-Dialysis) 168/82 mmHg BP Sitting (Post-Dialysis) 148/70 mmHg Concurrent Access: falseAV Fistula Upper Arm (Left) Arterial BP Standing (Pre-Dialysis) 171/76 mmHg BP Standing (P ost-Dialysis) 161/79 mmHg Sitting Heart Rate Pre-Dialysis 75 BPM Sitting Heart Rate Post-Dialysis 73 BPM Standing Heart Rate Pre-Dialysis 78 BPM Standing Heart Rate Post-Dialysis 76 BPM Temperature Pre-Dialysis 98.2 degF Temperature Post -Dialysis 97.9 degF February 24, 2023 In-Center Hemodialysis Treatment [id number]:09:00.000Z [id number]:12:05.000Z BP Sitting (Pre-Dialysis) 161/78 mmHg BP Sitting (Post-Dialysis) 140/72 mmHg Concurrent Access: falseAV Fistula Upper Arm (Left) Arterial BP Standing (Pre-Dialysis) 155/83 mmHg BP Standing (P ost-Dialysis) 137/73 mmHg Sitting Heart Rate Pre-Dialysis 71 BPM Sitting Heart Rate Post-Dialysis 70 BPM Standing Heart Rate Pre-Dialysis 73 BPM Standing Heart Rate Post-Dialysis 74 BPM Temperature Pre-Dialysis 98 degF Temperature Post -Dialysis 98 degF February 22, 2023 In-Center Hemodialysis Treatment [id number]:07:00.000Z [id number]:10:35.000Z BP Sitting (Pre-Dialysis) 169/83 mmHg BP Sitting (Post-Dialysis) 147/75 mmHg Concurrent Access: falseAV Fistula Upper Arm (Left) Arterial BP Standing (Pre-Dialysis) 154/74 mmHg BP Standing (P ost-Dialysis) 159/80 mmHg Sitting Heart Rate Pre-Dialysis 76 BPM Sitting Heart Rate Post-Dialysis 77 BPM Standing Heart Rate Pre-Dialysis 77 BPM Standing Heart Rate Post-Dialysis 80 BPM Temperature Pre-Dialysis 98.2 degF Temperature Post -Dialysis 97.3 degF February 20, 2023 In-Center Hemodialysis Treatment [id number]:24:03.000Z [id number]:18:13.000Z BP Sitting (Pre-Dialysis) 172/77 mmHg BP Sitting (Post-Dialysis) 149/72 mmHg Concurrent Access: falseAV Fistula Upper Arm (Left) Arterial BP Standing (Pre-Dialysis) 168/71 mmHg BP Standing (P ost-Dialysis) 138/69 mmHg Sitting Heart Rate Pre-Dialysis 72 BPM Sitting Heart Rate Post-Dialysis 75 BPM Standing Heart Rate Pre-Dialysis 76 BPM Standing Heart Rate Post-Dialysis 79 BPM Temperature Pre-Dialysis 98 degF Temperature Post -Dialysis 97.9 degF February 17, 2023 In-Center Hemodialysis Treatment [id number]:14:00.000Z [id number]:15:35.000Z BP Sitting (Pre-Dialysis) 159/76 mmHg BP Sitting (Post-Dialysis) 140/69 mmHg Concurrent Access: falseAV Fistula Upper Arm (Left) Arterial BP Standing (Pre-Dialysis) 174/78 mmHg BP Standing (P ost-Dialysis) 142/74 mmHg Sitting Heart Rate Pre-Dialysis 70 BPM Sitting Heart Rate Post-Dialysis 75 BPM Standing Heart Rate Pre-Dialysis 72 BPM Standing Heart Rate Post-Dialysis 79 BPM Temperature Pre-Dialysis 97.2 degF Temperature Post -Dialysis 98.2 degF February 15, 2023 In-Center Hemodialysis Treatment [id number]:06:00.000Z [id number]:10:26.000Z BP Sitting (Pre-Dialysis) 11/70 mmHg BP Sitting (Post-Dialysis) 186/87 mmHg Concurrent Access: falseAV Fistula Upper Arm (Left) Arterial BP Standing (Pre-Dialysis) 160/70 mmHg BP Standing (P ost-Dialysis) 182/90 mmHg Sitting Heart Rate Pre-Dialysis 75 BPM Sitting Heart Rate Post-Dialysis 75 BPM Standing Heart Rate Pre-Dialysis 80 BPM Standing Heart Rate Post-Dialysis 86 BPM Temperature Pre-Dialysis 98.2 degF Temperature Post -Dialysis 98.4 degF February 13, 2023 In-Center Hemodialysis Treatment [id number]:18:00.000Z [id number]:20:06.000Z BP Sitting (Pre-Dialysis) 152/71 mmHg BP Sitting (Post-Dialysis) 160/73 mmHg Concurrent Access: falseAV Fistula Upper Arm (Left) Arterial BP Standing (Pre-Dialysis) 145/65 mmHg BP Standing (P ost-Dialysis) 153/76 mmHg Sitting Heart Rate Pre-Dialysis 71 BPM Sitting Heart Rate Post-Dialysis 75 BPM Standing Heart Rate Pre-Dialysis 74 BPM Standing Heart Rate Post-Dialysis 78 BPM Temperature Pre-Dialysis 96.2 degF Temperature Post -Dialysis 97.3 degF February 10, 2023 In-Center Hemodialysis Treatment [id number]:09:00.000Z [id number]:13:33.000Z BP Sitting (Pre-Dialysis) 166/71 mmHg BP Sitting (Post-Dialysis) 193/84 mmHg Concurrent Access: falseAV Fistula Upper Arm (Left) Arterial BP Standing (Pre-Dialysis) 135/74 mmHg BP Standing (P ost-Dialysis) 144/69 mmHg Sitting Heart Rate Pre-Dialysis 68 BPM Sitting Heart Rate Post-Dialysis 72 BPM Standing Heart Rate Pre-Dialysis 70 BPM Standing Heart Rate Post-Dialysis 73 BPM Temperature Pre-Dialysis 98.5 degF February 08, 2023 In-Center Hemodialysis Treatment [id number]:07:00.000Z [id number]:11:28.000Z BP Sitting (Pre-Dialysis) 159/71 mmHg BP Sitting (Post-Dialysis) 164/77 mmHg Concurrent Access: falseAV Fistula Upper Arm (Left) Arterial BP Standing (Pre-Dialysis) 164/69 mmHg Sitti ng Heart Rate Post-Dialysis 70 BPM Sitting Heart Rate Pre-Dialysis 69 BPM Temperatu re Post-Dialysis 98.3 degF Standing Heart Rate Pre-Dialysis 72 BPM Temperature Pre-Dialysis 97.2 degF February 06, 2023 In-Center Hemodialysis Treatment [id number]:20:23.000Z [id number]:19:58.000Z BP Sitting (Pre-Dialysis) 132/67 mmHg BP Sitting (Post-Dialysis) 121/62 mmHg Concurrent Access: falseAV Fistula Upper Arm (Left) Arterial BP Standing (Pre-Dialysis) 134/63 mmHg Sitting Heart Rate Post-Dialysis 79 BPM Sitting Heart Rate Pre-Dialysis 72 BPM Temperatu re Post-Dialysis 97 degF Standing Heart Rate Pre-Dialysis 75 BPM Temperature Pre-Dialysis 96.5 degF February 03, 2023 In-Center Hemodialysis Treatment [id number]:17:32.000Z [id number]:17:32.000Z BP Sitting (Pre-Dialysis) 174/75 mmHg BP Sitting (Post-Dialysis) 158/74 mmHg Concurrent Access: falseAV Fistula Upper Arm (Left) Arterial BP Standing (Pre-Dialysis) 171/76 mmHg BP Standing (P ost-Dialysis) 164/73 mmHg Sitting Heart Rate Pre-Dialysis 67 BPM Sitting Heart Rate Post-Dialysis 73 BPM Standing Heart Rate Pre-Dialysis 74 BPM Standing Heart Rate Post-Dialysis 78 BPM Temperature Pre-Dialysis 97.4 degF Temperature Post -Dialysis 98.6 degF February 01, 2023 In-Center Hemodialysis Treatment 8923-67-10W52:14:00.000Z [id number]:16:26.000Z BP Sitting (Pre-Dialysis) 169/76 mmHg BP Sitting (Post-Dialysis) 136/64 mmHg Concurrent Access: falseAV Fistula Upper Arm (Left) Arterial BP Standing (Pre-Dialysis) 161/86 mmHg BP Standing (P ost-Dialysis) 137/69 mmHg Sitting Heart Rate Pre-Dialysis 64 BPM Sitting Heart Rate Post-Dialysis 74 BPM Standing Heart Rate Pre-Dialysis 72 BPM Standing Heart Rate Post-Dialysis 77 BPM Temperature Pre-Dialysis 98 degF Temperature Post -Dialysis 96.5 degF January 30, 2023 In-Center Hemodialysis Treatment [id number]:13:00.000Z [id number]:14:48.000Z BP Sitting (Pre-Dialysis) 159/73 mmHg BP Sitting (Post-Dialysis) 161/69 mmHg Concurrent Access: falseAV Fistula Upper Arm (Left) Arterial BP Standing (Pre-Dialysis) 157/77 mmHg BP Standing (P ost-Dialysis) 136/74 mmHg Sitting Heart Rate Pre-Dialysis 67 BPM Sitting Heart Rate Post-Dialysis 68 BPM Standing Heart Rate Pre-Dialysis 74 BPM Standing Heart Rate Post-Dialysis 72 BPM Temperature Pre-Dialysis 98.2 degF Temperature Post -Dialysis 98 degF January 27, 2023 In-Center Hemodialysis Treatment [id number]:17:00.000Z [id number]:18:54.000Z BP Sitting (Pre-Dialysis) 156/67 mmHg BP Sitting (Post-Dialysis) 138/69 mmHg Concurrent Access: falseAV Fistula Upper Arm (Left) Arterial BP Standing (Pre-Dialysis) 150/76 mmHg BP Standing (P ost-Dialysis) 137/67 mmHg Sitting Heart Rate Pre-Dialysis 67 BPM Sitting Heart Rate Post-Dialysis 70 BPM Standing Heart Rate Pre-Dialysis 66 BPM Standing Heart Rate Post-Dialysis 74 BPM Temperature Pre-Dialysis 98.5 degF Temperature Post -Dialysis 98.5 degF January 25, 2023 In-Center Hemodialysis Treatment [id number]:20:01.000Z [id number]:20:26.000Z BP Sitting (Pre-Dialysis) 146/70 mmHg BP Sitting (Post-Dialysis) 137/71 mmHg Concurrent Access: falseAV Fistula Upper Arm (Left) Arterial BP Standing (Pre-Dialysis) 151/75 mmHg BP Standing (P ost-Dialysis) 134/67 mmHg Sitting Heart Rate Pre-Dialysis 77 BPM Sitting Heart Rate Post-Dialysis 79 BPM Standing Heart Rate Pre-Dialysis 77 BPM Standing Heart Rate Post-Dialysis 81 BPM Temperature Pre-Dialysis 97.6 degF Temperature Post -Dialysis 98 degF January 23, 2023 In-Center Hemodialysis Treatment [id number]:17:00.000Z 1356-31-05X18:19:54.000Z BP Sitting (Pre-Dialysis) 138/84 mmHg BP Sitting (Post-Dialysis) 140/69 mmHg Concurrent Access: falseAV Fistula Upper Arm (Left) Arterial BP Standing (Pre-Dialysis) 148/65 mmHg BP Standing (P ost-Dialysis) 137/67 mmHg Sitting Heart Rate Pre-Dialysis 70 BPM Sitting Heart Rate Post-Dialysis 80 BPM Standing Heart Rate Pre-Dialysis 71 BPM Standing Heart Rate Post-Dialysis 82 BPM Temperature Pre-Dialysis 97.2 degF Temperature Post -Dialysis 98.7 degF January 20, 2023 In-Center Hemodialysis Treatment [id number]:44:15.000Z 1830-05-03X59:48:00.000Z BP Sitting (Pre-Dialysis) 182/79 mmHg BP Sitting (Post-Dialysis) 161/65 mmHg Concurrent Access: falseAV Fistula Upper Arm (Left) Arterial BP Standing (Pre-Dialysis) 178/64 mmHg BP Standing (P ost-Dialysis) 170/78 mmHg Sitting Heart Rate Pre-Dialysis 72 BPM Sitting Heart Rate Post-Dialysis 75 BPM Standing Heart Rate Pre-Dialysis 77 BPM Standing Heart Rate Post-Dialysis 79 BPM Temperature Pre-Dialysis 97.2 degF Temperature Post -Dialysis 98 degF January 18, 2023 In-Center Hemodialysis Treatment [id number]:21:00.000Z [id number]:22:56.000Z BP Sitting (Pre-Dialysis) 173/74 mmHg BP Sitting (Post-Dialysis) 184/88 mmHg Concurrent Access: falseAV Fistula Upper Arm (Left) Arterial BP Standing (Pre-Dialysis) 173/67 mmHg BP Standing (P ost-Dialysis) 175/83 mmHg Sitting Heart Rate Pre-Dialysis 64 BPM Sitting Heart Rate Post-Dialysis 68 BPM Standing Heart Rate Pre-Dialysis 70 BPM Standing Heart Rate Post-Dialysis 76 BPM Temperature Pre-Dialysis 97.5 degF Temperature Post -Dialysis 97.2 degF January 16, 2023 In-Center Hemodialysis Treatment 4891-07-90H57:15:00.000Z [id number]:18:14.000Z BP Sitting (Pre-Dialysis) 137/62 mmHg BP Sitting (Post-Dialysis) 149/74 mmHg Concurrent Access: falseAV Fistula Upper Arm (Left) Arterial BP Standing (Pre-Dialysis) 144/68 mmHg BP Standing (P ost-Dialysis) 144/73 mmHg Sitting Heart Rate Pre-Dialysis 69 BPM Sitting Heart Rate Post-Dialysis 70 BPM Standing Heart Rate Pre-Dialysis 68 BPM Standing Heart Rate Post-Dialysis 75 BPM Temperature Pre-Dialysis 98 degF Temperature Post -Dialysis 98.1 degF January 13, 2023 In-Center Hemodialysis Treatment [id number]:12:00.000Z 1893-58-88Y86:18:58.000Z BP Sitting (Pre-Dialysis) 163/75 mmHg BP Sitting (Post-Dialysis) 156/76 mmHg Concurrent Access: falseAV Fistula Upper Arm (Left) Arterial BP Standing (Pre-Dialysis) 163/82 mmHg BP Standing (P ost-Dialysis) 147/72 mmHg Sitting Heart Rate Pre-Dialysis 72 BPM Sitting Heart Rate Post-Dialysis 75 BPM Standing Heart Rate Pre-Dialysis 75 BPM Standing Heart Rate Post-Dialysis 75 BPM Temperature Pre-Dialysis 98.7 degF Temperature Post -Dialysis 98.6 degF January 11, 2023 In-Center Hemodialysis Treatment [id number]:17:00.000Z [id number]:21:38.000Z BP Sitting (Pre-Dialysis) 149/71 mmHg BP Sitting (Post-Dialysis) 158/71 mmHg Concurrent Access: falseAV Fistula Upper Arm (Left) Arterial BP Standing (Pre-Dialysis) 151/76 mmHg BP Standing (P ost-Dialysis) 152/66 mmHg Sitting Heart Rate Pre-Dialysis 66 BPM Sitting Heart Rate Post-Dialysis 71 BPM Standing Heart Rate Pre-Dialysis 73 BPM Standing Heart Rate Post-Dialysis 74 BPM Temperature Pre-Dialysis 98.3 degF Temperature Post -Dialysis 99.2 degF January 09, 2023 In-Center Hemodialysis Treatment 5615-54-24S71:26:00.000Z 8506-47-44W41:30:46.000Z BP Sitting (Pre-Dialysis) 181/68 mmHg BP Sitting (Post-Dialysis) 146/63 mmHg Concurrent Access: falseAV Fistula Upper Arm (Left) Arterial BP Standing (Pre-Dialysis) 158/70 mmHg BP Standing (P ost-Dialysis) 135/64 mmHg Sitting Heart Rate Pre-Dialysis 69 BPM Sitting Heart Rate Post-Dialysis 77 BPM Standing Heart Rate Pre-Dialysis 76 BPM Standing Heart Rate Post-Dialysis 78 BPM Temperature Pre-Dialysis 97.1 degF Temperature Post -Dialysis 97.6 degF January 06, 2023 In-Center Hemodialysis Treatment [id number]:20:00.000Z [id number]:21:40.000Z BP Sitting (Pre-Dialysis) 148/72 mmHg BP Sitting (Post-Dialysis) 131/63 mmHg Concurrent Access: falseAV Fistula Upper Arm (Left) Arterial BP Standing (Pre-Dialysis) 147/70 mmHg BP Standing (P ost-Dialysis) 122/65 mmHg Sitting Heart Rate Pre-Dialysis 73 BPM Sitting Heart Rate Post-Dialysis 77 BPM Standing Heart Rate Pre-Dialysis 77 BPM Standing Heart Rate Post-Dialysis 80 BPM Temperature Pre-Dialysis 97.8 degF Temperature Post -Dialysis 97.8 degF January 03, 2023 In-Center Hemodialysis Treatment [id number]:10:00.000Z [id number]:23:07.000Z BP Sitting (Pre-Dialysis) 161/76 mmHg BP Sitting (Post-Dialysis) 150/66 mmHg Concurrent Access: falseAV Fistula Upper Arm (Left) Arterial BP Standing (Pre-Dialysis) 155/69 mmHg Sitti ng Heart Rate Post-Dialysis 73 BPM Sitting Heart Rate Pre-Dialysis 68 BPM Temperatu re Post-Dialysis 97.7 degF Standing Heart Rate Pre-Dialysis 71 BPM Temperature Pre-Dialysis 98.1 degF January 01, 2023 In-Center Hemodialysis Treatment [id number]:23:00.000Z 6190-48-04P70:27:37.000Z BP Sitting (Pre-Dialysis) 164/72 mmHg BP Sitting (Post-Dialysis) 151/68 mmHg Concurrent Access: falseAV Fistula Upper Arm (Left) Arterial BP Standing (Pre-Dialysis) 167/72 mmHg BP Standing (P ost-Dialysis) 151/71 mmHg Sitting Heart Rate Pre-Dialysis 76 BPM Sitting Heart Rate Post-Dialysis 74 BPM Standing Heart Rate Pre-Dialysis 78 BPM Standing Heart Rate Post-Dialysis 76 BPM Temperature Pre-Dialysis 98.3 degF Temperature Post -Dialysis 97.8 degF December 30, 2022 In-Center Hemodialysis Treatment [id number]:22:00.000Z 1529-42-81Q51:20:54.000Z BP Sitting (Pre-Dialysis) 156/64 mmHg BP Sitting (Post-Dialysis) 148/74 mmHg Concurrent Access: falseAV Fistula Upper Arm (Left) Arterial BP Standing (Pre-Dialysis) 149/65 mmHg BP Standing (P ost-Dialysis) 142/72 mmHg Sitting Heart Rate Pre-Dialysis 67 BPM Sitting Heart Rate Post-Dialysis 74 BPM Standing Heart Rate Pre-Dialysis 69 BPM Standing Heart Rate Post-Dialysis 76 BPM Temperature Pre-Dialysis 97.9 degF Temperature Post -Dialysis 98.5 degF December 26, 2022 In-Center Hemodialysis Treatment [id number]:14:00.000Z 0313-21-49N91:20:55.000Z BP Sitting (Pre-Dialysis) 156/74 mmHg BP Sitting (Post-Dialysis) 160/70 mmHg Concurrent Access: falseAV Fistula Upper Arm (Left) Arterial BP Standing (Pre-Dialysis) 153/80 mmHg BP Standing (P ost-Dialysis) 162/75 mmHg Sitting Heart Rate Pre-Dialysis 67 BPM Sitting Heart Rate Post-Dialysis 70 BPM Standing Heart Rate Pre-Dialysis 71 BPM Standing Heart Rate Post-Dialysis 71 BPM Temperature Pre-Dialysis 97.7 degF Temperature Post -Dialysis 97.8 degF December 23, 2022 In-Center Hemodialysis Treatment [id number]:17:44.000Z 0099-00-13C30:17:44.000Z BP Sitting (Pre-Dialysis) 158/70 mmHg BP Sitting (Post-Dialysis) 168/79 mmHg Concurrent Access: falseAV Fistula Upper Arm (Left) Arterial BP Standing (Pre-Dialysis) 149/68 mmHg Sitti ng Heart Rate Post-Dialysis 68 BPM Sitting Heart Rate Pre-Dialysis 68 BPM Temperatu re Post-Dialysis 97.6 degF Standing Heart Rate Pre-Dialysis 70 BPM Temperature Pre-Dialysis 97.5 degF December 21, 2022 In-Center Hemodialysis Treatment 7599-10-05H58:15:00.000Z 6681-51-54W01:21:14.000Z BP Sitting (Pre-Dialysis) 139/69 mmHg BP Sitting (Post-Dialysis) 142/62 mmHg Concurrent Access: falseAV Fistula Upper Arm (Left) Arterial BP Standing (Pre-Dialysis) 123/56 mmHg BP Standing (P ost-Dialysis) 154/67 mmHg Sitting Heart Rate Pre-Dialysis 70 BPM Sitting Heart Rate Post-Dialysis 72 BPM Standing Heart Rate Pre-Dialysis 70 BPM Standing Heart Rate Post-Dialysis 75 BPM Temperature Pre-Dialysis 97.2 degF December 19, 2022 In-Center Hemodialysis Treatment 4038-04-13U30:30:00.000Z 5519-97-28Z09:21:42.000Z BP Sitting (Pre-Dialysis) 159/77 mmHg BP Sitting (Post-Dialysis) 155/71 mmHg Concurrent Access: falseAV Fistula Upper Arm (Left) Arterial BP Standing (Pre-Dialysis) 156/72 mmHg BP Standing (P ost-Dialysis) 164/83 mmHg Sitting Heart Rate Pre-Dialysis 71 BPM Sitting Heart Rate Post-Dialysis 75 BPM Standing Heart Rate Pre-Dialysis 71 BPM Standing Heart Rate Post-Dialysis 80 BPM Temperature Pre-Dialysis 97.1 degF Temperature Post -Dialysis 98 degF December 16, 2022 In-Center Hemodialysis Treatment [id number]:10:00.000Z [id number]:18:52.000Z BP Sitting (Pre-Dialysis) 148/68 mmHg BP Sitting (Post-Dialysis) 167/71 mmHg Concurrent Access: falseAV Fistula Upper Arm (Left) Arterial BP Standing (Pre-Dialysis) 147/66 mmHg BP Standing (P ost-Dialysis) 172/86 mmHg Sitting Heart Rate Pre-Dialysis 68 BPM Sitting Heart Rate Post-Dialysis 74 BPM Standing Heart Rate Pre-Dialysis 69 BPM Standing Heart Rate Post-Dialysis 78 BPM Temperature Pre-Dialysis 98 degF Temperature Post -Dialysis 97.9 degF December 14, 2022 In-Center Hemodialysis Treatment [id number]:09:50.000Z [id number]:16:55.000Z BP Sitting (Pre-Dialysis) 157/74 mmHg BP Sitting (Post-Dialysis) 129/72 mmHg Concurrent Access: falseAV Fistula Upper Arm (Left) Arterial BP Standing (Pre-Dialysis) 149/71 mmHg BP Standing (P ost-Dialysis) 118/74 mmHg Sitting Heart Rate Pre-Dialysis 77 BPM Sitting Heart Rate Post-Dialysis 79 BPM Standing Heart Rate Pre-Dialysis 81 BPM Standing Heart Rate Post-Dialysis 82 BPM Temperature Pre-Dialysis 97.2 degF Temperature Post -Dialysis 97.6 degF December 12, 2022 In-Center Hemodialysis Treatment [id number]:26:00.000Z 1112-81-91O29:59:28.000Z BP Sitting (Pre-Dialysis) 164/69 mmHg BP Sitting (Post-Dialysis) 159/68 mmHg Concurrent Access: falseAV Fistula Upper Arm (Left) Arterial BP Standing (Pre-Dialysis) 172/73 mmHg BP Standing (P ost-Dialysis) 167/77 mmHg Sitting Heart Rate Pre-Dialysis 67 BPM Sitting Heart Rate Post-Dialysis 74 BPM Standing Heart Rate Pre-Dialysis 73 BPM Standing Heart Rate Post-Dialysis 80 BPM Temperature Pre-Dialysis 98.3 degF Temperature Post -Dialysis 98.3 degF December 09, 2022 In-Center Hemodialysis Treatment [id number]:29:00.000Z 1343-82-57T56:22:40.000Z BP Sitting (Pre-Dialysis) 127/66 mmHg BP Sitting (Post-Dialysis) 131/64 mmHg Concurrent Access: falseAV Fistula Upper Arm (Left) Arterial BP Standing (Pre-Dialysis) 122/49 mmHg BP Standing (P ost-Dialysis) 158/86 mmHg Sitting Heart Rate Pre-Dialysis 69 BPM Sitting Heart Rate Post-Dialysis 74 BPM Standing Heart Rate Pre-Dialysis 73 BPM Standing Heart Rate Post-Dialysis 78 BPM Temperature Pre-Dialysis 98 degF Temperature Post -Dialysis 97.7 degF December 07, 2022 In-Center Hemodialysis Treatment 3215-11-16J62:59:55.000Z 0741-01-38E39:00:18.000Z BP Sitting (Pre-Dialysis) 163/71 mmHg BP Sitting (Post-Dialysis) 168/72 mmHg Concurrent Access: falseAV Fistula Upper Arm (Left) Arterial BP Standing (Pre-Dialysis) 161/72 mmHg BP Standing (P ost-Dialysis) 164/81 mmHg Sitting Heart Rate Pre-Dialysis 62 BPM Sitting Heart Rate Post-Dialysis 69 BPM Standing Heart Rate Pre-Dialysis 74 BPM Standing Heart Rate Post-Dialysis 73 BPM Temperature Pre-Dialysis 97.6 degF Temperature Post -Dialysis 97.7 degF December 05, 2022 In-Center Hemodialysis Treatment [id number]:25:00.000Z [id number]:23:47.000Z BP Sitting (Pre-Dialysis) 182/78 mmHg BP Sitting (Post-Dialysis) 154/75 mmHg Concurrent Access: falseAV Fistula Upper Arm (Left) Arterial BP Standing (Pre-Dialysis) 163/78 mmHg BP Standing (P ost-Dialysis) 166/84 mmHg Sitting Heart Rate Pre-Dialysis 72 BPM Sitting Heart Rate Post-Dialysis 82 BPM Standing Heart Rate Pre-Dialysis 78 BPM Standing Heart Rate Post-Dialysis 85 BPM Temperature Pre-Dialysis 98 degF Temperature Post -Dialysis 97.3 degF December 02, 2022 In-Center Hemodialysis Treatment [id number]:17:08.000Z [id number]:17:08.000Z BP Sitting (Pre-Dialysis) 142/72 mmHg BP Sitting (Post-Dialysis) 171/76 mmHg Concurrent Access: falseAV Fistula Upper Arm (Left) Arterial BP Standing (Pre-Dialysis) 148/67 mmHg BP Standing (P ost-Dialysis) 173/80 mmHg Sitting Heart Rate Pre-Dialysis 78 BPM Sitting Heart Rate Post-Dialysis 69 BPM Standing Heart Rate Pre-Dialysis 73 BPM Standing Heart Rate Post-Dialysis 72 BPM Temperature Pre-Dialysis 98.2 degF Temperature Post -Dialysis 97.7 degF November 30, 2022 In-Center Hemodialysis Treatment [id number]:01:44.000Z [id number]:03:50.000Z BP Sitting (Pre-Dialysis) 143/70 mmHg BP Sitting (Post-Dialysis) 169/82 mmHg Concurrent Access: falseAV Fistula Upper Arm (Left) Arterial BP Standing (Pre-Dialysis) 128/73 mmHg Sitti ng Heart Rate Post-Dialysis 68 BPM Sitting Heart Rate Pre-Dialysis 73 BPM Temperatu re Post-Dialysis 97.8 degF Standing Heart Rate Pre-Dialysis 82 BPM Temperature Pre-Dialysis 97.3 degF November 28, 2022 In-Center Hemodialysis Treatment [id number]:24:29.000Z [id number]:22:00.000Z BP Sitting (Pre-Dialysis) 117/57 mmHg BP Sitting (Post-Dialysis) 112/56 mmHg Concurrent Access: falseAV Fistula Upper Arm (Left) Arterial BP Standing (Pre-Dialysis) 105/47 mmHg BP Standing (P ost-Dialysis) 109/60 mmHg Sitting Heart Rate Pre-Dialysis 68 BPM Sitting Heart Rate Post-Dialysis 74 BPM Standing Heart Rate Pre-Dialysis 68 BPM Standing Heart Rate Post-Dialysis 81 BPM Temperature Pre-Dialysis 97.5 degF Temperature Post -Dialysis 97.3 degF November 25, 2022 In-Center Hemodialysis Treatment [id number]:22:18.000Z [id number]:25:38.000Z BP Sitting (Pre-Dialysis) 177/74 mmHg BP Sitting (Post-Dialysis) 183/75 mmHg Concurrent Access: falseAV Fistula Upper Arm (Left) Arterial BP Standing (Pre-Dialysis) 154/79 mmHg BP Standing (P ost-Dialysis) 193/92 mmHg Sitting Heart Rate Pre-Dialysis 63 BPM Sitting Heart Rate Post-Dialysis 71 BPM Standing Heart Rate Pre-Dialysis 72 BPM Standing Heart Rate Post-Dialysis 74 BPM Temperature Pre-Dialysis 97.3 degF Temperature Post -Dialysis 97.3 degF November 23, 2022 In-Center Hemodialysis Treatment [id number]:19:37.000Z [id number]:19:12.000Z BP Sitting (Pre-Dialysis) 159/66 mmHg BP Sitting (Post-Dialysis) 166/75 mmHg Concurrent Access: falseAV Fistula Upper Arm (Left) Arterial BP Standing (Pre-Dialysis) 155/75 mmHg BP Standing (P ost-Dialysis) 172/86 mmHg Sitting Heart Rate Pre-Dialysis 72 BPM Sitting Heart Rate Post-Dialysis 75 BPM Standing Heart Rate Pre-Dialysis 70 BPM Standing Heart Rate Post-Dialysis 77 BPM Temperature Pre-Dialysis 97.3 degF Temperature Post -Dialysis 97.1 degF November 21, 2022 In-Center Hemodialysis Treatment [id number]:06:00.000Z [id number]:08:44.000Z BP Sitting (Pre-Dialysis) 149/70 mmHg BP Sitting (Post-Dialysis) 130/80 mmHg Concurrent Access: falseAV Fistula Upper Arm (Left) Arterial BP Standing (Pre-Dialysis) 147/71 mmHg BP Standing (P ost-Dialysis) 133/72 mmHg Sitting Heart Rate Pre-Dialysis 71 BPM Sitting Heart Rate Post-Dialysis 80 BPM Standing Heart Rate Pre-Dialysis 73 BPM Standing Heart Rate Post-Dialysis 83 BPM Temperature Pre-Dialysis 98.4 degF Temperature Post -Dialysis 98.3 degF November 18, 2022 In-Center Hemodialysis Treatment [id number]:10:00.000Z [id number]:14:28.000Z BP Sitting (Pre-Dialysis) 157/75 mmHg BP Sitting (Post-Dialysis) 152/75 mmHg Concurrent Access: falseAV Fistula Upper Arm (Left) Arterial BP Standing (Pre-Dialysis) 161/77 mmHg BP Standing (P ost-Dialysis) 145/74 mmHg Sitting Heart Rate Pre-Dialysis 67 BPM Sitting Heart Rate Post-Dialysis 73 BPM Standing Heart Rate Pre-Dialysis 70 BPM Standing Heart Rate Post-Dialysis 79 BPM Temperature Pre-Dialysis 98.3 degF Temperature Post -Dialysis 98 degF November 16, 2022 In-Center Hemodialysis Treatment [id number]:21:01.000Z [id number]:26:01.000Z BP Sitting (Pre-Dialysis) 153/71 mmHg BP Sitting (Post-Dialysis) 142/60 mmHg Concurrent Access: falseAV Fistula Upper Arm (Left) Arterial BP Standing (Pre-Dialysis) 155/79 mmHg BP Standing (P ost-Dialysis) 142/66 mmHg Sitting Heart Rate Pre-Dialysis 64 BPM Sitting Heart Rate Post-Dialysis 77 BPM Standing Heart Rate Pre-Dialysis 71 BPM Standing Heart Rate Post-Dialysis 80 BPM Temperature Pre-Dialysis 98.1 degF Temperature Post -Dialysis 98 degF November 14, 2022 In-Center Hemodialysis Treatment [id number]:04:13.000Z [id number]:04:27.000Z BP Sitting (Pre-Dialysis) 159/76 mmHg BP Sitting (Post-Dialysis) 181/78 mmHg Concurrent Access: falseAV Fistula Upper Arm (Left) Arterial BP Standing (Pre-Dialysis) 158/70 mmHg BP Standing (P ost-Dialysis) 169/81 mmHg Sitting Heart Rate Pre-Dialysis 81 BPM Sitting Heart Rate Post-Dialysis 74 BPM Standing Heart Rate Pre-Dialysis 89 BPM Standing Heart Rate Post-Dialysis 79 BPM Temperature Pre-Dialysis 97.7 degF Temperature Post -Dialysis 97 degF November 11, 2022 In-Center Hemodialysis Treatment [id number]:25:00.000Z [id number]:19:27.000Z BP Sitting (Pre-Dialysis) 144/71 mmHg BP Sitting (Post-Dialysis) 147/62 mmHg Concurrent Access: falseAV Fistula Upper Arm (Left) Arterial BP Standing (Pre-Dialysis) 143/60 mmHg BP Standing (P ost-Dialysis) 136/68 mmHg Sitting Heart Rate Pre-Dialysis 68 BPM Sitting Heart Rate Post-Dialysis 73 BPM Standing Heart Rate Pre-Dialysis 72 BPM Standing Heart Rate Post-Dialysis 75 BPM Temperature Pre-Dialysis 98.5 degF Temperature Post -Dialysis 98.6 degF November 09, 2022 In-Center Hemodialysis Treatment [id number]:18:15.000Z [id number]:18:40.000Z BP Sitting (Pre-Dialysis) 135/63 mmHg BP Sitting (Post-Dialysis) 145/71 mmHg Concurrent Access: falseAV Fistula Upper Arm (Left) Arterial BP Standing (Pre-Dialysis) 122/59 mmHg BP Standing (P ost-Dialysis) 135/61 mmHg Sitting Heart Rate Pre-Dialysis 65 BPM Sitting Heart Rate Post-Dialysis 69 BPM Standing Heart Rate Pre-Dialysis 66 BPM Standing Heart Rate Post-Dialysis 71 BPM Temperature Pre-Dialysis 96.1 degF Temperature Post -Dialysis 97 degF November 07, 2022 In-Center Hemodialysis Treatment [id number]:22:07.000Z [id number]:21:42.000Z BP Sitting (Pre-Dialysis) 123/59 mmHg BP Sitting (Post-Dialysis) 138/66 mmHg Concurrent Access: falseAV Fistula Upper Arm (Left) Arterial BP Standing (Pre-Dialysis) 135/63 mmHg BP Standing (P ost-Dialysis) 131/65 mmHg Sitting Heart Rate Pre-Dialysis 68 BPM Sitting Heart Rate Post-Dialysis 76 BPM Standing Heart Rate Pre-Dialysis 71 BPM Standing Heart Rate Post-Dialysis 79 BPM Temperature Pre-Dialysis 98.5 degF Temperature Post -Dialysis 97.2 degF November 04, 2022 In-Center Hemodialysis Treatment [id number]:25:00.000Z [id number]:27:40.000Z BP Sitting (Pre-Dialysis) 132/66 mmHg BP Sitting (Post-Dialysis) 131/61 mmHg Concurrent Access: falseAV Fistula Upper Arm (Left) Arterial BP Standing (Pre-Dialysis) 133/67 mmHg BP Standing (P ost-Dialysis) 113/67 mmHg Sitting Heart Rate Pre-Dialysis 66 BPM Sitting Heart Rate Post-Dialysis 70 BPM Standing Heart Rate Pre-Dialysis 67 BPM Standing Heart Rate Post-Dialysis 73 BPM Temperature Pre-Dialysis 97.3 degF Temperature Post -Dialysis 97.3 degF November 02, 2022 In-Center Hemodialysis Treatment [id number]:24:05.000Z [id number]:23:40.000Z BP Sitting (Pre-Dialysis) 139/59 mmHg BP Sitting (Post-Dialysis) 145/73 mmHg Concurrent Access: falseAV Fistula Upper Arm (Left) Arterial BP Standing (Pre-Dialysis) 150/64 mmHg BP Standing (P ost-Dialysis) 147/67 mmHg Sitting Heart Rate Pre-Dialysis 71 BPM Sitting Heart Rate Post-Dialysis 75 BPM Standing Heart Rate Pre-Dialysis 64 BPM Standing Heart Rate Post-Dialysis 79 BPM Temperature Pre-Dialysis 97.6 degF Temperature Post -Dialysis 96.5 degF October 31, 2022 In-Center Hemodialysis Treatment [id number]:25:00.000Z [id number]:59:22.000Z BP Sitting (Pre-Dialysis) 138/68 mmHg BP Sitting (Post-Dialysis) 138/71 mmHg Concurrent Access: falseAV Fistula Upper Arm (Left) Arterial BP Standing (Pre-Dialysis) 132/69 mmHg BP Standing (P ost-Dialysis) 135/74 mmHg Sitting Heart Rate Pre-Dialysis 64 BPM Sitting Heart Rate Post-Dialysis 68 BPM Standing Heart Rate Pre-Dialysis 68 BPM Standing Heart Rate Post-Dialysis 76 BPM Temperature Pre-Dialysis 98.1 degF Temperature Post -Dialysis 98 degF October 28, 2022 In-Center Hemodialysis Treatment [id number]:26:00.000Z [id number]:19:06.000Z BP Sitting (Pre-Dialysis) 151/68 mmHg BP Sitting (Post-Dialysis) 151/66 mmHg Concurrent Access: falseAV Fistula Upper Arm (Left) Arterial BP Standing (Pre-Dialysis) 139/66 mmHg BP Standing (P ost-Dialysis) 146/79 mmHg Sitting Heart Rate Pre-Dialysis 71 BPM Sitting Heart Rate Post-Dialysis 73 BPM Standing Heart Rate Pre-Dialysis 76 BPM Standing Heart Rate Post-Dialysis 81 BPM Temperature Pre-Dialysis 98 degF Temperature Post -Dialysis 97.2 degF October 26, 2022 In-Center Hemodialysis Treatment [id number]:10:52.000Z [id number]:11:17.000Z BP Sitting (Pre-Dialysis) 147/65 mmHg BP Sitting (Post-Dialysis) 190/80 mmHg Concurrent Access: falseAV Fistula Upper Arm (Left) Arterial BP Standing (Pre-Dialysis) 142/66 mmHg BP Standing (P ost-Dialysis) 187/85 mmHg Sitting Heart Rate Pre-Dialysis 67 BPM Sitting Heart Rate Post-Dialysis 67 BPM Standing Heart Rate Pre-Dialysis 69 BPM Standing Heart Rate Post-Dialysis 71 BPM Temperature Pre-Dialysis 97.7 degF Temperature Post -Dialysis 97.2 degF October 24, 2022 In-Center Hemodialysis Treatment [id number]:16:00.000Z [id number]:19:17.000Z BP Sitting (Pre-Dialysis) 137/67 mmHg BP Sitting (Post-Dialysis) 171/71 mmHg Concurrent Access: falseAV Fistula Upper Arm (Left) Arterial BP Standing (Pre-Dialysis) 144/71 mmHg BP Standing (P ost-Dialysis) 165/79 mmHg Sitting Heart Rate Pre-Dialysis 70 BPM Sitting Heart Rate Post-Dialysis 70 BPM Standing Heart Rate Pre-Dialysis 75 BPM Standing Heart Rate Post-Dialysis 72 BPM Temperature Pre-Dialysis 97.1 degF Temperature Post -Dialysis 97.2 degF October 21, 2022 In-Center Hemodialysis Treatment [id number]:14:00.000Z [id number]:19:15.000Z BP Sitting (Pre-Dialysis) 144/65 mmHg BP Sitting (Post-Dialysis) 155/70 mmHg Concurrent Access: falseAV Fistula Upper Arm (Left) Arterial BP Standing (Pre-Dialysis) 149/69 mmHg BP Standing (P ost-Dialysis) 156/75 mmHg Sitting Heart Rate Pre-Dialysis 70 BPM Sitting Heart Rate Post-Dialysis 73 BPM Standing Heart Rate Pre-Dialysis 74 BPM Standing Heart Rate Post-Dialysis 76 BPM Temperature Pre-Dialysis 98 degF Temperature Post -Dialysis 97.2 degF October 19, 2022 In-Center Hemodialysis Treatment [id number]:20:00.000Z [id number]:27:25.000Z BP Sitting (Pre-Dialysis) 136/65 mmHg BP Sitting (Post-Dialysis) 143/66 mmHg Concurrent Access: falseAV Fistula Upper Arm (Left) Arterial BP Standing (Pre-Dialysis) 128/98 mmHg BP Standing (P ost-Dialysis) 144/69 mmHg Sitting Heart Rate Pre-Dialysis 68 BPM Sitting Heart Rate Post-Dialysis 70 BPM Standing Heart Rate Pre-Dialysis 75 BPM Standing Heart Rate Post-Dialysis 71 BPM Temperature Pre-Dialysis 97.2 degF Temperature Post -Dialysis 97.6 degF October 17, 2022 In-Center Hemodialysis Treatment [id number]:33:00.000Z [id number]:26:33.000Z BP Sitting (Pre-Dialysis) 157/67 mmHg BP Sitting (Post-Dialysis) 165/75 mmHg Concurrent Access: falseAV Fistula Upper Arm (Left) Arterial BP Standing (Pre-Dialysis) 143/71 mmHg BP Standing (P ost-Dialysis) 164/84 mmHg Sitting Heart Rate Pre-Dialysis 69 BPM Sitting Heart Rate Post-Dialysis 76 BPM Standing Heart Rate Pre-Dialysis 73 BPM Standing Heart Rate Post-Dialysis 79 BPM Temperature Pre-Dialysis 97.4 degF Temperature Post -Dialysis 97.9 degF October 14, 2022 In-Center Hemodialysis Treatment [id number]:08:08.000Z [id number]:08:08.000Z BP Sitting (Pre-Dialysis) 178/77 mmHg BP Sitting (Post-Dialysis) 181/77 mmHg Concurrent Access: falseAV Fistula Upper Arm (Left) Arterial BP Standing (Pre-Dialysis) 154/65 mmHg Sitti ng Heart Rate Post-Dialysis 69 BPM Sitting Heart Rate Pre-Dialysis 73 BPM Temperatu re Post-Dialysis 97.2 degF Standing Heart Rate Pre-Dialysis 77 BPM Temperature Pre-Dialysis 96.6 degF October 12, 2022 In-Center Hemodialysis Treatment [id number]:12:00.000Z [id number]:18:47.000Z BP Sitting (Pre-Dialysis) 155/72 mmHg BP Sitting (Post-Dialysis) 148/69 mmHg Concurrent Access: falseAV Fistula Upper Arm (Left) Arterial BP Standing (Pre-Dialysis) 159/75 mmHg BP Standing (P ost-Dialysis) 155/78 mmHg Sitting Heart Rate Pre-Dialysis 74 BPM Sitting Heart Rate Post-Dialysis 73 BPM Standing Heart Rate Pre-Dialysis 77 BPM Standing Heart Rate Post-Dialysis 78 BPM Temperature Pre-Dialysis 97.5 degF Temperature Post -Dialysis 98.7 degF October 10, 2022 In-Center Hemodialysis Treatment [id number]:08:33.000Z [id number]:21:28.000Z BP Sitting (Pre-Dialysis) 174/75 mmHg BP Sitting (Post-Dialysis) 160/74 mmHg Concurrent Access: falseAV Fistula Upper Arm (Left) Arterial BP Standing (Pre-Dialysis) 167/68 mmHg BP Standing (P ost-Dialysis) 167/69 mmHg Sitting Heart Rate Pre-Dialysis 72 BPM Sitting Heart Rate Post-Dialysis 74 BPM Standing Heart Rate Pre-Dialysis 71 BPM Standing Heart Rate Post-Dialysis 80 BPM Temperature Pre-Dialysis 96.5 degF Temperature Post -Dialysis 97.6 degF October 07, 2022 In-Center Hemodialysis Treatment [id number]:26:00.000Z 7232-04-44A31:20:55.000Z BP Sitting (Pre-Dialysis) 134/59 mmHg BP Sitting (Post-Dialysis) 154/66 mmHg Concurrent Access: falseAV Fistula Upper Arm (Left) Arterial BP Standing (Pre-Dialysis) 123/65 mmHg BP Standing (P ost-Dialysis) 149/72 mmHg Sitting Heart Rate Pre-Dialysis 71 BPM Sitting Heart Rate Post-Dialysis 73 BPM Standing Heart Rate Pre-Dialysis 74 BPM Standing Heart Rate Post-Dialysis 77 BPM Temperature Pre-Dialysis 96.5 degF Temperature Post -Dialysis 97.8 degF October 05, 2022 In-Center Hemodialysis Treatment [id number]:24:39.000Z [id number]:26:44.000Z BP Sitting (Pre-Dialysis) 152/71 mmHg BP Sitting (Post-Dialysis) 165/82 mmHg Concurrent Access: falseAV Fistula Upper Arm (Left) Arterial BP Standing (Pre-Dialysis) 158/71 mmHg BP Standing (P ost-Dialysis) 194/93 mmHg Sitting Heart Rate Pre-Dialysis 73 BPM Sitting Heart Rate Post-Dialysis 71 BPM Standing Heart Rate Pre-Dialysis 76 BPM Standing Heart Rate Post-Dialysis 75 BPM Temperature Pre-Dialysis 97.6 degF Temperature Post -Dialysis 97.8 degF October 03, 2022 In-Center Hemodialysis Treatment [id number]:21:59.000Z [id number]:21:59.000Z BP Sitting (Pre-Dialysis) 187/63 mmHg BP Sitting (Post-Dialysis) 191/89 mmHg Concurrent Access: falseAV Fistula Upper Arm (Left) Arterial BP Standing (Pre-Dialysis) 189/74 mmHg BP Standing (P ost-Dialysis) 191/89 mmHg Sitting Heart Rate Pre-Dialysis 71 BPM Sitting Heart Rate Post-Dialysis 72 BPM Standing Heart Rate Pre-Dialysis 76 BPM Standing Heart Rate Post-Dialysis 72 BPM Temperature Pre-Dialysis 97.2 degF Temperature Post -Dialysis 97.2 degF September 30, 2022 In-Center Hemodialysis Treatment [id number]:21:45.000Z [id number]:20:05.000Z BP Sitting (Pre-Dialysis) 185/84 mmHg BP Sitting (Post-Dialysis) 182/73 mmHg Concurrent Access: falseAV Fistula Upper Arm (Left) Arterial BP Standing (Pre-Dialysis) 189/78 mmHg BP Standing (P ost-Dialysis) 187/87 mmHg Sitting Heart Rate Pre-Dialysis 67 BPM Sitting Heart Rate Post-Dialysis 70 BPM Standing Heart Rate Pre-Dialysis 73 BPM Standing Heart Rate Post-Dialysis 70 BPM Temperature Pre-Dialysis 97.9 degF Temperature Post -Dialysis 97.5 degF September 28, 2022 In-Center Hemodialysis Treatment [id number]:23:15.000Z [id number]:23:40.000Z BP Sitting (Pre-Dialysis) 140/49 mmHg BP Sitting (Post-Dialysis) 127/62 mmHg Concurrent Access: falseAV Fistula Upper Arm (Left) Arterial BP Standing (Pre-Dialysis) 151/65 mmHg BP Standing (P ost-Dialysis) 116/59 mmHg Sitting Heart Rate Pre-Dialysis 68 BPM Sitting Heart Rate Post-Dialysis 72 BPM Standing Heart Rate Pre-Dialysis 68 BPM Standing Heart Rate Post-Dialysis 73 BPM Temperature Pre-Dialysis 97.8 degF Temperature Post -Dialysis 96.3 degF September 26, 2022 In-Center Hemodialysis Treatment [id number]:20:52.000Z [id number]:22:07.000Z BP Sitting (Pre-Dialysis) 193/80 mmHg BP Sitting (Post-Dialysis) 224/101 mmHg Concurrent Access: falseAV Fistula Upper Arm (Left) Arterial BP Standing (Pre-Dialysis) 197/94 mmHg BP Standing (P ost-Dialysis) 233/105 mmHg Sitting Heart Rate Pre-Dialysis 67 BPM Sitting Heart Rate Post-Dialysis 67 BPM Standing Heart Rate Pre-Dialysis 75 BPM Standing Heart Rate Post-Dialysis 66 BPM Temperature Pre-Dialysis 97.3 degF Temperature Post -Dialysis 97.3 degF September 23, 2022 In-Center Hemodialysis Treatment [id number]:52:22.000Z [id number]:17:47.000Z BP Sitting (Pre-Dialysis) 160/78 mmHg BP Sitting (Post-Dialysis) 120/53 mmHg Concurrent Access: falseAV Fistula Upper Arm (Left) Arterial BP Standing (Pre-Dialysis) 155/67 mmHg BP Standing (P ost-Dialysis) 126/67 mmHg Sitting Heart Rate Pre-Dialysis 70 BPM Sitting Heart Rate Post-Dialysis 78 BPM Standing Heart Rate Pre-Dialysis 74 BPM Standing Heart Rate Post-Dialysis 83 BPM Temperature Pre-Dialysis 97.5 degF Temperature Post -Dialysis 97 degF September 21, 2022 In-Center Hemodialysis Treatment [id number]:11:17.000Z [id number]:11:42.000Z BP Sitting (Pre-Dialysis) 155/76 mmHg BP Sitting (Post-Dialysis) 137/48 mmHg Concurrent Access: falseAV Fistula Upper Arm (Left) Arterial BP Standing (Pre-Dialysis) 152/77 mmHg BP Standing (P ost-Dialysis) 147/54 mmHg Sitting Heart Rate Pre-Dialysis 68 BPM Sitting Heart Rate Post-Dialysis 72 BPM Standing Heart Rate Pre-Dialysis 70 BPM Standing Heart Rate Post-Dialysis 75 BPM Temperature Pre-Dialysis 98 degF Temperature Post -Dialysis 97.8 degF September 18, 2022 In-Center Hemodialysis Treatment [id number]:20:00.000Z [id number]:18:05.000Z BP Sitting (Pre-Dialysis) 158/75 mmHg BP Sitting (Post-Dialysis) 154/57 mmHg Concurrent Access: falseAV Fistula Upper Arm (Left) Arterial BP Standing (Pre-Dialysis) 155/76 mmHg BP Standing (P ost-Dialysis) 162/77 mmHg Sitting Heart Rate Pre-Dialysis 67 BPM Sitting Heart Rate Post-Dialysis 72 BPM Standing Heart Rate Pre-Dialysis 71 BPM Standing Heart Rate Post-Dialysis 75 BPM Temperature Pre-Dialysis 97.2 degF Temperature Post -Dialysis 97.3 degF September 16, 2022 In-Center Hemodialysis Treatment [id number]:55:00.000Z [id number]:24:04.000Z BP Sitting (Pre-Dialysis) 149/67 mmHg BP Sitting (Post-Dialysis) 139/50 mmHg Concurrent Access: falseAV Fistula Upper Arm (Left) Arterial BP Standing (Pre-Dialysis) 138/70 mmHg BP Standing (P ost-Dialysis) 135/52 mmHg Sitting Heart Rate Pre-Dialysis 74 BPM Sitting Heart Rate Post-Dialysis 73 BPM Standing Heart Rate Pre-Dialysis 78 BPM Standing Heart Rate Post-Dialysis 75 BPM Temperature Pre-Dialysis 98.3 degF Temperature Post -Dialysis 97.3 degF September 14, 2022 In-Center Hemodialysis Treatment [id number]:16:30.000Z 1748-44-32G93:21:05.000Z BP Sitting (Pre-Dialysis) 148/67 mmHg BP Sitting (Post-Dialysis) 139/58 mmHg Concurrent Access: falseAV Fistula Upper Arm (Left) Arterial Sitting Heart Rate Pre-Dialysis 64 BPM BP Standi ng (Post-Dialysis) 120/66 mmHg Temperature Pre-Dialysis 98 degF Sitting Heart Ra te Post-Dialysis 67 BPM Standing Heart Rate Post-Nicci lysis 68 BPM Temperature Post-Dialysis 97 .1 degF September 12, 2022 In-Center Hemodialysis Treatment [id number]:48:05.000Z 7058-49-77K08:18:05.000Z BP Sitting (Pre-Dialysis) 145/59 mmHg BP Sitting (Post-Dialysis) 161/74 mmHg Concurrent Access: falseAV Fistula Upper Arm (Left) Arterial BP Standing (Pre-Dialysis) 180/75 mmHg BP Standing (P ost-Dialysis) 141/65 mmHg Sitting Heart Rate Pre-Dialysis 69 BPM Sitting Heart Rate Post-Dialysis 73 BPM Standing Heart Rate Pre-Dialysis 75 BPM Standing Heart Rate Post-Dialysis 72 BPM Temperature Pre-Dialysis 98 degF Temperature Post -Dialysis 97.9 degF September 09, 2022 In-Center Hemodialysis Treatment [id number]:28:35.000Z [id number]:19:50.000Z BP Sitting (Pre-Dialysis) 148/81 mmHg BP Sitting (Post-Dialysis) 135/52 mmHg Concurrent Access: falseAV Fistula Upper Arm (Left) Arterial BP Standing (Pre-Dialysis) 133/56 mmHg BP Standing (P ost-Dialysis) 137/76 mmHg Sitting Heart Rate Pre-Dialysis 71 BPM Sitting Heart Rate Post-Dialysis 74 BPM Standing Heart Rate Pre-Dialysis 75 BPM Standing Heart Rate Post-Dialysis 79 BPM Temperature Pre-Dialysis 97.6 degF Temperature Post -Dialysis 97.2 degF September 07, 2022 In-Center Hemodialysis Treatment [id number]:22:00.000Z [id number]:22:16.000Z BP Sitting (Pre-Dialysis) 146/63 mmHg BP Sitting (Post-Dialysis) 158/65 mmHg Concurrent Access: falseAV Fistula Upper Arm (Left) Arterial BP Standing (Pre-Dialysis) 132/59 mmHg BP Standing (P ost-Dialysis) 147/85 mmHg Sitting Heart Rate Pre-Dialysis 66 BPM Sitting Heart Rate Post-Dialysis 71 BPM Standing Heart Rate Pre-Dialysis 68 BPM Standing Heart Rate Post-Dialysis 72 BPM Temperature Pre-Dialysis 97 degF Temperature Post -Dialysis 97.8 degF September 05, 2022 In-Center Hemodialysis Treatment [id number]:24:16.000Z 1857-29-07C03:22:11.000Z BP Sitting (Pre-Dialysis) 156/89 mmHg BP Sitting (Post-Dialysis) 127/64 mmHg Concurrent Access: falseAV Fistula Upper Arm (Left) Arterial BP Standing (Pre-Dialysis) 142/87 mmHg BP Standing (P ost-Dialysis) 145/60 mmHg Sitting Heart Rate Pre-Dialysis 71 BPM Sitting Heart Rate Post-Dialysis 77 BPM Standing Heart Rate Pre-Dialysis 71 BPM Standing Heart Rate Post-Dialysis 79 BPM Temperature Pre-Dialysis 97.1 degF Temperature Post -Dialysis 97.5 degF September 02, 2022 In-Center Hemodialysis Treatment [id number]:21:12.000Z [id number]:21:37.000Z BP Sitting (Pre-Dialysis) 157/74 mmHg BP Sitting (Post-Dialysis) 136/65 mmHg Concurrent Access: falseAV Fistula Upper Arm (Left) Arterial BP Standing (Pre-Dialysis) 143/61 mmHg BP Standing (P ost-Dialysis) 132/64 mmHg Sitting Heart Rate Pre-Dialysis 73 BPM Sitting Heart Rate Post-Dialysis 76 BPM Standing Heart Rate Pre-Dialysis 76 BPM Standing Heart Rate Post-Dialysis 79 BPM Temperature Pre-Dialysis 97.7 degF Temperature Post -Dialysis 97.2 degF August 31, 2022 In-Center Hemodialysis Treatment [id number]:24:40.000Z [id number]:24:15.000Z BP Sitting (Pre-Dialysis) 127/61 mmHg BP Sitting (Post-Dialysis) 133/59 mmHg Concurrent Access: falseAV Fistula Upper Arm (Left) Arterial BP Standing (Pre-Dialysis) 126/56 mmHg BP Standing (P ost-Dialysis) 126/51 mmHg Sitting Heart Rate Pre-Dialysis 75 BPM Sitting Heart Rate Post-Dialysis 71 BPM Standing Heart Rate Pre-Dialysis 72 BPM Standing Heart Rate Post-Dialysis 76 BPM Temperature Pre-Dialysis 97.3 degF Temperature Post -Dialysis 97.5 degF August 29, 2022 In-Center Hemodialysis Treatment [id number]:27:28.000Z [id number]:22:28.000Z BP Sitting (Pre-Dialysis) 167/73 mmHg BP Sitting (Post-Dialysis) 170/74 mmHg Concurrent Access: falseAV Fistula Upper Arm (Left) Arterial BP Standing (Pre-Dialysis) 170/70 mmHg BP Standing (P ost-Dialysis) 191/83 mmHg Sitting Heart Rate Pre-Dialysis 72 BPM Sitting Heart Rate Post-Dialysis 72 BPM Standing Heart Rate Pre-Dialysis 75 BPM Standing Heart Rate Post-Dialysis 73 BPM Temperature Pre-Dialysis 98 degF Temperature Post -Dialysis 98.4 degF August 26, 2022 In-Center Hemodialysis Treatment [id number]:32:06.000Z [id number]:21:16.000Z BP Sitting (Pre-Dialysis) 151/78 mmHg BP Sitting (Post-Dialysis) 165/74 mmHg Concurrent Access: falseAV Fistula Upper Arm (Left) Arterial BP Standing (Pre-Dialysis) 157/74 mmHg BP Standing (P ost-Dialysis) 157/72 mmHg Sitting Heart Rate Pre-Dialysis 67 BPM Sitting Heart Rate Post-Dialysis 71 BPM Standing Heart Rate Pre-Dialysis 72 BPM Standing Heart Rate Post-Dialysis 73 BPM Temperature Pre-Dialysis 97.7 degF Temperature Post -Dialysis 98.2 degF August 24, 2022 In-Center Hemodialysis Treatment [id number]:24:43.000Z [id number]:25:08.000Z BP Sitting (Pre-Dialysis) 164/68 mmHg BP Sitting (Post-Dialysis) 173/75 mmHg Concurrent Access: falseAV Fistula Upper Arm (Left) Arterial Sitting Heart Rate Pre-Dialysis 73 BPM BP Standing (Post-Dialysis) 190/96 mmHg Temperature Pre-Dialysis 97.2 degF Sitting Heart Ra te Post-Dialysis 75 BPM Standing Heart Rate Post-Nicci lysis 78 BPM Temperature Post-Dialysis 97 .7 degF August 22, 2022 In-Center Hemodialysis Treatment [id number]:20:00.000Z [id number]:25:38.000Z BP Sitting (Pre-Dialysis) 171/82 mmHg BP Sitting (Post-Dialysis) 144/69 mmHg Concurrent Access: falseAV Fistula Upper Arm (Left) Arterial BP Standing (Pre-Dialysis) 146/73 mmHg BP Standing (P ost-Dialysis) 146/65 mmHg Sitting Heart Rate Pre-Dialysis 73 BPM Sitting Heart Rate Post-Dialysis 72 BPM Standing Heart Rate Pre-Dialysis 75 BPM Standing Heart Rate Post-Dialysis 75 BPM Temperature Pre-Dialysis 98 degF Temperature Post -Dialysis 97.9 degF August 19, 2022 In-Center Hemodialysis Treatment [id number]:22:12.000Z [id number]:21:22.000Z BP Sitting (Pre-Dialysis) 163/70 mmHg BP Sitting (Post-Dialysis) 161/76 mmHg Concurrent Access: falseAV Fistula Upper Arm (Left) Arterial BP Standing (Pre-Dialysis) 161/57 mmHg BP Standing (P ost-Dialysis) 163/82 mmHg Sitting Heart Rate Pre-Dialysis 69 BPM Sitting Heart Rate Post-Dialysis 74 BPM Standing Heart Rate Pre-Dialysis 71 BPM Standing Heart Rate Post-Dialysis 77 BPM Temperature Pre-Dialysis 97.8 degF Temperature Post -Dialysis 98.3 degF August 17, 2022 In-Center Hemodialysis Treatment [id number]:22:50.000Z [id number]:22:00.000Z BP Sitting (Pre-Dialysis) 163/77 mmHg BP Sitting (Post-Dialysis) 167/75 mmHg Concurrent Access: falseAV Fistula Upper Arm (Left) Arterial BP Standing (Pre-Dialysis) 153/71 mmHg BP Standing (P ost-Dialysis) 193/95 mmHg Sitting Heart Rate Pre-Dialysis 70 BPM Sitting Heart Rate Post-Dialysis 73 BPM Standing Heart Rate Pre-Dialysis 74 BPM Standing Heart Rate Post-Dialysis 76 BPM Temperature Pre-Dialysis 97.8 degF Temperature Post -Dialysis 97.3 degF August 15, 2022 In-Center Hemodialysis Treatment [id number]:16:47.000Z [id number]:16:47.000Z BP Sitting (Pre-Dialysis) 150/71 mmHg BP Sitting (Post-Dialysis) 159/78 mmHg Concurrent Access: falseAV Fistula Upper Arm (Left) Arterial BP Standing (Pre-Dialysis) 153/76 mmHg BP Standing (P ost-Dialysis) 158/77 mmHg Sitting Heart Rate Pre-Dialysis 76 BPM Sitting Heart Rate Post-Dialysis 76 BPM Standing Heart Rate Pre-Dialysis 80 BPM Standing Heart Rate Post-Dialysis 81 BPM Temperature Pre-Dialysis 98.2 degF Temperature Post -Dialysis 98 degF August 12, 2022 In-Center Hemodialysis Treatment [id number]:44:00.000Z [id number]:32:13.000Z BP Sitting (Pre-Dialysis) 177/82 mmHg BP Sitting (Post-Dialysis) 208/95 mmHg Concurrent Access: falseAV Fistula Upper Arm (Left) Arterial BP Standing (Pre-Dialysis) 181/73 mmHg BP Standing (P ost-Dialysis) 190/84 mmHg Sitting Heart Rate Pre-Dialysis 69 BPM Sitting Heart Rate Post-Dialysis 70 BPM Standing Heart Rate Pre-Dialysis 75 BPM Standing Heart Rate Post-Dialysis 70 BPM Temperature Pre-Dialysis 98.1 degF Temperature Post -Dialysis 98.2 degF August 10, 2022 In-Center Hemodialysis Treatment [id number]:20:48.000Z [id number]:31:41.000Z BP Sitting (Pre-Dialysis) 170/75 mmHg BP Sitting (Post-Dialysis) 173/78 mmHg Concurrent Access: falseAV Fistula Upper Arm (Left) Arterial BP Standing (Pre-Dialysis) 150/69 mmHg BP Standing (P ost-Dialysis) 179/86 mmHg Sitting Heart Rate Pre-Dialysis 68 BPM Sitting Heart Rate Post-Dialysis 70 BPM Standing Heart Rate Pre-Dialysis 76 BPM Standing Heart Rate Post-Dialysis 75 BPM Temperature Pre-Dialysis 98 degF Temperature Post -Dialysis 98 degF August 08, 2022 In-Center Hemodialysis Treatment [id number]:25:00.000Z [id number]:23:13.000Z BP Sitting (Pre-Dialysis) 185/84 mmHg BP Sitting (Post-Dialysis) 151/62 mmHg Concurrent Access: falseAV Fistula Upper Arm (Left) Arterial BP Standing (Pre-Dialysis) 170/74 mmHg BP Standing (P ost-Dialysis) 148/70 mmHg Sitting Heart Rate Pre-Dialysis 68 BPM Sitting Heart Rate Post-Dialysis 78 BPM Standing Heart Rate Pre-Dialysis 77 BPM Standing Heart Rate Post-Dialysis 83 BPM Temperature Pre-Dialysis 97.2 degF Temperature Post -Dialysis 98 degF August 05, 2022 In-Center Hemodialysis Treatment [id number]:19:45.000Z [id number]:19:45.000Z BP Sitting (Pre-Dialysis) 158/72 mmHg BP Sitting (Post-Dialysis) 140/67 mmHg Concurrent Access: falseAV Fistula Upper Arm (Left) Arterial BP Standing (Pre-Dialysis) 152/70 mmHg BP Standing (P ost-Dialysis) 152/71 mmHg Sitting Heart Rate Pre-Dialysis 68 BPM Sitting Heart Rate Post-Dialysis 72 BPM Standing Heart Rate Pre-Dialysis 72 BPM Standing Heart Rate Post-Dialysis 76 BPM Temperature Pre-Dialysis 97.2 degF Temperature Post -Dialysis 97.9 degF August 03, 2022 In-Center Hemodialysis Treatment [id number]:30:00.000Z [id number]:22:46.000Z BP Sitting (Pre-Dialysis) 158/70 mmHg BP Sitting (Post-Dialysis) 159/72 mmHg Concurrent Access: falseAV Fistula Upper Arm (Left) Arterial BP Standing (Pre-Dialysis) 140/72 mmHg BP Standing (P ost-Dialysis) 177/85 mmHg Sitting Heart Rate Pre-Dialysis 68 BPM Sitting Heart Rate Post-Dialysis 73 BPM Standing Heart Rate Pre-Dialysis 72 BPM Standing Heart Rate Post-Dialysis 76 BPM Temperature Pre-Dialysis 98.4 degF Temperature Post -Dialysis 98.6 degF August 01, 2022 In-Center Hemodialysis Treatment [id number]:36:47.000Z [id number]:21:22.000Z BP Sitting (Pre-Dialysis) 169/77 mmHg BP Sitting (Post-Dialysis) 158/75 mmHg Concurrent Access: falseAV Fistula Upper Arm (Left) Arterial BP Standing (Pre-Dialysis) 163/77 mmHg BP Standing (P ost-Dialysis) 159/77 mmHg Sitting Heart Rate Pre-Dialysis 68 BPM Sitting Heart Rate Post-Dialysis 71 BPM Standing Heart Rate Pre-Dialysis 73 BPM Standing Heart Rate Post-Dialysis 75 BPM Temperature Pre-Dialysis 97.9 degF Temperature Post -Dialysis 97.8 degF July 29, 2022 In-Center Hemodialysis Treatment [id number]:20:00.000Z [id number]:22:33.000Z BP Sitting (Pre-Dialysis) 165/70 mmHg BP Sitting (Post-Dialysis) 165/74 mmHg Concurrent Access: falseAV Fistula Upper Arm (Left) Arterial BP Standing (Pre-Dialysis) 162/70 mmHg BP Standing (P ost-Dialysis) 179/85 mmHg Sitting Heart Rate Pre-Dialysis 66 BPM Sitting Heart Rate Post-Dialysis 68 BPM Standing Heart Rate Pre-Dialysis 71 BPM Standing Heart Rate Post-Dialysis 72 BPM Temperature Pre-Dialysis 97.2 degF Temperature Post -Dialysis 97.8 degF July 27, 2022 In-Center Hemodialysis Treatment [id number]:24:27.000Z [id number]:24:27.000Z BP Sitting (Pre-Dialysis) 156/65 mmHg BP Sitting (Post-Dialysis) 183/87 mmHg Concurrent Access: falseAV Fistula Upper Arm (Left) Arterial BP Standing (Pre-Dialysis) 156/67 mmHg Sitti ng Heart Rate Post-Dialysis 70 BPM Sitting Heart Rate Pre-Dialysis 67 BPM Temperatu re Post-Dialysis 98.2 degF Standing Heart Rate Pre-Dialysis 71 BPM Temperature Pre-Dialysis 97.3 degF July 25, 2022 In-Center Hemodialysis Treatment [id number]:24:11.000Z [id number]:21:41.000Z BP Sitting (Pre-Dialysis) 129/67 mmHg BP Sitting (Post-Dialysis) 160/79 mmHg Concurrent Access: falseAV Fistula Upper Arm (Left) Arterial BP Standing (Pre-Dialysis) 162/71 mmHg BP Standing (P ost-Dialysis) 168/78 mmHg Sitting Heart Rate Pre-Dialysis 69 BPM Sitting Heart Rate Post-Dialysis 73 BPM Standing Heart Rate Pre-Dialysis 72 BPM Standing Heart Rate Post-Dialysis 76 BPM Temperature Pre-Dialysis 97.7 degF Temperature Post -Dialysis 98 degF July 22, 2022 In-Center Hemodialysis Treatment [id number]:19:55.000Z [id number]:20:20.000Z BP Sitting (Pre-Dialysis) 175/67 mmHg BP Sitting (Post-Dialysis) 148/65 mmHg Concurrent Access: falseAV Fistula Upper Arm (Left) Arterial BP Standing (Pre-Dialysis) 170/71 mmHg BP Standing (P ost-Dialysis) 149/47 mmHg Sitting Heart Rate Pre-Dialysis 67 BPM Sitting Heart Rate Post-Dialysis 70 BPM Standing Heart Rate Pre-Dialysis 73 BPM Standing Heart Rate Post-Dialysis 75 BPM Temperature Pre-Dialysis 97.6 degF Temperature Post -Dialysis 97.6 degF July 20, 2022 In-Center Hemodialysis Treatment [id number]:12:09.000Z [id number]:12:34.000Z BP Sitting (Pre-Dialysis) 174/77 mmHg BP Sitting (Post-Dialysis) 193/85 mmHg Concurrent Access: falseAV Fistula Upper Arm (Left) Arterial BP Standing (Pre-Dialysis) 163/70 mmHg BP Standing (P ost-Dialysis) 207/101 mmHg Sitting Heart Rate Pre-Dialysis 69 BPM Sitting Heart Rate Post-Dialysis 76 BPM Standing Heart Rate Pre-Dialysis 73 BPM Standing Heart Rate Post-Dialysis 81 BPM Temperature Pre-Dialysis 97.2 degF Temperature Post -Dialysis 98.5 degF July 18, 2022 In-Center Hemodialysis Treatment [id number]:30:00.000Z [id number]:24:19.000Z BP Sitting (Pre-Dialysis) 156/62 mmHg BP Sitting (Post-Dialysis) 162/71 mmHg Concurrent Access: falseAV Fistula Upper Arm (Left) Arterial BP Standing (Pre-Dialysis) 152/76 mmHg BP Standing (P ost-Dialysis) 162/77 mmHg Sitting Heart Rate Pre-Dialysis 69 BPM Sitting Heart Rate Post-Dialysis 68 BPM Standing Heart Rate Pre-Dialysis 72 BPM Standing Heart Rate Post-Dialysis 74 BPM Temperature Pre-Dialysis 98.2 degF Temperature Post -Dialysis 98 degF July 15, 2022 In-Center Hemodialysis Treatment [id number]:37:57.000Z [id number]:20:27.000Z BP Sitting (Pre-Dialysis) 166/75 mmHg BP Sitting (Post-Dialysis) 193/89 mmHg Concurrent Access: falseAV Fistula Upper Arm (Left) Arterial BP Standing (Pre-Dialysis) 160/69 mmHg BP Standing (P ost-Dialysis) 149/73 mmHg Sitting Heart Rate Pre-Dialysis 70 BPM Sitting Heart Rate Post-Dialysis 70 BPM Standing Heart Rate Pre-Dialysis 76 BPM Standing Heart Rate Post-Dialysis 73 BPM Temperature Pre-Dialysis 97.6 degF Temperature Post -Dialysis 98.2 degF July 13, 2022 In-Center Hemodialysis Treatment [id number]:20:32.000Z 1953-50-72M02:20:07.000Z BP Sitting (Pre-Dialysis) 156/68 mmHg BP Sitting (Post-Dialysis) 154/80 mmHg Concurrent Access: falseAV Fistula Upper Arm (Left) Arterial BP Standing (Pre-Dialysis) 152/69 mmHg BP Standing (P ost-Dialysis) 156/68 mmHg Sitting Heart Rate Pre-Dialysis 69 BPM Sitting Heart Rate Post-Dialysis 72 BPM Standing Heart Rate Pre-Dialysis 73 BPM Standing Heart Rate Post-Dialysis 72 BPM Temperature Pre-Dialysis 98.1 degF Temperature Post -Dialysis 98 degF July 11, 2022 In-Center Hemodialysis Treatment [id number]:21:00.000Z [id number]:22:19.000Z BP Sitting (Pre-Dialysis) 157/80 mmHg BP Sitting (Post-Dialysis) 190/81 mmHg Concurrent Access: falseAV Fistula Upper Arm (Left) Arterial BP Standing (Pre-Dialysis) 158/72 mmHg BP Standing (P ost-Dialysis) 182/89 mmHg Sitting Heart Rate Pre-Dialysis 69 BPM Sitting Heart Rate Post-Dialysis 72 BPM Standing Heart Rate Pre-Dialysis 69 BPM Standing Heart Rate Post-Dialysis 74 BPM Temperature Pre-Dialysis 98 degF Temperature Post -Dialysis 98.1 degF July 08, 2022 In-Center Hemodialysis Treatment [id number]:33:27.000Z [id number]:22:12.000Z BP Sitting (Pre-Dialysis) 162/69 mmHg BP Sitting (Post-Dialysis) 169/76 mmHg Concurrent Access: falseAV Fistula Upper Arm (Left) Arterial BP Standing (Pre-Dialysis) 161/75 mmHg BP Standing (P ost-Dialysis) 167/79 mmHg Sitting Heart Rate Pre-Dialysis 64 BPM Sitting Heart Rate Post-Dialysis 70 BPM Standing Heart Rate Pre-Dialysis 67 BPM Standing Heart Rate Post-Dialysis 74 BPM Temperature Pre-Dialysis 97.6 degF Temperature Post -Dialysis 98 degF July 06, 2022 In-Center Hemodialysis Treatment [id number]:24:00.000Z [id number]:20:56.000Z BP Sitting (Pre-Dialysis) 147/68 mmHg BP Sitting (Post-Dialysis) 169/78 mmHg Concurrent Access: falseAV Fistula Upper Arm (Left) Arterial BP Standing (Pre-Dialysis) 141/64 mmHg BP Standing (P ost-Dialysis) 160/78 mmHg Sitting Heart Rate Pre-Dialysis 65 BPM Sitting Heart Rate Post-Dialysis 66 BPM Standing Heart Rate Pre-Dialysis 69 BPM Standing Heart Rate Post-Dialysis 68 BPM Temperature Pre-Dialysis 97.4 degF Temperature Post -Dialysis 98.3 degF July 04, 2022 In-Center Hemodialysis Treatment [id number]:29:00.000Z 9330-28-23L84:23:37.000Z BP Sitting (Pre-Dialysis) 156/68 mmHg BP Sitting (Post-Dialysis) 167/79 mmHg Concurrent Access: falseAV Fistula Upper Arm (Left) Arterial BP Standing (Pre-Dialysis) 148/72 mmHg BP Standing (P ost-Dialysis) 183/91 mmHg Sitting Heart Rate Pre-Dialysis 71 BPM Sitting Heart Rate Post-Dialysis 71 BPM Standing Heart Rate Pre-Dialysis 72 BPM Standing Heart Rate Post-Dialysis 74 BPM Temperature Pre-Dialysis 97.2 degF Temperature Post -Dialysis 98 degF July 01, 2022 In-Center Hemodialysis Treatment [id number]:55:00.000Z [id number]:20:02.000Z BP Sitting (Pre-Dialysis) 167/69 mmHg BP Sitting (Post-Dialysis) 186/71 mmHg Concurrent Access: falseAV Fistula Upper Arm (Left) Arterial BP Standing (Pre-Dialysis) 147/53 mmHg BP Standing (P ost-Dialysis) 185/85 mmHg Sitting Heart Rate Pre-Dialysis 65 BPM Sitting Heart Rate Post-Dialysis 67 BPM Standing Heart Rate Pre-Dialysis 73 BPM Standing Heart Rate Post-Dialysis 71 BPM Temperature Pre-Dialysis 96.2 degF Temperature Post -Dialysis 97.8 degF June 29, 2022 In-Center Hemodialysis Treatment [id number]:24:37.000Z [id number]:22:57.000Z BP Sitting (Pre-Dialysis) 147/70 mmHg BP Sitting (Post-Dialysis) 166/75 mmHg Concurrent Access: falseAV Fistula Upper Arm (Left) Arterial BP Standing (Pre-Dialysis) 151/67 mmHg BP Standing (P ost-Dialysis) 174/80 mmHg Sitting Heart Rate Pre-Dialysis 68 BPM Sitting Heart Rate Post-Dialysis 68 BPM Standing Heart Rate Pre-Dialysis 71 BPM Standing Heart Rate Post-Dialysis 70 BPM Temperature Pre-Dialysis 97.2 degF Temperature Post -Dialysis 97.1 degF June 27, 2022 In-Center Hemodialysis Treatment [id number]:39:14.000Z 4031-10-25H70:20:54.000Z BP Sitting (Pre-Dialysis) 164/71 mmHg BP Sitting (Post-Dialysis) 201/81 mmHg Concurrent Access: falseAV Fistula Upper Arm (Left) Arterial BP Standing (Pre-Dialysis) 166/64 mmHg BP Standing (P ost-Dialysis) 195/86 mmHg Sitting Heart Rate Pre-Dialysis 69 BPM Sitting Heart Rate Post-Dialysis 64 BPM Standing Heart Rate Pre-Dialysis 74 BPM Standing Heart Rate Post-Dialysis 69 BPM Temperature Pre-Dialysis 97.5 degF Temperature Post -Dialysis 97.7 degF June 24, 2022 In-Center Hemodialysis Treatment [id number]:29:10.000Z [id number]:21:40.000Z BP Sitting (Pre-Dialysis) 179/82 mmHg BP Sitting (Post-Dialysis) 178/79 mmHg Concurrent Access: falseAV Fistula Upper Arm (Left) Arterial BP Standing (Pre-Dialysis) 157/70 mmHg BP Standing (P ost-Dialysis) 170/81 mmHg Sitting Heart Rate Pre-Dialysis 62 BPM Sitting Heart Rate Post-Dialysis 65 BPM Standing Heart Rate Pre-Dialysis 75 BPM Standing Heart Rate Post-Dialysis 71 BPM Temperature Pre-Dialysis 97.7 degF Temperature Post -Dialysis 97.8 degF June 22, 2022 In-Center Hemodialysis Treatment [id number]:15:00.000Z 3901-74-15O73:03:16.000Z BP Sitting (Pre-Dialysis) 160/70 mmHg BP Sitting (Post-Dialysis) 189/81 mmHg Concurrent Access: falseAV Fistula Upper Arm (Left) Arterial BP Standing (Pre-Dialysis) 144/71 mmHg BP Standing (P ost-Dialysis) 199/98 mmHg Sitting Heart Rate Pre-Dialysis 67 BPM Sitting Heart Rate Post-Dialysis 66 BPM Standing Heart Rate Pre-Dialysis 73 BPM Standing Heart Rate Post-Dialysis 70 BPM Temperature Pre-Dialysis 98.2 degF Temperature Post -Dialysis 97.2 degF June 20, 2022 In-Center Hemodialysis Treatment [id number]:29:00.000Z 6447-14-38R05:21:00.000Z BP Sitting (Pre-Dialysis) 163/70 mmHg BP Sitting (Post-Dialysis) 181/84 mmHg Concurrent Access: falseAV Fistula Upper Arm (Left) Arterial Sitting Heart Rate Pre-Dialysis 64 BPM BP Standing (Post-Dialysis) 200/95 mmHg Temperature Pre-Dialysis 97.9 degF Sitting Heart Ra te Post-Dialysis 64 BPM Standing Heart Rate Post-Nicci lysis 64 BPM Temperature Post-Dialysis 97 .9 degF June 17, 2022 In-Center Hemodialysis Treatment [id number]:45:00.000Z [id number]:21:31.000Z BP Sitting (Pre-Dialysis) 146/65 mmHg BP Sitting (Post-Dialysis) 172/83 mmHg Concurrent Access: falseAV Fistula Upper Arm (Left) Arterial BP Standing (Pre-Dialysis) 146/73 mmHg BP Standing (P ost-Dialysis) 180/83 mmHg Sitting Heart Rate Pre-Dialysis 66 BPM Sitting Heart Rate Post-Dialysis 67 BPM Standing Heart Rate Pre-Dialysis 67 BPM Standing Heart Rate Post-Dialysis 70 BPM Temperature Pre-Dialysis 97.3 degF Temperature Post -Dialysis 97.2 degF June 15, 2022 In-Center Hemodialysis Treatment [id number]:31:58.000Z 7173-57-95Z04:22:23.000Z BP Sitting (Pre-Dialysis) 174/82 mmHg BP Sitting (Post-Dialysis) 189/86 mmHg Concurrent Access: falseAV Fistula Upper Arm (Left) Arterial BP Standing (Pre-Dialysis) 165/74 mmHg BP Standing (P ost-Dialysis) 219/92 mmHg Sitting Heart Rate Pre-Dialysis 70 BPM Sitting Heart Rate Post-Dialysis 67 BPM Standing Heart Rate Pre-Dialysis 75 BPM Standing Heart Rate Post-Dialysis 72 BPM Temperature Pre-Dialysis 97.7 degF Temperature Post -Dialysis 97.5 degF June 13, 2022 In-Center Hemodialysis Treatment 4720-74-22U82:28:25.000Z 7410-99-77G70:32:00.000Z BP Sitting (Pre-Dialysis) 173/77 mmHg BP Sitting (Post-Dialysis) 198/92 mmHg Concurrent Access: falseAV Fistula Upper Arm (Left) Arterial BP Standing (Pre-Dialysis) 175/84 mmHg BP Standing (P ost-Dialysis) 190/85 mmHg Sitting Heart Rate Pre-Dialysis 66 BPM Sitting Heart Rate Post-Dialysis 65 BPM Standing Heart Rate Pre-Dialysis 66 BPM Standing Heart Rate Post-Dialysis 67 BPM Temperature Pre-Dialysis 97.6 degF Temperature Post -Dialysis 97.1 degF June 10, 2022 In-Center Hemodialysis Treatment [id number]:30:00.000Z 7981-40-01S16:16:00.000Z BP Sitting (Pre-Dialysis) 137/75 mmHg BP Sitting (Post-Dialysis) 199/83 mmHg Concurrent Access: falseAV Fistula Upper Arm (Left) Arterial BP Standing (Pre-Dialysis) 123/67 mmHg BP Standing (P ost-Dialysis) 208/97 mmHg Sitting Heart Rate Pre-Dialysis 66 BPM Sitting Heart Rate Post-Dialysis 64 BPM Standing Heart Rate Pre-Dialysis 67 BPM Standing Heart Rate Post-Dialysis 67 BPM Temperature Pre-Dialysis 97.7 degF Temperature Post -Dialysis 97.2 degF June 08, 2022 In-Center Hemodialysis Treatment [id number]:45:23.000Z 6117-13-82Z13:22:03.000Z BP Sitting (Pre-Dialysis) 155/73 mmHg BP Sitting (Post-Dialysis) 198/91 mmHg Concurrent Access: falseAV Fistula Upper Arm (Left) Arterial BP Standing (Pre-Dialysis) 147/74 mmHg BP Standing (P ost-Dialysis) 211/101 mmHg Sitting Heart Rate Pre-Dialysis 68 BPM Sitting Heart Rate Post-Dialysis 63 BPM Standing Heart Rate Pre-Dialysis 74 BPM Standing Heart Rate Post-Dialysis 67 BPM Temperature Pre-Dialysis 97.7 degF Temperature Post -Dialysis 97.3 degF June 06, 2022 In-Center Hemodialysis Treatment 4013-00-23O17:30:00.000Z [id number]:19:27.000Z BP Sitting (Pre-Dialysis) 143/56 mmHg BP Sitting (Post-Dialysis) 198/88 mmHg Concurrent Access: falseAV Fistula Upper Arm (Left) Arterial BP Standing (Pre-Dialysis) 133/58 mmHg BP Standing (P ost-Dialysis) 199/90 mmHg Sitting Heart Rate Pre-Dialysis 69 BPM Sitting Heart Rate Post-Dialysis 65 BPM Standing Heart Rate Pre-Dialysis 76 BPM Standing Heart Rate Post-Dialysis 68 BPM Temperature Pre-Dialysis 97.5 degF Temperature Post -Dialysis 97.3 degF June 03, 2022 In-Center Hemodialysis Treatment [id number]:10:21.000Z 8356-79-41A74:21:36.000Z BP Sitting (Pre-Dialysis) 183/79 mmHg BP Sitting (Post-Dialysis) 199/85 mmHg Concurrent Access: falseAV Fistula Upper Arm (Left) Arterial BP Standing (Pre-Dialysis) 184/78 mmHg BP Standing (P ost-Dialysis) 215/95 mmHg Sitting Heart Rate Pre-Dialysis 65 BPM Sitting Heart Rate Post-Dialysis 64 BPM Standing Heart Rate Pre-Dialysis 67 BPM Standing Heart Rate Post-Dialysis 68 BPM Temperature Pre-Dialysis 97.5 degF Temperature Post -Dialysis 97.3 degF June 01, 2022 In-Center Hemodialysis Treatment 9713-18-34P24:32:00.000Z 7558-72-57L32:22:48.000Z BP Sitting (Pre-Dialysis) 182/78 mmHg BP Sitting (Post-Dialysis) 193/81 mmHg Concurrent Access: falseAV Fistula Upper Arm (Left) Arterial BP Standing (Pre-Dialysis) 149/70 mmHg BP Standing (P ost-Dialysis) 196/80 mmHg Sitting Heart Rate Pre-Dialysis 63 BPM Sitting Heart Rate Post-Dialysis 60 BPM Standing Heart Rate Pre-Dialysis 67 BPM Standing Heart Rate Post-Dialysis 61 BPM Temperature Pre-Dialysis 97.7 degF Temperature Post -Dialysis 97.3 degF May 30, 2022 In-Center Hemodialysis Treatment [id number]:54:47.000Z [id number]:17:42.000Z BP Sitting (Pre-Dialysis) 163/72 mmHg BP Sitting (Post-Dialysis) 190/83 mmHg Concurrent Access: falseAV Fistula Upper Arm (Left) Arterial BP Standing (Pre-Dialysis) 157/68 mmHg BP Standing (P ost-Dialysis) 205/89 mmHg Sitting Heart Rate Pre-Dialysis 64 BPM Sitting Heart Rate Post-Dialysis 68 BPM Standing Heart Rate Pre-Dialysis 70 BPM Standing Heart Rate Post-Dialysis 69 BPM Temperature Pre-Dialysis 98 degF Temperature Post -Dialysis 96.7 degF May 27, 2022 In-Center Hemodialysis Treatment [id number]:39:00.000Z 6583-64-26H40:23:27.000Z BP Sitting (Pre-Dialysis) 158/75 mmHg BP Sitting (Post-Dialysis) 187/83 mmHg Concurrent Access: falseAV Fistula Upper Arm (Left) Arterial BP Standing (Pre-Dialysis) 140/59 mmHg BP Standing (P ost-Dialysis) 185/86 mmHg Sitting Heart Rate Pre-Dialysis 73 BPM Sitting Heart Rate Post-Dialysis 71 BPM Standing Heart Rate Pre-Dialysis 79 BPM Standing Heart Rate Post-Dialysis 72 BPM Temperature Pre-Dialysis 96.9 degF Temperature Post -Dialysis 97.1 degF May 25, 2022 In-Center Hemodialysis Treatment [id number]:53:00.000Z [id number]:20:57.000Z BP Sitting (Pre-Dialysis) 200/83 mmHg BP Sitting (Post-Dialysis) 201/88 mmHg Concurrent Access: falseAV Fistula Upper Arm (Left) Arterial BP Standing (Pre-Dialysis) 177/82 mmHg BP Standing (P ost-Dialysis) 203/81 mmHg Sitting Heart Rate Pre-Dialysis 71 BPM Sitting Heart Rate Post-Dialysis 67 BPM Standing Heart Rate Pre-Dialysis 72 BPM Standing Heart Rate Post-Dialysis 67 BPM Temperature Pre-Dialysis 97.3 degF Temperature Post -Dialysis 97.7 degF May 23, 2022 In-Center Hemodialysis Treatment [id number]:51:33.000Z [id number]:19:53.000Z BP Sitting (Pre-Dialysis) 145/64 mmHg BP Sitting (Post-Dialysis) 178/79 mmHg Concurrent Access: falseAV Fistula Upper Arm (Left) Arterial BP Standing (Pre-Dialysis) 42/69 mmHg BP Standing (P ost-Dialysis) 181/84 mmHg Sitting Heart Rate Pre-Dialysis 67 BPM Sitting Heart Rate Post-Dialysis 67 BPM Standing Heart Rate Pre-Dialysis 68 BPM Standing Heart Rate Post-Dialysis 70 BPM Temperature Pre-Dialysis 98.1 degF Temperature Post -Dialysis 97.2 degF May 20, 2022 In-Center Hemodialysis Treatment [id number]:10:00.000Z 1366-19-73A71:12:23.000Z BP Sitting (Pre-Dialysis) 155/66 mmHg BP Sitting (Post-Dialysis) 195/91 mmHg Concurrent Access: falseAV Fistula Upper Arm (Left) Arterial BP Standing (Pre-Dialysis) 151/75 mmHg BP Standing (P ost-Dialysis) 202/90 mmHg Sitting Heart Rate Pre-Dialysis 73 BPM Sitting Heart Rate Post-Dialysis 67 BPM Standing Heart Rate Pre-Dialysis 76 BPM Standing Heart Rate Post-Dialysis 70 BPM Temperature Pre-Dialysis 98.1 degF Temperature Post -Dialysis 97.6 degF May 18, 2022 In-Center Hemodialysis Treatment [id number]:31:00.000Z [id number]:17:16.000Z BP Sitting (Pre-Dialysis) 140/63 mmHg BP Sitting (Post-Dialysis) 133/70 mmHg Concurrent Access: falseAV Fistula Upper Arm (Left) Arterial BP Standing (Pre-Dialysis) 124/72 mmHg BP Standing (P ost-Dialysis) 159/72 mmHg Sitting Heart Rate Pre-Dialysis 69 BPM Sitting Heart Rate Post-Dialysis 67 BPM Standing Heart Rate Pre-Dialysis 71 BPM Standing Heart Rate Post-Dialysis 68 BPM Temperature Pre-Dialysis 97.6 degF Temperature Post -Dialysis 97.3 degF May 16, 2022 In-Center Hemodialysis Treatment 1690-19-00U61:32:00.000Z [id number]:18:44.000Z BP Sitting (Pre-Dialysis) 130/59 mmHg BP Sitting (Post-Dialysis) 126/62 mmHg Concurrent Access: falseAV Fistula Upper Arm (Left) Arterial Sitting Heart Rate Pre-Dialysis 75 BPM Sitting H eart Rate Post-Dialysis 77 BPM Temperature Pre-Dialysis 98 degF Temperature Post -Dialysis 97.3 degF May 13, 2022 In-Center Hemodialysis Treatment [id number]:30:00.000Z [id number]:19:15.000Z BP Sitting (Pre-Dialysis) 128/53 mmHg BP Sitting (Post-Dialysis) 144/65 mmHg Concurrent Access: falseAV Fistula Upper Arm (Left) Arterial BP Standing (Pre-Dialysis) 115/45 mmHg BP Standing (P [facility]) 145/74 mmHg Sitting Heart Rate Pre-Dialysis 74 BPM Sitting Heart Rate Post-Dialysis 72 BPM Standing Heart Rate Pre-Dialysis 77 BPM Standing Heart Rate Post-Dialysis 76 BPM Temperature Pre-Dialysis 97.3 degF Temperature Post -Dialysis 97.3 degF May 11, 2022 In-Center Hemodialysis Treatment [id number]:31:05.000Z [id number]:20:40.000Z BP Sitting (Pre-Dialysis) 128/95 mmHg BP Sitting (Post-Dialysis) 155/75 mmHg Concurrent Access: falseAV Fistula Upper Arm (Left) Arterial BP Standing (Pre-Dialysis) 126/66 mmHg BP Standing (P ost-Dialysis) 132/62 mmHg Sitting Heart Rate Pre-Dialysis 76 BPM Sitting Heart Rate Post-Dialysis 71 BPM Standing Heart Rate Pre-Dialysis 71 BPM Standing Heart Rate Post-Dialysis 78 BPM Temperature Pre-Dialysis 97.5 degF Temperature Post -Dialysis 96.9 degF May 09, 2022 In-Center Hemodialysis Treatment [id number]:32:00.000Z [id number]:20:07.000Z BP Sitting (Pre-Dialysis) 124/57 mmHg BP Sitting (Post-Dialysis) 139/65 mmHg Concurrent Access: falseAV Fistula Upper Arm (Left) Arterial BP Standing (Pre-Dialysis) 111/50 mmHg BP Standing (P ost-Dialysis) 136/68 mmHg Sitting Heart Rate Pre-Dialysis 69 BPM Sitting Heart Rate Post-Dialysis 69 BPM Standing Heart Rate Pre-Dialysis 72 BPM Standing Heart Rate Post-Dialysis 76 BPM Temperature Pre-Dialysis 97.5 degF Temperature Post -Dialysis 97.9 degF May 06, 2022 In-Center Hemodialysis Treatment [id number]:20:00.000Z [id number]:20:06.000Z BP Sitting (Pre-Dialysis) 121/58 mmHg BP Sitting (Post-Dialysis) 135/66 mmHg Concurrent Access: falseAV Fistula Upper Arm (Left) Arterial BP Standing (Pre-Dialysis) 125/55 mmHg BP Standing (P ost-Dialysis) 134/66 mmHg Sitting Heart Rate Pre-Dialysis 72 BPM Sitting Heart Rate Post-Dialysis 70 BPM Standing Heart Rate Pre-Dialysis 70 BPM Standing Heart Rate Post-Dialysis 72 BPM Temperature Pre-Dialysis 97.9 degF Temperature Post -Dialysis 97.1 degF May 04, 2022 In-Center Hemodialysis Treatment [id number]:26:00.000Z [id number]:20:05.000Z BP Sitting (Pre-Dialysis) 134/54 mmHg BP Sitting (Post-Dialysis) 137/76 mmHg Concurrent Access: falseAV Fistula Upper Arm (Left) Arterial BP Standing (Pre-Dialysis) 132/46 mmHg BP Standing (P ost-Dialysis) 136/60 mmHg Sitting Heart Rate Pre-Dialysis 69 BPM Sitting Heart Rate Post-Dialysis 71 BPM Standing Heart Rate Pre-Dialysis 72 BPM Standing Heart Rate Post-Dialysis 73 BPM Temperature Pre-Dialysis 97.2 degF Temperature Post -Dialysis 97.2 degF May 02, 2022 In-Center Hemodialysis Treatment [id number]:23:00.000Z [id number]:21:11.000Z BP Sitting (Pre-Dialysis) 149/61 mmHg BP Sitting (Post-Dialysis) 153/75 mmHg Concurrent Access: falseAV Fistula Upper Arm (Left) Arterial BP Standing (Pre-Dialysis) 139/58 mmHg BP Standing (P ost-Dialysis) 163/76 mmHg Sitting Heart Rate Pre-Dialysis 72 BPM Sitting Heart Rate Post-Dialysis 72 BPM Standing Heart Rate Pre-Dialysis 76 BPM Standing Heart Rate Post-Dialysis 75 BPM Temperature Pre-Dialysis 97.6 degF Temperature Post -Dialysis 98.6 degF April 29, 2022 In-Center Hemodialysis Treatment [id number]:26:00.000Z [id number]:21:01.000Z BP Sitting (Pre-Dialysis) 129/65 mmHg BP Sitting (Post-Dialysis) 160/74 mmHg Concurrent Access: falseAV Fistula Upper Arm (Left) Arterial BP Standing (Pre-Dialysis) 132/65 mmHg BP Standing (P ost-Dialysis) 156/69 mmHg Sitting Heart Rate Pre-Dialysis 66 BPM Sitting Heart Rate Post-Dialysis 66 BPM Standing Heart Rate Pre-Dialysis 67 BPM Standing Heart Rate Post-Dialysis 72 BPM Temperature Pre-Dialysis 97.2 degF Temperature Post -Dialysis 97.2 degF April 27, 2022 In-Center Hemodialysis Treatment [id number]:34:00.000Z [id number]:17:32.000Z BP Sitting (Pre-Dialysis) 158/63 mmHg BP Sitting (Post-Dialysis) 170/76 mmHg Concurrent Access: falseAV Fistula Upper Arm (Left) Arterial BP Standing (Pre-Dialysis) 139/62 mmHg BP Standing (P ost-Dialysis) 155/76 mmHg Sitting Heart Rate Pre-Dialysis 67 BPM Sitting Heart Rate Post-Dialysis 71 BPM Standing Heart Rate Pre-Dialysis 72 BPM Standing Heart Rate Post-Dialysis 73 BPM Temperature Pre-Dialysis 97.4 degF Temperature Post -Dialysis 97.6 degF April 25, 2022 In-Center Hemodialysis Treatment [id number]:22:00.000Z [id number]:23:41.000Z BP Sitting (Pre-Dialysis) 142/78 mmHg BP Sitting (Post-Dialysis) 166/82 mmHg Concurrent Access: falseAV Fistula Upper Arm (Left) Arterial BP Standing (Pre-Dialysis) 155/67 mmHg BP Standing (P ost-Dialysis) 151/76 mmHg Sitting Heart Rate Pre-Dialysis 74 BPM Sitting Heart Rate Post-Dialysis 72 BPM Standing Heart Rate Pre-Dialysis 78 BPM Standing Heart Rate Post-Dialysis 77 BPM Temperature Pre-Dialysis 97.7 degF April 22, 2022 In-Center Hemodialysis Treatment [id number]:23:00.000Z [id number]:20:39.000Z BP Sitting (Pre-Dialysis) 151/69 mmHg BP Sitting (Post-Dialysis) 161/77 mmHg Concurrent Access: falseAV Fistula Upper Arm (Left) Arterial BP Standing (Pre-Dialysis) 151/72 mmHg BP Standing (P ost-Dialysis) 160/80 mmHg Sitting Heart Rate Pre-Dialysis 70 BPM Sitting Heart Rate Post-Dialysis 68 BPM Standing Heart Rate Pre-Dialysis 71 BPM Standing Heart Rate Post-Dialysis 72 BPM Temperature Pre-Dialysis 98.1 degF Temperature Post -Dialysis 97.4 degF April 20, 2022 In-Center Hemodialysis Treatment [id number]:25:00.000Z [id number]:24:27.000Z BP Sitting (Pre-Dialysis) 156/66 mmHg BP Sitting (Post-Dialysis) 160/76 mmHg Concurrent Access: falseAV Fistula Upper Arm (Left) Arterial BP Standing (Pre-Dialysis) 156/70 mmHg BP Standing (P ost-Dialysis) 159/79 mmHg Sitting Heart Rate Pre-Dialysis 66 BPM Sitting Heart Rate Post-Dialysis 71 BPM Standing Heart Rate Pre-Dialysis 71 BPM Standing Heart Rate Post-Dialysis 77 BPM Temperature Pre-Dialysis 97.4 degF Temperature Post -Dialysis 97.3 degF April 18, 2022 In-Center Hemodialysis Treatment [id number]:25:00.000Z [id number]:16:59.000Z BP Sitting (Pre-Dialysis) 145/65 mmHg BP Sitting (Post-Dialysis) 171/83 mmHg Concurrent Access: falseAV Fistula Upper Arm (Left) Arterial BP Standing (Pre-Dialysis) 145/57 mmHg BP Standing (P ost-Dialysis) 170/83 mmHg Sitting Heart Rate Pre-Dialysis 64 BPM Sitting Heart Rate Post-Dialysis 70 BPM Standing Heart Rate Pre-Dialysis 78 BPM Standing Heart Rate Post-Dialysis 73 BPM Temperature Pre-Dialysis 98.3 degF Temperature Post -Dialysis 98 degF April 15, 2022 In-Center Hemodialysis Treatment [id number]:29:00.000Z [id number]:15:45.000Z BP Sitting (Pre-Dialysis) 139/57 mmHg BP Sitting (Post-Dialysis) 159/77 mmHg Concurrent Access: falseAV Fistula Upper Arm (Left) Arterial BP Standing (Pre-Dialysis) 137/61 mmHg BP Standing (P ost-Dialysis) 168/77 mmHg Sitting Heart Rate Pre-Dialysis 69 BPM Sitting Heart Rate Post-Dialysis 69 BPM Standing Heart Rate Pre-Dialysis 72 BPM Standing Heart Rate Post-Dialysis 71 BPM Temperature Pre-Dialysis 97.6 degF Temperature Post -Dialysis 97.6 degF April 13, 2022 In-Center Hemodialysis Treatment [id number]:20:00.000Z [id number]:20:16.000Z BP Sitting (Pre-Dialysis) 144/65 mmHg BP Sitting (Post-Dialysis) 153/74 mmHg Concurrent Access: falseAV Fistula Upper Arm (Left) Arterial BP Standing (Pre-Dialysis) 127/63 mmHg BP Standing (P ost-Dialysis) 159/80 mmHg Sitting Heart Rate Pre-Dialysis 68 BPM Sitting Heart Rate Post-Dialysis 70 BPM Standing Heart Rate Pre-Dialysis 68 BPM Standing Heart Rate Post-Dialysis 76 BPM Temperature Pre-Dialysis 97 degF Temperature Post -Dialysis 97.3 degF April 11, 2022 In-Center Hemodialysis Treatment [id number]:23:00.000Z [id number]:17:01.000Z BP Sitting (Pre-Dialysis) 131/56 mmHg BP Sitting (Post-Dialysis) 155/79 mmHg Concurrent Access: falseAV Fistula Upper Arm (Left) Arterial BP Standing (Pre-Dialysis) 133/41 mmHg BP Standing (P ost-Dialysis) 153/75 mmHg Sitting Heart Rate Pre-Dialysis 68 BPM Sitting Heart Rate Post-Dialysis 68 BPM Standing Heart Rate Pre-Dialysis 75 BPM Standing Heart Rate Post-Dialysis 73 BPM Temperature Pre-Dialysis 97.1 degF Temperature Post -Dialysis 97.6 degF April 08, 2022 In-Center Hemodialysis Treatment [id number]:28:27.000Z [id number]:19:42.000Z BP Sitting (Pre-Dialysis) 145/73 mmHg BP Sitting (Post-Dialysis) 165/79 mmHg Concurrent Access: falseAV Fistula Upper Arm (Left) Arterial BP Standing (Pre-Dialysis) 145/59 mmHg BP Standing (P ost-Dialysis) 157/76 mmHg Sitting Heart Rate Pre-Dialysis 74 BPM Sitting Heart Rate Post-Dialysis 75 BPM Standing Heart Rate Pre-Dialysis 77 BPM Standing Heart Rate Post-Dialysis 78 BPM Temperature Pre-Dialysis 98 degF Temperature Post -Dialysis 97.3 degF April 06, 2022 In-Center Hemodialysis Treatment [id number]:29:04.000Z [id number]:22:24.000Z BP Sitting (Pre-Dialysis) 138/68 mmHg BP Sitting (Post-Dialysis) 145/70 mmHg Concurrent Access: falseAV Fistula Upper Arm (Left) Arterial BP Standing (Pre-Dialysis) 139/66 mmHg BP Standing (P ost-Dialysis) 137/64 mmHg Sitting Heart Rate Pre-Dialysis 67 BPM Sitting Heart Rate Post-Dialysis 68 BPM Standing Heart Rate Pre-Dialysis 73 BPM Standing Heart Rate Post-Dialysis 71 BPM Temperature Pre-Dialysis 97 degF Temperature Post -Dialysis 97.1 degF April 04, 2022 In-Center Hemodialysis Treatment [id number]:29:00.000Z [id number]:23:51.000Z BP Sitting (Pre-Dialysis) 149/70 mmHg BP Sitting (Post-Dialysis) 165/81 mmHg Concurrent Access: falseAV Fistula Upper Arm (Left) Arterial BP Standing (Pre-Dialysis) 158/70 mmHg BP Standing (P ost-Dialysis) 163/82 mmHg Sitting Heart Rate Pre-Dialysis 76 BPM Sitting Heart Rate Post-Dialysis 79 BPM Standing Heart Rate Pre-Dialysis 85 BPM Standing Heart Rate Post-Dialysis 84 BPM Temperature Pre-Dialysis 98 degF Temperature Post -Dialysis 97.5 degF April 01, 2022 In-Center Hemodialysis Treatment [id number]:31:00.000Z [id number]:22:45.000Z BP Sitting (Pre-Dialysis) 143/70 mmHg BP Sitting (Post-Dialysis) 160/74 mmHg Concurrent Access: falseAV Fistula Upper Arm (Left) Arterial BP Standing (Pre-Dialysis) 147/65 mmHg BP Standing (P ost-Dialysis) 170/73 mmHg Sitting Heart Rate Pre-Dialysis 69 BPM Sitting Heart Rate Post-Dialysis 67 BPM Standing Heart Rate Pre-Dialysis 71 BPM Standing Heart Rate Post-Dialysis 75 BPM Temperature Pre-Dialysis 96.6 degF Temperature Post -Dialysis 97.3 degF March 30, 2022 In-Center Hemodialysis Treatment [id number]:22:00.000Z [id number]:20:55.000Z BP Sitting (Pre-Dialysis) 148/67 mmHg BP Sitting (Post-Dialysis) 176/82 mmHg Concurrent Access: falseAV Fistula Upper Arm (Left) Arterial BP Standing (Pre-Dialysis) 153/71 mmHg BP Standing (P ost-Dialysis) 157/74 mmHg Sitting Heart Rate Pre-Dialysis 75 BPM Sitting Heart Rate Post-Dialysis 72 BPM Standing Heart Rate Pre-Dialysis 79 BPM Standing Heart Rate Post-Dialysis 77 BPM Temperature Pre-Dialysis 97.7 degF Temperature Post -Dialysis 97.8 degF March 28, 2022 In-Center Hemodialysis Treatment [id number]:25:00.000Z [id number]:23:07.000Z BP Sitting (Pre-Dialysis) 151/65 mmHg BP Sitting (Post-Dialysis) 154/69 mmHg Concurrent Access: falseAV Fistula Upper Arm (Left) Arterial BP Standing (Pre-Dialysis) 130/61 mmHg BP Standing (P ost-Dialysis) 148/79 mmHg Sitting Heart Rate Pre-Dialysis 71 BPM Sitting Heart Rate Post-Dialysis 68 BPM Standing Heart Rate Pre-Dialysis 74 BPM Standing Heart Rate Post-Dialysis 73 BPM Temperature Pre-Dialysis 97.7 degF Temperature Post -Dialysis 97.5 degF March 25, 2022 In-Center Hemodialysis Treatment [id number]:25:00.000Z [id number]:23:16.000Z BP Sitting (Pre-Dialysis) 140/63 mmHg BP Sitting (Post-Dialysis) 163/88 mmHg Concurrent Access: falseAV Fistula Upper Arm (Left) Arterial BP Standing (Pre-Dialysis) 133/61 mmHg BP Standing (P ost-Dialysis) 173/82 mmHg Sitting Heart Rate Pre-Dialysis 70 BPM Sitting Heart Rate Post-Dialysis 76 BPM Standing Heart Rate Pre-Dialysis 76 BPM Standing Heart Rate Post-Dialysis 74 BPM Temperature Pre-Dialysis 98 degF Temperature Post -Dialysis 95.7 degF March 23, 2022 In-Center Hemodialysis Treatment [id number]:31:00.000Z [id number]:56:11.000Z BP Sitting (Pre-Dialysis) 127/56 mmHg BP Sitting (Post-Dialysis) 138/62 mmHg Concurrent Access: falseAV Fistula Upper Arm (Left) Arterial BP Standing (Pre-Dialysis) 133/62 mmHg BP Standing (P ost-Dialysis) 123/53 mmHg Sitting Heart Rate Pre-Dialysis 75 BPM Sitting Heart Rate Post-Dialysis 69 BPM Standing Heart Rate Pre-Dialysis 81 BPM Standing Heart Rate Post-Dialysis 82 BPM Temperature Pre-Dialysis 97.2 degF Temperature Post -Dialysis 98.1 degF March 21, 2022 In-Center Hemodialysis Treatment [id number]:23:00.000Z [id number]:22:20.000Z BP Sitting (Pre-Dialysis) 166/70 mmHg BP Sitting (Post-Dialysis) 186/80 mmHg Concurrent Access: falseAV Fistula Upper Arm (Left) Arterial BP Standing (Pre-Dialysis) 174/74 mmHg BP Standing (P ost-Dialysis) 162/80 mmHg Sitting Heart Rate Pre-Dialysis 81 BPM Sitting Heart Rate Post-Dialysis 72 BPM Standing Heart Rate Pre-Dialysis 88 BPM Standing Heart Rate Post-Dialysis 77 BPM Temperature Pre-Dialysis 97.3 degF Temperature Post -Dialysis 97.2 degF March 18, 2022 In-Center Hemodialysis Treatment [id number]:25:00.000Z [id number]:21:02.000Z BP Sitting (Pre-Dialysis) 130/60 mmHg BP Sitting (Post-Dialysis) 143/70 mmHg Concurrent Access: falseAV Fistula Upper Arm (Left) Arterial BP Standing (Pre-Dialysis) 110/32 mmHg BP Standing (P ost-Dialysis) 139/68 mmHg Sitting Heart Rate Pre-Dialysis 68 BPM Sitting Heart Rate Post-Dialysis 68 BPM Standing Heart Rate Pre-Dialysis 74 BPM Standing Heart Rate Post-Dialysis 74 BPM Temperature Pre-Dialysis 97.3 degF Temperature Post -Dialysis 98.1 degF March 16, 2022 In-Center Hemodialysis Treatment [id number]:19:00.000Z [id number]:20:01.000Z BP Sitting (Pre-Dialysis) 152/68 mmHg BP Sitting (Post-Dialysis) 167/79 mmHg Concurrent Access: falseAV Fistula Upper Arm (Left) Arterial BP Standing (Pre-Dialysis) 145/49 mmHg BP Standing (P ost-Dialysis) 177/82 mmHg Sitting Heart Rate Pre-Dialysis 67 BPM Sitting Heart Rate Post-Dialysis 69 BPM Standing Heart Rate Pre-Dialysis 73 BPM Standing Heart Rate Post-Dialysis 78 BPM Temperature Pre-Dialysis 98.3 degF Temperature Post -Dialysis 98 degF March 14, 2022 In-Center Hemodialysis Treatment [id number]:25:00.000Z [id number]:24:29.000Z BP Sitting (Pre-Dialysis) 139/84 mmHg BP Sitting (Post-Dialysis) 140/68 mmHg Concurrent Access: falseAV Fistula Upper Arm (Left) Arterial BP Standing (Pre-Dialysis) 131/69 mmHg BP Standing (P ost-Dialysis) 128/66 mmHg Sitting Heart Rate Pre-Dialysis 81 BPM Sitting Heart Rate Post-Dialysis 73 BPM Standing Heart Rate Pre-Dialysis 80 BPM Standing Heart Rate Post-Dialysis 76 BPM Temperature Pre-Dialysis 97.6 degF Temperature Post -Dialysis 97.3 degF March 11, 2022 In-Center Hemodialysis Treatment [id number]:24:00.000Z [id number]:23:08.000Z BP Sitting (Pre-Dialysis) 154/69 mmHg BP Sitting (Post-Dialysis) 147/72 mmHg Concurrent Access: falseAV Fistula Upper Arm (Left) Arterial BP Standing (Pre-Dialysis) 150/75 mmHg BP Standing (P ost-Dialysis) 138/72 mmHg Sitting Heart Rate Pre-Dialysis 71 BPM Sitting Heart Rate Post-Dialysis 74 BPM Standing Heart Rate Pre-Dialysis 75 BPM Standing Heart Rate Post-Dialysis 76 BPM Temperature Pre-Dialysis 96.5 degF Temperature Post -Dialysis 97.2 degF March 09, 2022 In-Center Hemodialysis Treatment 1451-29-48U10:26:00.000Z 1090-29-38O11:24:10.000Z BP Sitting (Pre-Dialysis) 139/64 mmHg BP Sitting (Post-Dialysis) 138/67 mmHg Concurrent Access: falseAV Fistula Upper Arm (Left) Arterial BP Standing (Pre-Dialysis) 139/67 mmHg BP Standing (P ost-Dialysis) 135/69 mmHg Sitting Heart Rate Pre-Dialysis 74 BPM Sitting Heart Rate Post-Dialysis 74 BPM Standing Heart Rate Pre-Dialysis 78 BPM Standing Heart Rate Post-Dialysis 79 BPM Temperature Pre-Dialysis 97.3 degF Temperature Post -Dialysis 97.6 degF March 07, 2022 In-Center Hemodialysis Treatment [id number]:23:00.000Z [id number]:23:11.000Z BP Sitting (Pre-Dialysis) 134/61 mmHg BP Sitting (Post-Dialysis) 144/67 mmHg Concurrent Access: falseAV Fistula Upper Arm (Left) Arterial BP Standing (Pre-Dialysis) 118/59 mmHg BP Standing (P ost-Dialysis) 140/76 mmHg Sitting Heart Rate Pre-Dialysis 72 BPM Sitting Heart Rate Post-Dialysis 74 BPM Standing Heart Rate Pre-Dialysis 76 BPM Standing Heart Rate Post-Dialysis 76 BPM Temperature Pre-Dialysis 98.1 degF Temperature Post -Dialysis 98.1 degF March 04, 2022 In-Center Hemodialysis Treatment [id number]:24:00.000Z [id number]:18:20.000Z BP Sitting (Pre-Dialysis) 135/63 mmHg BP Sitting (Post-Dialysis) 137/68 mmHg Concurrent Access: falseAV Fistula Upper Arm (Left) Arterial BP Standing (Pre-Dialysis) 135/58 mmHg BP Standing (P ost-Dialysis) 136/62 mmHg Sitting Heart Rate Pre-Dialysis 71 BPM Sitting Heart Rate Post-Dialysis 67 BPM Standing Heart Rate Pre-Dialysis 74 BPM Standing Heart Rate Post-Dialysis 71 BPM Temperature Pre-Dialysis 97.3 degF Temperature Post -Dialysis 97.7 degF March 02, 2022 In-Center Hemodialysis Treatment [id number]:23:00.000Z [id number]:23:29.000Z BP Sitting (Pre-Dialysis) 126/57 mmHg BP Sitting (Post-Dialysis) 135/63 mmHg Concurrent Access: falseAV Fistula Upper Arm (Left) Arterial BP Standing (Pre-Dialysis) 140/70 mmHg BP Standing (P ost-Dialysis) 121/60 mmHg Sitting Heart Rate Pre-Dialysis 75 BPM Sitting Heart Rate Post-Dialysis 71 BPM Standing Heart Rate Pre-Dialysis 76 BPM Standing Heart Rate Post-Dialysis 76 BPM Temperature Pre-Dialysis 98.4 degF Temperature Post -Dialysis 97.3 degF February 28, 2022 In-Center Hemodialysis Treatment [id number]:21:00.000Z [id number]:22:07.000Z BP Sitting (Pre-Dialysis) 138/61 mmHg BP Sitting (Post-Dialysis) 130/62 mmHg Concurrent Access: falseAV Fistula Upper Arm (Left) Arterial BP Standing (Pre-Dialysis) 123/80 mmHg BP Standing (P ost-Dialysis) 128/59 mmHg Sitting Heart Rate Pre-Dialysis 69 BPM Sitting Heart Rate Post-Dialysis 70 BPM Standing Heart Rate Pre-Dialysis 75 BPM Standing Heart Rate Post-Dialysis 74 BPM Temperature Pre-Dialysis 98 degF Temperature Post -Dialysis 97.6 degF February 25, 2022 In-Center Hemodialysis Treatment [id number]:21:00.000Z 3009-10-07Z02:23:14.000Z BP Sitting (Pre-Dialysis) 131/59 mmHg BP Sitting (Post-Dialysis) 124/58 mmHg Concurrent Access: falseAV Fistula Upper Arm (Left) Arterial BP Standing (Pre-Dialysis) 116/65 mmHg BP Standing (P ost-Dialysis) 120/65 mmHg Sitting Heart Rate Pre-Dialysis 72 BPM Sitting Heart Rate Post-Dialysis 74 BPM Standing Heart Rate Pre-Dialysis 77 BPM Standing Heart Rate Post-Dialysis 78 BPM Temperature Pre-Dialysis 98.9 degF Temperature Post -Dialysis 98 degF February 23, 2022 In-Center Hemodialysis Treatment [id number]:18:00.000Z [id number]:20:05.000Z BP Sitting (Pre-Dialysis) 159/68 mmHg BP Sitting (Post-Dialysis) 171/78 mmHg Concurrent Access: falseAV Fistula Upper Arm (Left) Arterial BP Standing (Pre-Dialysis) 151/66 mmHg BP Standing (P ost-Dialysis) 167/75 mmHg Sitting Heart Rate Pre-Dialysis 79 BPM Sitting Heart Rate Post-Dialysis 68 BPM Standing Heart Rate Pre-Dialysis 82 BPM Standing Heart Rate Post-Dialysis 74 BPM Temperature Pre-Dialysis 97.3 degF Temperature Post -Dialysis 97.3 degF February 21, 2022 In-Center Hemodialysis Treatment 5890-06-14Q15:18:00.000Z [id number]:20:04.000Z BP Sitting (Pre-Dialysis) 115/52 mmHg BP Sitting (Post-Dialysis) 129/59 mmHg Concurrent Access: falseAV Fistula Upper Arm (Left) Arterial BP Standing (Pre-Dialysis) 119/61 mmHg BP Standing (P ost-Dialysis) 122/63 mmHg Sitting Heart Rate Pre-Dialysis 75 BPM Sitting Heart Rate Post-Dialysis 76 BPM Standing Heart Rate Pre-Dialysis 80 BPM Standing Heart Rate Post-Dialysis 79 BPM Temperature Pre-Dialysis 97.9 degF Temperature Post -Dialysis 97.8 degF February 18, 2022 In-Center Hemodialysis Treatment [id number]:20:00.000Z [id number]:22:02.000Z BP Sitting (Pre-Dialysis) 151/68 mmHg BP Sitting (Post-Dialysis) 126/67 mmHg Concurrent Access: falseAV Fistula Upper Arm (Left) Arterial BP Standing (Pre-Dialysis) 157/65 mmHg BP Standing (P ost-Dialysis) 150/69 mmHg Sitting Heart Rate Pre-Dialysis 66 BPM Sitting Heart Rate Post-Dialysis 75 BPM Standing Heart Rate Pre-Dialysis 74 BPM Standing Heart Rate Post-Dialysis 77 BPM Temperature Pre-Dialysis 98.1 degF Temperature Post -Dialysis 97.7 degF February 16, 2022 In-Center Hemodialysis Treatment [id number]:20:00.000Z 2045-11-53C25:23:27.000Z BP Sitting (Pre-Dialysis) 166/68 mmHg BP Sitting (Post-Dialysis) 131/71 mmHg Concurrent Access: falseAV Fistula Upper Arm (Left) Arterial BP Standing (Pre-Dialysis) 166/65 mmHg BP Standing (P ost-Dialysis) 153/66 mmHg Sitting Heart Rate Pre-Dialysis 75 BPM Sitting Heart Rate Post-Dialysis 71 BPM Standing Heart Rate Pre-Dialysis 79 BPM Standing Heart Rate Post-Dialysis 75 BPM Temperature Pre-Dialysis 98.2 degF Temperature Post -Dialysis 97.5 degF February 14, 2022 In-Center Hemodialysis Treatment 9933-59-97O90:21:00.000Z [id number]:20:57.000Z BP Sitting (Pre-Dialysis) 145/65 mmHg BP Sitting (Post-Dialysis) 184/78 mmHg Concurrent Access: falseAV Fistula Upper Arm (Left) Arterial BP Standing (Pre-Dialysis) 163/70 mmHg BP Standing (P ost-Dialysis) 176/84 mmHg Sitting Heart Rate Pre-Dialysis 76 BPM Sitting Heart Rate Post-Dialysis 77 BPM Standing Heart Rate Pre-Dialysis 81 BPM Standing Heart Rate Post-Dialysis 77 BPM Temperature Pre-Dialysis 97.9 degF Temperature Post -Dialysis 97.7 degF February 11, 2022 In-Center Hemodialysis Treatment [id number]:24:00.000Z [id number]:23:33.000Z BP Sitting (Pre-Dialysis) 141/75 mmHg BP Sitting (Post-Dialysis) 172/80 mmHg Concurrent Access: falseAV Fistula Upper Arm (Left) Arterial BP Standing (Pre-Dialysis) 149/72 mmHg BP Standing (P ost-Dialysis) 141/65 mmHg Sitting Heart Rate Pre-Dialysis 74 BPM Sitting Heart Rate Post-Dialysis 67 BPM Standing Heart Rate Pre-Dialysis 78 BPM Standing Heart Rate Post-Dialysis 77 BPM Temperature Pre-Dialysis 98.2 degF Temperature Post -Dialysis 97.6 degF 2022 In-Center Hemodialysis Treatment [id number]:25:00.000Z [id number]:24:48.000Z BP Sitting (Pre-Dialysis) 136/59 mmHg BP Sitting (Post-Dialysis) 141/70 mmHg Concurrent Access: falseAV Fistula Upper Arm (Left) Arterial BP Standing (Pre-Dialysis) 129/59 mmHg BP Standing (P ost-Dialysis) 145/67 mmHg Sitting Heart Rate Pre-Dialysis 70 BPM Sitting Heart Rate Post-Dialysis 76 BPM Standing Heart Rate Pre-Dialysis 78 BPM Standing Heart Rate Post-Dialysis 79 BPM Temperature Pre-Dialysis 97.5 degF Temperature Post -Dialysis 97.3 degF February 07, 2022 In-Center Hemodialysis Treatment [id number]:29:00.000Z [id number]:24:20.000Z BP Sitting (Pre-Dialysis) 148/62 mmHg BP Sitting (Post-Dialysis) 166/78 mmHg Concurrent Access: falseAV Fistula Upper Arm (Left) Arterial BP Standing (Pre-Dialysis) 150/76 mmHg BP Standing (P ost-Dialysis) 179/99 mmHg Sitting Heart Rate Pre-Dialysis 75 BPM Sitting Heart Rate Post-Dialysis 71 BPM Standing Heart Rate Pre-Dialysis 80 BPM Standing Heart Rate Post-Dialysis 78 BPM Temperature Pre-Dialysis 96.7 degF Temperature Post -Dialysis 96.9 degF February 04, 2022 In-Center Hemodialysis Treatment [id number]:26:00.000Z [id number]:17:21.000Z BP Sitting (Pre-Dialysis) 127/58 mmHg BP Sitting (Post-Dialysis) 161/75 mmHg Concurrent Access: falseAV Fistula Upper Arm (Left) Arterial BP Standing (Pre-Dialysis) 133/59 mmHg BP Standing (P ost-Dialysis) 155/73 mmHg Sitting Heart Rate Pre-Dialysis 74 BPM Sitting Heart Rate Post-Dialysis 71 BPM Standing Heart Rate Pre-Dialysis 76 BPM Standing Heart Rate Post-Dialysis 74 BPM Temperature Pre-Dialysis 96.4 degF Temperature Post -Dialysis 97.3 degF February 02, 2022 In-Center Hemodialysis Treatment [id number]:29:00.000Z 3550-04-46J80:23:19.000Z BP Sitting (Pre-Dialysis) 141/78 mmHg BP Sitting (Post-Dialysis) 123/62 mmHg Concurrent Access: falseAV Fistula Upper Arm (Left) Arterial BP Standing (Pre-Dialysis) 149/70 mmHg BP Standing (P ost-Dialysis) 117/70 mmHg Sitting Heart Rate Pre-Dialysis 71 BPM Sitting Heart Rate Post-Dialysis 72 BPM Standing Heart Rate Pre-Dialysis 73 BPM Standing Heart Rate Post-Dialysis 77 BPM Temperature Pre-Dialysis 98.2 degF Temperature Post -Dialysis 97.3 degF January 31, 2022 In-Center Hemodialysis Treatment [id number]:20:00.000Z [id number]:28:40.000Z BP Sitting (Pre-Dialysis) 110/74 mmHg BP Sitting (Post-Dialysis) 141/67 mmHg Concurrent Access: falseAV Fistula Upper Arm (Left) Arterial BP Standing (Pre-Dialysis) 140/66 mmHg BP Standing (P ost-Dialysis) 126/63 mmHg Sitting Heart Rate Pre-Dialysis 71 BPM Sitting Heart Rate Post-Dialysis 67 BPM Standing Heart Rate Pre-Dialysis 73 BPM Standing Heart Rate Post-Dialysis 76 BPM Temperature Pre-Dialysis 97.8 degF Temperature Post -Dialysis 96.6 degF January 28, 2022 In-Center Hemodialysis Treatment [id number] BP Sitting (Pre-Dialysis) 137/65 mmHg BP Sitting (Post-Dialysis) 133/67 mmHg Concurrent Access: falseAV Fistula Upper Arm (Left) Arterial BP Standing (Pre-Dialysis) 148/70 mmHg BP Standing (P ost-Dialysis) 129/68 mmHg Sitting Heart Rate Pre-Dialysis 76 BPM Sitting Heart Rate Post-Dialysis 75 BPM Standing Heart Rate Pre-Dialysis 79 BPM Standing Heart Rate Post-Dialysis 79 BPM Temperature Pre-Dialysis 97.3 degF Temperature Post -Dialysis 97.4 degF January 26, 2022 In-Center Hemodialysis Treatment [id number] [id number]:26.000Z BP Sitting (Pre-Dialysis) 137/66 mmHg BP Sitting (Post-Dialysis) 149/69 mmHg Concurrent Access: falseAV Fistula Upper Arm (Left) Arterial BP Standing (Pre-Dialysis) 131/57 mmHg BP Standing (P ost-Dialysis) 157/78 mmHg Sitting Heart Rate Pre-Dialysis 79 BPM Sitting Heart Rate Post-Dialysis 71 BPM Standing Heart Rate Pre-Dialysis 83 BPM Standing Heart Rate Post-Dialysis 83 BPM Temperature Pre-Dialysis 97.6 degF Temperature Post -Dialysis 97.3 degF January 24, 2022 In-Center Hemodialysis Treatment [id number]:[id number]:20:00.000Z BP Sitting (Pre-Dialysis) 136/65 mmHg BP Sitting (Post-Dialysis) 154/69 mmHg Concurrent Access: falseAV Fistula Upper Arm (Left) Arterial BP Standing (Pre-Dialysis) 145/70 mmHg BP Standing (P ost-Dialysis) 154/77 mmHg Sitting Heart Rate Pre-Dialysis 79 BPM Sitting Heart Rate Post-Dialysis 72 BPM Standing Heart Rate Pre-Dialysis 81 BPM Standing Heart Rate Post-Dialysis 75 BPM Temperature Pre-Dialysis 98 degF Temperature Post -Dialysis 98.3 degF DIALYSIS ORDER Dialysis Procedure Orders Type of Dialysis Procedure Order Order Date/Time Observations In-Center Hemodialysis Treatment March 12, 2024 Target Weight 53.5 kg Dialysate Flow Rate 800 mL/min Blood Flow Rate 400 mL/min Treatment Time 180 min(total) Max UF Rate 13 mL/kg/hr Base Sodium Dialysate Base Sodium 140 mE q/L dialysate_temp 37 C BiCarb Dialysate BiCarbonate 38 meq/L Access Concurrent No Arterial Access AV Fistula (Upper Ar m (Left)) Venous Access AV Fistula (Upper Ar m (Left)) Arterial Needle Display NIPRO, KAREEMIP, 15 G x 1 , SHARP , TWIN Venous Needle NIPRO, TULIP, 15G x 1 , SHARP , TWIN Dialyzer Nipro Elisio 15H 126 4 [email or web address] Dialysate Bath Potassium Potassium 3 mEq /L Dialysate Bath Calcium Calcium 2.5 mEq/L Results Adequacy Description Draw Date Result/Unit Status Ref Range Result Comments URR% 2024-04-18 15:31:08 71 % F KT/V PRESCRIBED 2024-04-18 15:31:08 2.23 F HEIGHT IN INCHES 2024-04-18 15:31:08 58 Inches F TBW ([place]) 2024-04-18 15:31:08 26.8 Liters F WEIGHT (KG) 2024-04-18 15:31:08 53.5 kg F Std Renal KT/V 2024-04-18 15:31:08 N/A F CURRENT KRU 2024-04-18 15:31:08 F TOTAL HOURS/WEEK DIALYSIS 2024-04-18 15:31:08 8 hrs F PRESCRIBED DAYS/WEEK 2024-04-18 15:31:08 3 Day/Wk F nPCR 2024-04-18 15:31:08 0.84 G/KG/D F LENGTH OF DIALYSIS 2024-04-18 15:31:08 169 min F Dialyzer ESTEFANIA 2024-04-18 15:31:08 1264 Calc F eKt/V 2024-04-18 15:31:08 1.2 F BSA COLIN 2024-04-18 15:31:08 1.46 sq m F stdKT/V Total 2024-04-18 15:31:08 N/A F WEIGHT - POST DAY 1 2024-04-18 15:31:08 53.3 kg F VM (KT/V MEAN VOL) 2024-04-18 15:31:08 33.3 F VT (KT/V TX VOL) 2024-04-18 15:31:08 34.4 L F PATIENT AGE 2024-04-18 15:31:08 64 Years F DIALYZER FLOW-QD 2024-04-18 15:31:08 800 mL/min F spKt/V 2024-04-18 15:31:08 1.45 F WEIGHT - PRE DAY 1 2024-04-18 15:31:08 55.6 kg F BLOOD FLOW-QWB 2024-04-18 15:31:08 400 F Total Kt/V 2024-04-18 15:31:08 1.45 F AMPUTATE FACTOR 2024-04-18 15:31:08 0 F stdKt/V (DIAL) 2024-04-18 15:31:08 N/A F Residual kt/v 2024-04-18 15:31:08 F URR% 2024-04-18 15:31:08 71 % F DIALYZER FLOW-QD 2024-04-18 15:31:08 800 mL/min F Dialyzer ESTEFANIA 2024-04-18 15:31:08 1264 Calc F LENGTH OF DIALYSIS 2024-04-18 15:31:08 169 min F PATIENT AGE 2024-04-18 15:31:08 64 Years F BSA COLIN 2024-04-18 15:31:08 1.46 sq m F WEIGHT - POST DAY 1 2024-04-18 15:31:08 53.3 kg F WEIGHT - PRE DAY 1 2024-04-18 15:31:08 55.6 kg F HEIGHT IN INCHES 2024-04-18 15:31:08 58 Inches F WEIGHT (KG) 2024-04-18 15:31:08 53.5 kg F VT (KT/V TX VOL) 2024-04-18 15:31:08 34.4 L F PRESCRIBED DAYS/WEEK 2024-04-18 15:31:08 3 Day/Wk F VM (KT/V MEAN VOL) 2024-04-18 15:31:08 33.3 F Residual kt/v 2024-04-18 15:31:08 F KT/V PRESCRIBED 2024-04-18 15:31:08 2.23 F nPCR 2024-04-18 15:31:08 0.84 G/KG/D F Total Kt/V 2024-04-18 15:31:08 1.45 F AMPUTATE FACTOR 2024-04-18 15:31:08 0 F TBW ([place]) 2024-04-18 15:31:08 26.8 Liters F eKt/V 2024-04-18 15:31:08 1.2 F spKt/V 2024-04-18 15:31:08 1.45 F stdKt/V (DIAL) 2024-04-18 15:31:08 N/A F stdKT/V Total 2024-04-18 15:31:08 N/A F Std Renal KT/V 2024-04-18 15:31:08 N/A F TOTAL HOURS/WEEK DIALYSIS 2024-04-18 15:31:08 8 hrs F BLOOD FLOW-QWB 2024-04-18 15:31:08 400 F CURRENT KRU 2024-04-18 15:31:08 F Urea nitrogen [Mass/volume] in Serum or Plasma --post dialysis 2024-04-18 15:29:19 12 mg/dL F 9.0-23.0 Urea nitrogen [Mass/volume] in Serum or Plasma --post dialysis 2024-04-18 15:29:19 12 mg/dL F 9.0-23.0 Urea nitrogen [Mass/volume] in Serum or Plasma 2024-04-18 15:05:26 42 mg/dL F 9.0-23.0 Urea nitrogen [Mass/volume] in Serum or Plasma 2024-04-18 15:05:26 42 mg/dL F 9.0-23.0 Creatinine [Mass/volume] in Serum or Plasma 2024-04-04 17:43:16 6.17 mg/dL F 0.5-1.1 Creatinine [Mass/volume] in Serum or Plasma 2024-04-04 17:43:16 6.17 mg/dL F 0.5-1.1 URR% 2024-03-21 17:29:21 69 % F DIALYZER FLOW-QD 2024-03-21 17:29:21 800 mL/min F LENGTH OF DIALYSIS 2024-03-21 17:29:21 155 min F Dialyzer ESTEFANIA 2024-03-21 17:29:21 1264 Calc F PATIENT AGE 2024-03-21 17:29:21 64 Years F BSA COLIN 2024-03-21 17:29:21 1.46 sq m F WEIGHT - POST DAY 1 2024-03-21 17:29:21 53.2 kg F HEIGHT IN INCHES 2024-03-21 17:29:21 58 Inches F WEIGHT - PRE DAY 1 2024-03-21 17:29:21 55 kg F WEIGHT (KG) 2024-03-21 17:29:21 53.5 kg F VT (KT/V TX VOL) 2024-03-21 17:29:21 33.9 L F PRESCRIBED DAYS/WEEK 2024-03-21 17:29:21 3 Day/Wk F Residual kt/v 2024-03-21 17:29:21 F VM (KT/V MEAN VOL) 2024-03-21 17:29:21 33 F KT/V PRESCRIBED 2024-03-21 17:29:21 2.04 F nPCR 2024-03-21 17:29:21 0.72 G/KG/D F AMPUTATE FACTOR 2024-03-21 17:29:21 0 F Total Kt/V 2024-03-21 17:29:21 1.35 F TBW ([place]) 2024-03-21 17:29:21 26.77 Liters F spKt/V 2024-03-21 17:29:21 1.35 F eKt/V 2024-03-21 17:29:21 1.1 F stdKt/V (DIAL) 2024-03-21 17:29:21 N/A F stdKT/V Total 2024-03-21 17:29:21 N/A F Std Renal KT/V 2024-03-21 17:29:21 N/A F TOTAL HOURS/WEEK DIALYSIS 2024-03-21 17:29:21 8 hrs F BLOOD FLOW-QWB 2024-03-21 17:29:21 399 F CURRENT KRU 2024-03-21 17:29:21 F Urea nitrogen [Mass/volume] in Serum or Plasma 2024-03-21 17:25:46 36 mg/dL F 9.0-23.0 Urea nitrogen [Mass/volume] in Serum or Plasma --post dialysis 2024-03-21 17:19:38 11 mg/dL F 9.0-23.0 Creatinine [Mass/volume] in Serum or Plasma 2024-03-07 21:07:33 6.27 mg/dL F 0.5-1.1 URR% 2024-02-22 16:29:17 74 % F DIALYZER FLOW-QD 2024-02-22 16:29:17 800 mL/min F Dialyzer ESTEFANIA 2024-02-22 16:29:17 1264 Calc F LENGTH OF DIALYSIS 2024-02-22 16:29:17 181 min F BSA COLIN 2024-02-22 16:29:17 1.46 sq m F PATIENT AGE 2024-02-22 16:29:17 64 Years F WEIGHT - PRE DAY 1 2024-02-22 16:29:17 54.9 kg F WEIGHT - POST DAY 1 2024-02-22 16:29:17 53 kg F HEIGHT IN INCHES 2024-02-22 16:29:17 58 Inches F PRESCRIBED DAYS/WEEK 2024-02-22 16:29:17 3 Day/Wk F VT (KT/V TX VOL) 2024-02-22 16:29:17 32.4 L F VM (KT/V MEAN VOL) 2024-02-22 16:29:17 32.7 F WEIGHT (KG) 2024-02-22 16:29:17 54 kg F Residual kt/v 2024-02-22 16:29:17 F Total Kt/V 2024-02-22 16:29:17 1.57 F KT/V PRESCRIBED 2024-02-22 16:29:17 2.38 F AMPUTATE FACTOR 2024-02-22 16:29:17 0 F nPCR 2024-02-22 16:29:17 0.82 G/KG/D F TBW ([place]) 2024-02-22 16:29:17 26.72 Liters F eKt/V 2024-02-22 16:29:17 1.3 F Std Renal KT/V 2024-02-22 16:29:17 N/A F spKt/V 2024-02-22 16:29:17 1.57 F stdKt/V (DIAL) 2024-02-22 16:29:17 N/A F stdKT/V Total 2024-02-22 16:29:17 N/A F TOTAL HOURS/WEEK DIALYSIS 2024-02-22 16:29:17 8 hrs F BLOOD FLOW-QWB 2024-02-22 16:29:17 368 F CURRENT KRU 2024-02-22 16:29:17 F Urea nitrogen [Mass/volume] in Serum or Plasma 2024-02-22 16:27:17 39 mg/dL F 9.0-23.0 Urea nitrogen [Mass/volume] in Serum or Plasma --post dialysis 2024-02-22 15:43:15 10 mg/dL F 9.0-23.0 Creatinine [Mass/volume] in Serum or Plasma 2024-02-01 16:39:22 6.41 mg/dL F 0.5-1.1 Creatinine [Mass/volume] in Serum or Plasma 2024-01-04 16:24:13 6.41 mg/dL F 0.5-1.1 Creatinine [Mass/volume] in Serum or Plasma 2024-01-04 16:24:13 6.41 mg/dL F 0.5-1.1 Creatinine [Mass/volume] in Serum or Plasma 2023-01-10 22:33:26 8.64 mg/dL F 0.5-1.1 DIALYZER FLOW-QD 2022-06-02 17:15:33 800 mL/min F URR% 2022-06-02 17:15:33 75 % F LENGTH OF DIALYSIS 2022-06-02 17:15:33 167 min F Dialyzer ESTEFANIA 2022-06-02 17:15:33 1218 Calc F PATIENT AGE 2022-06-02 17:15:33 62 Years F WEIGHT - POST DAY 1 2022-06-02 17:15:33 62.3 kg F WEIGHT - PRE DAY 1 2022-06-02 17:15:33 63.5 kg F HEIGHT IN INCHES 2022-06-02 17:15:33 58 Inches F PRESCRIBED DAYS/WEEK 2022-06-02 17:15:33 3 Day/Wk F WEIGHT (KG) 2022-06-02 17:15:33 63.5 kg F VT (KT/V TX VOL) 2022-06-02 17:15:33 29.8 L F VM (KT/V MEAN VOL) 2022-06-02 17:15:33 30 F Residual kt/v 2022-06-02 17:15:33 F Total Kt/V 2022-06-02 17:15:33 1.58 F KT/V PRESCRIBED 2022-06-02 17:15:33 1.9 F nPCR 2022-06-02 17:15:33 1.04 G/KG/D F AMPUTATE FACTOR 2022-06-02 17:15:33 0 F TBW ([place]) 2022-06-02 17:15:33 30.61 Liters F spKt/V 2022-06-02 17:15:33 1.58 F eKt/V 2022-06-02 17:15:33 1.29 F stdKt/V (DIAL) 2022-06-02 17:15:33 N/A F Std Renal KT/V 2022-06-02 17:15:33 N/A F TOTAL HOURS/WEEK DIALYSIS 2022-06-02 17:15:33 7 F stdKT/V Total 2022-06-02 17:15:33 N/A F BLOOD FLOW-QWB 2022-06-02 17:15:33 374 F BSA COLIN 2022-06-02 17:15:33 1.57 sq m F CURRENT KRU 2022-06-02 17:15:33 F Urea nitrogen [Mass/volume] in Serum or Plasma --post dialysis 2022-06-02 17:12:20 13 mg/dL F 9.0-23.0 Urea nitrogen [Mass/volume] in Serum or Plasma 2022-06-02 17:03:16 53 mg/dL F 9.0-23.0 Creatinine [Mass/volume] in Serum or Plasma 2022-06-02 17:03:16 8.63 mg/dL F 0.5-1.1 Creatinine [Mass/volume] in Serum or Plasma 2022-05-05 18:14:12 8.86 mg/dL F 0.5-1.1 Creatinine [Mass/volume] in Serum or Plasma 2022-05-05 18:14:12 8.86 mg/dL F 0.5-1.1 Creatinine [Mass/volume] in Serum or Plasma 2022-04-07 14:56:54 8.94 mg/dL F 0.5-1.1 Creatinine [Mass/volume] in Serum or Plasma 2022-03-03 19:05:51 F Recollect - Unsp un specimen,[id number] Creatinine [Mass/volume] in Serum or Plasma 2022-02-07 08:06:44 F Canceled - Speci men not received 5 days past draw date Anemia Description Draw Date Result/Unit Status Ref Range Result Comments HCT CALC HGBX3 2024-04-18 15:35:27 29.7 % F 37.0-47.0 HCT CALC HGBX3 2024-04-18 15:35:27 29.7 % F 37.0-47.0 Hemoglobin [Mass/volume] in Blood 2024-04-18 15:34:20 9.9 g/dL F 12.0-16.0 Hemoglobin [Mass/volume] in Blood 2024-04-18 15:34:20 9.9 g/dL F 12.0-16.0 IRON SATURATION 2024-04-05 07:58:41 19 % F 16.0-46.0 TIBC 2024-04-05 07:58:41 219 ug/dL F 250.0-425.0 IRON SATURATION 2024-04-05 07:58:41 19 % F 16.0-46.0 TIBC 2024-04-05 07:58:41 219 ug/dL F 250.0-425.0 Iron [Mass/volume] in Serum or Plasma 2024-04-05 07:09:58 42 ug/dL F 50.0-170.0 Iron binding capacity.unsaturated [Mass/volume] in Serum or Plasma 2024-04-05 07:09:58 177 ug/dL F 80.0-375.0 Iron [Mass/volume] in Serum or Plasma 2024-04-05 07:09:58 42 ug/dL F 50.0-170.0 Iron binding capacity.unsaturated [Mass/volume] in Serum or Plasma 2024-04-05 07:09:58 177 ug/dL F 80.0-375.0 Ferritin [Mass/volume] in Serum or Plasma 2024-04-05 06:35:39 1718 ng/mL F 10.0-291.0 Ferritin [Mass/volume] in Serum or Plasma 2024-04-05 06:35:39 1718 ng/mL F 10.0-291.0 HCT CALC HGBX3 2024-04-04 20:50:08 31.2 % F 37.0-47.0 HCT CALC HGBX3 2024-04-04 20:50:08 31.2 % F 37.0-47.0 Hematocrit [Volume Fraction] of Blood by Automated count 2024-04-04 20:49:19 34.4 % F 37.0-47.0 Hemoglobin [Mass/volume] in Blood 2024-04-04 20:49:19 10.4 g/dL F 12.0-16.0 Erythrocytes [#/volume] in Blood by Automated count 2024-04-04 20:49:19 3.62 x 10^6 cells/uL F 3.85-5.2 MCV [Entitic volume] by Automated count 2024-04-04 20:49:19 94.9 fL F 80.0-100.0 Erythrocytes [#/volume] in Blood by Automated count 2024-04-04 20:49:19 3.62 x 10^6 cells/uL F 3.85-5.2 Hematocrit [Volume Fraction] of Blood by Automated count 2024-04-04 20:49:19 34.4 % F 37.0-47.0 MCV [Entitic volume] by Automated count 2024-04-04 20:49:19 94.9 fL F 80.0-100.0 Hemoglobin [Mass/volume] in Blood 2024-04-04 20:49:19 10.4 g/dL F 12.0-16.0 Platelets [#/volume] in Blood by Automated count 2024-04-04 20:49:18 281 x 10^3 cells/uL F 140.0-450.0 MCHC [Mass/volume] by Automated count 2024-04-04 20:49:18 30.4 g/dL F 29.6-35.3 Erythrocyte distribution width [Ratio] by Automated count 2024-04-04 20:49:18 17.2 % F 11.0-15.0 MCH [Entitic mass] by Automated count 2024-04-04 20:49:18 28.8 pg F 25.9-34.2 Erythrocyte distribution width [Ratio] by Automated count 2024-04-04 20:49:18 17.2 % F 11.0-15.0 MCH [Entitic mass] by Automated count 2024-04-04 20:49:18 28.8 pg F 25.9-34.2 MCHC [Mass/volume] by Automated count 2024-04-04 20:49:18 30.4 g/dL F 29.6-35.3 Platelets [#/volume] in Blood by Automated count 2024-04-04 20:49:18 281 x 10^3 cells/uL F 140.0-450.0 HCT CALC HGBX3 2024-03-22 01:25:50 31.8 % F 37.0-47.0 Hemoglobin [Mass/volume] in Blood 2024-03-22 01:25:15 10.6 g/dL F 12.0-16.0 IRON SATURATION 2024-03-08 09:11:12 18 % F 16.0-46.0 TIBC 2024-03-08 09:11:12 222 ug/dL F 250.0-425.0 Ferritin [Mass/volume] in Serum or Plasma 2024-03-08 07:47:53 2229 ng/mL F 10.0-291.0 Iron [Mass/volume] in Serum or Plasma 2024-03-08 06:11:07 41 ug/dL F 50.0-170.0 Iron binding capacity.unsaturated [Mass/volume] in Serum or Plasma 2024-03-08 06:10:30 181 ug/dL F 80.0-375.0 HCT CALC HGBX3 2024-03-08 00:39:58 33.3 % F 37.0-47.0 Erythrocyte distribution width [Ratio] by Automated count 2024-03-08 00:39:20 15.8 % F 11.0-15.0 Erythrocytes [#/volume] in Blood by Automated count 2024-03-08 00:39:20 3.89 x 10^6 cells/uL F 3.85-5.2 Hematocrit [Volume Fraction] of Blood by Automated count 2024-03-08 00:39:20 36.4 % F 37.0-47.0 Hemoglobin [Mass/volume] in Blood 2024-03-08 00:39:20 11.1 g/dL F 12.0-16.0 MCHC [Mass/volume] by Automated count 2024-03-08 00:39:20 30.5 g/dL F 29.6-35.3 MCH [Entitic mass] by Automated count 2024-03-08 00:39:20 28.5 pg F 25.9-34.2 MCV [Entitic volume] by Automated count 2024-03-08 00:39:20 93.4 fL F 80.0-100.0 Platelets [#/volume] in Blood by Automated count 2024-03-08 00:39:20 215 x 10^3 cells/uL F 140.0-450.0 HCT CALC HGBX3 2024-02-22 19:50:49 32.7 % F 37.0-47.0 Hemoglobin [Mass/volume] in Blood 2024-02-22 19:49:10 10.9 g/dL F 12.0-16.0 Ferritin [Mass/volume] in Serum or Plasma 2024-02-02 06:22:13 838 ng/mL F 10.0-291.0 IRON SATURATION 2024-02-02 05:32:36 17 % F 16.0-46.0 TIBC 2024-02-02 05:32:36 241 ug/dL F 250.0-425.0 Iron [Mass/volume] in Serum or Plasma 2024-02-02 05:26:38 42 ug/dL F 50.0-170.0 Iron binding capacity.unsaturated [Mass/volume] in Serum or Plasma 2024-02-02 05:26:38 199 ug/dL F 80.0-375.0 HCT CALC HGBX3 2024-02-01 19:58:10 33.6 % F 37.0-47.0 Erythrocyte distribution width [Ratio] by Automated count 2024-02-01 19:57:16 16.7 % F 11.0-15.0 Erythrocytes [#/volume] in Blood by Automated count 2024-02-01 19:57:16 3.82 x 10'6 cells/uL F 3.85-5.2 Hematocrit [Volume Fraction] of Blood by Automated count 2024-02-01 19:57:16 36.6 % F 37.0-47.0 Hemoglobin [Mass/volume] in Blood 2024-02-01 19:57:16 11.2 g/dL F 12.0-16.0 MCV [Entitic volume] by Automated count 2024-02-01 19:57:16 95.7 fL F 80.0-100.0 MCH [Entitic mass] by Automated count 2024-02-01 19:57:16 29.2 pg F 25.9-34.2 MCHC [Mass/volume] by Automated count 2024-02-01 19:57:16 30.5 g/dL F 29.6-35.3 Platelets [#/volume] in Blood by Automated count 2024-02-01 19:57:16 276 x 10^3 cells/uL F 140.0-450.0 Ferritin [Mass/volume] in Serum or Plasma 2024-01-05 08:21:06 814 ng/mL F 10.0-291.0 Ferritin [Mass/volume] in Serum or Plasma 2024-01-05 08:21:06 814 ng/mL F 10.0-291.0 HCT CALC HGBX3 2024-01-04 21:36:53 32.4 % F 37.0-47.0 HCT CALC HGBX3 2024-01-04 21:36:53 32.4 % F 37.0-47.0 Hemoglobin [Mass/volume] in Blood 2024-01-04 21:36:07 10.8 g/dL F 12.0-16.0 Platelets [#/volume] in Blood by Automated count 2024-01-04 21:36:07 240 x 10^3 cells/uL F 140.0-450.0 Erythrocytes [#/volume] in Blood by Automated count 2024-01-04 21:36:07 3.63 x 10'6 cells/uL F 3.85-5.2 Erythrocyte distribution width [Ratio] by Automated count 2024-01-04 21:36:07 15.9 % F 11.0-15.0 MCH [Entitic mass] by Automated count 2024-01-04 21:36:07 29.6 pg F 25.9-34.2 MCHC [Mass/volume] by Automated count 2024-01-04 21:36:07 31.4 g/dL F 29.6-35.3 Hematocrit [Volume Fraction] of Blood by Automated count 2024-01-04 21:36:07 34.2 % F 37.0-47.0 MCV [Entitic volume] by Automated count 2024-01-04 21:36:07 94.2 fL F 80.0-100.0 Erythrocyte distribution width [Ratio] by Automated count 2024-01-04 21:36:07 15.9 % F 11.0-15.0 Erythrocytes [#/volume] in Blood by Automated count 2024-01-04 21:36:07 3.63 x 10'6 cells/uL F 3.85-5.2 Hematocrit [Volume Fraction] of Blood by Automated count 2024-01-04 21:36:07 34.2 % F 37.0-47.0 MCV [Entitic volume] by Automated count 2024-01-04 21:36:07 94.2 fL F 80.0-100.0 Hemoglobin [Mass/volume] in Blood 2024-01-04 21:36:07 10.8 g/dL F 12.0-16.0 MCH [Entitic mass] by Automated count 2024-01-04 21:36:07 29.6 pg F 25.9-34.2 MCHC [Mass/volume] by Automated count 2024-01-04 21:36:07 31.4 g/dL F 29.6-35.3 Platelets [#/volume] in Blood by Automated count 2024-01-04 21:36:07 240 x 10^3 cells/uL F 140.0-450.0 TIBC 2024-01-04 17:53:38 239 ug/dL F 250.0-425.0 IRON SATURATION 2024-01-04 17:53:38 18 % F 16.0-46.0 IRON SATURATION 2024-01-04 17:53:38 18 % F 16.0-46.0 TIBC 2024-01-04 17:53:38 239 ug/dL F 250.0-425.0 Iron [Mass/volume] in Serum or Plasma 2024-01-04 17:51:48 43 ug/dL F 50.0-170.0 Iron binding capacity.unsaturated [Mass/volume] in Serum or Plasma 2024-01-04 17:51:48 196 ug/dL F 80.0-375.0 Iron [Mass/volume] in Serum or Plasma 2024-01-04 17:51:48 43 ug/dL F 50.0-170.0 Iron binding capacity.unsaturated [Mass/volume] in Serum or Plasma 2024-01-04 17:51:48 196 ug/dL F 80.0-375.0 HCT CALC HGBX3 2023-08-24 22:24:27 27.6 % F 37.0-47.0 Hemoglobin [Mass/volume] in Blood 2023-08-24 22:23:37 9.2 g/dL F 12.0-16.0 HCT CALC HGBX3 2023-01-11 16:51:30 35.4 % F 37.0-47.0 MCH [Entitic mass] by Automated count 2023-01-11 16:51:26 28.9 pg F 25.9-34.2 MCV [Entitic volume] by Automated count 2023-01-11 16:51:26 94.5 fL F 80.0-100.0 Platelets [#/volume] in Blood by Automated count 2023-01-11 16:51:26 206 x 10^3 cells/uL F 140.0-450.0 MCHC [Mass/volume] by Automated count 2023-01-11 16:51:26 30.6 g/dL F 29.6-35.3 Erythrocyte distribution width [Ratio] by Automated count 2023-01-11 16:51:26 17.4 % F 11.0-15.0 Erythrocytes [#/volume] in Blood by Automated count 2023-01-11 16:51:26 4.1 x 10'6 cells/uL F 3.85-5.2 Hematocrit [Volume Fraction] of Blood by Automated count 2023-01-11 16:51:26 38.8 % F 37.0-47.0 Hemoglobin [Mass/volume] in Blood 2023-01-11 16:51:26 11.8 g/dL F 12.0-16.0 TIBC 2023-01-11 04:59:36 232 ug/dL F 250.0-425.0 IRON SATURATION 2023-01-11 04:59:36 25 % F 16.0-46.0 Iron binding capacity.unsaturated [Mass/volume] in Serum or Plasma 2023-01-11 04:55:56 173 ug/dL F 80.0-375.0 Iron [Mass/volume] in Serum or Plasma 2023-01-11 04:55:56 59 ug/dL F 50.0-170.0 Ferritin [Mass/volume] in Serum or Plasma 2023-01-10 20:46:30 817 ng/mL F 10.0-291.0 HCT CALC HGBX3 2022-06-02 15:33:32 29.4 % F 37.0-47.0 Erythrocyte distribution width [Ratio] by Automated count 2022-06-02 15:33:20 15.1 % F 11.0-15.0 Hematocrit [Volume Fraction] of Blood by Automated count 2022-06-02 15:33:20 29.6 % F 37.0-47.0 Erythrocytes [#/volume] in Blood by Automated count 2022-06-02 15:33:20 3.07 x 10'6 cells/uL F 4.2-5.4 Hemoglobin [Mass/volume] in Blood 2022-06-02 15:33:20 9.8 g/dL F 12.0-16.0 MCV [Entitic volume] by Automated count 2022-06-02 15:33:20 96.3 fL F 80.0-100.0 MCH [Entitic mass] by Automated count 2022-06-02 15:33:20 32 pg F 27.0-31.0 MCHC [Mass/volume] by Automated count 2022-06-02 15:33:20 33.2 g/dL F 32.0-36.0 Platelets [#/volume] in Blood by Automated count 2022-06-02 15:33:20 256 x 10^3 cells/uL F 150.0-400.0 IRON SATURATION 2022-05-06 00:20:11 15 % F 16.0-46.0 TIBC 2022-05-06 00:20:11 234 ug/dL F 250.0-425.0 IRON SATURATION 2022-05-06 00:20:11 15 % F 16.0-46.0 TIBC 2022-05-06 00:20:11 234 ug/dL F 250.0-425.0 Iron binding capacity.unsaturated [Mass/volume] in Serum or Plasma 2022-05-06 00:12:45 198 ug/dL F 80.0-375.0 Iron binding capacity.unsaturated [Mass/volume] in Serum or Plasma 2022-05-06 00:12:45 198 ug/dL F 80.0-375.0 Iron [Mass/volume] in Serum or Plasma 2022-05-05 23:57:06 36 ug/dL F 50.0-170.0 Iron [Mass/volume] in Serum or Plasma 2022-05-05 23:57:06 36 ug/dL F 50.0-170.0 Ferritin [Mass/volume] in Serum or Plasma 2022-05-05 19:00:10 781 ng/mL F 10.0-291.0 Ferritin [Mass/volume] in Serum or Plasma 2022-05-05 19:00:10 781 ng/mL F 10.0-291.0 HCT CALC HGBX3 2022-05-05 17:26:06 30.9 % F 37.0-47.0 HCT CALC HGBX3 2022-05-05 17:26:06 30.9 % F 37.0-47.0 Erythrocyte distribution width [Ratio] by Automated count 2022-05-05 17:25:19 14.6 % F 11.0-15.0 Platelets [#/volume] in Blood by Automated count 2022-05-05 17:25:19 273 x 10^3 cells/uL F 150.0-400.0 MCH [Entitic mass] by Automated count 2022-05-05 17:25:19 31.5 pg F 27.0-31.0 MCHC [Mass/volume] by Automated count 2022-05-05 17:25:19 32.4 g/dL F 32.0-36.0 Erythrocyte distribution width [Ratio] by Automated count 2022-05-05 17:25:19 14.6 % F 11.0-15.0 MCH [Entitic mass] by Automated count 2022-05-05 17:25:19 31.5 pg F 27.0-31.0 MCHC [Mass/volume] by Automated count 2022-05-05 17:25:19 32.4 g/dL F 32.0-36.0 Platelets [#/volume] in Blood by Automated count 2022-05-05 17:25:19 273 x 10^3 cells/uL F 150.0-400.0 Erythrocytes [#/volume] in Blood by Automated count 2022-05-05 17:25:17 3.26 x 10'6 cells/uL F 4.2-5.4 MCV [Entitic volume] by Automated count 2022-05-05 17:25:17 97.4 fL F 80.0-100.0 Hemoglobin [Mass/volume] in Blood 2022-05-05 17:25:17 10.3 g/dL F 12.0-16.0 Hematocrit [Volume Fraction] of Blood by Automated count 2022-05-05 17:25:17 31.7 % F 37.0-47.0 Erythrocytes [#/volume] in Blood by Automated count 2022-05-05 17:25:17 3.26 x 10'6 cells/uL F 4.2-5.4 Hematocrit [Volume Fraction] of Blood by Automated count 2022-05-05 17:25:17 31.7 % F 37.0-47.0 Hemoglobin [Mass/volume] in Blood 2022-05-05 17:25:17 10.3 g/dL F 12.0-16.0 MCV [Entitic volume] by Automated count 2022-05-05 17:25:17 97.4 fL F 80.0-100.0 IRON SATURATION 2022-04-08 06:47:22 24 % F 16.0-46.0 TIBC 2022-04-08 06:47:22 258 ug/dL F 250.0-425.0 Iron [Mass/volume] in Serum or Plasma 2022-04-08 06:45:45 62 ug/dL F 50.0-170.0 Iron binding capacity.unsaturated [Mass/volume] in Serum or Plasma 2022-04-08 06:45:45 196 ug/dL F 80.0-375.0 Ferritin [Mass/volume] in Serum or Plasma 2022-04-07 16:55:56 993 ng/mL F 10.0-291.0 HCT CALC HGBX3 2022-04-07 15:00:18 33.6 % F 37.0-47.0 Erythrocyte distribution width [Ratio] by Automated count 2022-04-07 15:00:02 13.9 % F 11.0-15.0 Hematocrit [Volume Fraction] of Blood by Automated count 2022-04-07 15:00:02 33.9 % F 37.0-47.0 Erythrocytes [#/volume] in Blood by Automated count 2022-04-07 15:00:02 3.54 x 10'6 cells/uL F 4.2-5.4 Hemoglobin [Mass/volume] in Blood 2022-04-07 15:00:02 11.2 g/dL F 12.0-16.0 MCH [Entitic mass] by Automated count 2022-04-07 15:00:02 31.7 pg F 27.0-31.0 MCV [Entitic volume] by Automated count 2022-04-07 15:00:02 95.9 fL F 80.0-100.0 Platelets [#/volume] in Blood by Automated count 2022-04-07 15:00:02 267 x 10^3 cells/uL F 150.0-400.0 MCHC [Mass/volume] by Automated count 2022-04-07 15:00:02 33.1 g/dL F 32.0-36.0 HCT CALC HGBX3 2022-03-04 00:24:21 32.4 % F 37.0-47.0 Erythrocyte distribution width [Ratio] by Automated count 2022-03-04 00:23:18 14.9 % F 11.0-15.0 Erythrocytes [#/volume] in Blood by Automated count 2022-03-04 00:23:18 3.42 x 10'6 cells/uL F 4.2-5.4 Hematocrit [Volume Fraction] of Blood by Automated count 2022-03-04 00:23:18 33.7 % F 37.0-47.0 Hemoglobin [Mass/volume] in Blood 2022-03-04 00:23:18 10.8 g/dL F 12.0-16.0 MCV [Entitic volume] by Automated count 2022-03-04 00:23:18 98.7 fL F 80.0-100.0 MCH [Entitic mass] by Automated count 2022-03-04 00:23:18 31.7 pg F 27.0-31.0 MCHC [Mass/volume] by Automated count 2022-03-04 00:23:18 32.1 g/dL F 32.0-36.0 Platelets [#/volume] in Blood by Automated count 2022-03-04 00:23:18 302 x 10^3 cells/uL F 150.0-400.0 HCT CALC HGBX3 2022-02-07 08:38:39 F Canceled - Specimen not received 5 days past draw date Erythrocyte distribution width [Ratio] by Automated count 2022-02-07 08:06:44 F Canceled - Specimen not received 5 days past draw date Erythrocytes [#/volume] in Blood by Automated count 2022-02-07 08:06:44 F Canceled - Specimen not received 5 days past draw date Hematocrit [Volume Fraction] of Blood by Automated count 2022-02-07 08:06:44 F Canceled - Specimen not received 5 days past draw date Hemoglobin [Mass/volume] in Blood 2022-02-07 08:06:44 F Canceled - Specimen not received 5 days past draw date MCV [Entitic volume] by Automated count 2022-02-07 08:06:44 F Canceled - Specimen not received 5 days past draw date MCH [Entitic mass] by Automated count 2022-02-07 08:06:44 F Canceled - Specimen not received 5 days past draw date MCHC [Mass/volume] by Automated count 2022-02-07 08:06:44 F Canceled - Specimen not received 5 days past draw date Platelets [#/volume] in Blood by Automated count 2022-02-07 08:06:44 F Canceled - Specimen not received 5 days past draw date FluidBP Description Draw Date Result/Unit Status Ref Range Result Comments Sodium [Moles/volume] in Serum or Plasma 2024-04-05 07:09:58 138 mEq/L F 132.0-146.0 Sodium [Moles/volume] in Serum or Plasma 2024-04-05 07:09:58 138 mEq/L F 132.0-146.0 Sodium [Moles/volume] in Serum or Plasma 2024-03-08 06:11:07 138 mEq/L F 132.0-146.0 Sodium [Moles/volume] in Serum or Plasma 2024-02-02 05:26:38 136 mEq/L F 132.0-146.0 Sodium [Moles/volume] in Serum or Plasma 2024-01-04 17:51:48 138 mEq/L F 132.0-146.0 Sodium [Moles/volume] in Serum or Plasma 2024-01-04 17:51:48 138 mEq/L F 132.0-146.0 Sodium [Moles/volume] in Serum or Plasma 2023-01-10 22:33:26 138 mEq/L F 132.0-146.0 Sodium [Moles/volume] in Serum or Plasma 2022-06-02 17:03:16 137 mEq/L F 132.0-146.0 Sodium [Moles/volume] in Serum or Plasma 2022-05-05 18:14:12 138 mEq/L F 132.0-146.0 Sodium [Moles/volume] in Serum or Plasma 2022-05-05 18:14:12 138 mEq/L F 132.0-146.0 Sodium [Moles/volume] in Serum or Plasma 2022-04-07 14:56:56 137 mEq/L F 132.0-146.0 Sodium [Moles/volume] in Serum or Plasma 2022-03-03 19:05:50 F Recollect - Unsp un specimen,[id number] Sodium [Moles/volume] in Serum or Plasma 2022-02-07 08:06:44 F Canceled - Speci men not received 5 days past draw date General Description Draw Date Result/Unit Status Ref Range Result Comments Chloride [Moles/volume] in Serum or Plasma 2024-04-05 07:09:58 99 mEq/L F 99.0-109.0 Chloride [Moles/volume] in Serum or Plasma 2024-04-05 07:09:58 99 mEq/L F 99.0-109.0 Alanine aminotransferase [Enzymatic activity/volume] in Serum or Plasma 2024-04-04 17:43:16 15 U/L F 10.0-49.0 Aspartate aminotransferase [Enzymatic activity/volume] in Serum or Plasma 2024-04-04 17:43:16 17 U/L F 0.0-33.0 Alanine aminotransferase [Enzymatic activity/volume] in Serum or Plasma 2024-04-04 17:43:16 15 U/L F 10.0-49.0 Aspartate aminotransferase [Enzymatic activity/volume] in Serum or Plasma 2024-04-04 17:43:16 17 U/L F 0.0-33.0 Chloride [Moles/volume] in Serum or Plasma 2024-03-08 06:11:07 101 mEq/L F 99.0-109.0 Alanine aminotransferase [Enzymatic activity/volume] in Serum or Plasma 2024-03-07 21:07:31 13 U/L F 10.0-49.0 Aspartate aminotransferase [Enzymatic activity/volume] in Serum or Plasma 2024-03-07 21:07:31 15 U/L F 0.0-33.0 Chloride [Moles/volume] in Serum or Plasma 2024-02-02 05:26:38 98 mEq/L F 99.0-109.0 Alanine aminotransferase [Enzymatic activity/volume] in Serum or Plasma 2024-02-01 16:39:22 12 U/L F 10.0-49.0 Aspartate aminotransferase [Enzymatic activity/volume] in Serum or Plasma 2024-02-01 16:39:22 13 U/L F 0.0-33.0 Aluminum [Mass/volume] in Serum or Plasma 2024-01-04 19:11:06 10 ug/L F 0.0-9.0 Aluminum [Mass/volume] in Serum or Plasma 2024-01-04 19:11:06 10 ug/L F 0.0-9.0 Chloride [Moles/volume] in Serum or Plasma 2024-01-04 17:51:48 101 mEq/L F 99.0-109.0 Chloride [Moles/volume] in Serum or Plasma 2024-01-04 17:51:48 101 mEq/L F 99.0-109.0 Aspartate aminotransferase [Enzymatic activity/volume] in Serum or Plasma 2024-01-04 16:24:13 19 U/L F 0.0-33.0 Alanine aminotransferase [Enzymatic activity/volume] in Serum or Plasma 2024-01-04 16:24:13 14 U/L F 10.0-49.0 Alanine aminotransferase [Enzymatic activity/volume] in Serum or Plasma 2024-01-04 16:24:13 14 U/L F 10.0-49.0 Aspartate aminotransferase [Enzymatic activity/volume] in Serum or Plasma 2024-01-04 16:24:13 19 U/L F 0.0-33.0 Chloride [Moles/volume] in Serum or Plasma 2023-01-10 22:33:26 101 mEq/L F 99.0-109.0 Alanine aminotransferase [Enzymatic activity/volume] in Serum or Plasma 2023-01-10 22:33:26 13 U/L F 10.0-49.0 Aspartate aminotransferase [Enzymatic activity/volume] in Serum or Plasma 2023-01-10 22:33:26 15 U/L F 0.0-33.0 Aluminum [Mass/volume] in Serum or Plasma 2023-01-10 19:01:52 10 ug/L F 0.0-9.0 Chloride [Moles/volume] in Serum or Plasma 2022-06-02 17:03:16 99 mEq/L F 99.0-109.0 Alanine aminotransferase [Enzymatic activity/volume] in Serum or Plasma 2022-06-02 17:03:16 20 U/L F 10.0-49.0 Aspartate aminotransferase [Enzymatic activity/volume] in Serum or Plasma 2022-06-02 17:03:16 14 U/L F 0.0-33.0 Alanine aminotransferase [Enzymatic activity/volume] in Serum or Plasma 2022-05-05 18:14:12 26 U/L F 10.0-49.0 Aspartate aminotransferase [Enzymatic activity/volume] in Serum or Plasma 2022-05-05 18:14:12 15 U/L F 0.0-33.0 Chloride [Moles/volume] in Serum or Plasma 2022-05-05 18:14:12 100 mEq/L F 99.0-109.0 Chloride [Moles/volume] in Serum or Plasma 2022-05-05 18:14:12 100 mEq/L F 99.0-109.0 Alanine aminotransferase [Enzymatic activity/volume] in Serum or Plasma 2022-05-05 18:14:12 26 U/L F 10.0-49.0 Aspartate aminotransferase [Enzymatic activity/volume] in Serum or Plasma 2022-05-05 18:14:12 15 U/L F 0.0-33.0 Chloride [Moles/volume] in Serum or Plasma 2022-04-07 14:56:54 99 mEq/L F 99.0-109.0 Alanine aminotransferase [Enzymatic activity/volume] in Serum or Plasma 2022-04-07 14:56:54 13 U/L F 10.0-49.0 Aspartate aminotransferase [Enzymatic activity/volume] in Serum or Plasma 2022-04-07 14:56:54 13 U/L F 0.0-33.0 Alanine aminotransferase [Enzymatic activity/volume] in Serum or Plasma 2022-03-03 19:05:50 F Recollect - Unspun specimen,[id number] Aspartate aminotransferase [Enzymatic activity/volume] in Serum or Plasma 2022-03-03 19:05:50 F Recollect - Unspun specimen,[id number] Chloride [Moles/volume] in Serum or Plasma 2022-03-03 19:05:49 F Recollect - Unspun specimen,[id number] Chloride [Moles/volume] in Serum or Plasma 2022-02-07 08:06:44 F Canceled - Specimen not received 5 days past draw date Alanine aminotransferase [Enzymatic activity/volume] in Serum or Plasma 2022-02-07 08:06:44 F Canceled - Specimen not received 5 days past draw date Aspartate aminotransferase [Enzymatic activity/volume] in Serum or Plasma 2022-02-07 08:06:44 F Canceled - Specimen not received 5 days past draw date InfectionVaccination Description Draw Date Result/Unit Status Ref Range Result Comments Neutrophils/100 leukocytes in Blood by Automated count 2024-04-04 20:49:19 75 % F Eosinophils [#/volume] in Blood by Automated count 2024-04-04 20:49:19 463 Cells/uL F 0.0-700.0 Eosinophils/100 leukocytes in Blood by Automated count 2024-04-04 20:49:19 6.8 % F Basophils/100 leukocytes in Blood by Automated count 2024-04-04 20:49:19 0.3 % F Monocytes/100 leukocytes in Blood by Automated count 2024-04-04 20:49:19 8.3 % F Monocytes [#/volume] in Blood by Automated count 2024-04-04 20:49:19 565 Cells/uL F 0.0-1100.0 Basophils [#/volume] in Blood by Automated count 2024-04-04 20:49:19 20 Cells/uL F 0.0-400.0 Neutrophils [#/volume] in Blood by Automated count 2024-04-04 20:49:19 5108 Cells/uL F 2000.0-8800.0 Leukocytes [#/volume] in Blood by Automated count 2024-04-04 20:49:19 6.8 x 10^3 cells/uL F 4.0-11.0 Basophils/100 leukocytes in Blood by Automated count 2024-04-04 20:49:19 0.3 % F Neutrophils/100 leukocytes in Blood by Automated count 2024-04-04 20:49:19 75 % F Monocytes/100 leukocytes in Blood by Automated count 2024-04-04 20:49:19 8.3 % F Eosinophils/100 leukocytes in Blood by Automated count 2024-04-04 20:49:19 6.8 % F Leukocytes [#/volume] in Blood by Automated count 2024-04-04 20:49:19 6.8 x 10^3 cells/uL F 4.0-11.0 Monocytes [#/volume] in Blood by Automated count 2024-04-04 20:49:19 565 Cells/uL F 0.0-1100.0 Neutrophils [#/volume] in Blood by Automated count 2024-04-04 20:49:19 5108 Cells/uL F 2000.0-8800.0 Basophils [#/volume] in Blood by Automated count 2024-04-04 20:49:19 20 Cells/uL F 0.0-400.0 Eosinophils [#/volume] in Blood by Automated count 2024-04-04 20:49:19 463 Cells/uL F 0.0-700.0 Lymphocytes [#/volume] in Blood by Automated count 2024-04-04 20:49:18 654 Cells/uL F 620.0-3660.0 Lymphocytes/100 leukocytes in Blood by Automated count 2024-04-04 20:49:18 9.6 % F Lymphocytes/100 leukocytes in Blood by Automated count 2024-04-04 20:49:18 9.6 % F Lymphocytes [#/volume] in Blood by Automated count 2024-04-04 20:49:18 654 Cells/uL F 620.0-3660.0 Basophils/100 leukocytes in Blood by Automated count 2024-03-08 00:39:20 1 % F Neutrophils/100 leukocytes in Blood by Automated count 2024-03-08 00:39:20 68.4 % F Lymphocytes/100 leukocytes in Blood by Automated count 2024-03-08 00:39:20 11.7 % F Monocytes/100 leukocytes in Blood by Automated count 2024-03-08 00:39:20 9.9 % F Leukocytes [#/volume] in Blood by Automated count 2024-03-08 00:39:20 3.5 x 10^3 cells/uL F 4.0-11.0 Eosinophils/100 leukocytes in Blood by Automated count 2024-03-08 00:39:20 9 % F Neutrophils [#/volume] in Blood by Automated count 2024-03-08 00:39:20 2387 Cells/uL F 2000.0-8800.0 Lymphocytes [#/volume] in Blood by Automated count 2024-03-08 00:39:20 408 Cells/uL F 620.0-3660.0 Basophils [#/volume] in Blood by Automated count 2024-03-08 00:39:20 35 Cells/uL F 0.0-400.0 Monocytes [#/volume] in Blood by Automated count 2024-03-08 00:39:20 346 Cells/uL F 0.0-1100.0 Eosinophils [#/volume] in Blood by Automated count 2024-03-08 00:39:20 314 Cells/uL F 0.0-700.0 Basophils/100 leukocytes in Blood by Automated count 2024-02-01 19:57:16 1.2 % F Neutrophils/100 leukocytes in Blood by Automated count 2024-02-01 19:57:16 68.4 % F Lymphocytes/100 leukocytes in Blood by Automated count 2024-02-01 19:57:16 13.3 % F Eosinophils/100 leukocytes in Blood by Automated count 2024-02-01 19:57:16 7.4 % F Monocytes/100 leukocytes in Blood by Automated count 2024-02-01 19:57:16 9.7 % F Leukocytes [#/volume] in Blood by Automated count 2024-02-01 19:57:16 5.1 x 10^3 cells/uL F 4.0-11.0 Lymphocytes [#/volume] in Blood by Automated count 2024-02-01 19:57:16 677 Cells/uL F 620.0-3660.0 Neutrophils [#/volume] in Blood by Automated count 2024-02-01 19:57:16 3482 Cells/uL F 2000.0-8800.0 Monocytes [#/volume] in Blood by Automated count 2024-02-01 19:57:16 494 Cells/uL F 0.0-1100.0 Basophils [#/volume] in Blood by Automated count 2024-02-01 19:57:16 61 Cells/uL F 0.0-400.0 Eosinophils [#/volume] in Blood by Automated count 2024-02-01 19:57:16 377 Cells/uL F 0.0-700.0 Lymphocytes/100 leukocytes in Blood by Automated count 2024-01-04 21:36:07 12.7 % F Monocytes [#/volume] in Blood by Automated count 2024-01-04 21:36:07 371 Cells/uL F 0.0-1100.0 Basophils/100 leukocytes in Blood by Automated count 2024-01-04 21:36:07 0.5 % F Basophils [#/volume] in Blood by Automated count 2024-01-04 21:36:07 24 Cells/uL F 0.0-400.0 Monocytes/100 leukocytes in Blood by Automated count 2024-01-04 21:36:07 7.8 % F Eosinophils/100 leukocytes in Blood by Automated count 2024-01-04 21:36:07 5.4 % F Neutrophils/100 leukocytes in Blood by Automated count 2024-01-04 21:36:07 73.6 % F Eosinophils [#/volume] in Blood by Automated count 2024-01-04 21:36:07 257 Cells/uL F 0.0-700.0 Neutrophils [#/volume] in Blood by Automated count 2024-01-04 21:36:07 3503 Cells/uL F 2000.0-8800.0 Leukocytes [#/volume] in Blood by Automated count 2024-01-04 21:36:07 4.8 x 10^3 cells/uL F 4.0-11.0 Lymphocytes [#/volume] in Blood by Automated count 2024-01-04 21:36:07 605 Cells/uL F 620.0-3660.0 Neutrophils/100 leukocytes in Blood by Automated count 2024-01-04 21:36:07 73.6 % F Basophils/100 leukocytes in Blood by Automated count 2024-01-04 21:36:07 0.5 % F Lymphocytes/100 leukocytes in Blood by Automated count 2024-01-04 21:36:07 12.7 % F Eosinophils/100 leukocytes in Blood by Automated count 2024-01-04 21:36:07 5.4 % F Monocytes/100 leukocytes in Blood by Automated count 2024-01-04 21:36:07 7.8 % F Leukocytes [#/volume] in Blood by Automated count 2024-01-04 21:36:07 4.8 x 10^3 cells/uL F 4.0-11.0 Neutrophils [#/volume] in Blood by Automated count 2024-01-04 21:36:07 3503 Cells/uL F 2000.0-8800.0 Lymphocytes [#/volume] in Blood by Automated count 2024-01-04 21:36:07 605 Cells/uL F 620.0-3660.0 Basophils [#/volume] in Blood by Automated count 2024-01-04 21:36:07 24 Cells/uL F 0.0-400.0 Monocytes [#/volume] in Blood by Automated count 2024-01-04 21:36:07 371 Cells/uL F 0.0-1100.0 Eosinophils [#/volume] in Blood by Automated count 2024-01-04 21:36:07 257 Cells/uL F 0.0-700.0 Neutrophils [#/volume] in Blood by Automated count 2023-01-11 16:51:26 4642 Cell/uL F 2000.0-8800.0 Monocytes [#/volume] in Blood by Automated count 2023-01-11 16:51:26 446 Cell/uL F 0.0-1100.0 Basophils [#/volume] in Blood by Automated count 2023-01-11 16:51:26 53 Cell/uL F 0.0-400.0 Eosinophils [#/volume] in Blood by Automated count 2023-01-11 16:51:26 718 Cell/uL F 0.0-700.0 Lymphocytes [#/volume] in Blood by Automated count 2023-01-11 16:51:26 791 Cell/uL F 620.0-3660.0 Neutrophils/100 leukocytes in Blood by Automated count 2023-01-11 16:51:26 69.8 % F Basophils/100 leukocytes in Blood by Automated count 2023-01-11 16:51:26 0.8 % F Lymphocytes/100 leukocytes in Blood by Automated count 2023-01-11 16:51:26 11.9 % F Monocytes/100 leukocytes in Blood by Automated count 2023-01-11 16:51:26 6.7 % F Leukocytes [#/volume] in Blood by Automated count 2023-01-11 16:51:26 6.6 x 10^3 cells/uL F 4.0-11.0 Eosinophils/100 leukocytes in Blood by Automated count 2023-01-11 16:51:26 10.8 % F Basophils/100 leukocytes in Blood by Automated count 2022-06-02 15:33:20 0.5 % F Neutrophils/100 leukocytes in Blood by Automated count 2022-06-02 15:33:20 75.8 % F Monocytes/100 leukocytes in Blood by Automated count 2022-06-02 15:33:20 5.7 % F Lymphocytes/100 leukocytes in Blood by Automated count 2022-06-02 15:33:20 13.1 % F Eosinophils/100 leukocytes in Blood by Automated count 2022-06-02 15:33:20 5 % F Leukocytes [#/volume] in Blood by Automated count 2022-06-02 15:33:20 6.6 x 10^3 cells/uL F 4.5-11.0 Neutrophils [#/volume] in Blood by Automated count 2022-06-02 15:33:20 4995.22 Cell/uL F 2000.0-8800.0 Lymphocytes [#/volume] in Blood by Automated count 2022-06-02 15:33:20 863.29 Cell/uL F 1100.0-4800.0 Basophils [#/volume] in Blood by Automated count 2022-06-02 15:33:20 32.95 Cell/uL F 0.0-400.0 Monocytes [#/volume] in Blood by Automated count 2022-06-02 15:33:20 375.63 Cell/uL F 0.0-1100.0 Eosinophils [#/volume] in Blood by Automated count 2022-06-02 15:33:20 329.5 Cell/uL F 0.0-700.0 Monocytes/100 leukocytes in Blood by Automated count 2022-05-05 17:25:19 5.8 % F Basophils/100 leukocytes in Blood by Automated count 2022-05-05 17:25:19 0.4 % F Eosinophils/100 leukocytes in Blood by Automated count 2022-05-05 17:25:19 5.6 % F Basophils/100 leukocytes in Blood by Automated count 2022-05-05 17:25:19 0.4 % F Monocytes/100 leukocytes in Blood by Automated count 2022-05-05 17:25:19 5.8 % F Eosinophils/100 leukocytes in Blood by Automated count 2022-05-05 17:25:19 5.6 % F Lymphocytes/100 leukocytes in Blood by Automated count 2022-05-05 17:25:17 11.2 % F Eosinophils [#/volume] in Blood by Automated count 2022-05-05 17:25:17 486.64 Cell/uL F 0.0-700.0 Monocytes [#/volume] in Blood by Automated count 2022-05-05 17:25:17 504.02 Cell/uL F 0.0-1100.0 Leukocytes [#/volume] in Blood by Automated count 2022-05-05 17:25:17 8.7 x 10^3 cells/uL F 4.5-11.0 Neutrophils/100 leukocytes in Blood by Automated count 2022-05-05 17:25:17 77 % F Basophils [#/volume] in Blood by Automated count 2022-05-05 17:25:17 34.76 Cell/uL F 0.0-400.0 Lymphocytes [#/volume] in Blood by Automated count 2022-05-05 17:25:17 973.28 Cell/uL F 1100.0-4800.0 Neutrophils [#/volume] in Blood by Automated count 2022-05-05 17:25:17 6691.3 Cell/uL F 2000.0-8800.0 Neutrophils/100 leukocytes in Blood by Automated count 2022-05-05 17:25:17 77 % F Lymphocytes/100 leukocytes in Blood by Automated count 2022-05-05 17:25:17 11.2 % F Leukocytes [#/volume] in Blood by Automated count 2022-05-05 17:25:17 8.7 x 10^3 cells/uL F 4.5-11.0 Neutrophils [#/volume] in Blood by Automated count 2022-05-05 17:25:17 6691.3 Cell/uL F 2000.0-8800.0 Lymphocytes [#/volume] in Blood by Automated count 2022-05-05 17:25:17 973.28 Cell/uL F 1100.0-4800.0 Basophils [#/volume] in Blood by Automated count 2022-05-05 17:25:17 34.76 Cell/uL F 0.0-400.0 Eosinophils [#/volume] in Blood by Automated count 2022-05-05 17:25:17 486.64 Cell/uL F 0.0-700.0 Monocytes [#/volume] in Blood by Automated count 2022-05-05 17:25:17 504.02 Cell/uL F 0.0-1100.0 Basophils/100 leukocytes in Blood by Automated count 2022-04-07 15:00:02 0.6 % F Monocytes/100 leukocytes in Blood by Automated count 2022-04-07 15:00:02 6.6 % F Lymphocytes/100 leukocytes in Blood by Automated count 2022-04-07 15:00:02 10.9 % F Neutrophils/100 leukocytes in Blood by Automated count 2022-04-07 15:00:02 76.2 % F Eosinophils/100 leukocytes in Blood by Automated count 2022-04-07 15:00:02 5.7 % F Leukocytes [#/volume] in Blood by Automated count 2022-04-07 15:00:02 8.5 x 10^3 cells/uL F 4.5-11.0 Neutrophils [#/volume] in Blood by Automated count 2022-04-07 15:00:02 6492.24 Cell/uL F 2000.0-8800.0 Lymphocytes [#/volume] in Blood by Automated count 2022-04-07 15:00:02 928.68 Cell/uL F 1100.0-4800.0 Monocytes [#/volume] in Blood by Automated count 2022-04-07 15:00:02 562.32 Cell/uL F 0.0-1100.0 Eosinophils [#/volume] in Blood by Automated count 2022-04-07 15:00:02 485.64 Cell/uL F 0.0-700.0 Basophils [#/volume] in Blood by Automated count 2022-04-07 15:00:02 51.12 Cell/uL F 0.0-400.0 Basophils/100 leukocytes in Blood by Automated count 2022-03-04 00:23:18 0.7 % F Neutrophils/100 leukocytes in Blood by Automated count 2022-03-04 00:23:18 72.5 % F Lymphocytes/100 leukocytes in Blood by Automated count 2022-03-04 00:23:18 13.2 % F Monocytes/100 leukocytes in Blood by Automated count 2022-03-04 00:23:18 8 % F Eosinophils/100 leukocytes in Blood by Automated count 2022-03-04 00:23:18 5.5 % F Leukocytes [#/volume] in Blood by Automated count 2022-03-04 00:23:18 7.2 x 10^3 cells/uL F 4.5-11.0 Neutrophils [#/volume] in Blood by Automated count 2022-03-04 00:23:18 5227.25 Cell/uL F 2000.0-8800.0 Lymphocytes [#/volume] in Blood by Automated count 2022-03-04 00:23:18 951.72 Cell/uL F 1100.0-4800.0 Monocytes [#/volume] in Blood by Automated count 2022-03-04 00:23:18 576.8 Cell/uL F 0.0-1100.0 Basophils [#/volume] in Blood by Automated count 2022-03-04 00:23:18 50.47 Cell/uL F 0.0-400.0 Eosinophils [#/volume] in Blood by Automated count 2022-03-04 00:23:18 396.55 Cell/uL F 0.0-700.0 Lymphocytes/100 leukocytes in Blood by Automated count 2022-02-07 08:06:48 F Canceled - Specimen not received 5 days past draw date Neutrophils/100 leukocytes in Blood by Automated count 2022-02-07 08:06:44 F Canceled - Specimen not received 5 days past draw date Basophils/100 leukocytes in Blood by Automated count 2022-02-07 08:06:44 F Canceled - Specimen not received 5 days past draw date Eosinophils/100 leukocytes in Blood by Automated count 2022-02-07 08:06:44 F Canceled - Specimen not received 5 days past draw date Monocytes/100 leukocytes in Blood by Automated count 2022-02-07 08:06:44 F Canceled - Specimen not received 5 days past draw date Leukocytes [#/volume] in Blood by Automated count 2022-02-07 08:06:44 F Canceled - Specimen not received 5 days past draw date Neutrophils [#/volume] in Blood by Automated count 2022-02-07 08:06:44 F Canceled - Specimen not received 5 days past draw date Lymphocytes [#/volume] in Blood by Automated count 2022-02-07 08:06:44 F Canceled - Specimen not received 5 days past draw date Monocytes [#/volume] in Blood by Automated count 2022-02-07 08:06:44 F Canceled - Specimen not received 5 days past draw date Basophils [#/volume] in Blood by Automated count 2022-02-07 08:06:44 F Canceled - Specimen not received 5 days past draw date Eosinophils [#/volume] in Blood by Automated count 2022-02-07 08:06:44 F Canceled - Specimen not received 5 days past draw date Phosphate [Mass/volume] in Urine MineralBone Disorder Description Draw Date Result/Unit Status Ref Range Result Comments CA CORRECTED 2024-04-18 20:59:05 10.2 mg/dL F CA CORRECTED 2024-04-18 20:59:05 10.2 mg/dL F CA/PHOS PRODUCT 2024-04-18 20:57:04 68.3 Calc F 21.0-53.0 CA*PO4 CORRCTD 2024-04-18 20:57:04 68.3 Calc F 21.0-53.0 CA/PHOS PRODUCT 2024-04-18 20:57:04 68.3 Calc F 21.0-53.0 CA*PO4 CORRCTD 2024-04-18 20:57:04 68.3 Calc F 21.0-53.0 Phosphate [Mass/volume] in Serum or Plasma 2024-04-18 19:41:29 6.7 mg/dL F 2.4-5.1 Calcium [Mass/volume] in Serum or Plasma 2024-04-18 19:41:29 10.2 mg/dL F 8.7-10.4 Phosphate [Mass/volume] in Serum or Plasma 2024-04-18 19:41:29 6.7 mg/dL F 2.4-5.1 Calcium [Mass/volume] in Serum or Plasma 2024-04-18 19:41:29 10.2 mg/dL F 8.7-10.4 Parathyrin.intact [Mass/volume] in Serum or Plasma 2024-04-18 15:37:26 193 pg/mL F 18.0-80.0 Parathyrin.intact [Mass/volume] in Serum or Plasma 2024-04-18 15:37:26 193 pg/mL F 18.0-80.0 25-Hydroxyvitamin D3+25-Hydroxyvitamin D2 [Mass/volume] in Serum or Plasma 2024-04-05 06:35:33 44.8 ng/mL F 25-Hydroxyvitamin D3+25-Hydroxyvitamin D2 [Mass/volume] in Serum or Plasma 2024-04-05 06:35:33 44.8 ng/mL F Alkaline phosphatase [Enzymatic activity/volume] in Serum or Plasma 2024-04-04 17:43:16 148 U/L F 46.0-116.0 Alkaline phosphatase [Enzymatic activity/volume] in Serum or Plasma 2024-04-04 17:43:16 148 U/L F 46.0-116.0 CA CORRECTED 2024-03-22 10:44:36 9.3 mg/dL F CA/PHOS PRODUCT 2024-03-22 10:40:50 68.8 Calc F 21.0-53.0 CA*PO4 CORRCTD 2024-03-22 10:40:50 68.8 Calc F 21.0-53.0 Phosphate [Mass/volume] in Serum or Plasma 2024-03-22 08:06:26 7.4 mg/dL F 2.4-5.1 Calcium [Mass/volume] in Serum or Plasma 2024-03-22 08:06:13 9.3 mg/dL F 8.7-10.4 Parathyrin.intact [Mass/volume] in Serum or Plasma 2024-03-21 18:54:17 375 pg/mL F 18.0-80.0 CA CORRECTED 2024-03-08 09:12:09 9.9 mg/dL F Calcium [Mass/volume] in Serum or Plasma 2024-03-08 06:10:32 9.9 mg/dL F 8.7-10.4 Alkaline phosphatase [Enzymatic activity/volume] in Serum or Plasma 2024-03-07 21:07:31 121 U/L F 46.0-116.0 CA CORRECTED 2024-02-23 09:01:20 10.3 mg/dL F CA/PHOS PRODUCT 2024-02-23 08:59:13 78.3 Calc F 21.0-53.0 CA*PO4 CORRCTD 2024-02-23 08:59:13 78.3 Calc F 21.0-53.0 Calcium [Mass/volume] in Serum or Plasma 2024-02-23 07:21:42 10.3 mg/dL F 8.7-10.4 Phosphate [Mass/volume] in Serum or Plasma 2024-02-23 07:21:42 7.6 mg/dL F 2.4-5.1 Parathyrin.intact [Mass/volume] in Serum or Plasma 2024-02-22 16:03:29 254 pg/mL F 18.0-80.0 Alkaline phosphatase [Enzymatic activity/volume] in Serum or Plasma 2024-02-01 16:39:22 140 U/L F 46.0-116.0 25-Hydroxyvitamin D3+25-Hydroxyvitamin D2 [Mass/volume] in Serum or Plasma 2024-01-05 08:21:38 55.4 ng/mL F 25-Hydroxyvitamin D3+25-Hydroxyvitamin D2 [Mass/volume] in Serum or Plasma 2024-01-05 08:21:38 55.4 ng/mL F Alkaline phosphatase [Enzymatic activity/volume] in Serum or Plasma 2024-01-04 16:24:13 138 U/L F 46.0-116.0 Alkaline phosphatase [Enzymatic activity/volume] in Serum or Plasma 2024-01-04 16:24:13 138 U/L F 46.0-116.0 Alkaline phosphatase [Enzymatic activity/volume] in Serum or Plasma 2023-01-10 22:33:26 207 U/L F 46.0-116.0 Parathyrin.intact [Mass/volume] in Serum or Plasma 2023-01-10 20:46:30 1978 pg/mL F 18.0-80.0 25-Hydroxyvitamin D3+25-Hydroxyvitamin D2 [Mass/volume] in Serum or Plasma 2023-01-10 20:46:27 47.3 ng/mL F Alkaline phosphatase [Enzymatic activity/volume] in Serum or Plasma 2022-06-02 17:03:16 129 U/L F 46.0-116.0 Alkaline phosphatase [Enzymatic activity/volume] in Serum or Plasma 2022-05-05 18:14:12 116 U/L F 46.0-116.0 Alkaline phosphatase [Enzymatic activity/volume] in Serum or Plasma 2022-05-05 18:14:12 116 U/L F 46.0-116.0 CA CORRECTED 2022-04-08 08:16:04 8.7 mg/dL F Calcium [Mass/volume] in Serum or Plasma 2022-04-08 06:45:45 8.7 mg/dL F 8.7-10.4 25-Hydroxyvitamin D3+25-Hydroxyvitamin D2 [Mass/volume] in Serum or Plasma 2022-04-07 15:07:49 58.9 ng/mL F 30.0-100.0 Alkaline phosphatase [Enzymatic activity/volume] in Serum or Plasma 2022-04-07 14:56:54 138 U/L F 46.0-116.0 Alkaline phosphatase [Enzymatic activity/volume] in Serum or Plasma 2022-03-03 19:05:50 F Recollect - Unsp un specimen,[id number] Calcium [Mass/volume] in Serum or Plasma 2022-03-03 19:05:50 F Recollect - Unsp un specimen,[id number] Alkaline phosphatase [Enzymatic activity/volume] in Serum or Plasma 2022-02-07 08:06:44 F Canceled - Speci men not received 5 days past draw date Nutrition Description Draw Date Result/Unit Status Ref Range Result Comments Potassium [Moles/volume] in Serum or Plasma 2024-04-05 07:09:58 4.6 mEq/L F 3.5-5.5 Potassium [Moles/volume] in Serum or Plasma 2024-04-05 07:09:58 4.6 mEq/L F 3.5-5.5 GLOBULIN 2024-04-04 17:43:56 2.5 g/dL F 0.9-5.0 A/G RATIO 2024-04-04 17:43:56 1.7 Calc F 1.0-2.5 A/G RATIO 2024-04-04 17:43:56 1.7 Calc F 1.0-2.5 GLOBULIN 2024-04-04 17:43:56 2.5 g/dL F 0.9-5.0 Bicarbonate [Moles/volume] in Serum or Plasma 2024-04-04 17:43:16 27 mEq/L F 20.0-31.0 Albumin [Mass/volume] in Serum or Plasma by Bromocresol green (BCG) dye binding method 2024-04-04 17:43:16 4.3 g/dL F 3.4-4.8 Glucose [Mass/volume] in Serum or Plasma 2024-04-04 17:43:16 172 mg/dL F 70.0-99.0 Lactate dehydrogenase [Enzymatic activity/volume] in Serum or Plasma 2024-04-04 17:43:16 271 U/L F 120.0-246.0 Protein [Mass/volume] in Serum or Plasma 2024-04-04 17:43:16 6.8 g/dL F 5.7-8.2 Albumin [Mass/volume] in Serum or Plasma by Bromocresol green (BCG) dye binding method 2024-04-04 17:43:16 4.3 g/dL F 3.4-4.8 Bicarbonate [Moles/volume] in Serum or Plasma 2024-04-04 17:43:16 27 mEq/L F 20.0-31.0 Glucose [Mass/volume] in Serum or Plasma 2024-04-04 17:43:16 172 mg/dL F 70.0-99.0 Lactate dehydrogenase [Enzymatic activity/volume] in Serum or Plasma 2024-04-04 17:43:16 271 U/L F 120.0-246.0 Protein [Mass/volume] in Serum or Plasma 2024-04-04 17:43:16 6.8 g/dL F 5.7-8.2 Potassium [Moles/volume] in Serum or Plasma 2024-03-08 06:11:07 4.9 mEq/L F 3.5-5.5 A/G RATIO 2024-03-07 21:08:37 1.9 Calc F 1.0-2.5 GLOBULIN 2024-03-07 21:08:37 2.3 g/dL F 0.9-5.0 Albumin [Mass/volume] in Serum or Plasma by Bromocresol green (BCG) dye binding method 2024-03-07 21:07:31 4.4 g/dL F 3.4-4.8 Bicarbonate [Moles/volume] in Serum or Plasma 2024-03-07 21:07:31 26 mEq/L F 20.0-31.0 Glucose [Mass/volume] in Serum or Plasma 2024-03-07 21:07:31 173 mg/dL F 70.0-99.0 Lactate dehydrogenase [Enzymatic activity/volume] in Serum or Plasma 2024-03-07 21:07:31 254 U/L F 120.0-246.0 Protein [Mass/volume] in Serum or Plasma 2024-03-07 21:07:31 6.7 g/dL F 5.7-8.2 Potassium [Moles/volume] in Serum or Plasma 2024-02-02 05:26:38 5 mEq/L F 3.5-5.5 A/G RATIO 2024-02-01 16:40:20 1.8 Calc F 1.0-2.5 GLOBULIN 2024-02-01 16:40:20 2.4 g/dL F 0.9-5.0 Albumin [Mass/volume] in Serum or Plasma by Bromocresol green (BCG) dye binding method 2024-02-01 16:39:22 4.3 g/dL F 3.4-4.8 Bicarbonate [Moles/volume] in Serum or Plasma 2024-02-01 16:39:22 26 mEq/L F 20.0-31.0 Glucose [Mass/volume] in Serum or Plasma 2024-02-01 16:39:22 154 mg/dL F 70.0-99.0 Lactate dehydrogenase [Enzymatic activity/volume] in Serum or Plasma 2024-02-01 16:39:22 231 U/L F 120.0-246.0 Protein [Mass/volume] in Serum or Plasma 2024-02-01 16:39:22 6.7 g/dL F 5.7-8.2 Potassium [Moles/volume] in Serum or Plasma 2024-01-04 17:51:48 4.7 mEq/L F 3.5-5.5 Potassium [Moles/volume] in Serum or Plasma 2024-01-04 17:51:48 4.7 mEq/L F 3.5-5.5 GLOBULIN 2024-01-04 16:24:48 2.6 g/dL F 0.9-5.0 A/G RATIO 2024-01-04 16:24:48 1.6 Calc F 1.0-2.5 A/G RATIO 2024-01-04 16:24:48 1.6 Calc F 1.0-2.5 GLOBULIN 2024-01-04 16:24:48 2.6 g/dL F 0.9-5.0 Bicarbonate [Moles/volume] in Serum or Plasma 2024-01-04 16:24:13 27 mEq/L F 20.0-31.0 Protein [Mass/volume] in Serum or Plasma 2024-01-04 16:24:13 6.8 g/dL F 5.7-8.2 Lactate dehydrogenase [Enzymatic activity/volume] in Serum or Plasma 2024-01-04 16:24:13 246 U/L F 120.0-246.0 Albumin [Mass/volume] in Serum or Plasma by Bromocresol green (BCG) dye binding method 2024-01-04 16:24:13 4.2 g/dL F 3.4-4.8 Glucose [Mass/volume] in Serum or Plasma 2024-01-04 16:24:13 120 mg/dL F 70.0-99.0 Albumin [Mass/volume] in Serum or Plasma by Bromocresol green (BCG) dye binding method 2024-01-04 16:24:13 4.2 g/dL F 3.4-4.8 Bicarbonate [Moles/volume] in Serum or Plasma 2024-01-04 16:24:13 27 mEq/L F 20.0-31.0 Glucose [Mass/volume] in Serum or Plasma 2024-01-04 16:24:13 120 mg/dL F 70.0-99.0 Lactate dehydrogenase [Enzymatic activity/volume] in Serum or Plasma 2024-01-04 16:24:13 246 U/L F 120.0-246.0 Protein [Mass/volume] in Serum or Plasma 2024-01-04 16:24:13 6.8 g/dL F 5.7-8.2 A/G RATIO 2023-01-10 22:33:32 1.5 Calc F 1.0-2.5 GLOBULIN 2023-01-10 22:33:32 2.8 g/dL F 0.9-5.0 Albumin [Mass/volume] in Serum or Plasma by Bromocresol green (BCG) dye binding method 2023-01-10 22:33:26 4.2 g/dL F 3.4-4.8 Glucose [Mass/volume] in Serum or Plasma 2023-01-10 22:33:26 92 mg/dL F 70.0-99.0 Bicarbonate [Moles/volume] in Serum or Plasma 2023-01-10 22:33:26 23 mEq/L F 20.0-31.0 Lactate dehydrogenase [Enzymatic activity/volume] in Serum or Plasma 2023-01-10 22:33:26 254 U/L F 120.0-246.0 Potassium [Moles/volume] in Serum or Plasma 2023-01-10 22:33:26 5.3 mEq/L F 3.5-5.5 Protein [Mass/volume] in Serum or Plasma 2023-01-10 22:33:26 7 g/dL F 5.7-8.2 GLOBULIN 2022-06-02 17:04:16 2.4 g/dL F 0.9-5.0 A/G RATIO 2022-06-02 17:04:16 1.8 Calc F 1.0-2.5 Albumin [Mass/volume] in Serum or Plasma by Bromocresol green (BCG) dye binding method 2022-06-02 17:03:16 4.2 g/dL F 3.4-4.8 Bicarbonate [Moles/volume] in Serum or Plasma 2022-06-02 17:03:16 26 mEq/L F 20.0-31.0 Glucose [Mass/volume] in Serum or Plasma 2022-06-02 17:03:16 164 mg/dL F 70.0-99.0 Lactate dehydrogenase [Enzymatic activity/volume] in Serum or Plasma 2022-06-02 17:03:16 270 U/L F 120.0-246.0 Potassium [Moles/volume] in Serum or Plasma 2022-06-02 17:03:16 4.7 mEq/L F 3.5-5.5 Protein [Mass/volume] in Serum or Plasma 2022-06-02 17:03:16 6.6 g/dL F 5.7-8.2 A/G RATIO 2022-05-05 18:15:00 1.7 Calc F 1.0-2.5 GLOBULIN 2022-05-05 18:15:00 2.5 g/dL F 0.9-5.0 GLOBULIN 2022-05-05 18:15:00 2.5 g/dL F 0.9-5.0 A/G RATIO 2022-05-05 18:15:00 1.7 Calc F 1.0-2.5 Lactate dehydrogenase [Enzymatic activity/volume] in Serum or Plasma 2022-05-05 18:14:12 248 U/L F 120.0-246.0 Potassium [Moles/volume] in Serum or Plasma 2022-05-05 18:14:12 4.9 mEq/L F 3.5-5.5 Bicarbonate [Moles/volume] in Serum or Plasma 2022-05-05 18:14:12 26 mEq/L F 20.0-31.0 Albumin [Mass/volume] in Serum or Plasma by Bromocresol green (BCG) dye binding method 2022-05-05 18:14:12 4.2 g/dL F 3.4-4.8 Protein [Mass/volume] in Serum or Plasma 2022-05-05 18:14:12 6.7 g/dL F 5.7-8.2 Glucose [Mass/volume] in Serum or Plasma 2022-05-05 18:14:12 170 mg/dL F 70.0-99.0 Albumin [Mass/volume] in Serum or Plasma by Bromocresol green (BCG) dye binding method 2022-05-05 18:14:12 4.2 g/dL F 3.4-4.8 Bicarbonate [Moles/volume] in Serum or Plasma 2022-05-05 18:14:12 26 mEq/L F 20.0-31.0 Glucose [Mass/volume] in Serum or Plasma 2022-05-05 18:14:12 170 mg/dL F 70.0-99.0 Potassium [Moles/volume] in Serum or Plasma 2022-05-05 18:14:12 4.9 mEq/L F 3.5-5.5 Lactate dehydrogenase [Enzymatic activity/volume] in Serum or Plasma 2022-05-05 18:14:12 248 U/L F 120.0-246.0 Protein [Mass/volume] in Serum or Plasma 2022-05-05 18:14:12 6.7 g/dL F 5.7-8.2 GLOBULIN 2022-04-07 14:57:34 2.4 g/dL F 0.9-5.0 A/G RATIO 2022-04-07 14:57:34 1.8 Calc F 1.0-2.5 Bicarbonate [Moles/volume] in Serum or Plasma 2022-04-07 14:56:56 23 mEq/L F 20.0-31.0 Glucose [Mass/volume] in Serum or Plasma 2022-04-07 14:56:56 134 mg/dL F 70.0-99.0 Protein [Mass/volume] in Serum or Plasma 2022-04-07 14:56:56 6.7 g/dL F 5.7-8.2 Albumin [Mass/volume] in Serum or Plasma by Bromocresol green (BCG) dye binding method 2022-04-07 14:56:54 4.3 g/dL F 3.4-4.8 Lactate dehydrogenase [Enzymatic activity/volume] in Serum or Plasma 2022-04-07 14:56:54 248 U/L F 120.0-246.0 Potassium [Moles/volume] in Serum or Plasma 2022-04-07 14:56:54 5.4 mEq/L F 3.5-5.5 A/G RATIO 2022-03-03 19:08:27 F Recollect - Unsp un specimen GLOBULIN 2022-03-03 19:08:27 F Recollect - Unsp un specimen Albumin [Mass/volume] in Serum or Plasma by Bromocresol green (BCG) dye binding method 2022-03-03 19:05:52 F Recollect - Unsp un specimen,[id number] Glucose [Mass/volume] in Serum or Plasma 2022-03-03 19:05:51 F Recollect - Unsp un specimen,[id number] Bicarbonate [Moles/volume] in Serum or Plasma 2022-03-03 19:05:50 F Recollect - Unsp un specimen,[id number] Lactate dehydrogenase [Enzymatic activity/volume] in Serum or Plasma 2022-03-03 19:05:50 F Recollect - Unsp un specimen,[id number] Protein [Mass/volume] in Serum or Plasma 2022-03-03 19:05:50 F Recollect - Unsp un specimen,[id number] Potassium [Moles/volume] in Serum or Plasma 2022-03-03 19:05:49 F Recollect - Unsp un specimen,[id number] A/G RATIO 2022-02-07 08:38:39 F Canceled - Specimen not received 5 days past draw date GLOBULIN 2022-02-07 08:38:39 F Canceled - Specimen not received 5 days past draw date Albumin [Mass/volume] in Serum or Plasma by Bromocresol green (BCG) dye binding method 2022-02-07 08:06:44 F Canceled - Specimen not received 5 days past draw date Bicarbonate [Moles/volume] in Serum or Plasma 2022-02-07 08:06:44 F Canceled - Specimen not received 5 days past draw date Glucose [Mass/volume] in Serum or Plasma 2022-02-07 08:06:44 F Canceled - Specimen not received 5 days past draw date Lactate dehydrogenase [Enzymatic activity/volume] in Serum or Plasma 2022-02-07 08:06:44 F Canceled - Specimen not received 5 days past draw date Potassium [Moles/volume] in Serum or Plasma 2022-02-07 08:06:44 F Canceled - Specimen not received 5 days past draw date Protein [Mass/volume] in Serum or Plasma 2022-02-07 08:06:44 F Canceled - Specimen not received 5 days past draw date Encounters No encounter information to report Immunizations Ordered Immunization Name Filled Immunization Name Date Status Comments Refusal Reason Pneumococcal conjugate PCV20, polysaccharide [id number] conjugate, adjuvant, 2024-02-02 14:40:22 Influenza, high-dose, quadrivalent, 2023-11-15 13:28:13 TST-PPD intradermal 2023-10-02 11:12:53 Covid-19 Vaccination 2023-02-21 06:00:00 TST-PPD intradermal 2022-09-21 10:32:53 Covid-19 Vaccination 2021-03-10 08:00:00 Covid-19 Vaccination 2020-04-29 08:00:00 Plan of Treatment Planned Activity Provider Planned Date Details Commen ts Diagnostic Test Pending [facility] 2023-03-05 07:19:49 Hemoglobin [Mass/volume] in Blood [code = 718-7] Diagnostic Test Pending [facility] 2022-11-12 05:00:00 Alanine aminotransferase [Enzymatic activity/volume] in Serum or Plasma [code = 1742-6] Diagnostic Test Pending [facility] 2022-02-12 06:00:00 25-Hydroxyvitamin D3+25-Hydroxyvitamin D2 [Mass/volume] in Serum or Plasma [code = 42683-0] Diagnostic Test Pending [facility] 2022-02-12 06:00:00 Aluminum [Mass/volume] in Serum or Plasma [code = 5574-9] Diagnostic Test Pending [facility] 2024-04-30 05:00:00 Calcium [Mass/volume] in Serum or Plasma [code = 29119-4] Diagnostic Test Pending [facility] 2023-10-22 06:30:47 Ferritin [Mass/volume] in Serum or Plasma [code = 2276-4] Diagnostic Test Pending [facility] 2022-02-12 06:00:00 Parathyrin.intact [Mass/volume] in Serum or Plasma [code = 2731-8] Diagnostic Test Pending [facility] 2022-01-22 06:00:00 Sodium [Moles/volume] in Serum or Plasma [code = 2951-2] Diagnostic Test Pending [facility] 2022-01-22 06:00:00 Albumin [Mass/volume] in Serum or Plasma by Bromocresol green (BCG) dye binding method [code = 74333-2] Diagnostic Test Pending [facility] 2022-01-22 06:00:00 Glucose [Mass/volume] in Serum or Plasma [code = 2345-7] Diagnostic Test Pending [facility] 2022-01-22 06:00:00 Creatinine [Mass/volume] in Serum or Plasma [code = 2160-0] Diagnostic Test Pending [facility] 2024-03-12 06:00:00 In-Center Hemodialysis Treatment [code = EJZ179] Diet Order [facility] January 16, 2022 Diet Calorie 30 kcal/kg Fluid Value 1000 mL/d Phosphorus Value 680 mg/d Potassium Value 2000 mg/d Protein Value 1.2 gm/kg Sodium Value 2000 mg/d Calculated Weight 57 kg
== END 2024-04-30 12:33 | disposition home or self-care (01) ==
PROVIDERS: PCP Family Medicine; Visit Provider Internal Medicine Pulmonary Disease
DX: J98.11 Atelectasis (principal); J18.9 Pneumonia, unspecified organism; R91.8 Other nonspecific abnormal finding of lung field; J96.11 Chronic respiratory failure with hypoxia; Z99.81 Dependence on supplemental oxygen
CPT/HCPCS: 71046

== ENCOUNTER 2024-05-15 10:49 | Outpatient (CLI) | payer MEDICARE, SELFPAY ==
--- NOTE | ~2024-05-15 | CT_ITS ---
CT Scan of the Chest without Contrast: Clinical Indication: Dyspnea Technique: Contiguous sections were acquired throughout the chest without intravenous contrast. Dose reduction technique was used on this scan by utilizing automated exposure control and iterative recon struction technique. The dose-length product (DLP) was 48.20 mGy-cm. Findings: Enlarged thyroid gland present with multiple large peripherally calcified nodules. There is no evidence of any significant mediastinal, hilar or axillary lymphadenopathy. There are ext ensive atherosclerotic calcifications of the aorta and coronary arteries. No pericardial effusion. Small right pleural effusion present. No left pleural effusion. Lungs are clear, aside from probable mild right basilar atelectatic change. Images through the upper abdomen reveal no abnormalities. Impression: Small right pleural effusion with mild bibasilar atelectatic change. Enlarged thyroid gland with multiple peripherally calcified nodules. Reviewed, dictated and finalized at [facility]. Impression: Small right pleural effusion with mild bibasilar atelectatic change. Enlarged thyroid gland with multiple peripherally calcified nodules.
--- OUTSIDE RECORDS SUMMARY | 2024-05-15 11:45 | XMS_ITS | Encounter Summary ---
Author Organization [facility] Address [address] [place] [address] Care Team Providers Care Motocross Racer Name Role Phone Brooklynn Kumar MD Primary Care Provider Reason for Visit * Reason Comments Kidney Transplant Evaluation Encounter Details Date Type Department Care Team (Late st Contact Info) Description 07/19/2021 Telephone [facility] [address] [place] [id number] Donya Ruelas [facility] Kidney Transplant Evaluation [...] on filedocumented in this encounter Care Teams Motocross Racer Relationship Specialty Start Date End Date Brooklynn Kumar MD [address] [place] [phone] PCP - General Family Medicine 06/28/20 documented as of this encounter
--- OUTSIDE RECORDS SUMMARY | 2024-05-15 11:45 | XMS_ITS | Continuity of Care Document ---
Author Organization [facility] Address [address] [place] [address] [address] [place] [address] Phone Care Team Providers Care Sheet Metal Roofer Name Role Phone Danish Ray Unavailable Unavailable Procedures Procedure Date Office/outpatient Visit, Est Eye Exam, New Patient Ophthalmoscopy Ophthalmoscopy Advance Directives Directive Yes / No Effective Date File Name No Information Encounters Encounter Description Practice Location Reason(s) For Visit Diagnoses Date Provider Providers Copied on Encounter Office/outpat ient Visit, Est [facility], [address], [place], [place], [id number], [place] tel:[phone] [facility] No Information [address]. [address] [address], [place], [place], [facility], [place]. tel:[phone] Referring Provider: Jonatan Hayden, [address], [place], [facility]. tel:[phone] [facility], [address], [place], [place], [id number], [place] tel:[phone] [facility] No Information [address], [place], [facility], [place]. tel:[phone] Referring Provider: Vasquez Farrell, [address] [facility] [address], [place], [place], [facility]. tel:[phone] Family History Family Member Type Diagnosis Age At Onset No Information Payers Payer name Insurance type Covered alliance party ID Authoriza tiindio(s) No Information Social History [...]
--- OUTSIDE RECORDS SUMMARY | 2024-05-15 11:45 | XMS_ITS | Clinical Summary ---
Author Organization [facility] Address [address] [address] Care Team Providers Care Sandwich Hand Name Role Phone Brooklynn Kumar MD Primary Care Provider Source Comments [facility],non-owned Affiliates and Associated Physician Practices is amultiple site organization consisting of ambulatory clinics and hospital sitesin [place], [place], [place] and [place]. This disclosure is being madepursuant to the Care Everywhere program and may not contain all information available regarding this patient. Last updated 17.[facility] Allergies Active Allergy Reactions Criticality Noted Date [...] hours. Active Cholecalciferol (VITAMIN D3) 1.25 MG (87405 UT) capsule TK 1 C PO Q [...] heart failure 09/19/2022 Coronary artery disease involving osage heart 0 09/19/2022 Pulmonary hypertension 09/19/2022 Chronic respiratory failure with hypoxia 023 Chronic diastolic heart failure 09/19/2022 Dyspnea on exertion 08/01/2021 Nocturnal hypoxia 08/01/2021 Chronic heart failure with preserved ejection fr action 08/01/2021 Pre-transplant evaluation for kidney transplant 06/25/2020 Overview (03/14/2024): Images from the original note were not included. Shoshana Long 1960 Referring Administrative Office Assistant: Iris Cox Listing Date: 03/30/2021 Delisted 03/13/2024 Dialysis Info: Type: HD, T,Th,Sat Time: 781 days (05/06/2018) Blood Type: B POS Body mass index is 33.36 kg/m . ALERTS: Listed for Hep C kidneys 02/02/22 Solar Sales Associate: Dr. 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 Kumar Diabetic retinopathy ([facility]/HCC) 2012 [facility] [place] Disorder of thyroid Dyspnea on exertion 08/01/2021 End-stage renal disease ([facility]/HCC) 07/29/2018 ESRD on hemodialysis ([facility]) GIB (gastrointestinal bleeding) 05/04/2018 Glaucoma History of blood transfusion 2000 during surgery HTN (hypertension) 08/18/2012 Hyperparathyroidism (CMS/HCC) 2019 Hypertension 2002 neph follows Kidney disease Malignancy (CMS/HCC) 2000 uterine cancer [facility] Nocturnal hypoxia 08/01/2021 Obesity Pneumonia Pneumonia 11/2021 PONV (postoperative nausea and vomiting) Pre-transplant evaluation for kidney transplant 06/25/2020 Shoshana Long 1960 Referring Administrative Office Assistant: Iris Cox Listing Date: 03/30/2021 Dialysis Info: Type: HD, T,Th,Sat Time: 781 days (05/06/2018) Blood Type: B POS Body mass index is 33.36 kg/m . ALERTS: Listed for Hep C kidneys 02/02/22 Solar Sales Associate: Dr. Bustos in [place], [place] Past Medical History: Diagnosis Date Blindness [...] IR ANGIO AV SHUNT NON DIRECT 2019 [facility] Transplant Surgery Clinic Appt: w/ Dr. [...] loss NM stress test Edd Corado MD shop superintendent Transplant Surgery Clinic Appt w/: Dr. Fierro [...] requirement to establish with Endocrinology: Pursuing with [facility] Hemoglobin A1c pending: understands requirement to maintain <9% (last 7.8% by verbal report) Transplant options discussion: Has not yet received formal Education, scheduled for July 01. We discussed the types of transplant options: Patient is not aware of immediate potential living donors, but we discussed the benefits of LDKT at length: provided with outreach cards, encouraged daughter to serve as Living Donor [place] - daughter receptive to sharing the need. [...] 34.3. Albumin 4.1 Has met with Transplant Glue Clamp Operator - eats processed foods and knows she need to improve diet choices Discussed requirement for BMI <35: while meets eligibility criteria, emphasized importance of not gaining weight; further, given midline distribution, encouraged 10-15 lb. weight loss to support wound healing Renal bone disease: Discussed programmatic criteria for PTH < 700 Labs today: PTH 1,189; Phos 6.3-> Administrative Office Assistant aware, Sensipar was started at Dialysis unit [...] we agree with the recommendations of the [place] Society of Transplantation (AST) for vaccination of [...] today to schedule) Colonoscopy Panorex Establish with Solar Sales Associate Needs control of Hyperparathyroidism: PTH currently 1200, [...] next due 08/11/2020 Carli Alberto MD, PhD ceramic plater Other Consults: Hepatology: 12/23/2021 12/23/2021 Fibroscan 79 [...] followup in PRN. Katalina Castaneda PA-C Physician Precision Printing Worker in Internal Medicine Tyler Benson MD Professor [...] office in September 2021. Pepito Naidu M.D., [facility]. Jon Peña and Georgina Gardner Endowed Chair [...] RTC in 3 months Christiano Garcia MD Manager Market Intelligence of Pulmonary & Critical Care Medicine Sleep [...] shunt, diffusion abnormality, etc.). Adalid Hein MD, [facility], [facility], [facility] Office Communication Professor, [facility] HRCT chest: 01/27/22 [...] bivalent booster Yearly influenza vaccination, completed for 4153-5780 season Unclear which pneumococcal vaccination received (may be PCV-13). Will need to f/u on this as it would determine whether she should get PPSV-23 or PCV-20 RTC in 6 months Christiano Garcia MD Manager Market Intelligence of Pulmonary & Critical Care Medicine Sleep [...] Clinic Follow-up: 4-6 weeks Adalid Hein MD, [facility], [facility], [facility] Pulmonology Dr Zavala: 08/11/2022 Impression: Patient is [...] RTC in 1 year Christiano Garcia MD Manager Market Intelligence of Pulmonary & Critical Care Medicine [facility] Thyroid US: completed through PCP FNA: completed at [facility] 11/18/2020 Endocrinology input on FNA results: Received vm back from Santino with Dr. Redd with endocrinology, she was calling back with follow up plan, and per Ohruben, Dr. Redd said the fna thyroid results are benign and they are monitoring with USs. If we have any other concerns, please call back at [phone]. Cardiology: 06/28/[address] Farias [...] Pulmonology (no pulmonary hypertension, no oxygen use). [facility] 06/29/2022 Committee Review Decision: Make Inactive Committee Discussion Details: Patient was presented at [facility] to discuss listing status. Reviewed with team pt completed eval testing 06/21/22. PTH 1,203.4 and RVSP 60 on Echo. Pt also reports still using Oxygen. Unable to tolerate CPAP and follow up appointment pending. Per team, make inactive on [facility] kidney txp wait list. Dr. Alberto spoke with pt's radio repairer domestic Dr. Cox. He confirmed pt is using O2 at dialysis. Pulmonary HTN may be multifactorial reflecting both per pulmonary condition and volume. Lowering dry weight will be a challenge d/t pt cramping but they work in it including offering additional session. [facility] 02/02/2022 Committee Review Decision: Remain Active ommittee Discussion Details: Patient was presented at [facility] for Hep C kidney listing and to [...] on the wait list while awaiting cpap. [facility]: 12/09/2020 Induction Method: Immunosuppression Induction Method/Plan: Antithymocyte globulin (rabbit) (Thymoglobulin) 5 mg/kg Committee Discussion Details: Pt's case presented at [facility] today for potential listing. HH and evaluation testing reviewed but not limited to: - PTH elevated on evaluation testing, most recent PTH level 1441. Pt was just increased to 10 mcg on hecterol on 11/27. Team aware I spoke with RD at [facility] today, pt to get labs next week, she is going to talk with radio repairer domestic about her treatment plan today. - pt [...] thyroid US completed by PCP, reviewed with residence director input on follow up with team - which is to follow with USs - SUBSTATION OPERATOR forms received, Jesi is working on confirmation [...] Calculation (Bezet) 482 ms Final Calculated P [place] 70 degrees Final Calculated R [place] 47 degrees Final Calculated T [place] -95 degrees Final Interpretation EKG Final NORMAL [...] PPD: see labs -quant gold Colonoscopy: 06/27/2021 [facility]) Mammogram: 11/18/2021 Panorex/Dental: 06/21/2022 FINDINGS: Multiple dental restorations are identified, and numerous teeth are absent. No acute mandibular fracture is identified. Both temporomandibular joints are intact. No periapical abscess is present. IMPRESSION: No evidence of periapical abscess. SW: 06/15/21 Clinical Social Work Impression: It is the impression of this 7th grade social studies teacher that Shoshana Long has several positive factors for Kidney transplant candidacy from a psychosocial perspective. Patient appears to have appropriate knowledge of illness. Patient has sufficient insurance coverage and stable financial situation for post transplant needs. No concerns regarding substance abuse, legal issues, or mental health needs. Patient has adequate support system and appropriate discharge plan. Plan: bilingual patient support caseworker to provide supportive services as needed. Patient remains a reasonable candidate for transplant from a psychosocial perspective. Psychiatric Consult Recommended: No Transplant Cash Specialist: Natalie Antonio LMSW Abdominal Transplant Cash Specialist [phone] SUBSTATION OPERATOR forms: RD: 06/21/2022 Nutrition Note/Annual: Ht: 58 [...] Department Care Team Description 04/05/2024 12:15 AM DOT COMPLIANCE COORDINATOR - 04/05/2024 11:59 PM DOT COMPLIANCE COORDINATOR Hospital Encounter [facility] [address] [place] [address] Discharge Disposition: Home or Self Care 03/17/2024 Telephone [facility] TRANSPLANT [address] [place] [phone] Ju Israel RN Kidney Transplant Evaluation 03/07/2024 Telephone [facility] TRANSPLANT [address] [place] [address] Ju Israel RN Kidney Transplant Evaluation 03/07/2024 Lab Requisition [facility] [place] [address] Dandre Cheney MD from Last 3 Months [...] Comments Blood Pressure 186/76 12/28/2022 12:45 PM DOT COMPLIANCE COORDINATOR Pulse 76 12/28/2022 12:45 PM DOT COMPLIANCE COORDINATOR Temperature 36.6 C (97.9 F) 12/28/2022 9:20 AM DOT COMPLIANCE COORDINATOR Respiratory Rate 18 12/28/2022 12:45 PM DOT COMPLIANCE COORDINATOR Oxygen Saturation 94% 12/28/2022 9:20 AM DOT COMPLIANCE COORDINATOR Inhaled Oxygen Concentration - - Weight 56.7 kg (125 lb) 12/27/2022 6:01 PM DOT COMPLIANCE COORDINATOR Height 147.3 cm (4' 10 ) 12/27/2022 6:01 PM DOT COMPLIANCE COORDINATOR Body Mass Index 26.13 12/27/2022 6:01 PM DOT COMPLIANCE COORDINATOR Plan of Treatment Health Maintenance Due Date [...] Management General On track( 022 10:08 AM DOT COMPLIANCE COORDINATOR) Nolvia Ramírez, RN Note: Expected end date: ongoing Interventions: Take all medications as prescribed Let your doctor know right away about any changes in your medications Make sure to request a refill of your medication at least one week prior to your last dose Medical Devices Implanted Type Area Zipper Setter Chainstitch Device Identifier Shelf Expiration Date Model / Serial / Lot Stent Eprsth 5cm 8mm Hep Ntnl Eptfe hn - [id number] Implanted:Qty: 1 on 02/28/2019 by Paul Rojas MD at [facility] Left: Vein [employer] 09/29/2021 [id number] / [id number] / Procedures Procedure Name Priority Date/Time Associated Diagnosis Comments HLA ANTIBODY SCREEN LUM CLASS 1 SAB Routine 04/05/2024 1:18 PM DOT COMPLIANCE COORDINATOR Pre-transplant evaluation for kidney transplant HLA ANTIBODY SCREEN LUM CLASS 2 SAB Routine 04/05/2024 1:18 PM DOT COMPLIANCE COORDINATOR Pre-transplant evaluation for kidney transplant HOLD HLA SPECIMEN Routine 02/28/2024 1:3 9 PM DOT COMPLIANCE COORDINATOR HEPATITIS C ANTIBODY Routine 06/21/2022 12:10 PM CDT Pre-kidney transplant, listed HEMOGLOBIN A1C Routine 06/21/2022 12:10 PM CDT Pre-kidney transplant, listed from Last 3 Months or Most Recently Relevant to Health Maintenance Results * HLA ANTIBODY SCREEN LUM CLASS 2 SAB (04/05/2024 1:18 PM DOT COMPLIANCE COORDINATOR) % PRA 9 04/14/2024 1:04 PM DOT COMPLIANCE COORDINATOR [facility] ([facility]) Class 2 LUM SAB Specificity [id number] PRESENT DPB PRESENT (84DEAV) 04/14/2024 1:04 PM DOT COMPLIANCE COORDINATOR [facility] ([facility]) Class 2 SAB Test Date [id number] 04/14/2024 1:04 PM DOT COMPLIANCE COORDINATOR [facility] Comment: Methodology - Luminex Bead-Based Immunoassay. This test was developed and its performance characteristics determined by the [facility]. It has not been [...] high complexity clinical laboratory testing. CLIA ID# [id number] Performed at: [facility], [address] [place] [address] Barrel Assembly Inspector: Bradley Vincent, Ph.D., D([facility]), Blood BLOOD SPECIMEN / Unknown No Charge Blood Draw / Unknown 04/05/2024 1:18 PM DOT COMPLIANCE COORDINATOR 04/07/2024 1:18 PM DOT COMPLIANCE COORDINATOR Dandre Cheney MD LAB - BLOOD BANK ORD ERABLES [facility] ([facility]) [address] [place] [address], [facility] * HLA ANTIBODY SCREEN LUM CLASS 1 SAB (04/05/2024 1:18 PM DOT COMPLIANCE COORDINATOR) % PRA 14 04/14/2024 1:04 PM DOT COMPLIANCE COORDINATOR [facility] ([facility]) Class 1 LUM SAB Specificity B18, 35, 37, 49 ,51, 52, 53B63, 71, 75, 77, 78 04/14/2024 1:04 PM DOT COMPLIANCE COORDINATOR [facility] ([facility]) Class 1 LUM SAB Moderate Risk B62 04/14/2024 1:04 PM DOT COMPLIANCE COORDINATOR [facility] ([facility]) Class 1 SAB Test Date [id number] 04/14/2024 1:04 PM DOT COMPLIANCE COORDINATOR [facility] ([facility]) Comment: Methodology - Luminex Bead-Based Immunoassay. This test was developed and its performance characteristics determined by the [facility]. It has not been cleared or approved [...] high complexity clinical laboratory testing. CLIA ID# [id number] Performed at: [facility], [address] [place] [id number] Barrel Assembly Inspector: Bradley Vincent, Ph.D., D([facility]), Blood BLOOD SPECIMEN / Unknown No Charge Blood Draw / Unknown 04/05/2024 1:18 PM DOT COMPLIANCE COORDINATOR 04/07/2024 1:18 PM DOT COMPLIANCE COORDINATOR Dandre Cheney MD LAB - BLOOD BANK ORD JOHNATHAN Performing Organization Address City/[facility] Co de Phone Number [facility] ([facility]) [address] [place] [address] * HOLD HLA SPECIMEN (02/28/2024 1:39 PM DOT COMPLIANCE COORDINATOR) Hold HLA Specimen 03/07/2024 3:00 PM DOT COMPLIANCE COORDINATOR [facility] ([facility]) Comment:The Hold HLA specime n has been received into the lab and will be held for 5 years at 4 degrees. Blood BLOOD SPECIMEN / Unknown 02/28/2024 1:39 PM DOT COMPLIANCE COORDINATOR 03/07/2024 1:39 PM DOT COMPLIANCE COORDINATOR Dandre Cheney MD LAB - BLOOD BANK ORD JOHNATHAN Performing Organization Address [facility] Co de Phone Number [facility] ([facility]) [address] [place] [address] * (ABNORMAL) HEMOGLOBIN A1C (06/21/2022 12:10 PM CDT) Hemoglobin A1c 6.3(H) <=5.6 % 06/21/2022 2:17 PM CDT [facility] Estimated Average Glucose 134 mg/dL 06/21/2022 2:17 PM CDT [facility] Comment: HbA1c Interpretation: Normal : < 5.7% Pre-diabetes: 5.7-6.4% Diabetes: Equal to or greater than 6.5% Test results diagnostic of diabetes should be repeated for confirmation. Treatment target values recommended by ADA and other clinical organizations should be used to evaluate metabolic control in patients. Reference: [place] Diabetes Association, Standards of Care in Diabetes [...] Almonte MD LAB - CHEMISTR Y ORDERABLES [facility] [address] [place] [address], [facility] [phone] * HEPATITIS C ANTIBODY (06/21/2022 12:10 PM CDT) Hepatitis C Antibody Non-react naheed Non-reac tive 06/21/2022 1:41 PM CDT [facility] Comment:Hepatitis C Antibody screen indicates no serologic [...] - CHEMISTR Y ORDERABLES Performing Organization Address [facility]/ZIP Co de Phone Number [facility] [address] [place] [address], [place] [phone] from Last 3 Months or Most Recently Relevant to Health Maintenance Advance Directives Documents on File Type Date Recorded Patient Cooking Show Host Expl anation Adv Directive/Living Will/POA 09/18/2018 2:00 PM * Full Code (Latest Code Status on File) Date Activated Date Inactivated Comments 12/28/2022 10:12 AM 12/28/2022 3:09 PM * Full Code Date Activated Date Inactivated Comments 07/07/2020 9:15 AM 07/07/2020 2:22 PM * Full Code Date Activated Date Inactivated Comments 09/12/2018 3:28 PM 09/13/2018 4:57 PM Care Teams Sandwich Hand Relationship Specialty Start Date End Date Brooklynn Kumar MD [address] [place] [address] PCP - General Family Medicine 06/28/20
--- OUTSIDE RECORDS SUMMARY | 2024-05-15 11:45 | XMS_ITS | Encounter Summary ---
Author Organization [facility] Address [address] [place] [address] Care Team Providers Care Still Worker Helper Name Role Phone Brooklynn Kumar MD Primary Care Provider Encounter Details Date Type Department Care Team (Late st Contact Info) Description 07/19/2021 Telephone [facility] Pulmonary, Critical Care and Sleep Medicine [address] [facility], [place] [address] Pepito Naidu MD [address] [facility] 2L DIV OF PULMONARY/[place] [address] Social History Tobacco Use Types [...] 2021. Please advise. Transplant contact Ms. Naqvi [phone]. Thanks. Patient Call Back number: [phone] documented in this encounter Plan of Treatment Not on file documented as of this encounter Visit Diagnoses Not on filedocumented in this encounter Care Teams Still Worker Helper Relationship Specialty Start Date End Date Brooklynn Kumar MD [address] [place] [address] PCP - General Family Medicine 06/28/20 documented as of this encounter
--- OUTSIDE RECORDS SUMMARY | 2024-05-15 11:46 | XMS_ITS | Referral Summary ---
Author Organization [facility] Address [address] [place] [address] Care Team Providers Care Recreation Assistant Name Role Phone Georgie Goyal MD Primary Care Provider [phone] Iris Cox MD Unavailable [phone] Encounters Date Type Department Care Team Description 04/25/2024 Results Follow-Up [facility] at [address] [address] Una Guaman NP 04/25/2024 11:55 AM CDT Ancillary Procedure [facility] Imaging at [address] [address] Left hip pain 04/25/2024 11:30 AM CDT Office Visit [facility] at [address] [address] Una Guaman NP Left hip [...] file Legal Sex Female 3:15 AM COMPUTER NETWORK SUPPORT SPECIALIST Gender Identity Not on file Sexual Orientation [...] 04/25/2024 12:32 PM - Electronically signed by uJn Shelby M.D. MM T: Report ID: [id number] Reading Location: [id number] Procedure Note Jun Shelby MD - 04/25/2024 [...] Jun Shelby M.D. MM T: Report ID: [id number] Reading Location: [id number] Una Guaman STAFF ANESTHESIOLOGIST IMG XR PROCEDURES Final Result from Last 3 Months Insurance [address] [place] [address] [address] [place] [address] MEDICARE [employer] MEDICARE SUPPLEMENT Advance Directives For more information, please contact: [phone] Documents on File Type Date Recorded Patient Features Reporter Expl anation ADVANCE DIRECTIVE 12/18/2012 12:00 AM BLAINE Mckeon OF MACHINE SHOP REPAIR TECHNICIAN FINANCIAL/MEDICAL Care Teams Recreation Assistant Relationship Specialty Start Date End Date Georgie Goyal MD PCP - General Family Practice 06/27/18 Iris Cox MD [address] [facility] [address] [place] [address] Referring Physician Nephrology 06/27/18
--- OUTSIDE RECORDS SUMMARY | 2024-05-15 11:46 | XMS_ITS | Continuity of Care Document ---
Author Organization [facility] Address [address] [place] [address] Phone Care Team Providers Care Work Environment Safety Inspector Name Role Phone Fifi BRICEÑO, Diana Unavailable [...] Diagnoses Date Provider Providers Copied on Encounter [facility], [address] [place] [address], [id number], tel:[phone] [facility] No Information Calix Diana. [address] [place] [address], [id number] , . tel:[phone] [facility], [address] [place] [address], [id number], tel:[phone] [facility] HTNCompression of VeinEnd stage renal disease Calix Diana. [address] [place] [address], [id number] , [place]. tel:[phone] Referring Provider: Mateo Cox, [address] [place] [address] [address] [facility], [place], [address]. tel:[phone] [facility], [address] [place] [address], [id number], tel:[phone] [facility] HTNCompression of VeinEnd stage renal disease Calix Diana. [address] [place] [address], [id number] , [place]. tel:[phone] Referring Provider: Mateo Cox, [address] [place] [address] [address] [facility], [place], [address]. tel:[phone] [facility], [address] [place] [address], [id number], tel:[phone] [facility] No Information Calix Diana. [address] [place] [address], [id number] , [place]. tel:[phone] As per patient privacy policy some of the clinical information may not be visible. Family History Family Member Type Diagnosis Age At Onset No Information Payers Payer name Insurance type Covered constitution party ID Authortami oconnor(s) [place] [id number] Social History Type Description Quantity Date Captured Comments Sex Female Smoking Status No Information Sexual Orientation Straight or heterosexual Gender Identity Female Chief Complaint And Reason For Visit No Information Reason For Referral Reason For Referral No Information Plan Of Treatment Date Type Action Status Future Order: Radiology Order Up per Body Flouroscopy ([id number]), Ordered on: Ordered History Of Present Illness Encounter Date Complaint History Of Prese nt Illness No Information Functional Status Date Functional Assessmen t No Information Instructions Date Instruction Additional Infor mation No Information Assessments Type Assessment Date No Information Patient Care Teams Name Effective Dates (start - stop) Status Members No Information
--- OUTSIDE RECORDS SUMMARY | 2024-05-15 11:46 | XMS_ITS | Encounter Summary ---
Author Organization [facility] Health Address [address] [facility] [place] [address] Care Team Providers Care Hha Name Role Phone Brooklynn Kumar MD Primary Care Provider Encounter Details Date Type Department Care Team (Late st Contact Info) Description 01/07/2024 Lab Requisition [facility] MAIN LAB [address] [place] [phone] Dandre Cheney MD [address] [place] [address] OF ABD TRANSPLANT SURGERY [place], [place] [id number] Social History Tobacco Use Types Packs/Day Years [...] Management General On track( 022 10:08 AM PACKAGE WINDER) Nolvia Ramírez, RN Note: Expected end date: [...] HLA SPECIMEN Routine 01/01/2024 2:1 4 PM PACKAGE WINDER documented in this encounter Results * HOLD HLA SPECIMEN (01/01/2024 2:14 PM PACKAGE WINDER) Hold HLA Specimen 01/07/2024 3:31 PM PACKAGE WINDER [facility] ([facility]) Comment:The Hold HLA specime n has been received into the lab and will be held for 5 years at 4 degrees. Blood BLOOD SPECIMEN / Unknown 01/01/2024 2:14 PM PACKAGE WINDER 01/07/2024 2:15 PM PACKAGE WINDER Dandre Cheney MD LAB - BLOOD BANK ORD ERABLES [facility] ([facility]) [address] [place] [address], [facility] documented in this encounter Visit Diagnoses Not on filedocumented in this encounter Care Teams Hha Relationship Specialty Start Date End Date Brooklynn Kumar MD [address] [place] [address] PCP - General Family Medicine 06/28/20 documented as of this encounter
--- OUTSIDE RECORDS SUMMARY | 2024-05-15 11:46 | XMS_ITS | Encounter Summary ---
Author Organization [facility] Healthcare Address [address] [place] [address] Care Team Providers Care Pie Maker Machine Name Role Phone Georgie Goyal MD Primary Care Provider [phone]- [phone] Iris Cox MD Unavailable [phone] Encounter Details Date Type Department Care Team (Late st Contact Info) Description 04/25/2024 Results Follow-Up [facility] Medical Group Convenient Care at [address] [address] Una Guaman NP [address] [place] [address] [address] [place] [address] Social History Tobacco Use Types Packs/Day Years Used Date Smoking Tobacco: Never Alcohol Use Standard Drinks/Week Comments No 0 (1 standard drink = 0.6 oz pur e alcohol) Comments Unknown Sex and Gender Information Value Date Recorded Sex Assigned at Not on file Legal Sex Female 3:15 AM BRAZING MACHINE TENDER Gender Identity Not on file Sexual Orientation Not on file documented as of this encounter Plan of Treatment Not on file documented as of this encounter Visit Diagnoses Not on filedocumented in this encounter Care Teams Pie Maker Machine Relationship Specialty Start Date End Date Georgie Goyal MD PCP - General Family Practice 06/27/18 Iris Cox MD [address] [facility] [address] [place] [address] Referring Physician Nephrology 06/27/18 documented as of this encounter
--- OUTSIDE RECORDS SUMMARY | 2024-05-15 11:46 | XMS_ITS | Encounter Summary ---
Author Organization [facility] Health Address [address] [facility] [place] [address] Care Team Providers Care Combat Rifle Crewmember Name Role Phone Brooklynn Kumar MD Primary Care Provider Encounter Details Date Type Department Care Team (Late st Contact Info) Description 08/08/2023 Lab Requisition [facility] MAIN LAB [address] [place] [phone] Dandre Cheney MD [address] [place] [address] OF ABD TRANSPLANT SURGERY [place], [place] [phone] Social History Tobacco Use Types Packs/Day Years [...] Management General On track( 022 10:08 AM ORANGE GROWER) Nolvia Ramírez, RN Note: Expected end date: [...] Hold HLA Specimen 08/08/2023 12:01 PM CDT [facility] ([facility]) Comment:The Hold HLA specime n has been received into the lab and will be held for 5 years at 4 degrees. Blood BLOOD SPECIMEN / Unknown 07/31/2023 10:51 AM CDT 08/08/2023 10:51 AM CDT Dandre Cheney MD LAB - BLOOD BANK ORD ERABLES [facility] ([place]) [address] [place] [address], [facility] documented in this encounter Visit Diagnoses Not on filedocumented in this encounter Care Teams Combat Rifle Crewmember Relationship Specialty Start Date End Date Brooklynn Kumar MD [address] [place] [address] PCP - General Family Medicine 06/28/20 documented as of this encounter
--- OUTSIDE RECORDS SUMMARY | 2024-05-15 11:46 | XMS_ITS | Encounter Summary ---
Author Organization [facility] Health Address [address] [facility] [place] [address] Care Team Providers Care Police Stenographer Name Role Phone Brooklynn Kumar MD Primary Care Provider Encounter Details Date Type Department Care Team (Late st Contact Info) Description 12/24/2023 Lab Requisition [facility] MAIN LAB [address] [place] [phone] Dandre Cheney MD [address] [place] [address] OF ABD TRANSPLANT SURGERY [place], [place] [phone] Social History Tobacco Use Types Packs/Day Years [...] Management General On track( 022 10:08 AM DATA WAREHOUSING ARCHITECT) Nolvia Ramírez, RN Note: Expected end date: [...] HLA SPECIMEN Routine 12/18/2023 1:1 9 PM DATA WAREHOUSING ARCHITECT documented in this encounter Results * HOLD HLA SPECIMEN (12/18/2023 1:19 PM DATA WAREHOUSING ARCHITECT) Hold HLA Specimen 12/24/2023 2:31 PM DATA WAREHOUSING ARCHITECT [facility]) Comment:The Hold HLA specime n has been received into the lab and will be held for 5 years at 4 degrees. Blood BLOOD SPECIMEN / Unknown 12/18/2023 1:19 PM DATA WAREHOUSING ARCHITECT 12/24/2023 1:19 PM DATA WAREHOUSING ARCHITECT Dandre Cheney MD LAB - BLOOD BANK ORD ERABLES [facility] ([facility]) [address] [place] [address], [facility] documented in this encounter Visit Diagnoses Not on filedocumented in this encounter Care Teams Police Stenographer Relationship Specialty Start Date End Date Brooklynn Kumar MD [address] [place] [address] PCP - General Family Medicine 06/28/20 documented as of this encounter
--- OUTSIDE RECORDS SUMMARY | 2024-05-15 11:46 | XMS_ITS | Clinical Summary ---
Author Organization [facility] Address [address] [place] [address] Care Team Providers Care Data Deliverables Manager Name Role Phone Georgie Goyal MD Primary Care Provider [phone] Iris Cox MD Unavailable [phone] Allergies Active Allergy Reactions Criticality Noted [...] Description 04/25/2024 11:55 AM CDT Ancillary Procedure [facility] Imaging at [address] [address] Left hip pain 04/25/2024 11:30 AM CDT Office Visit [facility] Convenient Care at [address] [phone] Una Guaman NP Left hip pain (Primary Dx); Fall, initial encounter 04/25/2024 Results Follow-Up [facility] Convenient Care at [address] [address] Una Guaman NP from Last 3 Months Medical History Medical History Date Comments Type 2 diabetes mellitus (HCC) D iabetes type 2; Comments: [facility] 04/16/2014 - Other Medical hypercholestero lemia; Comments: [facility] 04/16/2014 - Hx Other Medical Hx uterine canc er; Comments: [facility] 04/16/2014 - Hx Other Medical obesity; Commen ts: [facility] 04/16/2014 - Hx Other Medical osteoporosis; C omments: [facility] 04/16/2014 - Hx Other Medical glaucoma; Comme nts: [facility] 04/16/2014 - Hx Other Medical cataracts; Comm ents: [facility] 04/16/2014 - Hx Other Medical ; Comm ents: [facility] 04/16/2014 - Hx Other Medical hysterectomy; C omments: [facility] 04/16/2014 - Social History Tobacco Use Types Packs/Day Years Used Date Smoking Tobacco: Never Tobacco Cessation:Counseling Given: No Alcohol Use Standard Drinks/Week Comments No 0 (1 standard drink = 0.6 oz pur e alcohol) Comments Unknown Sex and Gender Information Value Date Recorded Sex Assigned at Not on file Legal Sex Female 3:15 AM LEG MAN Gender Identity Not on file Sexual Orientation [...] Jun Shelby M.D. MM T: Report ID: [id number] Reading Location: [id number] Procedure Note Jun Shelby MD - 04/25/2024 [...] Jun Shelby M.D. MM T: Report ID: [id number] Reading Location: [place] [address] Una Guaman ENGLISH LECTURER IMG XR PROCEDURES Final Result from Last 3 Months Insurance MEDICARE MEDICARE [facility] MEDICARE SUPPLEMENT Advance Directives For more information, please contact: [phone] Documents on File Type Date Recorded Patient Division Service Manager Expl anation ADVANCE DIRECTIVE 12/18/2012 12:00 AM BLAINE Mckeon OF CARDIOTHORACIC SURGEON FINANCIAL/MEDICAL Care Teams Data Deliverables Manager Relationship Specialty Start Date End Date Georgie Goyal MD PCP - General Family Practice 06/27/18 Iris Cox MD [address] [facility] [address] [place] [address] Referring Physician Nephrology 06/27/18
--- OUTSIDE RECORDS SUMMARY | 2024-05-15 11:46 | XMS_ITS | Encounter Summary ---
Author Organization [facility] Health Address [address] [facility] [place] [address] Care Team Providers Care Baseball Winder Name Role Phone Brooklynn Kumar MD Primary Care Provider Encounter Details Date Type Department Care Team (Late st Contact Info) Description 07/02/2023 Lab Requisition [facility] MAIN LAB [address] [place] [phone] Dandre Cheney MD [address] [place] [address] OF ABD TRANSPLANT SURGERY [place], [place] [phone] Social History Tobacco Use Types Packs/Day Years [...] Management General On track( 022 10:08 AM DIELECTRIC PRESS OPERATOR) Nolvia Ramírez, RN Note: Expected end date: [...] Hold HLA Specimen 07/02/2023 2:31 PM CDT [facility] ([facility]) Comment:The Hold HLA specime n has been received into the lab and will be held for 5 years at 4 degrees. Blood BLOOD SPECIMEN / Unknown 06/21/2023 1:07 PM CDT 07/02/2023 1:07 PM CDT Dandre Cheney MD LAB - BLOOD BANK ORD ERABLES [facility] ([facility]) [address] [place] [address], [facility] documented in this encounter Visit Diagnoses Not on filedocumented in this encounter Care Teams Baseball Winder Relationship Specialty Start Date End Date Brooklynn Kumar MD [address] [place] [address] [place] [address] PCP - General Family Medicine 06/28/20 documented as of this encounter
--- OUTSIDE RECORDS SUMMARY | 2024-05-15 11:46 | XMS_ITS | Encounter Summary ---
Author Organization [facility] Health Address [address] [facility] [place] [address] Care Team Providers Care Knit Goods Mender Name Role Phone Brooklynn Kumar MD Primary Care Provider Encounter Details Date Type Department Care Team (Late st Contact Info) Description 06/18/2023 Lab Requisition [facility] MAIN LAB [address] [place] [phone] Dandre Cheney MD [address] [place] [address] OF ABD TRANSPLANT SURGERY [place], [place] [phone] Social History Tobacco Use Types Packs/Day Years [...] Management General On track( 022 10:08 AM RENEWABLE ENERGY TECHNICIAN) Nolvia Ramírez, RN Note: Expected end date: [...] Hold HLA Specimen 06/18/2023 5:01 PM CDT [facility] ([facility]) Comment:The Hold HLA specime n has been received into the lab and will be held for 5 years at 4 degrees. Blood BLOOD SPECIMEN / Unknown 06/07/2023 3:41 PM CDT 06/18/2023 3:41 PM CDT Dandre Cheney MD LAB - BLOOD BANK ORD ERABLES [facility] ([facility]) [address] [place] [address], [facility] documented in this encounter Visit Diagnoses Not on filedocumented in this encounter Care Teams Knit Goods Mender Relationship Specialty Start Date End Date Brooklynn Kumar MD [address] [place] [address] [place] [address] PCP - General Family Medicine 06/28/20 documented as of this encounter
--- OUTSIDE RECORDS SUMMARY | 2024-05-15 11:46 | XMS_ITS | Encounter Summary ---
Author Organization [facility] Health Address [address] [facility] [place] [address] Care Team Providers Care Retail Parts Pro Name Role Phone Brooklynn Kumar MD Primary Care Provider Encounter Details Date Type Department Care Team (Late st Contact Info) Description 12/25/2022 Lab Requisition [facility] MAIN LAB [address] [place] [phone] Dandre Cheney MD [address] [place] [address] OF ABD TRANSPLANT SURGERY [place], [place] [phone] Social History Tobacco Use Types Packs/Day Years [...] Management General On track( 022 10:08 AM FIRE EQUIPMENT INSPECTOR HELPER) Nolvia Ramírez RN Note: Expected end date: [...] HLA SPECIMEN Routine 12/19/2022 2:4 3 PM FIRE EQUIPMENT INSPECTOR HELPER documented in this encounter Results * HOLD HLA SPECIMEN (12/19/2022 2:43 PM FIRE EQUIPMENT INSPECTOR HELPER) Hold HLA Specimen 12/25/2022 4:02 PM FIRE EQUIPMENT INSPECTOR HELPER [facility] ([facility]) Comment:The Hold HLA specime n has been received into the lab and will be held for 5 years at 4 degrees. Blood BLOOD SPECIMEN / Unknown 12/19/2022 2:43 PM FIRE EQUIPMENT INSPECTOR HELPER 12/25/2022 2:43 PM FIRE EQUIPMENT INSPECTOR HELPER Dandre Cheney MD LAB - BLOOD BANK ORD ERABLES [facility] ([facility]) [address] [place] [address], [facility] documented in this encounter Visit Diagnoses Not on filedocumented in this encounter Care Teams Retail Parts Pro Relationship Specialty Start Date End Date Brooklynn Kumar MD [address] [place] [address] PCP - General Family Medicine 06/28/20 documented as of this encounter
--- OUTSIDE RECORDS SUMMARY | 2024-05-15 11:46 | XMS_ITS | Encounter Summary ---
Author Organization [facility] Health Address [address] [facility] [place] [address] Care Team Providers Care Head Of History Name Role Phone Brooklynn Kumar MD Primary Care Provider Encounter Details Date Type Department Care Team (Late st Contact Info) Description 11/15/2023 Lab Requisition [facility] LAB [address] [place] [phone] Dandre Cheney MD [address] [place] [address] OF ABD TRANSPLANT SURGERY [place], [place] [phone] Social History Tobacco Use Types Packs/Day Years [...] Management General On track( 022 10:08 AM SAND BLASTER) Nolvia Ramírez, RN Note: Expected end date: [...] Hold HLA Specimen 11/15/2023 2:01 PM CDT [facility] ([facility]) Comment:The Hold HLA specime n has been received into the lab and will be held for 5 years at 4 degrees. Blood BLOOD SPECIMEN / Unknown 11/06/2023 12:32 PM CDT 11/15/2023 12:32 PM CDT Dandre Cheney MD LAB - BLOOD BANK ORD ERABLES [facility] ([facility]) [address] [place] [address], [facility] documented in this encounter Visit Diagnoses Not on filedocumented in this encounter Care Teams Head Of History Relationship Specialty Start Date End Date Brooklynn Kumar MD [address] [place] [address] [place] [address] PCP - General Family Medicine 06/28/20 documented as of this encounter
--- OUTSIDE RECORDS SUMMARY | 2024-05-15 11:46 | XMS_ITS | Encounter Summary ---
Author Organization [facility] Health Address [address] [place] [address] Care Team Providers Care Blood Bank Business Manager Name Role Phone Brooklynn Kumar MD Primary Care Provider Encounter Details Date Type Department Care Team (Late st Contact Info) Description 09/24/2023 Lab Requisition [facility] MAIN LAB [address] [place] [phone] Dandre Cheney MD [address] [place] [address] OF ABD TRANSPLANT SURGERY [place], [place] [phone] Social History Tobacco Use Types Packs/Day Years [...] Management General On track( 022 10:08 AM COLORING ROOM WORKER) Nolvia Ramírez, RN Note: Expected end date: [...] Hold HLA Specimen 09/24/2023 5:02 PM CDT [facility] ([facility]) Comment:The Hold HLA specime n has been received into the lab and will be held for 5 years at 4 degrees. Blood BLOOD SPECIMEN / Unknown 09/18/2023 4:00 PM CDT 09/24/2023 4:00 PM CDT Dandre Cheney MD LAB - BLOOD BANK ORD ERABLES [facility] ([facility]) [address] [place] [address], [facility] documented in this encounter Visit Diagnoses Not on filedocumented in this encounter Care Teams Blood Bank Business Manager Relationship Specialty Start Date End Date Brooklynn Kumar MD [address] [place] [address] [place] [address] PCP - General Family Medicine 06/28/20 documented as of this encounter
--- OUTSIDE RECORDS SUMMARY | 2024-05-15 11:46 | XMS_ITS | Encounter Summary ---
Author Organization [facility] Health Address [address] [facility] [place] [address] Care Team Providers Care Tailings Dam Pumper Name Role Phone Brooklynn Kumar MD Primary Care Provider Encounter Details Date Type Department Care Team (Late st Contact Info) Description 04/04/2023 Lab Requisition [facility] MAIN LAB [address] [place] [phone] Dandre Cheney MD [address] [place] [address] OF ABD TRANSPLANT SURGERY [place], [place] [phone] Social History Tobacco Use Types Packs/Day Years [...] Management General On track( 022 10:08 AM YOLK SPRAY DRIER) Nolvia Ramírez, RN Note: Expected end date: [...] HLA SPECIMEN Routine 03/29/2023 12: 00 PM YOLK SPRAY DRIER documented in this encounter Results * HOLD HLA SPECIMEN (03/29/2023 12:00 PM YOLK SPRAY DRIER) Hold HLA Specimen 04/04/2023 1:01 PM YOLK SPRAY DRIER [facility] ([facility]) Comment:The Hold HLA specime n has been received into the lab and will be held for 5 years at 4 degrees. Blood BLOOD SPECIMEN / Unknown 03/29/2023 12:00 PM YOLK SPRAY DRIER 04/04/2023 12:00 PM YOLK SPRAY DRIER Dandre Cheney MD LAB - BLOOD BANK ORD ERABLES [facility] ([facility]) [address] [place] [address], [facility] documented in this encounter Visit Diagnoses Not on filedocumented in this encounter Care Teams Tailings Dam Pumper Relationship Specialty Start Date End Date Brooklynn Kumar MD [address] [place] [address] PCP - General Family Medicine 06/28/20 documented as of this encounter
--- OUTSIDE RECORDS SUMMARY | 2024-05-15 11:46 | XMS_ITS | Encounter Summary ---
Author Organization [facility] Health Address [address] [facility] [address] Care Team Providers Care Counter Clerk Name Role Phone Brooklynn Kumar MD Primary Care Provider Encounter Details Date Type Department Care Team (Late st Contact Info) Description 03/07/2024 Lab Requisition [facility] MAIN LAB [address] [place] [phone] Dandre Cheney MD [address] [place] [address] OF ABD TRANSPLANT SURGERY [place], [place] [phone] Social History Tobacco Use Types Packs/Day Years [...] Management General On track( 022 10:08 AM BLEACHER LARD) Nolvia Ramírez, RN Note: Expected end date: [...] HLA SPECIMEN Routine 02/28/2024 1:3 9 PM BLEACHER LARD documented in this encounter Results * HOLD HLA SPECIMEN (02/28/2024 1:39 PM BLEACHER LARD) Hold HLA Specimen 03/07/2024 3:00 PM BLEACHER LARD [facility] ([facility]) Comment:The Hold HLA specime n has been received into the lab and will be held for 5 years at 4 degrees. Blood BLOOD SPECIMEN / Unknown 02/28/2024 1:39 PM BLEACHER LARD 03/07/2024 1:39 PM BLEACHER LARD Dandre Cheney MD LAB - BLOOD BANK ORD ERABLES [facility] ([facility]) [address] [place] [address], [facility] documented in this encounter Visit Diagnoses Not on filedocumented in this encounter Care Teams Counter Clerk Relationship Specialty Start Date End Date Brooklynn Kumar MD [address] [place] [address] PCP - General Family Medicine 06/28/20 documented as of this encounter
--- OUTSIDE RECORDS SUMMARY | 2024-05-15 11:46 | XMS_ITS | Encounter Summary ---
Author Organization [facility] Health Address [address] [place] [address] Care Team Providers Care Oil Spraying Machine Operator Name Role Phone Brooklynn Kumar MD Primary Care Provider Encounter Details Date Type Department Care Team (Late st Contact Info) Description 09/04/2023 Lab Requisition [facility] MAIN LAB [address] [place] [phone] Dandre Cheney MD [address] [place] [address] OF ABD TRANSPLANT SURGERY [place], [place] [phone] Social History Tobacco Use Types Packs/Day Years [...] Management General On track( 022 10:08 AM INTERVIEWING CLERK) Nolvia Ramírez, RN Note: Expected end date: [...] Hold HLA Specimen 09/04/2023 2:01 PM CDT [facility] ([facility]) Comment:The Hold HLA specime n has been received into the lab and will be held for 5 years at 4 degrees. Blood BLOOD SPECIMEN / Unknown 08/28/2023 12:52 PM CDT 09/04/2023 12:52 PM CDT Dandre Cheney MD LAB - BLOOD BANK ORD ERABLES [facility] ([facility]) [address] [place] [address], [facility] documented in this encounter Visit Diagnoses Not on filedocumented in this encounter Care Teams Oil Spraying Machine Operator Relationship Specialty Start Date End Date Brooklynn Kumar MD [address] [place] [address] [place] [address] PCP - General Family Medicine 06/28/20 documented as of this encounter
--- OUTSIDE RECORDS SUMMARY | 2024-05-15 11:46 | XMS_ITS | Encounter Summary ---
Author Organization [facility] Address [address] [place] [address] Care Team Providers Care Second Helper Name Role Phone Brooklynn Kumar MD Primary Care Provider Encounter Details Date Type Department Care Team (Late st Contact Info) Description 11/06/2022 Telephone [facility] - Centralized Scheduling [address] [place] [address] Peng Loera MD [address] OF PULMONARY/[place] [address] Social History Tobacco Use Types [...] to get rescheduled. Patient Call Back number: [phone] documented in this encounter Plan of Treatment Not on file documented as of this encounter Goals Goal Patient Goal Type Associated Problems Recent Progress Patient-Stated? Author Medication Management General On track( 022 10:08 AM ASSISTANT FARM OPERATIONS MANAGER) No Nolvia Leonard, ABIODUN Note: Expected end date: ongoing Interventions: Take all medications as prescribed Let your doctor know right away about any changes in your medications Make sure to request a refill of your medication at least one week prior to your last dose documented as of this encounter Visit Diagnoses Not on filedocumented in this encounter Care Teams Second Helper Relationship Specialty Start Date End Date Brooklynn Kumar MD [address] [place] [address] PCP - General Family Medicine 06/28/20 documented as of this encounter
--- OUTSIDE RECORDS SUMMARY | 2024-05-15 11:46 | XMS_ITS | Encounter Summary ---
Author Organization [facility] Health Address [address] [place] [address] Care Team Providers Care Finishing Supervisor Plastic Sheets Name Role Phone Brooklynn Kumar MD Primary Care Provider Encounter Details Date Type Department Care Team (Late st Contact Info) Description 03/09/2023 Lab Requisition [facility] [address] [place] [id number] Dandre Cheney MD [address] [place] [address] OF ABD TRANSPLANT SURGERY [place], [place] [id number] Social History Tobacco Use Types Packs/Day Years [...] Management General On track( 022 10:08 AM FIELD SOFTWARE ENGINEER) Nolvia Ramírez, RN Note: Expected end date: [...] HLA SPECIMEN Routine 03/01/2023 12: 00 PM FIELD SOFTWARE ENGINEER documented in this encounter Results * HOLD HLA SPECIMEN (03/01/2023 12:00 PM FIELD SOFTWARE ENGINEER) Hold HLA Specimen 03/09/2023 4:01 PM FIELD SOFTWARE ENGINEER [facility] ([facility]) Comment:The Hold HLA specime n has been received into the lab and will be held for 5 years at 4 degrees. Blood BLOOD SPECIMEN / Unknown 03/01/2023 12:00 PM FIELD SOFTWARE ENGINEER 03/09/2023 2:39 PM FIELD SOFTWARE ENGINEER Dandre Cheney MD LAB - BLOOD BANK ORD ERABLES [facility] ([facility]) [address] [place] [address], [facility] documented in this encounter Visit Diagnoses Not on filedocumented in this encounter Care Teams Finishing Supervisor Plastic Sheets Relationship Specialty Start Date End Date Brooklynn Kumar MD [address] [place] [address] PCP - General Family Medicine 06/28/20 documented as of this encounter
--- OUTSIDE RECORDS SUMMARY | 2024-05-15 11:46 | XMS_ITS | Encounter Summary ---
Author Organization [facility] Health Address [address] [facility] [place] [address] Care Team Providers Care Nutritional Yeast Supervisor Name Role Phone Brooklynn Kumar MD Primary Care Provider Encounter Details Date Type Department Care Team (Late st Contact Info) Description 04/30/2023 Lab Requisition [facility] [address] [place] [id number] Dandre Cheney MD [address] [place] [address] OF ABD TRANSPLANT SURGERY [place], [place] [id number] Social History Tobacco Use Types Packs/Day Years [...] Management General On track( 022 10:08 AM PETROLEUM REFINERY WORKER) Nolvia Ramírez, RN Note: Expected end [...] Hold HLA Specimen 04/30/2023 11:31 AM CDT [facility] ([facility]) Comment:The Hold HLA specime n has been received into the lab and will be held for 5 years at 4 degrees. Blood BLOOD SPECIMEN / Unknown 04/24/2023 10:17 AM CDT 04/30/2023 10:17 AM CDT Dandre Cheney MD LAB - BLOOD BANK ORD ERABLES [facility] ([facility]) [address] [place] [address], [facility] documented in this encounter Visit Diagnoses Not on filedocumented in this encounter Care Teams Nutritional Yeast Supervisor Relationship Specialty Start Date End Date Brooklynn Kumar MD [address] [place] [address] PCP - General Family Medicine 06/28/20 documented as of this encounter
--- OUTSIDE RECORDS SUMMARY | 2024-05-15 11:48 | XMS_ITS | Encounter Summary ---
Author Organization [facility] Address [address] [facility] [place] [address] Care Team Providers Care Advanced Developer Name Role Phone Georgie Paz MD Primary Care Provider [phone] Brooklynn Kumar MD Primary Care Provider Encounter Details Date Type Department Care Team (Late st Contact Info) Description 02/27/2019 Telephone [facility] [address] [place] [address] Ju Carson RN Social History [...] arrival time, pre proc instr, and CB# BRUSHER documented in this encounter Plan of Treatment Not on file documented as of this encounter Visit Diagnoses Not on filedocumented in this encounter Care Teams Advanced Developer Relationship Specialty Start Date End Date Georgie Paz MD PCP - General Family Medicine 11/08/18 06/27/20 Brooklynn Kumar MD [address] [place] [address] PCP - General Family Medicine 06/28/20 documented as of this encounter
== END 2024-05-15 10:50 | disposition home or self-care (01) ==
PROVIDERS: PCP Family Medicine; Visit Provider Internal Medicine Pulmonary Disease
DX: R06.09 Other forms of dyspnea (principal); J84.10 Pulmonary fibrosis, unspecified; J90 Pleural effusion, not elsewhere classified
CPT/HCPCS: 71250

== ENCOUNTER 2024-10-10 09:30 | Outpatient (RCR) | payer MEDICARE, SELFPAY ==
[2024-06-20 12:02] VITALS: PULSE 78
== END 2024-10-10 23:59 | disposition home or self-care (01) ==
LOC: ANHCPREHAB 09:30
PROVIDERS: PCP Family Medicine; Visit Provider Internal Medicine Pulmonary Disease
DX: J96.91 Respiratory failure, unspecified with hypoxia (principal)
CPT/HCPCS: 94625

== ENCOUNTER 2025-01-23 13:30 | Outpatient (RCR) | payer MEDICARE, SELFPAY ==
[2024-10-19 00:03] VITALS: PULSE 78
== END 2025-01-23 23:59 | disposition home or self-care (01) ==
LOC: ANHCPREHAB 13:30
PROVIDERS: PCP Family Medicine; Visit Provider Internal Medicine Pulmonary Disease
DX: J96.91 Respiratory failure, unspecified with hypoxia (principal)
CPT/HCPCS: 94625